=== PATIENT | female | born 1955 | race Caucasian/White ===

== ENCOUNTER → 2017-08-31 16:12 | Outpatient (CLI) | payer BC, MEDICARE, SELFPAY ==
[2017-08-31 16:37] LABS: Basophils % 0.6 % (0.1-2.0); Eosinophils # 0.3 K/mm3 (0.0-0.4); Eosinophils % 3.6 % (0.1-12.0); Hematocrit 45.5 % (37.0-47.0); Hemoglobin 14.2 g/dL (12.2-16.2); Lymphocytes # 2.8 K/mm3 (0.7-4.5); Lymphocytes % 39.7 K/mm3 (10-50); Mean Corpuscular HGB Conc 31.3 g/dL (31.8-35.4); Mean Corpuscular Hemoglobin 29.3 pg (27.0-31.2); Mean Corpuscular Volume 93.7 fl (81-99); Mean Platelet Volume 8.2 fl (7.4-10.4); Monocytes # 0.4 K/mm3 (0.1-1.0); Monocytes % 5.7 % (1.7-9.3); Neutrophils # 3.5 K/mm3 (1.8-7.8); Neutrophils % 50.4 % (37.0-80.0); Platelet Count 201 K/mm3 (142-424); Red Blood Count 4.85 M/mm3 (4.20-5.40); Red Cell Distribution Width 12.8 % (11.5-17.5)
[2017-08-31 17:01] LABS: Alanine Aminotransferase 19 U/L (12-78); Albumin Level 4.4 gm/dL (3.4-5.0); Albumin/Globulin Ratio 1.1 (1.1-1.8); Alkaline Phosphatase 87 U/L (46-116); Aspartate Amino Transferase 20 U/L (15-37); Bilirubin,Total 0.2 mg/dL (0.2-1.0); Blood Urea Nitrogen 26 mg/dL (7-18); Calcium 9.4 mg/dL (8.5-10.1); Carbon Dioxide 29 mmol/L (21.0-32.0); Chloride 106 mmol/L (98-107); Creatine Kinase 127 U/L (26-192); Creatine Kinase MB 1.3 ng/ml (0.0-3.6); Creatinine,Serum 1.14 mg/dL (0.55-1.02); Estimated Glomerular Filt Rate 48 ml/min (>60); GFR (African American) 58 ML/MIN (>60); Globulin 4.1 gm/dl (1.3-3.2); Glucose 84 mg/dL (74-106); Sodium 141 mmol/L (136-145); Total Protein,Serum 8.5 gm/dL (6.4-8.2); Troponin I < 0.02 ng/ml (0.00-0.06)
[2017-08-31 17:09] LABS: D-Dimer < 100 ng/mL (0-400)
== END ==
PROVIDERS: Visit Provider Internal Medicine Adolescent Medicine
DX: R07.1 Chest pain on breathing (principal)
CPT/HCPCS: 36415; 80053; 82550; 82553; 84484; 85025; 85378

== ENCOUNTER → 2017-10-28 13:14 | Outpatient (CLI) | payer BC, MEDICARE, SELFPAY ==
--- NOTE | 2017-10-28 13:27 | XR_ITS ---
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 Joint spaces well-maintained. . The right femoral head and neck are intact. Would note some minor hypertrophic ridging about the superior base of the femoral head bilaterally at both hips subcapital region. This reflects some minor chronic degenerative change. Bones well mineralized AP PELVIS is intact... Unremarkable otherwise. Superior and inferior ramus intact.. Sacrum and SI joints unremarkable . Prominent stool is seen at the low-lying cecum and generous gas & stool rectosigmoid as well IMPRESSION: Hip joint spaces intact. Specifically right hip joint spaces well-maintained. Only note Minor hypertrophic ridging at along the base of the femoral head bilaterally reflecting some mild degenerative changes.
== END ==
PROVIDERS: PCP Internal Medicine Adolescent Medicine
DX: M47.896 Other spondylosis, lumbar region (principal); M54.16 Radiculopathy, lumbar region
CPT/HCPCS: 73502

== ENCOUNTER → 2018-04-12 08:21 | Outpatient (CLI) | payer BC, MEDICARE, SELFPAY ==
--- NOTE | 2018-04-12 08:24 | US_ITS ---
US abdomen limited History: Right upper quadrant pain Ordering Physician:Toni Palmer MD Patient Age: 62 years Comparison:None Findings: Pancreas:Unremarkable. No obvious mass or abnormal fluid collection. No ductal dilatation Liver:No focal liver lesions demonstrated. Homogeneous echogenicity. No intrahepatic biliary ductal dilatation evident Right Kidney:Unremarkable. Normal size and echogenicity. No hydronephrosis Gallbladder:No gallstones, pericholecystic fluid, or gallbladder wall thickening. Common bile duct is upper normal at 7 mm. Impression:Negative gallbladder/right upper quadrant ultrasound
== END ==
PROVIDERS: PCP Internal Medicine Adolescent Medicine; Visit Provider Internal Medicine Adolescent Medicine
DX: R10.11 Right upper quadrant pain (principal)
CPT/HCPCS: 76705

== ENCOUNTER → 2018-04-27 10:09 | Outpatient (CLI) | payer BC, MEDICARE, SELFPAY ==
--- NOTE | 2018-04-27 10:13 | NM_ITS ---
A I brought up minus HEPATOBILIARY SCAN WITH FATTY MEAL/ENSURE ORDERING PHYSICIAN : Toni Palmer MD PATIENT AGE: 62 years GENDER: Female HISTORY: Right upper quadrant pain and nausea Following 8.58 millicuries Tc Choletec,1048 AM , images of the RUQ were obtained. There is prompt uptake of radionuclide by the liver which is grossly unremarkable. Small bowel is visualized. This initial portion of the study is normal. The gallbladder was allowed to fill out to 60 minutes. Fatty meal/ 1 can of ensure over administered, with imaging performed over 60 minutes thereafter.. The obtain data was analyzed and reveals a 75% gallbladder ejection fraction (normal greater than 50%; borderline 35-50%). Thus This is normal value . Visual inspection which supports that there is adequate contraction of the gallbladder as well as, at least over 50-60%. Patient no pain after drinking einsure IMPRESSION: Normal biliary scan Normal functioning gallbladder. 75% % gallbladder ejection fraction by computer analysis. No pain with fatty meal.
== END ==
PROVIDERS: PCP Internal Medicine Adolescent Medicine; Visit Provider Internal Medicine Adolescent Medicine
DX: R10.11 Right upper quadrant pain (principal)
CPT/HCPCS: 78226; A9537

== ENCOUNTER → 2018-06-15 12:57 | Outpatient (CLI) | payer BC, MEDICARE, SELFPAY ==
--- NOTE | 2018-06-15 13:05 | XR_ITS ---
EXAM: XR lumbar spine min 4V HISTORY: ITS.REASON: LUMBAR PAIN ORDERING PHYSICIAN: Toni Palmer MD PATIENT AGE: 62 years COMPARISON: 02/08/2016 FINDINGS: A prior kyphoplasty along the right aspect of L1 with chronic wedge compression changes of L1 with loss of height of approximately 50% with mild retropulsion of the posterior supra aspect of L1 with minimal kyphosis at T12-L1. No acute fracture or dislocation is evident. IMPRESSION: Chronic wedge compression changes at L1 status post prior kyphoplasty. No acute finding
== END ==
PROVIDERS: PCP Internal Medicine Adolescent Medicine; Visit Provider Internal Medicine Adolescent Medicine
DX: M54.5 Low back pain (principal)
CPT/HCPCS: 72110

== ENCOUNTER → 2018-08-02 14:09 | Outpatient (CLI) | payer BC, MEDICARE, SELFPAY ==
[2018-08-02 14:41] LABS: Basophils % 0.5 % (0.1-2.0); Eosinophils # 0.2 K/mm3 (0.0-0.4); Eosinophils % 2.9 % (0.1-12.0); Hematocrit 40.9 % (37.0-47.0); Hemoglobin 13.5 g/dL (12.2-16.2); Lymphocytes # 2.6 K/mm3 (0.7-4.5); Lymphocytes % 36.3 % (10-50); Mean Corpuscular Hemoglobin 29.4 pg (27.0-31.2); Mean Corpuscular Volume 89.2 fl (81-99); Mean Platelet Volume 7.4 fl (7.4-10.4); Monocytes # 0.4 K/mm3 (0.1-1.0); Monocytes % 6.1 % (1.7-9.3); Neutrophils # 3.9 K/mm3 (1.8-7.8); Neutrophils % 54.1 % (37.0-80.0); Platelet Count 224 K/mm3 (142-424); Red Blood Count 4.58 M/mm3 (4.20-5.40); Red Cell Distribution Width 12.7 % (11.5-17.5); White Blood Count 7.3 K/mm3 (4.8-10.8)
[2018-08-02 16:05] LABS: Blood Urea Nitrogen 14 mg/dL (7-18); Creatinine,Serum 1.04 mg/dL (0.55-1.02); Estimated Glomerular Filt Rate 54 ml/min (>60); GFR (African American) 65 ML/MIN (>60)
[2018-08-02 16:10] LABS: Alanine Aminotransferase 18 U/L (12-78); Albumin Level 4.1 gm/dL (3.4-5.0); Albumin/Globulin Ratio 1.1 (1.1-1.8); Alkaline Phosphatase 101 U/L (46-116); Amylase 114 U/L (25-115); Anion Gap 14.7 mEq/L (5-15); Aspartate Amino Transferase 20 U/L (15-37); Bilirubin,Total 0.4 mg/dL (0.2-1.0); Blood Urea Nitrogen 15 mg/dL (7-18); Calcium 9.7 mg/dL (8.5-10.1); Carbon Dioxide 29 mmol/L (21.0-32.0); Chloride 99 mmol/L (98-107); Creatinine,Serum 1.04 mg/dL (0.55-1.02); Estimated Glomerular Filt Rate 54 ml/min (>60); GFR (African American) 65 ML/MIN (>60); Globulin 3.8 gm/dl (1.3-3.2); Glucose 123 mg/dL (74-106); Lipase 76 u/L (73-393); Potassium 4.7 mmoL/L (3.5-5.1); Sodium 138 mmol/L (136-145); Total Protein,Serum 7.9 gm/dL (6.4-8.2)
== END ==
PROVIDERS: Visit Provider Surgery
DX: R10.9 Unspecified abdominal pain (principal)
CPT/HCPCS: 36415; 80053; 82150; 82565; 83690; 84520; 85025

== ENCOUNTER → 2018-08-08 10:10 | Outpatient (CLI) | payer BC, MEDICARE, SELFPAY ==
--- NOTE | 2018-08-08 10:11 | CT_ITS ---
CT abdomen pelvis w con CLINICAL INDICATION: Right-sided abdominal pain ITS.REASON: abdominal pain ORDERING PHYSICIAN: Raj Reynaga MD PATIENT AGE: 62 years COMPARISON: 11/13/2016 TECHNIQUE: Axial images obtained with sagittal and coronal reformats. All CT scans at the facility use one or more dose reduction, viz: automated exposure control, ma/kV adjustment per patient size (including targeted exams where dose is matched to indication, i.e. head), or iterative reconstruction technique. PROCEDURE: Oral Contrast: Redicat IV Contrast: 75 mL's Optiray 350. FINDINGS: No acute finding in the lung bases. The liver, adrenal glands, pancreas, and kidneys have an unremarkable appearance. There is an isodensity in the lateral aspect of the spleen at 12 mm nonspecific. Not significant change dating back to 02/08/2016. There is dilatation of the intra and extrahepatic biliary radicals. Common bile duct measures up to 11 mm. There is narrowing of the common bile but distally. Stricture or lesion of the distal common bile duct separation. Pancreatic duct is not significant dilated. No radio opaque common duct stones are evident. This has been a persistent finding on the CT scan dating back to 02/08/2016. No radio opaque gallstones are evident. There is a moderate amount retained colonic feces. No intestinal obstruction or free air. The appendix is not clearly delineated. No evidence of appendicitis or diverticulitis. No pelvic mass abnormal fluid collection or focal inflammatory change of the pelvis. There is minimal dilatation of the mid abdominal aorta 2.2 cm There is chronic wedge compression changes at L1. No acute bony anomalies are evident. IMPRESSION: 1. Continued prominent common bile duct not significantly changed. This may be better dilated with MRCP if clinically warranted 2. Constipation. 3. Stable isodense lesion of the spleen
== END ==
PROVIDERS: PCP Internal Medicine Adolescent Medicine; Visit Provider Surgery
DX: R10.11 Right upper quadrant pain (principal)
CPT/HCPCS: 74177; Q9967

== ENCOUNTER → 2018-09-04 08:18 | Outpatient (CLI) | payer BC, MEDICARE, SELFPAY ==
--- NOTE | 2018-09-04 08:21 | MR_ITS ---
MR abdomen wo con, MR 3-d myelogram/MRCP CLINICAL INDICATION: Biliary ductal dilatation follow-up, right-sided abdominal pain ITS.REASON: MRCP-dilated bile ducts ORDERING PHYSICIAN: Raj Reynaga MD PATIENT AGE: 62 years Comparison: 08/08/2018 TECHNIQUE: Routine multiplanar multiecho sequences are performed without contrast. MRCP images also generated and reviewed. FINDINGS: There is mild prominence of the intra and extrahepatic biliary radicals. No common duct stone is evident. No obvious pancreatic mass. The pancreatic duct is normal in caliber. The liver, and kidneys have an unremarkable appearance. There is mild degree of motion artifact which does somewhat obscure fine detail. There is a nonspecific macrolobulated area of increased STIR signal involving the spleen corresponding to the area of decreased attenuation on the CT scan. IMPRESSION: 1. No evidence of choledocholithiasis. 2. There is mild prominence of the common bile duct and intrahepatic biliary radicles. Common bile duct measures up to 9 mm. No obvious pancreatic mass. No pancreatic ductal dilatation.
--- NOTE | 2018-09-04 09:34 | XR_ITS ---
EXAM: Repeat xray view HISTORY: ITS.REASON: LUMBAR PAIN ORDERING PHYSICIAN: Raj Reynaga MD PATIENT AGE: 62 years COMPARISON: 06/15/2018 FINDINGS: There has been prior vertebroplasty at the L1 level with mild wedging of L1 similar to the previous exam. There is mild degenerative disc disease at L2-L3 L4-L5 and L5-S1. No acute fracture or dislocation evident. No lytic or blastic change. IMPRESSION: No change in the mild wedge compression changes of L1 status post vertebroplasty with degenerative changes of the lumbar spine. No acute finding
== END ==
PROVIDERS: PCP Internal Medicine Adolescent Medicine; Visit Provider Surgery
DX: K83.8 Other specified diseases of biliary tract (principal)
CPT/HCPCS: 72110; 74181; 76376

== ENCOUNTER → 2018-10-25 11:09 | Outpatient (CLI) | payer BC, MEDICARE, SELFPAY ==
--- NOTE | 2018-10-25 11:15 | XR_ITS ---
XR foot wt bearing LT 3V HISTORY: ITS.REASON: pain ORDERING PHYSICIAN: Antonette Alvarenga DPM PATIENT AGE: 63 years COMPARISON: None FINDINGS: No fracture or dislocation. No lytic or blastic change. There is normal mineralization.. The joint spaces are well-preserved. No significant degenerative/arthritic changes. No erosive changes evident. IMPRESSION: Negative, no acute finding
--- NOTE | 2018-10-25 11:15 | XR_ITS ---
XR ankle wt bearing LT min 3V HISTORY: ITS.REASON: pain ORDERING PHYSICIAN: Antonette Alvarenga DPM PATIENT AGE: 63 years Comparison: None FINDINGS: No fracture or dislocation. No lytic or blastic change. There is normal mineralization.. The joint spaces are well-preserved. No significant degenerative/arthritic changes. No erosive changes evident. IMPRESSION: Negative ankle, no acute finding
--- NOTE | 2018-10-25 11:15 | XR_ITS ---
XR foot wt bearing RT 3V HISTORY: ITS.REASON: pain ORDERING PHYSICIAN: Antonette Alvarenga DPM PATIENT AGE: 63 years COMPARISON: None FINDINGS: No fracture or dislocation. No lytic or blastic change. There is normal mineralization.. The joint spaces are well-preserved. No significant degenerative/arthritic changes. No erosive changes evident. IMPRESSION: Negative, no acute finding
--- NOTE | 2018-10-25 11:15 | XR_ITS ---
XR ankle wt bearing RT min 3V HISTORY: ITS.REASON: pain ORDERING PHYSICIAN: Antonette Alvarenga DPM PATIENT AGE: 63 years Comparison: None FINDINGS: No fracture or dislocation. No lytic or blastic change. There is normal mineralization.. The joint spaces are well-preserved. No significant degenerative/arthritic changes. No erosive changes evident. IMPRESSION: Negative ankle, no acute finding
== END ==
PROVIDERS: PCP Internal Medicine Adolescent Medicine; Visit Provider Podiatrist
DX: R52 Pain, unspecified (principal)
CPT/HCPCS: 73610; 73630

== ENCOUNTER → 2018-11-10 07:36 | Outpatient (CLI) | payer BC, MEDICARE, SELFPAY ==
--- NOTE | 2018-11-10 07:49 | MR_ITS ---
MR lumbar spine wo con HISTORY: Low back pain with bilateral leg pain numbness and tingling ITS.REASON: BACK PAIN ORDERING PHYSICIAN: Jaleel Duenas MD PATIENT AGE: 63 years Comparison: 09/09/1714 TECHNIQUE: Standard multiplanar multiecho sequences are performed without contrast. 3-D MIP and myelographic images are also rendered and reviewed FINDINGS: There is normal alignment. The spinal cord ends at the L1 level. T10-T11: Mild degenerative disc disease. T11-T12: Mild degenerative disc disease. T12-L1: There is moderate wedging involving the central and anterior aspect of the L1 vertebral body which appears chronic and had a similar appearance on 09/16/2014. Is mild buckling of the posterior and superior cortex of L1 with mild retrolisthesis of 3 mm not significant change. No neural impingement. L1-L2: Mild degenerative disc disease with minimal bulging disc. L2-L3: Mild facet ligamentum flavum hypertrophy with mild bilateral lateral recess and foraminal narrowing. L3-L4: Bulging disc with moderate facet and ligamentum hypertrophy with moderate bilateral lateral recess and foraminal narrowing with canal stenosis. L4-L5: Degenerative disc disease with bulging disc along with facet and ligamentum flavum hypertrophy with moderate bilateral foraminal narrowing. L5-S1: There is a transitional segment at L5-S1 with partial sacralization of L5. IMPRESSION: 1. Abnormal MRI of the lumbar spine. Multilevel lumbar spondylosis with degenerative disc disease and facet and ligamentum flavum hypertrophy with lateral recess and foraminal narrowing. PLEASE SEE ABOVE FOR DETAILED DESCRIPTION AT EACH LEVEL. 2. Chronic wedge compression changes of L1 not significant change. 3. Canal stenosis with bilateral lateral recess and foraminal narrowing at L3-L4 not significantly changed
[2018-11-10 15:51] LABS: Basophils # 0.1 K/mm3 (0-0.2); Basophils % 0.8 % (0.1-2.0); Eosinophils # 0.4 K/mm3 (0.0-0.4); Eosinophils % 4.5 % (0.1-12.0); Hematocrit 41.5 % (37.0-47.0); Hemoglobin 12.8 g/dL (12.2-16.2); Lymphocytes # 2.9 K/mm3 (0.7-4.5); Lymphocytes % 36.5 % (10-50); Mean Corpuscular HGB Conc 30.8 g/dL (31.8-35.4); Mean Corpuscular Hemoglobin 26.8 pg (27.0-31.2); Mean Platelet Volume 7.5 fl (7.4-10.4); Monocytes # 0.4 K/mm3 (0.1-1.0); Monocytes % 5.4 % (1.7-9.3); Neutrophils # 4.2 K/mm3 (1.8-7.8); Neutrophils % 52.8 % (37.0-80.0); Platelet Count 235 K/mm3 (142-424); Red Blood Count 4.77 M/mm3 (4.20-5.40); Red Cell Distribution Width 12.3 % (11.5-17.5); White Blood Count 7.9 K/mm3 (4.8-10.8)
[2018-11-10 16:29] LABS: Erythrocyte Sedimentation Rate 18 mm/hr (0-30)
[2018-11-10 16:50] LABS: Alanine Aminotransferase 25 U/L (12-78); Albumin/Globulin Ratio 1.1 (1.1-1.8); Alkaline Phosphatase 108 U/L (46-116); Anion Gap 11.7 mEq/L (5-15); Aspartate Amino Transferase 19 U/L (15-37); Bilirubin,Total 0.3 mg/dL (0.2-1.0); Blood Urea Nitrogen 14 mg/dL (7-18); Calcium 9.3 mg/dL (8.5-10.1); Carbon Dioxide 31 mmol/L (21.0-32.0); Chloride 102 mmol/L (98-107); Creatinine,Serum 1.04 mg/dL (0.55-1.02); Estimated Glomerular Filt Rate 53 ml/min (>60); GFR (African American) 65 ML/MIN (>60); Globulin 3.6 gm/dl (1.3-3.2); Glucose 103 mg/dL (74-106); Potassium 4.7 mmoL/L (3.5-5.1); Sodium 140 mmol/L (136-145); Total Protein,Serum 7.6 gm/dL (6.4-8.2)
[2018-11-14 10:12] LABS: Anti-Centromere B Antibodies <0.2 AI (0.0-0.9); Anti-Jo-1 <0.2 AI (0.0-0.9); Anti-Smith Antibody <0.2 AI (0.0-0.9); Antichromatin Antibodies <0.2 AI (0.0-0.9); Antiscleroderma-70 Antibodies <0.2 AI (0.0-0.9); RNP Antibodies <0.2 AI (0.0-0.9); Sjogren's Anti-SS-A 0.2 AI (0.0-0.9); Sjogren's Anti-SS-B <0.2 AI (0.0-0.9)
[2018-11-14 11:11] LABS: Anti-Cyclic Citrullinated Pept 5 units (0-19)
[2018-11-15 17:37] LABS: Anti-DNA (DS) Ab Qn <1 IU/mL (0-9)
== END ==
PROVIDERS: PCP Internal Medicine Adolescent Medicine; Visit Provider Anesthesiology
DX: M51.17 Intervertebral disc disorders with radiculopathy, lumbosacral region (principal); M19.91 Primary osteoarthritis, unspecified site; M19.049 Primary osteoarthritis, unspecified hand
CPT/HCPCS: 36415; 72148; 76376; 80053; 85025; 85651; 86038; 86200; 86225; 86235

== ENCOUNTER → 2018-11-13 12:01 | Outpatient (CLI) | payer BC, MEDICARE, SELFPAY ==
--- NOTE | 2018-11-13 12:09 | XR_ITS ---
XR hand RT min 3V HISTORY: ITS.REASON: ARTHRITIS ORDERING PHYSICIAN: Toni Palmer MD PATIENT AGE: 63 years COMPARISON: None FINDINGS: No fracture or dislocation. No lytic or blastic change. There is normal mineralization.. There is severe narrowing with mild spurring at the first carpal/metacarpal joint.. 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
--- NOTE | 2018-11-13 12:09 | XR_ITS ---
XR hand LT min 3V HISTORY: ITS.REASON: ARTHRITIS ORDERING PHYSICIAN: Toni Palmer MD PATIENT AGE: 63 years COMPARISON: None FINDINGS: No fracture or dislocation. No lytic or blastic change. There is normal mineralization.. There is severe narrowing and mild spurring at the first carpal/metacarpal joint.. IMPRESSION: No acute process. Osteoarthritis at the first carpal/metacarpal joint.
== END ==
PROVIDERS: PCP Internal Medicine Adolescent Medicine; Visit Provider Internal Medicine Adolescent Medicine
DX: M19.041 Primary osteoarthritis, right hand (principal); M19.042 Primary osteoarthritis, left hand
CPT/HCPCS: 73130

== ENCOUNTER → 2018-12-26 07:39 | Outpatient (CLI) | payer BC, MEDICARE, SELFPAY ==
[2018-12-26 08:08] LABS: Blood Urea Nitrogen 18 mg/dL (7-18); Creatinine,Serum 1.11 mg/dL (0.55-1.02); Estimated Glomerular Filt Rate 49 ml/min (>60); GFR (African American) 60 ML/MIN (>60)
--- NOTE | 2018-12-26 08:37 | MR_ITS ---
MR foot LT wo/w con CLINICAL INDICATION: Ganglionic cyst of both feet, soft tissue mass, pain and swelling, osteoarthritis, hallux valgus, chronic ankle pain ITS.REASON: Ganglion Cyst ORDERING PHYSICIAN: Antonette Alvarenga DPM PATIENT AGE: 63 years Comparison: None TECHNIQUE: Routine multiplanar multiecho sequences are performed without and with gadolinium enhancement FINDINGS: A marker is placed along the dorsal lateral aspect of the proximal foot and is superficial to the extensor digitorum longus tendon. The tendon has an unremarkable appearance. Deep to the tendon and contiguous with the talonavicular joint space is a lobular area of fluid collection measuring 2 cm AP, 2 cm cephalad to caudad, and 1 cm transverse. This has more the appearance of an ankle joint effusion as opposed to a ganglionic cyst. Similar fluid collection is noted along the posterior talocalcaneal joint. There is a type II os navicularis with some mild bone marrow edema at the pseudoarticulation. The tibialis posterior inserts upon the accessory ossicle. No ligamentous or tendinous abnormalities apparent. IMPRESSION: 1. Lobular fluid collection deep to the extensor digitorum longus tendon contiguous with the joint space of the talonavicular joint and may nearly represent a joint effusion. Differential diagnosis would include ganglionic cyst. There is also joint effusion of the talocalcaneal joint. 2. 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 Please correlate with clinical findings
--- NOTE | 2018-12-26 08:37 | MR_ITS ---
MR foot RT wo/w con CLINICAL INDICATION: Ganglionic cyst, soft tissue mass dorsal lateral aspect of foot and ankle over the extensor tendon, pain and swelling Primary osteoarthritis of the feet, acquired hallux valgus, chronic ankle pain, chronic acquired hammertoes and equinus deformity, foot pain ITS.REASON: Ganglion Cyst ORDERING PHYSICIAN: Antonette Alvarenga DPM PATIENT AGE: 63 years Comparison: None TECHNIQUE: Routine multiplanar multiecho sequences are performed without and with contrast. A marker is placed over the dorsal lateral aspect of the foot at the region of palpable abnormality. FINDINGS: The marker is placed over the extensor digitorum tendon. There is a small broad-based area of fluid signal intensity just deep to the placed marker at the extensor digitorum tendon region and may be due to small broad-based ganglionic cyst.. This area measures approximately 1.9 x 1.2 cm and is not well circumscribed. No abnormal enhancement Simple subcutaneous fluid collection is also a consideration.. The remaining tendons have an unremarkable appearance. No obvious ligamentous abnormalities. IMPRESSION: Small ill-defined area of subcutaneous fluid collection about the extensor digitorum longus along the dorsal lateral aspect of the proximal foot corresponding to the palpable abnormality and may represent a ganglion cyst.
--- NOTE | 2018-12-26 10:31 | HMH.ITSHM ---
Current Home Medications as stated by this patient Orlin Cook or administrative representative. []CLONIDINE MORPHINE PROPRANOLOL ATENOLOL
== END ==
PROVIDERS: Visit Provider Podiatrist
DX: M67.471 Ganglion, right ankle and foot (principal); M67.472 Ganglion, left ankle and foot
CPT/HCPCS: 36415; 73720; 82565; 84520; A9576

== ENCOUNTER → 2018-12-27 10:55 | Outpatient (CLI) | payer BC, MEDICARE, SELFPAY ==
--- NOTE | 2018-12-27 10:56 | US_ITS ---
US Arterial Lower Ext Rest History: ITS.REASON: skin changes, current smoker, hypertension, decreased pulses bilaterally ORDERING PHYSICIAN: Antonette Alvarenga DPM PATIENT AGE: 63 years TECHNIQUE: Segmental pressures obtained of both right and left leg. These are compared to brachial blood pressure to yield index at each level sampled including summary KATIE. The data sheets from the procedure are available in PACS FINDINGS Rest study only performed today No prior studies available for comparison. Blood pressures reported are in millimeters mercury. RIGHT LEG KATIE = 1.0. RIGHT LEG TBI=0.8 Brachial BP: 135 Thigh BP: 140 Calf BP: 135 Ankle PT: 139 Ankle DP : 134 Digit =107 LEFT LEG KATIE = 1.0 LEFT LEG TBI= 0.8 Brachial BPD: 134 Thigh BP: 137 Calf BP: 136 Ankle PT:141 Ankle DP: 134 Digit = 111 Pulses and waveforms: Normal IMPRESSION: The ABIs as reported above are within normal limits. Waveforms and pulses are also unremarkable.
== END ==
PROVIDERS: PCP Internal Medicine Adolescent Medicine; Visit Provider Podiatrist
DX: R09.89 Other specified symptoms and signs involving the circulatory and respiratory systems (principal)
CPT/HCPCS: 93923

== ENCOUNTER → 2019-01-16 14:28 | Outpatient (CLI) | payer BC, MEDICARE, SELFPAY ==
--- NOTE | 2019-01-16 14:32 | XR_ITS ---
PROCEDURE: XR CHEST 2V CLINICAL HISTORY: SMOKER, HTN, PRE OP FINDINGS: The cardiomediastinal silhouette and pulmonary vascularity are within normal limits. The lungs are clear without infiltrates, suspicious nodules, or pleural effusions. There are bilateral breast implants present somewhat obscuring mid lung bellamy. Chronic compression fractures present involving L1. IMPRESSION: No acute findings. Dictated by: Addy Phillips MD 01/16/2019 17:05 Signed by: <Electronically signed by Addy Phillips MD in [facility]> 01/16/2019 17:05
--- NOTE | 2019-01-16 14:59 | ECG_ITS ---
APPROVED REPORT Exam: Resting ECG HR:52 bpm ECG Measurements Heart Rate 52 AXES AZ 172 P 74 QRSd 80 QRS 52 QT 418 T 54 QTc 388 <Conclusion> Sinus bradycardia Ow ECG Electronically signed by : Toni Palmer, 01/16/2019 17:13:09
[2019-01-16 15:04] LABS: Basophils # 0.1 K/mm3 (0-0.2); Basophils % 0.8 % (0.1-2.0); Eosinophils # 0.4 K/mm3 (0.0-0.4); Eosinophils % 4.8 % (0.1-12.0); Hematocrit 40.4 % (37.0-47.0); Hemoglobin 12.8 g/dL (12.2-16.2); Lymphocytes # 3.6 K/mm3 (0.7-4.5); Lymphocytes % 43.3 % (10-50); Mean Corpuscular HGB Conc 31.8 g/dL (31.8-35.4); Mean Corpuscular Hemoglobin 28.7 pg (27.0-31.2); Mean Corpuscular Volume 90.2 fl (81-99); Mean Platelet Volume 7.8 fl (7.4-10.4); Monocytes # 0.6 K/mm3 (0.1-1.0); Neutrophils # 3.7 K/mm3 (1.8-7.8); Neutrophils % 44.1 % (37.0-80.0); Platelet Count 256 K/mm3 (142-424); Red Blood Count 4.48 M/mm3 (4.20-5.40); Red Cell Distribution Width 12.9 % (11.5-17.5); White Blood Count 8.4 K/mm3 (4.8-10.8)
[2019-01-16 15:48] LABS: Alanine Aminotransferase 23 U/L (12-78); Albumin Level 3.9 gm/dL (3.4-5.0); Albumin/Globulin Ratio 1.1 (1.1-1.8); Alkaline Phosphatase 103 U/L (46-116); Anion Gap 12.9 mEq/L (5-15); Aspartate Amino Transferase 19 U/L (15-37); Bilirubin,Total 0.4 mg/dL (0.2-1.0); Blood Urea Nitrogen 20 mg/dL (7-18); Calcium 9.3 mg/dL (8.5-10.1); Carbon Dioxide 29 mmol/L (21.0-32.0); Chloride 102 mmol/L (98-107); Creatinine,Serum 1.04 mg/dL (0.55-1.02); Estimated Glomerular Filt Rate 53 ml/min (>60); GFR (African American) 65 ML/MIN (>60); Globulin 3.6 gm/dl (1.3-3.2); Glucose 89 mg/dL (74-106); Potassium 4.9 mmoL/L (3.5-5.1); Sodium 139 mmol/L (136-145); Total Protein,Serum 7.5 gm/dL (6.4-8.2)
[2019-01-18 12:36] LABS: Vitamin D 25 Hydroxy 47.9 ng/mL (30.0-100.0)
== END ==
PROVIDERS: PCP Internal Medicine Adolescent Medicine; Visit Provider Podiatrist
DX: Z01.818 Encounter for other preprocedural examination (principal); M67.472 Ganglion, left ankle and foot; M67.471 Ganglion, right ankle and foot
CPT/HCPCS: 36415; 71046; 80053; 82652; 85025; 93005

== ENCOUNTER → 2019-01-23 10:44 | Outpatient (CLI) | payer BC, MEDICARE, SELFPAY ==
--- NOTE | 2019-01-23 10:53 | US_ITS ---
PROCEDURE: US BREAST RT COMPLETE CLINICAL INDICATION: COMPLICATIONS OF IMPLANTS Breast pain COMPARISON: US BREAST LT COMPLETE from 01/23/2019 FINDINGS: Patient has bilateral implants. There are no previous ultrasounds or mammograms available for review. Ultrasound is performed of both right and left breast. No obvious suspicious breast lesions are evident. Cannot adequately confirm implant integrity with ultrasound. Further evaluation could be obtained with MRI if clinically warranted IMPRESSION: Bilateral breast implants. No sonographic abnormalities of breast tissue evident Dictated by: Addy Phillips MD 01/26/2019 15:43 Electronically signed by Addy Phillips MD in [facility] 01/26/2019 15:43
--- NOTE | 2019-01-23 10:54 | XR_ITS ---
PROCEDURE: XR CLAVICLE RT CLINICAL INDICATION: RT CLAVICLE PAIN COMPARISON: No exams were available for comparison FINDINGS: No fracture or dislocation. No lytic or blastic change. There is normal mineralization. The joint spaces are well-preserved. No significant degenerative/arthritic changes. No erosive changes evident. Other findings:None. IMPRESSION: Negative right clavicle Dictated by: Addy Phillips MD 01/23/2019 12:22 Signed by: <Electronically signed by Addy Phillips MD in [facility]> 01/23/2019 12:22
== END ==
PROVIDERS: PCP Internal Medicine Adolescent Medicine; Visit Provider Internal Medicine Adolescent Medicine
DX: M89.8X1 Other specified disorders of bone, shoulder (principal); T85.9XXA Unspecified complication of internal prosthetic device, implant and graft, initial encounter; N64.4 Mastodynia
CPT/HCPCS: 73000; 76641

== ENCOUNTER 2019-02-21 14:18 | Observation (INO) ==
--- NOTE | 2019-02-21 14:23 | Emergency Department Note ---
ED Disposition Clinical Impression: Acute kidney injury Acute bronchitis Qualifiers: Bronchitis organism: unspecified organism Qualified Code(s): J20.9 - Acute bronchitis, unspecified Disposition: Admitted as Observation Condition on Discharge: Fair Referrals: Toni Palmer MD [Primary Care Provider] - - Critical Care Critical Care Time: No Attestation: On , the high probability of a clinically significant, sudden or life threatening deterioration of the following system(s) required my full and direct attention, intervention and personal management. The time I documented below is in addition to time spent performing reported procedures but includes the following listed in this critical care notation. Medical Decision Making - Homero Inquiry Pt receiving controlled substance: No Vital Signs: 02/21/19 14:18 Temperature 98.8 F Temperature Source Oral Pulse Rate [Right Radial] 55 L Respiratory Rate 22 Blood Pressure [Right Arm] 119/45 L Blood Pressure Mean [Right Arm] 69 Blood Pressure Source [Right Arm] Automatic Cuff Blood Pressure Position [Right Arm] Sitting 02 Sat by Pulse Oximetry 97 Oxygen Delivery Method Room Air - Lab Data Lab Results 02/21/19 14:30: WBC 10.9 H, RBC 4.37, Hgb 12.3, Hct 39.8, MCV 91.3, MCH 28.3, MCHC 31.0 L, RDW 13.4, Plt Count 265, MPV 8.1, Neut % (Auto) 67.1, Lymph % (Auto) 21.5, [place] % (Auto) 7.6, Eos % (Auto) 3.6, Baso % (Auto) 0.3, Neut # (Auto) 7.3, Lymph # (Auto) 2.4, [place] # (Auto) 0.8, Eos # (Auto) 0.4, Baso # (Auto) 0.0 02/21/19 14:30: Sodium 139, Potassium 4.3, Chloride 101, Carbon Dioxide 29, Anion Gap 13.3, BUN 25 H, Creatinine 2.16 H, Estimated Creat Clear 24, Estimated GFR 23 L, Est GFR ( Amer) 28 L, Glucose 96, Calcium 8.7, Total Bilirubin 0.6, AST 16, ALT 16, Alkaline Phosphatase 115, Troponin I < 0.02, Total Protein 8.2, Albumin 3.6, Globulin 4.6 H, Albumin/Globulin Ratio 0.8 L 02/21/19 14:30: Lactate 0.8 02/21/19 16:05: Urine Color Yellow, Urine Appearance Clear, Urine pH 6.0, Ur Specific Anton 1.010, Urine Protein Negative, Urine Glucose (UA) Negative, Urine Ketones Negative, Urine Blood 2+, Urine Nitrate Negative, Urine Bilirubin Negative, Urine Urobilinogen 0.2, Ur Leukocyte Esterase Negative, Urine RBC Occasional, Urine WBC 5-10, Ur Squamous Epith Cells 5-10, Urine Bacteria Trace 02/21/19 16:25: Influenza Type A Ag Negative, Influenza Type B Ag Negative Result diagrams: 02/21/19 14:30 02/21/19 14:30 Orders (Tests/Meds): ED MEDICATIONS Discontinued Medications Generic Name Dose Route Start Last Admin Trade Name Freq PRN Reason Stop Dose Admin Sodium Chloride 1,000 mls @ 999 mls/hr 02/21/19 15:19 02/21/19 15:21 Sod Chlor 0.9% 1000ml Bag IV 02/21/19 16:19 999 mls/hr .Q1H1M ONE Administration Ioversol 70 ml 02/21/19 15:16 02/21/19 15:19 Rad-Optiray 350 100ml Vial IV 02/21/19 15:17 70 ml ONCE ONE Administration Protocol Sodium Chloride 50 ml 02/21/19 15:16 02/21/19 15:19 Rad-Ns 50ml Vial IV 02/21/19 15:17 50 ml ONCE ONE Administration Sodium Chloride 10 ml 02/21/19 15:16 02/21/19 15:19 Rad-Saline Flush 10ml Syringe IV 02/21/19 15:17 10 ml ONCE ONE Administration ORDERS Category Date Time Status Blood Culture Stat Micro 02/21/19 14:30 Received - Radiology Data #1 Image(s): Chest Image Reviewed: Yes I have reviewed radiologist's interpretation FINDINGS: The cardiomediastinal silhouette and pulmonary vascularity are within normal limits. There appears to be subtle mild diffuse interstitial prominence. Lungs however are somewhat hypoaerated. Again seen is a haziness of the midlung bellamy related to the bilateral breast prostheses. No acute bony abnormalities. IMPRESSION: Hypoaerated lungs. Slight increased interstitial prominence, slightly greater on the right and this could be mild nonspecific interstitial pneumonitis. Dictated by: Clement Lovelace 02/21/2019 14:55 Electronically signed by Clement Lovelace in [place] 02/21/2019 - CT Data CT Scan: Chest (CTA) Time Received: 15:[address] Reviewed: Yes: I have viewed the radiologist's interpretation Findings Narrative: FINDINGS: PULMONARY ARTERIES: No pulmonary embolus evident. AORTA: No acute finding. No thoracic aortic aneurysm or dissection evident LUNGS: There are strands of increased density in the right middle lobe and lingula. There is subtle hazy ground-glass densities in the anterior segment of both upper lobes. There is subtle degree of mild increased prominence of the peripheral interstitial markings in the lung bellamy bilaterally. There is a small irregular density also in the posterior right apex. There is no pneumothorax or pleural effusion. There is a calcified benign granuloma in the right lower lobe. PLEURAL SPACES: No significant effusion. No evidence of pneumothorax. HEART: Unremarkable. Normal heart size. No significant pericardial effusion. MEDIASTINAL AND HILAR STRUCTURES: No mediastinal or hilar mass evident. No dominant adenopathy BONY STRUCTURES: There are chronic compression deformities at the L1 and T11 level also visualized on the 08/08/2018 exam. LYMPH NODES: No enlarged lymph nodes evident. UPPER ABDOMEN: Unremarkable. IMPRESSION: No evidence of pulmonary embolism. Right middle lobe and lingular scarring or linear atelectasis. A combination of interstitial prominence and some ground-glass densities suggest possible interstitial process perhaps mild edema. Interstitial pneumonitis is not ruled out although because of diffuse nature may be less likely. Area of atelectasis or scarring posterior right apex. Dictated by: Clement Lovelace 02/21/2019 15:39 Electronically signed by Clement Lovelace in [place] 02/21/2019 - ECG Data Tracing #1 EKG interpreted by Salbador Hare MD: Rhythm: sinus bradycardia Rate: 55 [place]: normal Ectopy: none Conduction: normal ST Segment Changes: none T Wave Changes: none Q Waves: none No evidence of acute ischemia or injury Baseline artifact present, but I consider the EKG adequate for accurate interpretation. Prior electrocardiagrams reviewed. No change from prior tracings. - Physician Consults Physician Consulted: Omar Palmer Time: 17:15 Reason -: Admission, Pt condition Comment/Response: Recommends to admit the patient to the hospital. We discussed the patient's clinical information, including history, exam, laboratory and radiology results and ED course. Per hospital procedure, I will write temporary bridge inpatient orders on the patient. Specific orders requested by the admitting physician: 1 dose of steroids. Continue IV fluids. Levaquin. Recheck labs in the morning. Medical Decision Narrative: CT angiogram of the chest was performed before creatinine returned. Patient just had a normal creatinine on 02/16/2019 and I assume that the veterinary surgery technician used that value to greenlight the CT angiogram. Patient is given a fluid bolus on return from CT scan. General Adult HPI - General Chief complaint: Shortness of Breath/Dyspnea Stated complaint: SOA Time Seen by Provider: 02/21/19 14:23 - History of Present Illness HPI narrative: Has had 2 recent podiatry surgeries by Dr. Alvarenga. Had surgery on her left foot 01/24/2019. Had surgery on her right foot on 02/16/2019. Over the past couple of days she has developed shortness of breath, pain in her right chest when she takes of breath, fever of 101 degrees last night and cough producing yellow sputum. She called Dr. Alvarenga last night who advised her to come to the emergency room, but she says she could not make it in. She saw Dr. Alvarenga in the office today. They examined her surgical incisions and felt everything was fine there. They sent her to the emergency room for evaluation. She denies vomiting, diarrhea, abdominal pain, urinary symptoms. She is eating and drinking well. - Related Data Home Medications Medication Instructions Recorded Confirmed aspirin 81 mg tablet,delayed 81 mg PO DAILY 11/30/18 02/21/19 release dicyclomine 20 mg tablet 20 mg PO BID 11/30/18 02/21/19 ergocalciferol (vitamin D2) 50,000 50,000 unit PO QWEEK 11/30/18 02/21/19 unit capsule fexofenadine 180 mg tablet 180 mg PO DAILY #30 tab 11/30/18 02/21/19 fluticasone propionate 50 1 spray INTRANASAL DAILY 11/30/18 02/21/19 mcg/actuation nasal spray,suspension lactulose 10 gram/15 mL oral 15 ml PO DAILY 11/30/18 02/21/19 solution loratadine 10 mg tablet 10 mg PO DAILY 11/30/18 02/21/19 meclizine 12.5 mg tablet 12.5 mg PO TID PRN 07/11/19 10/02/19 metaxalone 800 mg tablet 800 mg PO TID 11/30/18 02/21/19 morphine ER 30 mg tablet,extended 30 mg PO Q8H 11/30/18 02/21/19 release mupirocin 2 % topical ointment 1 applic TOPICAL BID 11/30/18 02/21/19 polyethylene glycol 3350 17 17 g PO DAILY 11/30/18 02/21/19 gram/dose oral powder promethazine 25 mg tablet 25 mg PO Q6H PRN 11/30/18 02/21/19 clonidine HCl 0.1 mg tablet 0.1 mg PO TID #120 tab 02/01/19 02/21/19 dextroamphetamine-amphetamine 10 10 mg PO DAILY #30 tab 02/01/19 02/21/19 mg tablet meclizine 25 mg tablet 25 mg PO NEEDED PRN #90 tab 02/01/19 02/21/19 oxycodone-acetaminophen 5 mg-325 1 tab PO TID #20 tab 02/01/19 02/21/19 mg tablet propranolol 20 mg tablet 20 mg PO BID #60 tab 02/01/19 02/21/19 Nitrofurantoin Monohyd/M-Cryst 100 mg PO BID 02/15/19 02/21/19 [Macrobid 100 mg Capsule] Previous Rx's Medication Instructions Recorded ibuprofen 800 mg tablet 800 mg PO BID #60 tab 01/16/19 Allergies Allergy/AdvReac Type Severity Reaction Status Date / Time albuterol [From VENTOLIN HFA] Allergy Mild Verified 02/21/19 13:47 codeine [CODEINE] Allergy Mild Verified 02/21/19 13:47 erythromycin base Allergy Mild Verified 02/21/19 13:47 [ERYTHROMYCIN BASE] ketorolac [From TORADOL] Allergy Mild Verified 02/21/19 13:47 meperidine [From DEMEROL] Allergy Mild Verified 02/21/19 13:47 Penicillins [PENICILLINS] Allergy Mild Verified 02/21/19 13:47 silk Allergy Mild Verified 02/21/19 13:47 Sulfa (Sulfonamide Allergy Mild Verified 02/21/19 13:47 Antibiotics) [SULFA (SULFONAMIDE ANTIBIOTICS)] tetracycline [TETRACYCLINE] Allergy Mild Verified 02/21/19 13:47 buprenorphine [From SUBOXONE] Allergy Unknown I-HIVES Verified 02/21/19 13:47 morphine [From ANA] Allergy Unknown I-HIVES Verified 02/21/19 13:47 naloxone [From SUBOXONE] Allergy Unknown I-HIVES Verified 02/21/19 13:47 propoxyphene Allergy Unknown I-HIVES Verified 02/21/19 13:47 [From DARVOCET-N] [facility] History - Hepatitis A Screen Attestation statement:: This patient has been screened for Hepatitis A risk factors. I have reviewed the patient's past medical history: Yes Medical History: Reports:: Anxiety, Cancer, Hypertension Denies:: Diabetes Mellitus Type 1, Diabetes Mellitus Type 2, Internal Pacemaker, MRSA, Seizures Other Medical History: Reports: Other. Denies: Blood Transfusion Reaction Laterality Cases: Other Surgeries: Yes: Colonoscopy, Colon Resection, Hernia Repair, Hysterectomy- Total. No: Pacemaker Amputation: No Fractures: No - Social History Smoking Status: Current every day smoker Tobacco Type: cigarettes # Packs/Day (cigarettes): 1 Alcohol Intake: never Alcohol Intake Frequency:: holidays/special occasions only Substance Use Type: marijuana Occupational Status: disabled Housing: house Household Members: family - Psychiatric History Pschychiatric History:: Reports:: Anxiety Family Hx:: Cancer, Hypertension, Hyperlipidemia ROS Obtained: Yes All systems reviewed & no additional complaints - Constitutional Constitutional: Reports fever(s) - Cardiovascular Cardiovascular: Reports chest pain - Respiratory Respiratory: Yes cough, Yes dyspnea, Yes excessive phlegm production, Yes pain on inspiration - Gastrointestinal Gastrointestingal: Denies: abdominal pain, diarrhea, vomiting - Genitourinary Female Genitourinary: Denies difficulty voiding Physical Exam - General General appearance: alert, in no apparent distress - Head Head exam: atraumatic, normocephalic - Eye Eye exam: Present: normal appearance, EOMI - ENT ENT exam: Present: mucous membranes moist - Neck Neck exam: Present: normal inspection, trachea midline - Chest Chest inspection: Present: normal inspection, symmetric chest wall rise - Respiratory Respiratory exam: Present: normal lung sounds bilaterally. Absent: respiratory distress - Cardiovascular Cardiovascular exam: Present: regular rate, normal rhythm - Abdominal Exam Abdominal exam: Present: soft, distention, normal bowel sounds. Absent: tenderness, guarding - Extremities Exam Extremities exam: Present: other (Orthopedic boot on right foot. Bandages in place. Left foot surgical incisions healing well without signs of infection.) - Neurological Exam Neurological exam: Present: alert, oriented X3 - Psychiatric Psychiatric exam: Present: normal affect, normal mood - Skin Skin exam: Present: warm, dry
[2019-02-21 14:57] LABS: Basophils % 0.3 % (0.1-2.0); Eosinophils # 0.4 K/mm3 (0.0-0.4); Eosinophils % 3.6 % (0.1-12.0); Hematocrit 39.8 % (37.0-47.0); Hemoglobin 12.3 g/dL (12.2-16.2); Lymphocytes # 2.4 K/mm3 (0.7-4.5); Lymphocytes % 21.5 % (10-50); Mean Corpuscular Volume 91.3 fl (81-99); Mean Platelet Volume 8.1 fl (7.4-10.4); Monocytes # 0.8 K/mm3 (0.1-1.0); Monocytes % 7.6 % (1.7-9.3); Neutrophils # 7.3 K/mm3 (1.8-7.8); Neutrophils % 67.1 % (37.0-80.0); Platelet Count 265 K/mm3 (142-424); Red Blood Count 4.37 M/mm3 (4.20-5.40); Red Cell Distribution Width 13.4 % (11.5-17.5); White Blood Count 10.9 K/mm3 (4.8-10.8)
[2019-02-21 15:09] LABS: Alanine Aminotransferase 16 U/L (12-78); Albumin Level 3.6 gm/dL (3.4-5.0); Albumin/Globulin Ratio 0.8 (1.1-1.8); Alkaline Phosphatase 115 U/L (46-116); Anion Gap 13.3 mEq/L (5-15); Aspartate Amino Transferase 16 U/L (15-37); Bilirubin,Total 0.6 mg/dL (0.2-1.0); Blood Urea Nitrogen 25 mg/dL (7-18); Calcium 8.7 mg/dL (8.5-10.1); Carbon Dioxide 29 mmol/L (21.0-32.0); Chloride 101 mmol/L (98-107); Globulin 4.6 gm/dl (1.3-3.2); Glucose 96 mg/dL (74-106); Sodium 139 mmol/L (136-145); Total Protein,Serum 8.2 gm/dL (6.4-8.2)
[2019-02-21 16:17] LABS: Microscopic, Urine URINE MICROSCOPIC (MICROSCOPIC)
[2019-02-21 16:20] LABS: Appearance,Urine CLEAR (Clear); Bilirubin,Urine Negative (Negative); Blood, Urine 2+ (Negative); Color,Urine YELLOW (Yellow); Glucose,Urine (UA) Negative (Negative); Ketones,Urine Negative (Negative); Leukocyte Esterase,Urine Negative (Negative); Protein,Urine Negative (Negative); Urobilinogen,Urine 0.2 EU/dl (0.2)
[2019-02-21 16:26] LABS: Bacteria,Urine Trace /lpf; RBC,Urine Occasional #/hpf (0-3)
[2019-02-22 06:14] LABS: Basophils % 0.1 % (0.1-2.0); Eosinophils # 0.1 K/mm3 (0.0-0.4); Eosinophils % 0.6 % (0.1-12.0); Hematocrit 36.8 % (37.0-47.0); Hemoglobin 11.1 g/dL (12.2-16.2); Lymphocytes # 1.3 K/mm3 (0.7-4.5); Mean Corpuscular HGB Conc 30.1 g/dL (31.8-35.4); Mean Platelet Volume 8.2 fl (7.4-10.4); Monocytes # 0.2 K/mm3 (0.1-1.0); Monocytes % 2.6 % (1.7-9.3); Neutrophils # 6.9 K/mm3 (1.8-7.8); Neutrophils % 81.7 % (37.0-80.0); Platelet Count 236 K/mm3 (142-424); Red Cell Distribution Width 13.3 % (11.5-17.5); White Blood Count 8.5 K/mm3 (4.8-10.8)
--- NOTE | 2019-02-22 07:45 | Pharmacy Consult Notes ---
[facility] Pharmacy VTE Monitoring - Patient Demographics Admission date: 02/21/19 Report Date: 02/22/19 Time: 07:45 Allergies/Adverse Reactions: Patient Allergies albuterol [From VENTOLIN HFA] Allergy (Mild, Verified 02/21/19 13:47) codeine [CODEINE] Allergy (Mild, Verified 02/21/19 13:47) erythromycin base [ERYTHROMYCIN BASE] Allergy (Mild, Verified 02/21/19 13:47) ketorolac [From TORADOL] Allergy (Mild, Verified 02/21/19 13:47) meperidine [From DEMEROL] Allergy (Mild, Verified 02/21/19 13:47) Penicillins [PENICILLINS] Allergy (Mild, Verified 02/21/19 13:47) silk Allergy (Mild, Verified 02/21/19 13:47) Sulfa (Sulfonamide Antibiotics) [SULFA (SULFONAMIDE ANTIBIOTICS)] Allergy (Mild, Verified 02/21/19 13:47) tetracycline [TETRACYCLINE] Allergy (Mild, Verified 02/21/19 13:47) buprenorphine [From SUBOXONE] Allergy (Unknown, Verified 02/21/19 13:47) I-HIVES morphine [From ANA] Allergy (Unknown, Verified 02/21/19 13:47) I-HIVES naloxone [From SUBOXONE] Allergy (Unknown, Verified 02/21/19 13:47) I-HIVES propoxyphene [From DARVOCET-N] Allergy (Unknown, Verified 02/21/19 13:47) I-HIVES Height: 1.7 m Weight: 61.915 kg Patient Problems: Current Active Problems Acute bronchitis (Acute) Acute kidney injury (Acute) - VTE Risk Labs: VTE Related Lab Results Hgb 11.1 g/dL (12.2-16.2) L 02/22/19 05:40 Hct 36.8 % (37.0-47.0) L 02/22/19 05:40 Plt Count 236 K/mm3 (142-424) 02/22/19 05:40 BUN 25 mg/dL (7-18) H 02/21/19 14:30 Creatinine 2.16 mg/dL (0.55-1.02) H 02/21/19 14:30 Estimated Creat Clear 24 mL/min (50-200) 10/02/19 14:30 Was VTE Risk Assessment Performed: Yes VTE Score: 7 VTE Risk Level: Moderate Risk - Prophylaxis VTE Prophylaxis Ordered?: Yes Types of VTE Prophylaxis: TEDS Knee High Location of Applied Device: Bilateral Lower Extremeties - VTE Diagnosis Confirmed Treatment or plan recommended: Continue Current Treatment
[2019-02-22 08:07] VITALS: BP 161/83
[2019-02-22 08:17] LABS: Anion Gap 17.6 mEq/L (5-15); Calcium 9.2 mg/dL (8.5-10.1)
--- NOTE | 2019-02-22 08:27 | H&P/Discharge Summary ---
General - General Admission date:: 02/21/19 Discharge date: 02/22/19 *Admission Date: 02/21/19 *Chief complaint: Shortness of breath *History of present illness: Ms. Cook is a 63-year-old female who presented to the ER yesterday from podiatry clinic due to shortness of breath during her postop follow-up appointment. On assessment she was found to have concern for bronchitis as well as acute kidney injury with significant increase in her baseline creatinine. Denies any recent symptoms of cough, congestion, fevers. No diarrhea or poor p.o. intake. Has been making good urine. Did recently however have removal of cystic lesion on her foot. Is taking antibiotics as prescribed. Admitted to medicine for further management and observation overnight [facility] History I have reviewed the patient's past medical history: Yes Medical History: Reports:: Anxiety, Cancer, Hypertension Denies:: Diabetes Mellitus Type 1, Diabetes Mellitus Type 2, Internal Pacemaker, MRSA, Seizures *Have you ever received a pneumonia vaccine?: Yes *Have you received a flu vaccine this season?: No Other Medical History: Reports: Other. Denies: Blood Transfusion Reaction Laterality Cases: Right: Arthroscopy Knee, Bilateral: Lumpectomy, Mastectomy Other Surgeries: Yes: Colonoscopy, Colon Resection, Hernia Repair, Hysterectomy- Total. No: Pacemaker Amputation: No Fractures: No - *Social History Educational Level: Completed High School Smoking Status: Current every day smoker Tobacco Type: cigarettes # Packs/Day (cigarettes): 1 Alcohol Intake: never Alcohol Intake Frequency:: holidays/special occasions only Substance Use Type: marijuana *Occupational Status:: disabled Housing: house Household Members: spouse, children *Travel in the last 8 weeks: None - Psychiatric History Pschychiatric History:: Reports:: Anxiety Family Hx:: Cancer Review of Systems - Review of Systems Review of systems:: pertinent systems reviewed and negative unless documented below Exam Vital signs and Labs for Last 24 Hours: Temp Pulse Resp BP Pulse Ox 98.7 F 70 18 161/83 H 97 02/22/19 08:00 02/22/19 08:00 02/22/19 08:00 02/22/19 08:00 02/22/19 08:00 Laboratory Results - last 24 hr 02/21/19 14:30: WBC 10.9 H, RBC 4.37, Hgb 12.3, Hct 39.8, MCV 91.3, MCH 28.3, MCHC 31.0 L, RDW 13.4, Plt Count 265, MPV 8.1, Neut % (Auto) 67.1, Lymph % (Auto) 21.5, [place] % (Auto) 7.6, Eos % (Auto) 3.6, Baso % (Auto) 0.3, Neut # (Auto) 7.3, Lymph # (Auto) 2.4, [place] # (Auto) 0.8, Eos # (Auto) 0.4, Baso # (Auto) 0.0 02/21/19 14:30: Sodium 139, Potassium 4.3, Chloride 101, Carbon Dioxide 29, Anion Gap 13.3, BUN 25 H, Creatinine 2.16 H, Estimated Creat Clear 24, Estimated GFR 23 L, Est GFR ( Amer) 28 L, Glucose 96, Calcium 8.7, Total Bilirubin 0.6, AST 16, ALT 16, Alkaline Phosphatase 115, Troponin I < 0.02, Total Protein 8.2, Albumin 3.6, Globulin 4.6 H, Albumin/Globulin Ratio 0.8 L 02/21/19 14:30: Lactate 0.8 02/21/19 16:05: Urine Color Yellow, Urine Appearance Clear, Urine pH 6.0, Ur Specific [place] 1.010, Urine Protein Negative, Urine Glucose (UA) Negative, Urine Ketones Negative, Urine Blood 2+, Urine Nitrate Negative, Urine Bilirubin Negative, Urine Urobilinogen 0.2, Ur Leukocyte Esterase Negative, Urine RBC Occasional, Urine WBC 5-10, Ur Squamous Epith Cells 5-10, Urine Bacteria Trace 02/21/19 16:25: Influenza Type A Ag Negative, Influenza Type B Ag Negative 02/22/19 05:40: WBC 8.5, RBC 4.00 L, Hgb 11.1 L, Hct 36.8 L, MCV 92.0, MCH 27.7, MCHC 30.1 L, RDW 13.3, Plt Count 236, MPV 8.2, Neut % (Auto) 81.7 H, Lymph % (Auto) 15.0, [place] % (Auto) 2.6, Eos % (Auto) 0.6, Baso % (Auto) 0.1, Neut # (Auto) 6.9, Lymph # (Auto) 1.3, [place] # (Auto) 0.2, Eos # (Auto) 0.1, Baso # (Auto) 0.0 02/22/19 05:40: Sodium 139, Potassium 4.6, Chloride 103, Carbon Dioxide 23 D, Anion Gap 17.6 H, BUN 20 H, Creatinine 1.11 H D, Estimated Creat Clear 50, Estimated GFR 49 L, Est GFR ( Amer) 60 D, Glucose 177 H D, Calcium 9.2 I & O for Last 24 hours: Intake & Output 02/19/19 02/20/19 02/21/19 02/22/19 23:59 23:59 23:59 23:59 Intake Total 1078 / 1078 Output Total 940 / 940 Balance 138 / 138 Weight 60.951 kg 61.915 kg - *Routine HEENT Exam Head: Present: normocephalic Eye: Present: EOMI, PERRL ENT: Present: mucous membranes moist - *Routine Neck Exam Present: supple. Absent: lymphadenopathy - *Routine Respiratory Exam Present: CTA bilaterally, prolonged expiratory phase - *Routine Cardiovascular Exam Present: RRR - *Routine Abdominal Exam Present: soft, normoactive bowel sounds. Absent: tenderness - *Routine Extremities Exam Absent: cyanosis, clubbing, edema Comments: Right foot in postsurgical boot; well-healed scar on dorsum of left foot. No edema - *Routine Skin Exam Present: warm. Absent: rash - *Routine Neurological Exam Present: alert, oriented X3 - Detailed Eye Exam Eyelids: Left normal inspection Hospital Course Hospital Course: Observed overnight with aggressive fluid rehydration. Initiated on IV antibiotics. Required no oxygen overnight. Remained stable on room air. Groundglass opacities were seen on CT of chest and the right middle lobe. Patient overall doing better. Kidney function returned to baseline creatinine of 1.1 this morning. No acute events overnight, hemodynamically stable. Denies any chest pain, shortness of breath, nausea or vomiting. Medically stable for discharge home Results Labs on day of discharge: Labs from last 24 hours 02/22/19 02/22/19 02/21/19 05:40 05:40 16:25 WBC 8.5 RBC 4.00 L Hgb 11.1 L Hct 36.8 L MCV 92.0 MCH 27.7 MCHC 30.1 L RDW 13.3 Plt Count 236 MPV 8.2 Neut % (Auto) 81.7 H Lymph % (Auto) 15.0 [place] % (Auto) 2.6 Eos % (Auto) 0.6 Baso % (Auto) 0.1 Neut # (Auto) 6.9 Lymph # (Auto) 1.3 [place] # (Auto) 0.2 Eos # (Auto) 0.1 Baso # (Auto) 0.0 Sodium 139 Potassium 4.6 Chloride 103 Carbon Dioxide 23 D Anion Gap 17.6 H BUN 20 H Creatinine 1.11 H D Estimated Creat Clear 50 Estimated GFR 49 L Est GFR ( Amer) 60 D Glucose 177 H D Lactate Calcium 9.2 Total Bilirubin AST ALT Alkaline Phosphatase Troponin I Total Protein Albumin Globulin Albumin/Globulin Ratio Urine Color Urine Appearance Urine pH Ur Specific [place] Urine Protein Urine Glucose (UA) Urine Ketones Urine Blood Urine Nitrate Urine Bilirubin Urine Urobilinogen Ur Leukocyte Esterase Urine RBC Urine WBC Ur Squamous Epith Cells Urine Bacteria Influenza Type A Ag Negative Influenza Type B Ag Negative 02/21/19 02/21/19 02/21/19 16:05 14:30 14:30 WBC RBC Hgb Hct MCV MCH MCHC RDW Plt Count MPV Neut % (Auto) Lymph % (Auto) [place] % (Auto) Eos % (Auto) Baso % (Auto) Neut # (Auto) Lymph # (Auto) [place] # (Auto) Eos # (Auto) Baso # (Auto) Sodium 139 Potassium 4.3 Chloride 101 Carbon Dioxide 29 Anion Gap 13.3 BUN 25 H Creatinine 2.16 H Estimated Creat Clear 24 Estimated GFR 23 L Est GFR ( Amer) 28 L Glucose 96 Lactate 0.8 Calcium 8.7 Total Bilirubin 0.6 AST 16 ALT 16 Alkaline Phosphatase 115 Troponin I < 0.02 Total Protein 8.2 Albumin 3.6 Globulin 4.6 H Albumin/Globulin Ratio 0.8 L Urine Color Yellow Urine Appearance Clear Urine pH 6.0 Ur Specific [place] 1.010 Urine Protein Negative Urine Glucose (UA) Negative Urine Ketones Negative Urine Blood 2+ Urine Nitrate Negative Urine Bilirubin Negative Urine Urobilinogen 0.2 Ur Leukocyte Esterase Negative Urine RBC Occasional Urine WBC 5-10 Ur Squamous Epith Cells 5-10 Urine Bacteria Trace Influenza Type A Ag Influenza Type B Ag 02/21/19 14:30 WBC 10.9 H RBC 4.37 Hgb 12.3 Hct 39.8 MCV 91.3 MCH 28.3 MCHC 31.0 L RDW 13.4 Plt Count 265 MPV 8.1 Neut % (Auto) 67.1 Lymph % (Auto) 21.5 [place] % (Auto) 7.6 Eos % (Auto) 3.6 Baso % (Auto) 0.3 Neut # (Auto) 7.3 Lymph # (Auto) 2.4 [place] # (Auto) 0.8 Eos # (Auto) 0.4 Baso # (Auto) 0.0 Sodium Potassium Chloride Carbon Dioxide Anion Gap BUN Creatinine Estimated Creat Clear Estimated GFR Est GFR ( Amer) Glucose Lactate Calcium Total Bilirubin AST ALT Alkaline Phosphatase Troponin I Total Protein Albumin Globulin Albumin/Globulin Ratio Urine Color Urine Appearance Urine pH Ur Specific [place] Urine Protein Urine Glucose (UA) Urine Ketones Urine Blood Urine Nitrate Urine Bilirubin Urine Urobilinogen Ur Leukocyte Esterase Urine RBC Urine WBC Ur Squamous Epith Cells Urine Bacteria Influenza Type A Ag Influenza Type B Ag DS: Diagnosis - Discharge Diagnosis (1) Acute bronchitis Status: Acute (2) Acute kidney injury Status: Acute (3) Ganglion cyst of right foot Status: Chronic Discharge Plan - Patient Discharge Instructions Patient Instructions: Acute Bronchitis - Follow up Plan Follow up with: Joe Gunter MD [Staff Physician] - Disposition: Home, Self-Custodial Medications: Home Medications Medication Instructions Recorded Confirmed Type aspirin 81 mg tablet,delayed 81 mg PO DAILY 11/30/18 02/21/19 History release morphine ER 30 mg tablet,extended 30 mg PO Q8H 11/30/18 02/21/19 History release polyethylene glycol 3350 17 17 g PO DAILY 11/30/18 02/21/19 History gram/dose oral powder promethazine 25 mg tablet 25 mg PO Q6H PRN 11/30/18 02/21/19 History clonidine HCl 0.1 mg tablet 0.1 mg PO TID #120 tab 02/01/19 02/21/19 History meclizine 25 mg tablet 25 mg PO NEEDED PRN #90 tab 02/01/19 02/21/19 History propranolol 20 mg tablet 20 mg PO BID #60 tab 02/01/19 02/21/19 History levoFLOXacin [Levaquin 750mg 750 mg PO DAILY #5 tab 02/22/19 Rx tablet] Prescriptions/Medication Reconciliation: Continued aspirin 81 mg tablet,delayed release 81 mg PO DAILY promethazine 25 mg tablet 25 mg PO Q6H PRN PRN Reason: Nausea clonidine HCl 0.1 mg tablet 0.1 mg PO TID #120 tab propranolol 20 mg tablet 20 mg PO BID #60 tab meclizine 25 mg tablet 25 mg PO NEEDED PRN #90 tab PRN Reason: Dizziness polyethylene glycol 3350 17 gram/dose oral powder 17 g PO DAILY morphine ER 30 mg tablet,extended release 30 mg PO Q8H - Problem Reconciliation Problems Reviewed?: Yes
--- NOTE | 2019-02-24 19:18 | Electrocardiograph Report ---
APPROVED REPORT Exam: Resting ECG HR:55 bpm ECG Measurements Heart Rate 55 AXES OK 140 P 69 QRSd 78 QRS 71 QT 418 T65 QTc 399 <Conclusion> Sinus bradycardia Biatrial abnormality Abnormal ECG Electronically signed by : Toni Palmer, 02/24/2019 19:17:58
== END 2019-02-22 13:40 | disposition home or self-care (01) ==
LOC: 2ND 14:18 → ER 14:18 → 2ND 18:30
PROVIDERS: ADMIT Emergency Medicine; ATTEND Internal Medicine Adolescent Medicine
CPT/HCPCS: 36415; 71010; 71045; 71275; 80048; 80053; 81001; 83605; 84484; 85025; 87040; 87275; 87276; 93005; 96366; 96374; 99284; 99285; G0378; J1956; Q9967

== ENCOUNTER 2019-04-26 14:00 | Outpatient (RCR) | payer BC, MEDICARE, SELFPAY ==
--- NOTE | 2019-04-09 16:08 | [facility].PTOPWND ---
Rehab Outpt Wound Evaluation Rehab OP Wound Evaluation Start: 04/09/19 14:48 Freq: Status: Active Protocol: Document 04/09/19 16:01 BRAYDEN (Rec: 04/09/19 16:08 PHORNE [id number]) Electronically Signed By Scott Simon, PT 04/09/19 16:01 Subjective/History History History Pt is 63 yowf who presents with c/o pain and increased edema in B feet x ~ 1.5 mos S/ P B ganglion cyst removal. She reports difficulty with ambulation at baseline due to arachnoiditis, It causes me to fall and not be able to walk, then I'm OK again in a few minutes. This also causes her to have numbness in B feet on her sole. She has increased tenderness to palpation throughout B feet and lower legs. She has hx of JOLENE, hernia repair, colon resection, B mastectomy due to breast cancer, anxiety, HTN. Subjective Subjective Currently pain 5/10, 9/10 at worst in B feet. Lymphedema Eval Classification of Lymphedema Secondary Lymphedema Yes Post-Surgical Lymphedema Yes Stemmer's sign Stemmer's Sign no Stage of Lymphedema Lymphedema stages Stage 0 (subjective c/o heaviness and aching) Skin Changes Dry Skin Yes Redness Yes Discoloration of Skin Yes Other Changes Yes Pain Scale Pain Scale (0-10) 5 Radiation Therapy Has received radiation therapy no Chemo Therapy Has received chemo therapy yes Affected Extremities Areas Affected by Lymphedema/Edema Right Lower Extremity,Left Lower Extremity Manual Lymphatic Drainage Treatment Area MLD Treatment Area Right Lower Extremity,Left Lower Extremity Wound Problems/Impairments Impairments Problems/Impairmments Palpation Tenderness,Impaired Range of Motion,Impaired Strength,Impaired Endurance, Impaired Gait Pattern,Impaired Walking,Impaired Standing, Impaired Balance,Increased Edema,Subjective C/O Pain, Impaired Self Care/Self Management Prognosis
== END 2019-04-26 14:05 | disposition home or self-care (01) ==
LOC: PT 14:00
PROVIDERS: PCP Internal Medicine Adolescent Medicine; Visit Provider Podiatrist
DX: I89.0 Lymphedema, not elsewhere classified (principal); R60.9 Edema, unspecified; I83.893 Varicose veins of bilateral lower extremities with other complications
CPT/HCPCS: 97140; 97163; 97760

== ENCOUNTER → 2019-06-13 11:32 | Outpatient (CLI) | payer BC, MEDICARE, SELFPAY ==
--- NOTE | 2019-06-13 11:42 | XR_ITS ---
PROCEDURE: XR CLAVICLE RT CLINICAL INDICATION: right clavicle pain; knot COMPARISON: XR CLAVICLE RT from 01/23/2019 FINDINGS: No fracture or dislocation. No lytic or blastic change. There is normal mineralization. The joint spaces are well-preserved. No significant degenerative/arthritic changes. No erosive changes evident. Other findings:None. IMPRESSION: No acute findings. Dictated by: Kurtis Potts 06/13/2019 15:14 Electronically signed by Kurtis Potts in [place] 06/13/2019 15:14
--- NOTE | 2019-06-13 11:42 | XR_ITS ---
PROCEDURE: XR CLAVICLE LT CLINICAL INDICATION: left clavicle pain; knot COMPARISON: XR CLAVICLE RT from 01/23/2019 FINDINGS: No fracture or dislocation. No lytic or blastic change. There is normal mineralization. The joint spaces are well-preserved. No significant degenerative/arthritic changes. No erosive changes evident. Other findings:None. IMPRESSION: No acute findings. Dictated by: Kurtis Potts 06/13/2019 15:13 Electronically signed by Kurtis Potts in [place] 06/13/2019 15:13
[2019-06-13 12:43] LABS: Basophils # 0.1 K/mm3 (0-0.2); Basophils % 0.9 % (0.1-2.0); Eosinophils # 0.3 K/mm3 (0.0-0.4); Eosinophils % 3.9 % (0.1-12.0); Hematocrit 43.2 % (37.0-47.0); Hemoglobin 13.8 g/dL (12.2-16.2); Lymphocytes # 2.9 K/mm3 (0.7-4.5); Lymphocytes % 36.6 % (10-50); Mean Corpuscular Hemoglobin 28.6 pg (27.0-31.2); Mean Corpuscular Volume 89.6 fl (81-99); Mean Platelet Volume 8.3 fl (7.4-10.4); Monocytes # 0.4 K/mm3 (0.1-1.0); Monocytes % 5.5 % (1.7-9.3); Neutrophils # 4.2 K/mm3 (1.8-7.8); Platelet Count 240 K/mm3 (142-424); Red Blood Count 4.83 M/mm3 (4.20-5.40); Red Cell Distribution Width 13.1 % (11.5-17.5); White Blood Count 7.9 K/mm3 (4.8-10.8)
[2019-06-13 14:01] LABS: Blood Urea Nitrogen 18 mg/dL (7-18); Calcium 9.5 mg/dL (8.5-10.1); Carbon Dioxide 31 mmol/L (21.0-32.0); Creatinine,Serum 1.04 mg/dL (0.55-1.02); Estimated Glomerular Filt Rate 53 ml/min (>60); GFR (African American) 65 ML/MIN (>60); Glucose 80 mg/dL (74-106)
[2019-06-13 14:06] LABS: Anion Gap 12.9 mEq/L (5-15); Chloride 105 mmol/L (98-107); Potassium 4.9 mmoL/L (3.5-5.1); Sodium 144 mmol/L (136-145)
== END ==
PROVIDERS: PCP Internal Medicine Adolescent Medicine; Visit Provider Urology
DX: M89.8X1 Other specified disorders of bone, shoulder (principal); R06.00 Dyspnea, unspecified; R07.9 Chest pain, unspecified
CPT/HCPCS: 36415; 73000; 80048; 85025

== ENCOUNTER → 2019-06-20 07:28 | Outpatient (CLI) | payer BC, MEDICARE, SELFPAY ==
--- NOTE | 2019-06-20 07:28 | CA_ITS ---
APPROVED REPORT Remediation Project Engineer: Ngoc Tanner RVT Laterality: Bilateral Study Quality: Excellent Indications: dizziness Risk Factors Hypertension: Smoking Doppler Spectral Velocity Analysis ECA (R) 133.70/27.90 cm/s ECA (L) 78.80/22.00 cm/s dICA (R) 49.20/19.00 cm/s dICA (L) 61.10/25.90 cm/s Tim (R) 80.50/21.20 cm/s Tim (L) 64.30/23.40 cm/s pICA (R) 79.40/26.30 cm/s pICA (L) 68.40/22.30 cm/s dCCA (R) 71.30/26.30 cm/s dCCA (L) 89.20/35.20 cm/s pCCA (R) 84.10/26.30 cm/s pCCA (L) 77.40/21.50 cm/s Vert (R) 29.60/10.80 cm/s Vert (L) 53.70/13.40 cm/s ICA/CCA 1.13 ICA/CCA 0.77 Findings Study suggests less than 20% stenosis of the right internal cartoid artery. Study suggests less than 20% stenosis of the left internal cartoid artery. Antegrade flow seen bilateral vertebral arteries. Conclusion No increased velocities to suggest hemodynamically significant stenosis in either internal carotid artery. Electronically signed by : Addy Phillips MD 06/22/2019 17:21:06
--- NOTE | 2019-06-20 07:28 | CA_ITS ---
APPROVED REPORT Feather Washer: Ngoc Tanner RVT Study Quality: Excellent Indications: uncontrolled HTN, Risk Factors Hypertension Smoking Renal Artery Doppler Origin (R) 165.6/ cm/sec Proximal (R) 147.7/ cm/sec Mid (R) 156.6/ cm/sec Distal (R) 173.9/ cm/sec Renal Aorta Ratio (R) 1.55 Segmental A. (R) 53.1/16.3 cm/sec RI: 0.69 Segmental A. Sup (R) 53.1/16.3 cm/sec Segmental A. Mid (R) 50.4/25.9 cm/sec Segmental A. Inf (R) 42.8/20.4 cm/sec Origin (L) 125.0/ cm/sec Proximal (L) 118.1/ cm/sec Mid (L) 92.6/ cm/sec Distal (L) 80.8/ cm/sec Renal Aorta Ratio (L) 1.11 Segmental A. (L) 86.5/31.3 cm/sec RI: 0.63 Segmental A. Sup (L) 86.5/31.3 cm/sec Segmental A. Mid (L) 79.1/32.5 cm/sec Segmental A. Inf (L) 66.4/28.2 cm/sec Renal Measurements Kidney Size (R) 8.2x6.4 cm Cortical Thickness (R) 1.4 cm Kidney Size (L) 6.7x5.1 cm Cortical Thickness (L) 0.9 cm Conclusion Study suggests no evidence of renal artery stenosis. Electronically signed by : Addy Phillips MD 06/22/2019 17:20:23
--- NOTE | 2019-06-20 07:28 | CA_ITS ---
APPROVED REPORT EXAM: Comprehensive 2D, Doppler, and color-flow Echocardiogram Sports Recruiter: Patrizia Rma, RT(R) Ht: 5 ft 7 in Wt: 125lbs BSA: 1.66 BP: 160/80 mmHg Indications: HTN, dizziness, smoker, palpitations, edema, MEDEL, hx of breast cancer and bilateral mastectomy, bilateral implants 2D Dimensions LVOT 1.85 cm (M/F) 1.5-2.5 M-Mode Dimensions RVDd 1.54 cm (0.9-2.6) LVDd 4.71 cm (3.5-5.7) LVDs 3.74 cm (3.5-5.7) IVSd 0.63 cm (0.6-1.1) PWd 0.72 cm (0.6-1.1) EF (Teich) 42.10% FS 20.60% EDV (Teich) 102.90 mL ESV (Teich) 59.60 mL LV Diastology E/A Ratio 1.14 Mitral Valve MV A Velocity 68.00 (40-130 cm/s) Left Ventricle Left atrium is normal size, left ventricle is normal size, there is no concentric left ventricular hypertrophy, visually estimated ejection fraction 55% with no regional wall motion abnormality. Diastolic parameters are within normal range. Right Ventricle Right atrium and right ventricle are normal size and contractility. Aortic Valve Aortic valve is minimally thickened and fibrosed. Mitral Valve Mitral valve leaflets are minimally thickened, there is mild mitral regurgitation. Tricuspid Valve Tricuspid valve grossly normal, there is mild tricuspid regurgitation. Pulmonic Valve Pulmonic valve is poorly visualized. Great Vessels Aortic root is normal size. Pericardium No significant pericardial effusion noted. Conclusion 1. Normal left ventricular size, preserved left ventricular systolic function, visually estimated ejection fraction 55% with no regional wall motion abnormality, diastolic parameters are within normal range. 2. Mild mitral and tricuspid regurgitation. 3. No significant pericardial effusion noted. Electronically signed by : Watson Kirk, 06/21/2019 12:59:18
== END ==
PROVIDERS: PCP Internal Medicine Adolescent Medicine; Visit Provider Urology
DX: I10 Essential (primary) hypertension (principal); R00.2 Palpitations; R06.00 Dyspnea, unspecified; R07.9 Chest pain, unspecified; R42 Dizziness and giddiness
CPT/HCPCS: 93306; 93880; 93976

== ENCOUNTER → 2019-06-26 12:20 | Outpatient (CLI) | payer BC, MEDICARE, SELFPAY ==
--- NOTE | 2019-06-26 12:25 | CT_ITS ---
PROCEDURE: CT CHEST WO CON CLINICAL INDICATION: evaluate BL sternoclavicular joints Right-sided palpable mass of the clavicle which is increasing in COMPARISON: CT ANGIO CHEST from 02/21/2019 XR CLAVICLE RT from 06/13/2019 TECHNIQUE: Axial images obtained with sagittal and coronal reformats. All CT scans at the facility use one or more dose reduction, viz: automated exposure control, ma/kV adjustment per patient size (including targeted exams where dose is matched to indication, i.e. head), or iterative reconstruction technique. FINDINGS: A BB is placed along palpable abnormality on the right. Just inferior to this is the head of the clavicle which is slightly prominent with some increased sclerosis the cortical margin. There is minimal superior subluxation of the head of the clavicle on the compared to the normal left side. Slight increased soft tissue density is present around the head of the clavicle consistent mild pannus formation anteriorly. There are bilateral breast prosthesis. Radial folds are present in the inferior aspect of the prosthesis. There are a few small axillary lymph nodes. Incidental note made of coronary artery calcifications. Coronary artery calcifications. Changes of COPD with bronchial thickening and some scattered scarring with evidence of old granulomatous disease. There are mild degenerative changes in the thoracic spine. There is severe wedge compression changes involving L1 centrally which is not significantly changed. IMPRESSION: There are mild hypertrophic changes of the medial aspect of the right clavicle with minimal surrounding pannus formation. This may account for the palpable abnormality. This is not significantly changed from 02/21/2019. COPD with old granulomatous disease and coronary artery calcifications noted. Dictated by: Addy Phillips MD 06/27/2019 13:51 Electronically signed by Addy Phillips MD in [facility] 06/27/2019 13:51
== END ==
PROVIDERS: PCP Internal Medicine Adolescent Medicine; Visit Provider Orthopaedic Surgery
DX: M25.511 Pain in right shoulder (principal); M25.512 Pain in left shoulder
CPT/HCPCS: 71250

== ENCOUNTER → 2019-08-02 17:17 | Outpatient (CLI) | payer BC, MEDICARE, SELFPAY ==
[2019-08-02 17:20] LABS: Adenovirus,PCR Not Detected (NotDetected); Bordetella Pertussis Not Detected (NotDetected); Chlamydophila Pneumoniae, PCR Not Detected (NotDetected); Coronavirus 229E Not Detected (NotDetected); Coronavirus NL63 Not Detected (NotDetected); Coronavirus OC43 Not Detected (NotDetected); Coronovirus HKU1,PCR Not Detected (NotDetected); Human Metapneumovirus Not Detected (NotDetected); Influenza A, PCR Not Detected (NotDetected); Influenza AH1, 2009 Not Detected (NotDetected); Influenza AH1, PCR Not Detected (NotDetected); Influenza AH3,PCR Not Detected (NotDetected); Influenza B, PCR Not Detected (NotDetected); Mycoplasma Pneumoniae, PCR Not Detected (NotDetected); Parainfluenza 1, PCR Not Detected (NotDetected); Parainfluenza 2, PCR Not Detected (NotDetected); Parainfluenza 3, PCR Not Detected (NotDetected); Parainfluenza 4, PCR Not Detected (NotDetected); Respiratory Syncytial Virus Not Detected (NotDetected); Rhinovirus/Enterovirus Not Detected (NotDetected)
--- NOTE | 2019-08-02 17:27 | XR_ITS ---
PROCEDURE: XR CHEST 2V CLINICAL HISTORY: cough, fever COMPARISON: No exams were available for comparison FINDINGS: The cardiomediastinal silhouette and pulmonary vascularity are within normal limits. There are bilateral breast implants present causing attenuation of the overlying lung bellamy bilaterally. This is not significantly changed. No definite lobar consolidation or collapse is evident. There is wedging of L2 which is not significantly changed. IMPRESSION: No acute findings. Dictated by: Addy Phillips MD 08/02/2019 18:29 Electronically signed by Addy Phillips MD in [facility] 08/02/2019 18:29
== END ==
PROVIDERS: Visit Provider Internal Medicine Adolescent Medicine
DX: R05 Cough (principal); R50.9 Fever, unspecified
CPT/HCPCS: 71046; 87486; 87581; 87633; 87798

== ENCOUNTER 2019-08-05 22:34 | Inpatient (IN) ==
[2019-08-05 23:10] LABS: Basophils # 0.1 K/mm3 (0-0.2); Basophils % 0.6 % (0.1-2.0); Eosinophils # 0.4 K/mm3 (0.0-0.4); Eosinophils % 4.7 % (0.1-12.0); Hematocrit 41.2 % (37.0-47.0); Hemoglobin 13.4 g/dL (12.2-16.2); Lymphocytes # 2.6 K/mm3 (0.7-4.5); Lymphocytes % 29.2 % (10-50); Mean Corpuscular HGB Conc 32.4 g/dL (31.8-35.4); Mean Corpuscular Volume 87.8 fl (81-99); Mean Platelet Volume 10.9 fl (7.4-10.4); Monocytes # 0.5 K/mm3 (0.1-1.0); Monocytes % 5.6 % (1.7-9.3); Neutrophils # 5.4 K/mm3 (1.8-7.8); Platelet Count 165 K/mm3 (142-424); Red Cell Distribution Width 13.2 % (11.5-17.5); White Blood Count 9.1 K/mm3 (4.8-10.8)
[2019-08-05 23:43] LABS: Albumin Level 4.5 g/dl (3.5-5.0); Albumin/Globulin Ratio 1.5 (1.1-1.8); Globulin 3.1 g/dL (1.3-3.2); Total Protein,Serum 7.6 g/dl (6.3-8.2)
[2019-08-05 23:44] LABS: Bilirubin,Total 0.1 mg/dl (0.2-1.3)
--- NOTE | 2019-08-06 01:29 | Emergency Department Note ---
ED Disposition Clinical Impression: Small bowel obstruction Disposition: Admitted As Inpatient Condition on Discharge: Good Instructions: DI for Acute Abdomen Referrals: Toni Palmer MD [Primary Care Provider] - - Critical Care Critical Care Time: No Attestation: On 08/05/19, the high probability of a clinically significant, sudden or life threatening deterioration of the following system(s) required my full and direct attention, intervention and personal management. The time I documented below is in addition to time spent performing reported procedures but includes the following listed in this critical care notation. Medical Decision Making - Medical Records Medical records reviewed: Yes: I reviewed the patient's medical records. - Homero Inquiry Pt receiving controlled substance: No Vital Signs: 08/05/19 22:50 08/06/19 01:32 Temperature 97.6 F Temperature Source Oral Pulse Rate [Right Brachial] 76 71 Respiratory Rate 16 19 Blood Pressure [Right Arm] 171/109 H 142/87 H Blood Pressure Mean [Right Arm] 129 105 Blood Pressure Source [Right Arm] Automatic Cuff Automatic Cuff Blood Pressure Position [Right Arm] Sitting Sitting 02 Sat by Pulse Oximetry 99 97 Oxygen Delivery Method Room Air Room Air - Lab Data Lab results reviewed: Yes: I reviewed the patient's lab results. Lab Results 08/05/19 23:01: WBC 9.1, RBC 4.70, Hgb 13.4, Hct 41.2, MCV 87.8, MCH 28.5, MCHC 32.4, RDW 13.2, Plt Count 165, MPV 10.9 H, Neut % (Auto) 60.0, Lymph % (Auto) 29.2, [place] % (Auto) 5.6, Eos % (Auto) 4.7, Baso % (Auto) 0.6, Neut # (Auto) 5.4, Lymph # (Auto) 2.6, [place] # (Auto) 0.5, Eos # (Auto) 0.4, Baso # (Auto) 0.1 08/05/19 23:01: Lactate 1.0 08/05/19 23:28: Sodium 139, Potassium 4.0, Chloride 103, Carbon Dioxide 29, Anion Gap 11.0, BUN 26 H, Creatinine 1.00, Estimated Creat Clear 51, Estimated GFR 56 L, Est GFR ( Amer) 68, Glucose 122 H, Calcium 10.0, Total Bilirubin 0.1 L, AST 21, ALT 12, Alkaline Phosphatase 94, Total Protein 7.6, Albumin 4.5, Globulin 3.1, Albumin/Globulin Ratio 1.5, Amylase 143 H, Lipase 61 Result diagrams: 08/05/19 23:01 08/05/19 23:28 Orders (Tests/Meds): ED MEDICATIONS Discontinued Medications Generic Name Dose Route Start Last Admin Trade Name Venkataq PRN Reason Stop Dose Admin Hydromorphone HCl 1 mg 08/05/19 23:06 08/05/19 23:11 Dilaudid 2mg/Ml Syringe IV 08/05/19 23:07 1 mg ONCE ONE Administration Hydromorphone HCl 1 mg 08/05/19 23:49 08/05/19 23:51 Dilaudid 2mg/Ml Syringe IV 08/05/19 23:50 1 mg ONCE ONE Administration Hydromorphone HCl 1 mg 08/06/19 01:29 08/06/19 01:29 Dilaudid 2mg/Ml Syringe IV 08/06/19 01:30 1 mg ONCE ONE Administration Ioversol 75 ml 08/06/19 00:37 08/06/19 00:39 Rad-Optiray 350 100ml Vial IV 08/06/19 00:38 75 ml ONCE ONE Administration Protocol Promethazine HCl 12.5 mg 08/05/19 23:03 08/05/19 23:11 Phenergan 25mg/Ml 1ml Vial IV 08/05/19 23:04 12.5 mg ONCE ONE Administration Sodium Chloride 25 ml 08/05/19 23:04 08/05/19 23:11 Sod Chlor 0.9% 25ml Bag IV 08/05/19 23:05 25 ml ONCE ONE Administration Sodium Chloride 10 ml 08/06/19 00:37 08/06/19 00:39 Rad-Saline Flush 10ml Syringe IV 08/06/19 00:38 10 ml ONCE ONE Administration ORDERS Category Date Time Status CT abdomen pelvis w con Stat Cat Scan 08/05/19 22:46 Taken Urinalysis and Microscopic Stat Lab 08/05/19 22:46 Ordered Blood Culture Stat Micro 08/05/19 23:01 Received - CT Data CT Scan: Abdomen, Pelvis Time Received: 01:[address] Reviewed: Yes: I have viewed the radiologist's interpretation Preliminary Findings: Abnormal (sbo) - Physician Consults Physician Consulted: tod Nausea/Vomiting/Diarrhea HPI - General Chief complaint: Abdominal Pain Stated complaint: Severe abdominal pain Time Seen by Provider: 08/05/19 23:00 Mode of Arrival: Wheelchair Source of Information: Patient, Spouse, Medical Record Limitations: No Limitations Description of Symptoms (Recalled from ER Triage Doc. by RN): PATIENT REPORTS SEVERE ABDOMINAL PAIN. PATIENT REPORTS THE PAIN CAME ON A COUPLE HOURS AGO. PATIENT REPORTS SHE HAS A HC OF SMALL BOWEL OBSTRUCTION AND THE SYMPTOMS SHE IS HAVING NOW ARE THE SAME. 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 - reports last episode a few yrs ago in [place] complaint: nausea, vomiting, abdominal pain Onset (ago): hour(s) Associated Abdominal Pain: Yes Location of pain: periumbilical Severity: severe Quality: cramping Associated symptoms: denies other symptoms - Related Data Home Medications Medication Instructions Recorded Confirmed promethazine 25 mg tablet 25 mg PO Q6H PRN 11/30/18 08/05/19 propranolol 20 mg tablet 20 mg PO BID #60 tab 02/01/19 08/05/19 clonidine HCl 0.1 mg tablet 0.1 mg PO QID #120 tab 06/13/19 08/05/19 dextroamphetamine-amphetamine 10 10 mg PO DAILY #30 tab 06/13/19 08/05/19 mg tablet oxycodone myristate 36 mg capsule 36 mg PO BID 06/13/19 08/05/19 sprinkle extended release 12hr(DON'T CRUSH) Amlodipine Besylate [Amlodipine 5 mg PO DAILY 08/05/19 08/05/19 5mg tab] Allergies Allergy/AdvReac Type Severity Reaction Status Date / Time albuterol [From VENTOLIN HFA] Allergy Mild Verified 08/05/19 22:55 codeine [CODEINE] Allergy Mild Verified 08/05/19 22:55 erythromycin base Allergy Mild Verified 08/05/19 22:55 [ERYTHROMYCIN BASE] ketorolac [From TORADOL] Allergy Mild Verified 08/05/19 22:55 meperidine [From DEMEROL] Allergy Mild Verified 08/05/19 22:55 Penicillins [PENICILLINS] Allergy Mild Verified 08/05/19 22:55 silk Allergy Mild Verified 08/05/19 22:55 Sulfa (Sulfonamide Allergy Mild Verified 08/05/19 22:55 Antibiotics) [SULFA (SULFONAMIDE ANTIBIOTICS)] tetracycline [TETRACYCLINE] Allergy Mild Verified 08/05/19 22:55 buprenorphine [From SUBOXONE] Allergy Unknown I-HIVES Verified 08/05/19 22:55 morphine [From ANA] Allergy Unknown I-HIVES Verified 08/05/19 22:55 naloxone [From SUBOXONE] Allergy Unknown I-HIVES Verified 08/05/19 22:55 propoxyphene Allergy Unknown I-HIVES Verified 08/05/19 22:55 [From DARVOCET-N] [facility] History - Hepatitis A Screen Drug use history?: No High risk sexual behaviors?: No History of sexually transmitted infection?: No Currently employed?: No Childcare worker?: No Do you have indoor plumbing?: Yes Do you have electricity?: Yes Attestation statement:: This patient has been screened for Hepatitis A risk factors. I have reviewed the patient's past medical history: Yes Medical History: Reports:: Anxiety, Cancer, Hypertension Denies:: Diabetes Mellitus Type 1, Diabetes Mellitus Type 2, Internal Pacemaker, MRSA, Seizures Other Medical History: Reports: Other. Denies: Blood Transfusion Reaction Laterality Cases: Right: Arthroscopy Knee, Bilateral: Lumpectomy, Mastectomy Other Surgeries: Yes: Colonoscopy, Colon Resection, Hernia Repair, Hysterectomy-Total, Other. No: Pacemaker Amputation: No Fractures: No Comment: right foot, bilateral breast implants - Social History Smoking Status: Current every day smoker Tobacco Type: cigarettes # Packs/Day (cigarettes): 1 #Yrs smoked (if former smoker): 40 Alcohol Intake: never Alcohol Intake Frequency:: holidays/special occasions only Substance Use Type: marijuana Occupational Status: retired Housing: house Household Members: spouse, children - Psychiatric History Pschychiatric History:: Reports:: Anxiety Family Hx:: Cancer ROS Obtained: Yes All systems reviewed & no additional complaints - Constitutional Constitutional: Denies fever(s) - Eyes Eyes: Denies change in vision - ENT Ears, Nose, Mouth, and Throat: Denies sore throat - Cardiovascular Cardiovascular: Denies chest pain - Respiratory Respiratory: No cough - Gastrointestinal Gastrointestingal: Reports: as per HPI, abdominal pain, nausea, vomiting - Genitourinary Female Genitourinary: Denies hematuria - Musculoskeletal Musculoskeletal: Denies joint pain - Integumentary/Breasts Skin/Breast: Denies rash - Neurologic Neurologic: Denies dizziness, Denies seizure-like activity Physical Exam - General General appearance: alert - Head Head exam: normocephalic - Eye Eye exam: Present: PERRL, EOMI. Absent: scleral icterus - ENT ENT exam: Present: mucous membranes dry - Neck Neck exam: Present: trachea midline - Respiratory Respiratory exam: Present: normal lung sounds bilaterally. Absent: respiratory distress - Cardiovascular Cardiovascular exam: Present: regular rate, systolic murmur - Abdominal Exam Abdominal exam: Present: soft, tenderness, guarding. Absent: rebound, rigidity Abdominal tenderness: Present: suprapubic, moderate - Extremities Exam Extremities exam: Present: full ROM - Neurological Exam Neurological exam: Present: alert, oriented X3, CN II-XII intact - Psychiatric Psychiatric exam: Present: normal affect - Skin Skin exam: Absent: rash
[2019-08-06 04:04] LABS: Microscopic, Urine URINE MICROSCOPIC (MICROSCOPIC)
[2019-08-06 04:07] LABS: Appearance,Urine CLEAR (Clear); Bilirubin,Urine Negative (Negative); Blood, Urine 1+ (Negative); Color,Urine YELLOW (Yellow); Glucose,Urine (UA) Negative (Negative); Ketones,Urine Negative (Negative); Leukocyte Esterase,Urine Negative (Negative); PH,Urine 6.5 (5.0-8.5); Protein,Urine Negative (Negative); Specific Gravity, Urine 1.015 (1.005-1.030); Urobilinogen,Urine 0.2 EU/dl (0.2)
[2019-08-06 04:10] LABS: WBC,Urine Occasional #/hpf (0-3)
[2019-08-06 06:41] LABS: Anion Gap 8.1 mEq/L (5-15); Calcium 9.6 mg/dl (8.4-10.2)
[2019-08-06 06:58] LABS: Basophils % 0.5 % (0.1-2.0); Eosinophils # 0.2 K/mm3 (0.0-0.4); Eosinophils % 2.9 % (0.1-12.0); Hematocrit 38.4 % (37.0-47.0); Hemoglobin 12.2 g/dL (12.2-16.2); Lymphocytes # 2.6 K/mm3 (0.7-4.5); Lymphocytes % 33.2 % (10-50); Mean Corpuscular HGB Conc 31.8 g/dL (31.8-35.4); Mean Corpuscular Volume 89.8 fl (81-99); Mean Platelet Volume 8.1 fl (7.4-10.4); Monocytes # 0.5 K/mm3 (0.1-1.0); Monocytes % 6.1 % (1.7-9.3); Neutrophils # 4.5 K/mm3 (1.8-7.8); Neutrophils % 57.3 % (37.0-80.0); Platelet Count 196 K/mm3 (142-424); Red Blood Count 4.28 M/mm3 (4.20-5.40); Red Cell Distribution Width 13.1 % (11.5-17.5); White Blood Count 7.8 K/mm3 (4.8-10.8)
--- NOTE | 2019-08-06 08:01 | Pharmacy Consult Notes ---
[facility] Pharmacy VTE Monitoring - Patient Demographics Admission date: 08/06/19 Report Date: 08/06/19 Time: 08:01 Allergies/Adverse Reactions: Patient Allergies albuterol [From VENTOLIN HFA] Allergy (Mild, Verified 08/05/19 22:55) codeine [CODEINE] Allergy (Mild, Verified 08/05/19 22:55) erythromycin base [ERYTHROMYCIN BASE] Allergy (Mild, Verified 08/05/19 22:55) ketorolac [From TORADOL] Allergy (Mild, Verified 08/06/19 02:36) HEMMORHAGE meperidine [From DEMEROL] Allergy (Mild, Verified 08/05/19 22:55) Penicillins [PENICILLINS] Allergy (Mild, Verified 08/05/19 22:55) Sulfa (Sulfonamide Antibiotics) [SULFA (SULFONAMIDE ANTIBIOTICS)] Allergy (Mild, Verified 08/05/19 22:55) tetracycline [TETRACYCLINE] Allergy (Mild, Verified 08/05/19 22:55) buprenorphine [From SUBOXONE] Allergy (Unknown, Verified 08/05/19 22:55) I-HIVES morphine [From ANA] Allergy (Unknown, Verified 08/05/19 22:55) I-HIVES naloxone [From SUBOXONE] Allergy (Unknown, Verified 08/05/19 22:55) I-HIVES propoxyphene [From DARVOCET-N] Allergy (Unknown, Verified 08/05/19 22:55) I-HIVES Height: 1.65 m Weight: 58.769 kg Patient Problems: Current Active Problems Small bowel obstruction (Acute) - VTE Risk Labs: VTE Related Lab Results Hgb 12.2 g/dL (12.2-16.2) 08/06/19 05:15 Hct 38.4 % (37.0-47.0) 08/06/19 05:15 Plt Count 196 K/mm3 (142-424) 08/06/19 05:15 BUN 24 mg/dl (7-17) H 08/06/19 05:15 Creatinine 0.90 mg/dl (0.52-1.04) 08/06/19 05:15 Estimated Creat Clear 53 mL/min (50-200) 08/06/19 05:15 Was VTE Risk Assessment Performed: Yes VTE Score: 6 VTE Risk Level: Moderate Risk Clinical Trial Participant: No - Prophylaxis VTE Prophylaxis Ordered?: Yes Types of VTE Prophylaxis: TEDS Knee High Location of Applied Device: Bilateral Lower Extremeties
--- NOTE | 2019-08-06 08:31 | History & Physical Report ---
*Admission Date: 08/06/19 *Chief complaint: Abdominal pain and cramping *History of present illness: 63-year-old white female with long medical history of opioid use for chronic back pain/chronic fibromyalgia pain, currently in the process of weaning with her pain medication provider in [facility] but also unfortunately has a history of recurrent bowel obstructions has required surgery a couple of times, but usually is managed with IV fluids, promotility agents, etc. and has been on a regimen at home per our surgery department that has done well for her over the past year and a half. Unfortunately she is been ill recently with a bronchial illness-of note was screened negative for coronavirus 19 recently because of her travel history, but has had somewhat of a diminished p.o. and liquid intake. Came to the emergency department yesterday evening because of significant belly pain, found to have ileus and evidence of nonmechanical small bowel obstruction was admitted to hospital. [facility] History I have reviewed the patient's past medical history: Yes Medical History: Reports:: Anxiety, Cancer, Hypertension Denies:: Diabetes Mellitus Type 1, Diabetes Mellitus Type 2, Internal Pacemaker, MRSA, Seizures *Have you ever received a pneumonia vaccine?: No *Have you received a flu vaccine this season?: Yes Other Medical History: Reports: Other. Denies: Blood Transfusion Reaction Laterality Cases: Right: Arthroscopy Knee, Bilateral: Lumpectomy, Mastectomy Other Surgeries: Yes: Appendectomy, Cancer Surgery, Colonoscopy, Colon Resection, Hernia Repair, Hysterectomy-Total, Other. No: Pacemaker Amputation: No Fractures: No - *Social History Educational Level: Completed High School Smoking Status: Current every day smoker Tobacco Type: cigarettes # Packs/Day (cigarettes): 1 #Yrs smoked (if former smoker): 40 Alcohol Intake: never Alcohol Intake Frequency:: holidays/special occasions only Substance Use Type: marijuana *Occupational Status:: disabled Housing: house Household Members: spouse, children *Travel in the last 8 weeks: Inside the [place] - Psychiatric History Pschychiatric History:: Reports:: Anxiety Family Hx:: Cancer Review of Systems - Review of Systems Review of systems:: pertinent systems reviewed and negative unless documented below Respiratory symptoms have improved. Cardiac review of systems negative. Please see HPI for abdominal symptoms. Otherwise 10 point review of systems negative. - *Neurologic Denies dizziness, Denies seizure-like activity Meds Home Medications Medication Instructions Recorded Confirmed Type promethazine 25 mg tablet 25 mg PO Q6H PRN 11/30/18 08/06/19 History propranolol 20 mg tablet 20 mg PO BID #60 tab 02/01/19 08/06/19 History clonidine HCl 0.1 mg tablet 0.1 mg PO QID #120 tab 06/13/19 08/06/19 History dextroamphetamine-amphetamine 10 10 mg PO DAILY #30 tab 06/13/19 08/06/19 History mg tablet oxycodone myristate 36 mg capsule 36 mg PO BID 06/13/19 08/06/19 History sprinkle extended release 12hr(DON'T CRUSH) Amlodipine Besylate [Amlodipine 5 mg PO DAILY 08/05/19 08/06/19 History 5mg tab] Albuterol Sulfate [Albuterol 2 puffs IH Q4HP PRN 08/06/19 08/06/19 History Sulfate Hfa] Folic Acid 1 mg PO DAILY 08/06/19 08/06/19 History metHOTREXate sodium [metHOTREXate 10 mg PO WEEKLY 08/06/19 08/06/19 History 2.5mg Tablet] Allergies Allergy/AdvReac Type Severity Reaction Status Date / Time albuterol [From VENTOLIN HFA] Allergy Mild Verified 08/05/19 22:55 codeine [CODEINE] Allergy Mild Verified 08/05/19 22:55 erythromycin base Allergy Mild Verified 08/05/19 22:55 [ERYTHROMYCIN BASE] ketorolac [From TORADOL] Allergy Mild HEMMORHAGE Verified 08/06/19 02:36 meperidine [From DEMEROL] Allergy Mild Verified 08/05/19 22:55 Penicillins [PENICILLINS] Allergy Mild Verified 08/05/19 22:55 Sulfa (Sulfonamide Allergy Mild Verified 08/05/19 22:55 Antibiotics) [SULFA (SULFONAMIDE ANTIBIOTICS)] tetracycline [TETRACYCLINE] Allergy Mild Verified 08/05/19 22:55 buprenorphine [From SUBOXONE] Allergy Unknown I-HIVES Verified 08/05/19 22:55 morphine [From ANA] Allergy Unknown I-HIVES Verified 08/05/19 22:55 naloxone [From SUBOXONE] Allergy Unknown I-HIVES Verified 08/05/19 22:55 propoxyphene Allergy Unknown I-HIVES Verified 08/05/19 22:55 [From DARVOCET-N] Exam Vital signs and Labs for Last 24 Hours: Temp Pulse Resp BP Pulse Ox 97.6 F 55 L 18 103/56 L 93 L 08/06/19 07:23 08/06/19 07:23 08/06/19 07:23 08/06/19 07:23 08/06/19 07:23 Laboratory Results - last 24 hr 08/05/19 23:01: WBC 9.1, RBC 4.70, Hgb 13.4, Hct 41.2, MCV 87.8, MCH 28.5, MCHC 32.4, RDW 13.2, Plt Count 165, MPV 10.9 H, Neut % (Auto) 60.0, Lymph % (Auto) 29.2, Burt % (Auto) 5.6, Eos % (Auto) 4.7, Baso % (Auto) 0.6, Neut # (Auto) 5.4, Lymph # (Auto) 2.6, Burt # (Auto) 0.5, Eos # (Auto) 0.4, Baso # (Auto) 0.1 08/05/19 23:01: Lactate 1.0 08/05/19 23:28: Sodium 139, Potassium 4.0, Chloride 103, Carbon Dioxide 29, Anion Gap 11.0, BUN 26 H, Creatinine 1.00, Estimated Creat Clear 51, Estimated GFR 56 L, Est GFR ( Amer) 68, Glucose 122 H, Calcium 10.0, Total Bilirubin 0.1 L, AST 21, ALT 12, Alkaline Phosphatase 94, Total Protein 7.6, Albumin 4.5, Globulin 3.1, Albumin/Globulin Ratio 1.5, Amylase 143 H, Lipase 61 08/06/19 03:53: Urine Color Yellow, Urine Appearance Clear, Urine pH 6.5, Ur Specific [place] 1.015, Urine Protein Negative, Urine Glucose (UA) Negative, Urine Ketones Negative, Urine Blood 1+, Urine Nitrate Negative, Urine Bilirubin Negative, Urine Urobilinogen 0.2, Ur Leukocyte Esterase Negative, Urine RBC 5- 10, Urine WBC Occasional, Ur Squamous Epith Cells 5-10 08/06/19 05:15: WBC 7.8, RBC 4.28, Hgb 12.2, Hct 38.4, MCV 89.8, MCH 28.6, MCHC 31.8, RDW 13.1, Plt Count 196, MPV 8.1, Neut % (Auto) 57.3, Lymph % (Auto) 33.2, Burt % (Auto) 6.1, Eos % (Auto) 2.9, Baso % (Auto) 0.5, Neut # (Auto) 4.5, Lymph # (Auto) 2.6, Burt # (Auto) 0.5, Eos # (Auto) 0.2, Baso # (Auto) 0.0 08/06/19 05:15: Sodium 137, Potassium 4.1, Chloride 105, Carbon Dioxide 28, Anion Gap 8.1, BUN 24 H, Creatinine 0.90, Estimated Creat Clear 53, Estimated GFR 63, Est GFR ( Amer) 76, Glucose 94 D, Calcium 9.6 I & O for Last 24 hours: Intake & Output 08/03/19 08/04/19 08/05/19 08/06/19 11:59 11:59 11:59 11:59 Intake Total 1663 / 1663 Output Total 600 / 600 Balance 1063 / 1063 Weight 129 lb 9 oz Narrative: Patient is pleasant. Very thin with scaphoid abdomen. Heart rate regular. Abdomen is significantly tender in the epigastric areas on both sides but without guarding or rigidity. Bowel sounds are not present. No clubbing or edema. Lungs are clear bilaterally. ENT exam negative. Neurologic exam is nonfocal. Assessment and Plan (1) Small bowel obstruction Current visit: Yes Status: Acute Category: Medical Code(s): K56.609 - Unspecified intestinal obstruction, unspecified as to partial versus complete obstruction Surgery consultation. No changes in IV fluids. Sips of ice for oral comfort. Trial of oral Relistor-patient has done well with injectable Relistor but this has caused her significant pain in the past.
--- NOTE | 2019-08-06 09:02 | Consult Report ---
*Admission Date: 08/06/19 *Reason for consult:: Bowel obstruction *History of present illness: Patient is a 63-year-old female who has had numerous surgeries at outside facilities. She has had history of recurrent bowel obstructions which have been amenable to nonoperative management recently. She did require laparotomy with bowel resection approximately 15 years ago at outside facility. Approximately once a year she requires admission for apparent exacerbation of bowel obstructions. However, patient also is on chronic opiates for chronic pain and does have some degree of diffuse functional ileus and constipation as well. She states she was in her usual state of health until yesterday evening vinod roximately 10:30 PM when she experienced acute onset of abdominal pain. This is typical character of pain from her previous exacerbations of probable bowel obstructions. She was admitted for inpatient management. Review of Systems - Review of Systems Review of systems:: pertinent systems reviewed and negative unless documented below - *Neurologic Denies dizziness, Denies seizure-like activity [facility] History Medical History: Reports:: Anxiety, Cancer, Hypertension Denies:: Diabetes Mellitus Type 1, Diabetes Mellitus Type 2, Internal Pacemaker, MRSA, Seizures *Have you ever received a pneumonia vaccine?: No *Have you received a flu vaccine this season?: Yes Other Medical History: Reports: Other. Denies: Blood Transfusion Reaction Laterality Cases: Right: Arthroscopy Knee, Bilateral: Lumpectomy, Mastectomy Other Surgeries: Yes: Appendectomy, Cancer Surgery, Colonoscopy, Colon Resection, Hernia Repair, Hysterectomy-Total, Other. No: Pacemaker Amputation: No Fractures: No - *Social History Educational Level: Completed High School Smoking Status: Current every day smoker Tobacco Type: cigarettes # Packs/Day (cigarettes): 1 #Yrs smoked (if former smoker): 40 Alcohol Intake: never Alcohol Intake Frequency:: holidays/special occasions only Substance Use Type: marijuana *Occupational Status:: disabled Housing: house Household Members: spouse, children *Travel in the last 8 weeks: Inside the [place] - Psychiatric History Pschychiatric History:: Reports:: Anxiety Family Hx:: Cancer Meds Home Medications Medication Instructions Recorded Confirmed Type promethazine 25 mg tablet 25 mg PO Q6H PRN 11/30/18 08/06/19 History propranolol 20 mg tablet 20 mg PO BID #60 tab 02/01/19 08/06/19 History clonidine HCl 0.1 mg tablet 0.1 mg PO QID #120 tab 01/22/20 03/16/20 History dextroamphetamine-amphetamine 10 10 mg PO DAILY #30 tab 06/13/19 08/06/19 History mg tablet oxycodone myristate 36 mg capsule 36 mg PO BID 06/13/19 08/06/19 History sprinkle extended release 12hr(DON'T CRUSH) Amlodipine Besylate [Amlodipine 5 mg PO DAILY 08/05/19 08/06/19 History 5mg tab] Albuterol Sulfate [Albuterol 2 puffs IH Q4HP PRN 08/06/19 08/06/19 History Sulfate Hfa] Folic Acid 1 mg PO DAILY 08/06/19 08/06/19 History metHOTREXate sodium [metHOTREXate 10 mg PO WEEKLY 08/06/19 08/06/19 History 2.5mg Tablet] Allergies Allergy/AdvReac Type Severity Reaction Status Date / Time albuterol [From VENTOLIN HFA] Allergy Mild Verified 08/05/19 22:55 codeine [CODEINE] Allergy Mild Verified 08/05/19 22:55 erythromycin base Allergy Mild Verified 08/05/19 22:55 [ERYTHROMYCIN BASE] ketorolac [From TORADOL] Allergy Mild HEMMORHAGE Verified 08/06/19 02:36 meperidine [From DEMEROL] Allergy Mild Verified 08/05/19 22:55 Penicillins [PENICILLINS] Allergy Mild Verified 08/05/19 22:55 Sulfa (Sulfonamide Allergy Mild Verified 08/05/19 22:55 Antibiotics) [SULFA (SULFONAMIDE ANTIBIOTICS)] tetracycline [TETRACYCLINE] Allergy Mild Verified 08/05/19 22:55 buprenorphine [From SUBOXONE] Allergy Unknown I-HIVES Verified 08/05/19 22:55 morphine [From ANA] Allergy Unknown I-HIVES Verified 08/05/19 22:55 naloxone [From SUBOXONE] Allergy Unknown I-HIVES Verified 08/05/19 22:55 propoxyphene Allergy Unknown I-HIVES Verified 08/05/19 22:55 [From DARVOCET-N] Exam Vital signs and Labs for Last 24 Hours: Temp Pulse Resp BP Pulse Ox 97.6 F 55 L 18 103/56 L 93 L 08/06/19 07:23 08/06/19 07:23 08/06/19 07:23 08/06/19 07:23 08/06/19 07:23 Laboratory Results - last 24 hr 08/05/19 23:01: WBC 9.1, RBC 4.70, Hgb 13.4, Hct 41.2, MCV 87.8, MCH 28.5, MCHC 32.4, RDW 13.2, Plt Count 165, MPV 10.9 H, Neut % (Auto) 60.0, Lymph % (Auto) 29.2, [place] % (Auto) 5.6, Eos % (Auto) 4.7, Baso % (Auto) 0.6, Neut # (Auto) 5.4, Lymph # (Auto) 2.6, [place] # (Auto) 0.5, Eos # (Auto) 0.4, Baso # (Auto) 0.1 08/05/19 23:01: Lactate 1.0 08/05/19 23:28: Sodium 139, Potassium 4.0, Chloride 103, Carbon Dioxide 29, Anion Gap 11.0, BUN 26 H, Creatinine 1.00, Estimated Creat Clear 51, Estimated GFR 56 L, Est GFR ( Amer) 68, Glucose 122 H, Calcium 10.0, Total Bilirubin 0.1 L, AST 21, ALT 12, Alkaline Phosphatase 94, Total Protein 7.6, Albumin 4.5, Globulin 3.1, Albumin/Globulin Ratio 1.5, Amylase 143 H, Lipase 61 08/06/19 03:53: Urine Color Yellow, Urine Appearance Clear, Urine pH 6.5, Ur Specific [place] 1.015, Urine Protein Negative, Urine Glucose (UA) Negative, Urine Ketones Negative, Urine Blood 1+, Urine Nitrate Negative, Urine Bilirubin Negative, Urine Urobilinogen 0.2, Ur Leukocyte Esterase Negative, Urine RBC 5- 10, Urine WBC Occasional, Ur Squamous Epith Cells 5-10 08/06/19 05:15: WBC 7.8, RBC 4.28, Hgb 12.2, Hct 38.4, MCV 89.8, MCH 28.6, MCHC 31.8, RDW 13.1, Plt Count 196, MPV 8.1, Neut % (Auto) 57.3, Lymph % (Auto) 33.2, [place] % (Auto) 6.1, Eos % (Auto) 2.9, Baso % (Auto) 0.5, Neut # (Auto) 4.5, Lymph # (Auto) 2.6, [place] # (Auto) 0.5, Eos # (Auto) 0.2, Baso # (Auto) 0.0 08/06/19 05:15: Sodium 137, Potassium 4.1, Chloride 105, Carbon Dioxide 28, Anion Gap 8.1, BUN 24 H, Creatinine 0.90, Estimated Creat Clear 53, Estimated GFR 63, Est GFR ( Amer) 76, Glucose 94 D, Calcium 9.6 I & O for Last 24 hours: Intake & Output 08/03/19 08/04/19 08/05/19 08/06/19 11:59 11:59 11:59 11:59 Intake Total 1663 / 1663 Output Total 600 / 600 Balance 1063 / 1063 Weight 129 lb 9 oz Narrative: Patient is uncomfortable due to the pain. Her abdomen is somewhat scaphoid. Multiple surgical scars. She does have bowel sounds present. She has some tenderness without guarding or rebound. Results - Labs 08/06/19 05:15 08/06/19 05:15 Laboratory Results - last 24 hr 08/05/19 23:01: WBC 9.1, RBC 4.70, Hgb 13.4, Hct 41.2, MCV 87.8, MCH 28.5, MCHC 32.4, RDW 13.2, Plt Count 165, MPV 10.9 H, Neut % (Auto) 60.0, Lymph % (Auto) 29.2, [place] % (Auto) 5.6, Eos % (Auto) 4.7, Baso % (Auto) 0.6, Neut # (Auto) 5.4, Lymph # (Auto) 2.6, [place] # (Auto) 0.5, Eos # (Auto) 0.4, Baso # (Auto) 0.1 08/05/19 23:01: Lactate 1.0 08/05/19 23:28: Sodium 139, Potassium 4.0, Chloride 103, Carbon Dioxide 29, Anion Gap 11.0, BUN 26 H, Creatinine 1.00, Estimated Creat Clear 51, Estimated GFR 56 L, Est GFR ( Amer) 68, Glucose 122 H, Calcium 10.0, Total Bilirubin 0.1 L, AST 21, ALT 12, Alkaline Phosphatase 94, Total Protein 7.6, Albumin 4.5, Globulin 3.1, Albumin/Globulin Ratio 1.5, Amylase 143 H, Lipase 61 08/06/19 03:53: Urine Color Yellow, Urine Appearance Clear, Urine pH 6.5, Ur Specific [place] 1.015, Urine Protein Negative, Urine Glucose (UA) Negative, Urine Ketones Negative, Urine Blood 1+, Urine Nitrate Negative, Urine Bilirubin Negative, Urine Urobilinogen 0.2, Ur Leukocyte Esterase Negative, Urine RBC 5- 10, Urine WBC Occasional, Ur Squamous Epith Cells 5-10 08/06/19 05:15: WBC 7.8, RBC 4.28, Hgb 12.2, Hct 38.4, MCV 89.8, MCH 28.6, MCHC 31.8, RDW 13.1, Plt Count 196, MPV 8.1, Neut % (Auto) 57.3, Lymph % (Auto) 33.2, [place] % (Auto) 6.1, Eos % (Auto) 2.9, Baso % (Auto) 0.5, Neut # (Auto) 4.5, Lymph # (Auto) 2.6, [place] # (Auto) 0.5, Eos # (Auto) 0.2, Baso # (Auto) 0.0 08/06/19 05:15: Sodium 137, Potassium 4.1, Chloride 105, Carbon Dioxide 28, Anion Gap 8.1, BUN 24 H, Creatinine 0.90, Estimated Creat Clear 53, Estimated GFR 63, Est GFR ( Amer) 76, Glucose 94 D, Calcium 9.6 Assessment and Plan (1) Small bowel obstruction Current visit: Yes Status: Acute Category: Medical Code(s): K56.609 - Unspecified intestinal obstruction, unspecified as to partial versus complete obstruction - Assessment and plan all Dx Assessment and Plan for all problems:: I reviewed her CT scan with the radiologist. There is evidence of at least partial small bowel obstruction but also evidence of a significant large bowel stool present. Is likely a combination of diffuse ileus, chronic constipation, and partial mechanical obstruction. At this present time patient refuses surgery. I informed her that this is not a plan or consideration as of yet. Continue with medical nonoperative management at this time.
--- NOTE | 2019-08-07 10:34 | Progress Note ---
Internal Medicine - PN: Subj *Date: 08/07/19 *Time: 10:31 Interval history: No vomiting overnight but still has abdominal discomfort. Denies any bowel movements by the time I rounded this morning however after rounds had large hard stool per nursing report. Remains afebrile, hemodynamically stable. No respiratory distress or cough. Stable on room air. Tolerating ice chips but asking for advancement of diet at this time since she has had a bowel movement. Otherwise at baseline Exam Vital signs and Labs for Last 24 Hours: Temp Pulse Resp BP Pulse Ox 98.0 F 60 18 127/86 98 08/07/19 08:00 08/07/19 08:00 08/07/19 08:00 08/07/19 08:00 08/07/19 08:00 I & O for Last 24 hours: Intake & Output 08/04/19 08/05/19 08/06/19 08/07/19 23:59 23:59 23:59 23:59 Intake Total 3473 / 3473 1294 / 1294 Output Total 600 / 600 Balance 2873 / 2873 1294 / 1294 Weight 56.699 kg 58.769 kg 61.944 kg Narrative: Patient is pleasant. Very thin with scaphoid abdomen. Sitting upright in bed on interview Heart rate regular, no murmur Abdomen is diffusely tender with no rebound or guarding or rigidity. Bowel sounds are hypoactive No clubbing or edema. Lungs are clear bilaterally. ENT exam negative. Neurologic exam is nonfocal. 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 Aggressive bowel regimen at this time. Had bowel movement this morning. Will advance diet to clear liquid diet and continue to monitor. Plan for aggressive regimen at time of discharge when medically stable with a goal of soft stool every 1 to 2 days if not every day. Patient remains hemodynamically stable, clinically well, prognosis good.
--- NOTE | 2019-08-07 11:04 | Progress Note ---
Subjective Patient reports: bowel movement (She states that she feels "quite a bit better" after recent bowel movement.) Exam Vital signs and Labs for Last 24 Hours: Temp Pulse Resp BP Pulse Ox 98.0 F 60 18 127/86 98 08/07/19 08:00 08/07/19 08:00 08/07/19 08:00 08/07/19 08:00 08/07/19 08:00 I & O for Last 24 hours: Intake & Output 08/04/19 08/05/19 08/06/19 08/07/19 11:59 11:59 11:59 11:59 Intake Total 1663 / 1663 3104 / 3104 Output Total 600 / 600 Balance 1063 / 1063 3104 / 3104 Weight 129 lb 9 oz 136 lb 9 oz - Constitutional no acute distress - *Routine Respiratory Exam Absent: respiratory distress - *Routine Cardiovascular Exam Present: RRR Progress Note: A&P (1) Small bowel obstruction Status: Acute Assessment and plan: Radiographic evidence of possible partial obstruction with concomitant significant constipation. Known history of narcotic bowel syndrome. Currently she is undergoing a fairly aggressive bowel regimen and has had a bowel movement and "feels better". Very slow advancement of diet with continuation of aggressive bowel regimen. Current Visit: Yes (2) Chronic prescription opiate use Status: Chronic Current Visit: Yes (3) Hypertension Status: Chronic Current Visit: Yes
--- NOTE | 2019-08-08 08:40 | Discharge Summary ---
General - General Admission date:: 08/06/19 Discharge date: 08/08/19 HPI HPI: 63-year-old white female with long medical history of opioid use for chronic back pain/chronic fibromyalgia pain, currently in the process of weaning with her pain medication provider in [facility] but also unfortunately has a history of recurrent bowel obstructions has required surgery a couple of times, but usually is managed with IV fluids, promotility agents, etc. and has been on a regimen at home per our surgery department that has done well for her over the past year and a half. Unfortunately she is been ill recently with a bronchial illness-of note was screened negative for coronavirus 19 recently because of her travel history, but has had somewhat of a diminished p.o. and liquid intake. Came to the emergency department yesterday evening because of significant belly pain, found to have ileus and evidence of nonmechanical small bowel obstruction was admitted to hospital. Hospital Course Hospital Course: Patient was admitted to the hospital, IV fluids were given. Patient was found to have nonmechanical bowel obstruction, and her regular medications were continued with no problems. She was subjected to aggressive bowel regimen including mag citrate, MiraLAX, Colace and the addition of methylnaltrexone tablets orally which resulted in improving bowel transit and soft bowel movements over the next 48 hours. This morning she is almost back to her baseline. Minimal pain, and wishes to go home, has good oral intake. Objective Vital signs: Temp Pulse Resp BP Pulse Ox 98.1 F 52 L 16 117/65 94 L 08/08/19 04:32 08/08/19 04:32 08/08/19 04:32 08/08/19 04:32 08/08/19 04:32 Narrative: Patient is pleasant, alert, oriented x3. No ENT abnormalities. Lungs clear. Heart rate regular. Abdomen is much softer than on admission, normal bowel sounds. No extremity edema or clubbing. Neurologic exam intact. No rash. Results Labs on day of discharge: Preliminary micro results at discharge 08/05/19 23:01 Blood Culture - Preliminary Blood NO GROWTH AFTER 48 HOURS 08/05/19 23:01 Blood Culture - Preliminary Blood NO GROWTH AFTER 48 HOURS DS: Diagnosis - Discharge Diagnosis (1) Small bowel obstruction Status: Resolved (2) Chronic prescription opiate use Status: Chronic (3) Hypertension Status: Chronic Discharge Plan - Patient Discharge Instructions ACTIVITY: Continue current activity DIET: continue same diet - Follow up Plan Follow up with: Toni Palmer MD [Primary Care Provider] - 08/15/19 Disposition: Home, Self-[facility]pc Medications: Home Medications Medication Instructions Recorded Confirmed Type promethazine 25 mg tablet 25 mg PO Q6H PRN 11/30/18 08/06/19 History propranolol 20 mg tablet 20 mg PO BID #60 tab 02/01/19 08/06/19 History clonidine HCl 0.1 mg tablet 0.1 mg PO QID #120 tab 06/13/19 08/06/19 History dextroamphetamine-amphetamine 10 10 mg PO DAILY #30 tab 06/13/19 08/06/19 History mg tablet oxycodone myristate 36 mg capsule 36 mg PO BID 06/13/19 08/06/19 History sprinkle extended release 12hr(DON'T CRUSH) Amlodipine Besylate [Amlodipine 5 mg PO DAILY 08/05/19 08/06/19 History 5mg tab] Albuterol Sulfate [Albuterol 2 puffs IH Q4HP PRN 08/06/19 08/06/19 History Sulfate Hfa] Folic Acid 1 mg PO DAILY 08/06/19 08/06/19 History metHOTREXate sodium [metHOTREXate 10 mg PO WEEKLY 08/06/19 08/06/19 History 2.5mg Tablet] Methylnaltrexone [place] [Relistor] 150 mg PO DAILY #150 tab 08/08/19 Rx Prescriptions/Medication Reconciliation: New Methylnaltrexone [place] [Relistor] 150 mg PO DAILY #150 tab Continued promethazine 25 mg tablet 25 mg PO Q6H PRN PRN Reason: Nausea propranolol 20 mg tablet 20 mg PO BID #60 tab dextroamphetamine-amphetamine 10 mg tablet 10 mg PO DAILY #30 tab clonidine HCl 0.1 mg tablet 0.1 mg PO QID #120 tab oxycodone myristate 36 mg capsule sprinkle extended release 12hr(DON'T CRUSH) 36 mg PO BID Amlodipine Besylate [Amlodipine 5mg tab] 5 mg PO DAILY metHOTREXate sodium [metHOTREXate 2.5mg Tablet] 10 mg PO WEEKLY Folic Acid 1 mg PO DAILY Albuterol Sulfate [Albuterol Sulfate Hfa] 2 puffs IH Q4HP PRN PRN Reason: Shortness Of Breath - Problem Reconciliation Problems Reviewed?: Yes
== END 2019-08-08 10:13 | disposition home or self-care (01) | DRG 390 ==
LOC: ER 22:34 → 2ND 08-06 01:45
PROVIDERS: ADMIT Internal Medicine Adolescent Medicine; ATTEND Internal Medicine Adolescent Medicine
CPT/HCPCS: Q9967

== ENCOUNTER → 2019-09-20 14:10 | Outpatient (CLI) | payer BC, MEDICARE, SELFPAY ==
--- NOTE | 2019-09-20 14:21 | XR_ITS ---
PROCEDURE: XR FOOT WT BEARING LT 3V CLINICAL INDICATION: pain and swelling COMPARISON: XR FOOT LT MIN 3V from 01/24/2019 XR FOOT RT MIN 3V from 02/16/2019 FINDINGS: No fracture or dislocation. No lytic or blastic change. There is normal mineralization. The joint spaces are well-preserved. No significant degenerative/arthritic changes. No erosive changes evident. Other findings:None. IMPRESSION: Negative left foot. Dictated by: Addy Phillips MD 09/20/2019 15:47 Electronically signed by Addy Phillips MD in [place] 09/20/2019 15:47
--- NOTE | 2019-09-20 14:21 | XR_ITS ---
PROCEDURE: XR FOOT WT BEARING RT 3V CLINICAL INDICATION: pain and swelling COMPARISON: XR FOOT LT MIN 3V from 01/24/2019 XR FOOT RT MIN 3V from 02/16/2019 FINDINGS: No fracture or dislocation. No lytic or blastic change. There is normal mineralization. The joint spaces are well-preserved. No significant degenerative/arthritic changes. No erosive changes evident. Other findings:None. IMPRESSION: Negative right foot. Dictated by: Addy Phillips MD 09/20/2019 15:46 Electronically signed by Addy Phillips MD in [facility] 09/20/2019 15:46
== END ==
PROVIDERS: PCP Internal Medicine Adolescent Medicine; Visit Provider Podiatrist
DX: M79.671 Pain in right foot (principal); M79.672 Pain in left foot
CPT/HCPCS: 73630

== ENCOUNTER 2019-09-22 15:48 | Emergency (ER) | payer BC, MEDICARE, SELFPAY ==
[2019-09-22 15:56] VITALS: BMI 19.3
--- NOTE | 2019-09-22 15:56 | CT_ITS ---
PROCEDURE: CT LUMBAR SPINE WO CON CLINICAL HISTORY: FALL Posttraumatic pain, fall with injury and pain COMPARISON: [facility] CT LUMBAR SPINE W/O CONTRAST from 01/11/2014 CT ABDOMEN PELVIS W CON from 08/06/2019 TECHNIQUE: Axial images obtained with sagittal and coronal reformats. All CT scans at the facility use one or more dose reduction, viz: automated exposure control, ma/kV adjustment per patient size (including targeted exams where dose is matched to indication, i.e. head), or iterative reconstruction technique. FINDINGS: There is diffuse osteopenia. L1-L2: There is severe wedge compression change involving the central aspect of L1 which does not appear significantly changed from the recent CT scan of 08/06/2019. There has been prior kyphoplasty along the right aspect of L1. There is minimal retropulsion of the posterior superior aspect of L1 of 3 mm. This is not significantly changed. There is minimal superior endplate compression change in L2 L2-L3: Mild bulging disc. L3-L4: Moderate bulging disc with facet ligamentum hypertrophy with severe bilateral lateral recess narrowing and moderate bilateral foraminal narrowing. There is 2-3 mm anterolisthesis of L3 and there is canal stenosis at this level. L4-5: Degenerate disc disease with bulging disc with endplate hypertrophic change and facet hypertrophy. L5-S1: Unremarkable. IMPRESSION: 1. Chronic wedge compression changes status post vertebroplasty at L1 2. New minimal superior endplate compression change at L2 without retropulsion. 3. Multilevel lumbar spondylosis with diffuse osteopenia as detailed above Dictated by: Addy Phillips MD 09/23/2019 07:55 Electronically signed by Addy Phillips MD in [facility] 09/23/2019 07:55
--- NOTE | 2019-09-22 15:56 | CT_ITS ---
PROCEDURE: CT THORACIC SPINE WO CON CLINICAL HISTORY: FALL Fall with injury and pain [facility] from 01/11/2014 CT CHEST WO CON from 06/26/2019 TECHNIQUE: Axial images obtained with sagittal and coronal reformats. All CT scans at the facility use one or more dose reduction, viz: automated exposure control, ma/kV adjustment per patient size (including targeted exams where dose is matched to indication, i.e. head), or iterative reconstruction technique. FINDINGS: There is generalized osteopenia with mild multilevel thoracic spondylosis. No acute fracture or dislocation is evident. There has been overall no significant change from the previous chest CT of 06/26/2019.. No paraspinal hematoma mass or other acute anomaly evident. There is normal alignment. There is mild compression deformity involving the superior endplate of T 11 with a Schmorl's node not significantly changed. There is slight loss of height anteriorly of T10-T9 T8 and T7 which appears chronic. There is severe wedge compression changes of L1 described in the lumbar CT report.. There is a small disc protrusion at T6-T7 as well as T7-T8 and T10-T11. MRI may better evaluate. IMPRESSION: 1. No acute thoracic fracture. 2. Chronic changes with diffuse osteopenia, multilevel thoracic spondylosis, and minimal loss of height anteriorly from T7-T10 with chronic superior compression deformity of T11 in severe wedging of L1 which is described in the lumbar spine CT report 3. There is a small disc protrusion at T6-T7 as well as T7-T8 and T10-T11. MRI may better evaluate. Dictated by: Addy Phillips MD 09/23/2019 07:43 Electronically signed by Addy Phillips MD in [place] 09/23/2019 07:43
[2019-09-22 15:58] VITALS: BP 166/68; PULSE 60; RESP 22; TEMP 36.9; O2SAT 98; BMI 19.3
--- NOTE | 2019-09-22 16:06 | CT_ITS ---
PROCEDURE: CT CERVICAL SPINE WO CON CLINICAL INDICATION: FALL Posttraumatic pain, fall with injury and pain, neck pain following injury COMPARISON: [facility] CT CERVICAL SPINE W/O CONT from 01/11/2014 TECHNIQUE: Axial images obtained with sagittal and coronal reformats. All CT scans at the facility use one or more dose reduction, viz: automated exposure control, ma/kV adjustment per patient size (including targeted exams where dose is matched to indication, i.e. head), or iterative reconstruction technique. Axial spiral CT scanning performed of the cervical spine beginning at the base of the skull and continuing to the upper T-spine. 3-D multiplanar reconstruction with 3-D manipulation of volumetric data set in image rendering was completed by the radiologist and/or technologist with the supervision of the radiologist on independent workstation. FINDINGS: There is normal alignment. No fracture or dislocation. There is multilevel cervical spondylosis. C3-C4: Degenerate disc disease with endplate and uncovertebral hypertrophy with bilateral lateral recess and foraminal narrowing along with narrowing of the canal at 10 mm. C4-C5: Mild left-sided foraminal narrowing. C5-C6: Degenerate disc disease with endplate and uncovertebral hypertrophy with severe bilateral lateral recess and foraminal narrowing with canal stenosis. The lateral recess narrowing slightly greater on the right C6-C7: Degenerate disc disease with endplate and uncovertebral hypertrophy with canal stenosis and bilateral foraminal narrowing right greater than left and bilateral lateral recess narrowing right greater than left. C7-T1: Unremarkable. Lung apices are clear. IMPRESSION: 1. No acute fracture. 2. Multilevel cervical spondylosis with uncovertebral and facet arthropathy with spinal stenosis along with lateral recess and foraminal narrowing as detailed above. Degenerative changes have slightly progressed compared to the previous exam Dictated by: Addy Phillips MD 09/23/2019 07:18 Electronically signed by Addy Phillips MD in [place] 09/23/2019 07:18
--- NOTE | 2019-09-22 17:00 | PC.NURSE ---
PT HAS RETURNED FROM RAD
--- NOTE | 2019-09-22 17:29 | HMH.EDFALL ---
ED Disposition Clinical Impression: Thoracic disc herniation, Acute exacerbation of chronic low back pain Disposition: Home, Self-Care Condition on Discharge: Good Instructions: DI for Chronic Pain -- Adult Prescriptions: Tizanidine HCl [Zanaflex 4mg tablet] 4 mg PO TID 15 Days #45 tab Transmission Status: Pending to [facility] Referrals: Toni Palmer MD [Primary Care Provider] - - Critical Care Critical Care Time: No Attestation: On 09/22/19, the high probability of a clinically significant, sudden or life threatening deterioration of the following system(s) required my full and direct attention, intervention and personal management. The time I documented below is in addition to time spent performing reported procedures but includes the following listed in this critical care notation. Medical Decision Making - Medical Records Medical records reviewed: Yes: I reviewed the patient's medical records. - Homero Inquiry Pt receiving controlled substance: No Vital Signs: 09/22/19 15:58 Temperature 98.4 F Temperature Source Oral Pulse Rate [Right Radial] 60 Respiratory Rate 22 Blood Pressure [Right Arm] 166/68 H Blood Pressure Mean [Right Arm] 100 Blood Pressure Source [Right Arm] Automatic Cuff Blood Pressure Position [Right Arm] Sitting 02 Sat by Pulse Oximetry 98 - Lab Data Lab results reviewed: Yes: I reviewed the patient's lab results. Orders (Tests/Meds): ED MEDICATIONS Discontinued Medications Generic Name Dose Route Start Last Admin Trade Name Freq PRN Reason Stop Dose Admin Hydromorphone HCl 2 mg 09/22/19 16:07 09/22/19 16:10 Dilaudid 2mg/Ml Syringe IM 09/22/19 16:08 2 mg ONCE ONE Administration Orphenadrine Citrate 60 mg 09/22/19 17:30 09/22/19 17:30 Norflex 60mg/2ml Vial IM 09/22/19 17:31 60 mg ONCE ONE Administration ORDERS Category Date Time Status CT cervical spine wo con Stat Cat Scan 09/22/19 16:[address] lumbar spine wo con Stat Cat Scan 09/22/19 15:[address] thoracic spine wo con Stat Cat Scan 09/22/19 15:56 Taken - CT Data CT Scan: T-Spine, L-Spine Time Received: 18:32 Preliminary Findings: Abnormal (Patient's T-spine she has a mild disc herniation at T10 a lot of chronic changes nothing acutely new from her previous CT she does have some disc height shortening where she had kyphoplasty but this is subacute or chronic. Lumbar spine no evidence of any fractures. T-spine no evidence of any fractures.) Fall HPI - General Chief Complaint: Fall Stated Complaint: AO [id number] fell injured back Time Seen by Provider: 09/22/19 17:00 Mode of Arrival: Wheelchair Source of Information: Patient Limitations: No Limitations Description of Symptoms (Recalled from ER Triage Doc. by RN): PT C/O SEVERE BACK PAIN AFTER REPORTEDLY FALLING FROM A STANDING POSITION ONTO HER BUTTOCKS ON THE GROUND. PT REPORTS HX OF DEGENERATIVE DISC DISEASE, BROKEN BACK X3 AND MULTIPLE BACK SURGERIES. - History of Present Illness HPI Narrative: 63-year-old female presents the ED after a fall that just took place 30 minutes prior to admission here in the emergency department. Patient is complaining of severe back pain. She rates her pain presently 10 out of 10 she describes the pain in the lower area of the back radiating to the right side and complaining of left leg numbness. She describes the pain as a sharp tearing sensation. She says there are absolutely no alleviating factors. Exacerbating factors include movement. Patient has a longstanding history of chronic back pain. She has had kyphoplasty done in the past. The mechanism of her injury she said she was standing in the grass and she slipped and fell and landed on her buttocks. Patient denies any bowel or bladder incontinence. Patient denies any warm fluid sensation going down the backs of her legs. Patient also denies any muscle weakness. Patient denies any recent nausea vomiting diarrhea. Dionna
[2019-09-22 18:43] VITALS: BP 123/85; PULSE 85; RESP 20; TEMP 36.8; O2SAT 98
== END 2019-09-22 18:44 | disposition home or self-care (01) ==
PROVIDERS: Emergency Provider Family Medicine; PCP Internal Medicine Adolescent Medicine
DX: M51.24 Other intervertebral disc displacement, thoracic region (principal); F17.210 Nicotine dependence, cigarettes, uncomplicated; I10 Essential (primary) hypertension; Z90.49 Acquired absence of other specified parts of digestive tract; W01.0XXA Fall on same level from slipping, tripping and stumbling without subsequent striking against object, initial encounter; Y92.017 Garden or yard in single-family (private) house as the place of occurrence of the external cause; Z88.0 Allergy status to penicillin; Z88.2 Allergy status to sulfonamides; Z88.5 Allergy status to narcotic agent
CPT/HCPCS: 72125; 72128; 72131; 96372; 99282

== ENCOUNTER → 2019-11-05 12:55 | Outpatient (CLI) | payer BC, MEDICARE, SELFPAY ==
--- NOTE | 2019-11-05 13:02 | MR_ITS ---
PROCEDURE: MR LUMBAR SPINE WO CON CLINICAL INDICATION: BACK PAIN Lumbar fracture with bilateral low back pain and bilateral leg pain and numbness and tingling COMPARISON: CT LUMBAR SPINE WO CON from 09/22/2019 TECHNIQUE: Standard multiplanar multiecho sequences are performed without contrast. 3-D MIP and myelographic images are also rendered and reviewed FINDINGS: The spinal cord ends at the T12-L1 level. T10-T11: Degenerative disc disease with superior endplate Schmorl's node and inferior endplate Schmorl's node at T11. There is slight increased T2 signal involving the inferior endplate of T11. T12-L1: Chronic wedge compression changes are present at L1 with loss of height of approximately 50 percent with mild kyphosis and minimal central posterior buckling of the posterior superior aspect of L1 into the canal by approximately 3 mm. There has been prior vertebroplasty at L1 on the right. No extradural extravasation apparent L1-L2: Degenerate disc disease with bulging disc and minimal central disc protrusion. There is acute compressive changes involving the superior endplate of L1 with loss of height centrally of approximately 30 percent and anteriorly of approximately 20 percent. There is minimal central disc protrusion without impingement. There is decreased T1 and increased T2 of the vertebral body at L2 consistent with underlying bone marrow edema. L2-L3: Mild bulging disc with mild facet and ligamentum hypertrophy with mild bilateral lateral recess and foraminal narrowing. L3-L4: Concentric bulging disc with moderate to severe facet and ligamentum hypertrophy with moderate to severe bilateral lateral recess and foraminal narrowing along with canal stenosis. There is 2 mm anterolisthesis of L3. L4-5: Degenerative disc disease with bulging disc with a small broad-based right paracentral disc protrusion. There is disc desiccation at this level. L5-S1: There is narrowing of the canal at 10 mm with mild facet ligamentum hypertrophy with mild bilateral foraminal narrowing. IMPRESSION: Abnormal MRI of the lumbar spine with multilevel lumbar spondylosis with bulging disc, facet ligamentum hypertrophy with lateral recess and foraminal narrowing. There is canal stenosis at L3-L4 and L5-S1. Please see above for detailed description at each level. Chronic wedging of L1 with acute compression change of L2 and minimal central disc protrusion at L1-L2. Please see above for details Dictated by: Addy Phillips MD 11/06/2019 13:23 Electronically signed by Addy Phillips MD in [place] 11/06/2019 13:23
== END ==
PROVIDERS: PCP Internal Medicine Adolescent Medicine; Visit Provider Nurse Practitioner
DX: S32.009S Unspecified fracture of unspecified lumbar vertebra, sequela (principal)
CPT/HCPCS: 72148; 76376

== ENCOUNTER → 2020-05-06 13:10 | Outpatient (CLI) | payer BC, MEDICARE, SELFPAY ==
[2020-05-06 15:14] LABS: 25-OH Vitamin D, Total 85.7 ng/mL (30-100)
[2020-05-06 15:32] LABS: Chloride 104 mmol/L (98-107); Sodium 143 mmol/L (136-145)
[2020-05-06 15:33] LABS: Potassium 4.9 mmoL/L (3.5-5.1)
[2020-05-06 15:35] LABS: Alanine Aminotransferase 10 U/L (12-78); Albumin Level 4.3 g/dl (3.5-5.0); Albumin/Globulin Ratio 1.4 (1.1-1.8); Alkaline Phosphatase 61 U/L (38-126); Anion Gap 12.9 mEq/L (5-15); Aspartate Amino Transferase 22 U/L (14-36); Bilirubin,Total 0.5 mg/dl (0.2-1.3); Blood Urea Nitrogen 13 mg/dl (7-17); Carbon Dioxide 31 mmol/L (22.0-30.0); Estimated Glomerular Filt Rate 50 ml/min (>60); GFR (African American) 60 ML/MIN (>60); Globulin 3.1 g/dL (1.3-3.2); Total Protein,Serum 7.4 g/dl (6.3-8.2)
[2020-05-06 15:36] LABS: Calcium 9.5 mg/dl (8.4-10.2); Glucose 73 mg/dl (74-100)
== END ==
PROVIDERS: Visit Provider Internal Medicine
DX: M81.0 Age-related osteoporosis without current pathological fracture (principal)
CPT/HCPCS: 36415; 80053; 82306

== ENCOUNTER → 2020-05-07 15:39 | Outpatient (CLI) | payer BC, MEDICARE, SELFPAY ==
[2020-05-07 16:25] LABS: Basophils # 0.1 K/mm3 (0-0.2); Basophils % 0.7 % (0.1-2.0); Eosinophils # 0.4 K/mm3 (0.0-0.4); Eosinophils % 4.5 % (0.1-12.0); Hematocrit 40.1 % (37.0-47.0); Hemoglobin 13.2 g/dL (12.2-16.2); Lymphocytes # 3.2 K/mm3 (0.7-4.5); Lymphocytes % 37.2 % (10-50); Mean Corpuscular HGB Conc 32.9 g/dL (31.8-35.4); Mean Corpuscular Hemoglobin 29.9 pg (27.0-31.2); Mean Corpuscular Volume 90.7 fl (81-99); Mean Platelet Volume 8.3 fl (7.4-10.4); Monocytes # 0.6 K/mm3 (0.1-1.0); Monocytes % 7.3 % (1.7-9.3); Neutrophils # 4.3 K/mm3 (1.8-7.8); Neutrophils % 50.2 % (37.0-80.0); Platelet Count 216 K/mm3 (142-424); Red Blood Count 4.42 M/mm3 (4.20-5.40); Red Cell Distribution Width 13.5 % (11.5-17.5); White Blood Count 8.6 K/mm3 (4.8-10.8)
[2020-05-07 17:53] LABS: Alanine Aminotransferase 11 U/L (12-78); Albumin Level 4.7 g/dl (3.5-5.0); Albumin/Globulin Ratio 1.4 (1.1-1.8); Alkaline Phosphatase 73 U/L (38-126); Anion Gap 13.8 mEq/L (5-15); Aspartate Amino Transferase 28 U/L (14-36); Bilirubin,Total 0.4 mg/dl (0.2-1.3); Blood Urea Nitrogen 17 mg/dl (7-17); Calcium 10.1 mg/dl (8.4-10.2); Carbon Dioxide 32 mmol/L (22.0-30.0); Chloride 101 mmol/L (98-107); Estimated Glomerular Filt Rate 38 ml/min (>60); GFR (African American) 46 ML/MIN (>60); Globulin 3.3 g/dL (1.3-3.2); Glucose 82 mg/dl (74-100); Potassium 4.8 mmoL/L (3.5-5.1); Sodium 142 mmol/L (136-145)
[2020-05-07 18:24] LABS: Thyroid Stimulating Hormone 1.54 uIU/mL (0.465-4.68)
== END ==
PROVIDERS: Visit Provider Internal Medicine Adolescent Medicine
DX: G56.91 Unspecified mononeuropathy of right upper limb (principal)
CPT/HCPCS: 36415; 80053; 84443; 85025

== ENCOUNTER → 2020-05-13 14:13 | Outpatient (CLI) | payer BC, MEDICARE, SELFPAY ==
--- NOTE | 2020-05-13 | XR_ITS ---
PROCEDURE: XR HIP RT 2-3V W/PELVIS CLINICAL INDICATION: AGE-RELATED OSTEOPOROSIS, INFLAMMATORY POLYARTHROPATHY Hip pain COMPARISON: CR HIPCMRT XR hip RT 2-3V w/pelvis from 10/28/2017 CR XR HIP LT 2-3V W/PELVIS from 05/13/2020 FINDINGS: Mild osteoarthritic changes are present involving both hips. There is an area of exostosis involving the lateral aspect of the femoral head on both sides which could represent a CAM deformity from femoral acetabular impingement. This is slightly more prominent than when compared to 10/28/2017. No fracture or dislocation. No lytic change. 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
== END ==
PROVIDERS: PCP Internal Medicine Adolescent Medicine; Visit Provider Internal Medicine
DX: M06.4 Inflammatory polyarthropathy (principal); M15.9 Polyosteoarthritis, unspecified; M81.0 Age-related osteoporosis without current pathological fracture; Z79.899 Other long term (current) drug therapy; Z87.81 Personal history of (healed) traumatic fracture
CPT/HCPCS: 73502

== ENCOUNTER → 2020-05-26 07:10 | Outpatient (CLI) | payer BC, MEDICARE, SELFPAY ==
--- NOTE | 2020-05-26 | CA_ITS ---
APPROVED REPORT Exam: Pharmacologic Technologist: Sherrell Pan Ht: 5 ft 7 in Wt: 138 lbs BSA: 1.73 m2 HR: 66 bpm BP: 104/77 mmHg Indications: Chest pain Medical History Medications: Amlodipine,,,,, Clonidine,,,,, Propranolol,,,,, FOLIC ACID,,,,, Albuterol,,,,, ProMETHAZINE,,,,, Diclofenac,,,,, OxYCODONE,,,,, Tizanidine,,,,, Pregabalin,,,,, MethylpredNISOLONE,,,,, Denosumab,,,,, Stress Test Details Test: LEXISCAN HR Resting HR: 67 bpm Max Heart Rate (APMHR): 155 bpm Max HR Achieved: 96 bpm Target HR (85% APMHR): 131 bpm % of APMHR: 61 Recovery HR: 79 bpm BP Resting BP: 104.0/77.0 mmHg Max BP: 155.0/87.0 mmHg Recovery BP: 122.0/78.0 mmHg ECG Resting ECG: Normal sinus rhythm Clinical Reason for Termination: Completed Protocol Exercise duration: 04:00 min Highest Stage Achieved: Exercise capacity: 1.0 METs Stress ECG Conclusion Symptoms: No chest pain Arrhythmias/Ectopy: None ST-T Changes: < 1.[address] segment changes. Conclusion: Non-diagnostic lexiscan stress test. Patient received the infusion per protocol without chest pain, ST segment changes or arrhythmias. See the nuclear report for further information. Test Summary . . Myoview Injected . . . Stop exercise at 04:00 . . . . Electronically signed by : Watson Kirk, 05/27/2020 07:24:07
--- NOTE | 2020-05-26 07:19 | NM_ITS ---
APPROVED REPORT Exam: Nuclear Stress Test Indication: Chest pain, HTN, Tobacco use, Family history Patient Location: Outpatient Stress Tech: Sherrell Pan NM Tech:Suha Sanchez, ARRT, RT (R)(N) Ht: 5 ft 7 in Wt: 130 lbs Bra Size: 34D HR: 66 bpm BP: 104/77 mmHg BSA: 1.68 m2 BMI: 20.3 History: Chest pain, HTN, Tobacco use, Family history Procedure: Patient received a 0.4 mg of intravenous Lexiscan, resting heart rate 66 bpm, resting blood pressure 104/77 mmHg, with Lexiscan maximum heart rate achived was 94 bpm which is Less than 85 % of the maximum predicted heart rate and blood pressure was 155/87 mmHg. With Lexiscan, patient denied any complaint of chest pain. Electrocardiogram Resting electrocardiogram showed sinus rhythm, with Lexiscan there is less than 1.[address] segment depression noted from the baseline EKG. The EKG portion of the Lexiscan is nondiagnostic. Cardiac Stress and Resting SPECT Images: Cardiac Stress and Resting SPECT images were obtained using technetium 99m Myoview 29.3 mCi stress and 10.96 mCi at rest. Gated SPECT for analysis of segmental wall motion and calculation of the ejection fraction also done. Cardiac stress and resting SPECT images show uniform myocardial activity without segmental perfusion abnormality, computer derived ejection fraction is 55% with no regional wall motion abnormality, right ventricle is normal size and contractility. Conclusion: 1. The EKG portion of the Lexiscan is nondiagnostic. 2. No scintigraphic evidence of reversible ischemia seen, computer derived ejection fraction is 55% with no regional wall motion abnormality, right ventricle is normal size and contractility. 3. Normal Lexiscan Myoview study. Electronically signed by : Watson Kirk, 05/27/2020 07:36:43
--- NOTE | 2020-05-26 09:02 | HMH.ITSHM ---
Current Home Medications as stated by this patient Orlin Cook or hospital insurance representative. []PROPRANOLOL CLONIDINE EXTEMSA BLOOD PRESSURE MED ADEROL
== END ==
PROVIDERS: PCP Internal Medicine Adolescent Medicine; Visit Provider Nurse Practitioner Family
DX: R07.89 Other chest pain (principal); R06.00 Dyspnea, unspecified; I10 Essential (primary) hypertension; F17.200 Nicotine dependence, unspecified, uncomplicated
CPT/HCPCS: 78452; 93017; A9502; J2785

== ENCOUNTER → 2020-10-14 16:09 | Outpatient (CLI) | payer BC, MEDICARE, SELFPAY ==
--- NOTE | 2020-10-14 | XR_ITS ---
PROCEDURE: XR KNEE RT 3V CLINICAL INDICATION: RIGHT KNEE PAIN COMPARISON: No exams were available for comparison FINDINGS: No fracture or dislocation. No lytic or blastic change. There is normal mineralization. There is slight decrease in the medial joint space. No osteophyte formation or significant osteosclerosis. Other findings:None. IMPRESSION: Minimal decrease in joint space medially suggesting early osteoarthritic change Dictated by: Addy Phillips MD 10/14/2020 17:09 Addy Phillips MD in [place] 10/14/2020 17:09
--- NOTE | 2020-10-14 | XR_ITS ---
PROCEDURE: XR KNEE LT 3V CLINICAL INDICATION: LEFT KNEE PAIN COMPARISON: No exams were available for comparison FINDINGS: No fracture or dislocation. No lytic or blastic change. There is normal mineralization. There is very slight decrease in joint space medially and minimal spurring of the patella superiorly Other findings:None. IMPRESSION: Minimal osteoarthritic change. Dictated by: Addy Phillips MD 10/14/2020 17:11 Addy Phillips MD in [place] 10/14/2020 17:11
== END ==
PROVIDERS: PCP Internal Medicine Adolescent Medicine; Visit Provider Internal Medicine Adolescent Medicine
DX: M25.561 Pain in right knee (principal); M25.562 Pain in left knee
CPT/HCPCS: 73562

== ENCOUNTER → 2020-12-31 17:06 | Outpatient (CLI) | payer BC, MEDICARE, SELFPAY ==
--- NOTE | 2020-12-31 17:25 | XR_ITS ---
PROCEDURE INFORMATION: Exam: XR Chest Exam date and time: 12/31/2020 5:25 PM Age: 65 years old Clinical indication: Shortness of breath TECHNIQUE: Imaging protocol: XR of the chest. Views: 2 views. COMPARISON: CR XR CHEST 2V 08/02/2019 5:31 PM FINDINGS: Lungs: Unremarkable. No consolidation. Pleural spaces: Unremarkable. No pleural effusion. No pneumothorax. Heart/Mediastinum: Unremarkable. No cardiomegaly. Bones/joints: Vertebral augmentation again noted. IMPRESSION: No acute cardiopulmonary disease
[2020-12-31 18:11] LABS: D-Dimer 0.33 ug/mL (0.0-0.5)
[2020-12-31 18:22] LABS: Alanine Aminotransferase 16 U/L (12-78); Alkaline Phosphatase 71 U/L (38-126); Aspartate Amino Transferase 27 U/L (14-36); Bilirubin,Total 0.4 mg/dl (0.2-1.3); Blood Urea Nitrogen 17 mg/dl (7-17); Estimated Glomerular Filt Rate 41 ml/min (>60); GFR (African American) 50 ML/MIN (>60)
[2020-12-31 18:23] LABS: Albumin Level 4.6 g/dl (3.5-5.0); Albumin/Globulin Ratio 1.6 (1.1-1.8); Calcium 8.9 mg/dl (8.4-10.2); Globulin 2.9 g/dL (1.3-3.2); Glucose 105 mg/dl (74-100); Total Protein,Serum 7.5 g/dl (6.3-8.2)
[2020-12-31 18:28] LABS: Basophils # 0.1 K/mm3 (0-0.2); Basophils % 0.7 % (0.1-2.0); Eosinophils # 0.3 K/mm3 (0.0-0.4); Eosinophils % 3.7 % (0.1-12.0); Hematocrit 39.4 % (37.0-47.0); Hemoglobin 12.7 g/dL (12.2-16.2); Lymphocytes # 2.8 K/mm3 (0.7-4.5); Lymphocytes % 31.4 % (10-50); Mean Corpuscular HGB Conc 32.2 g/dL (31.8-35.4); Mean Corpuscular Hemoglobin 28.8 pg (27.0-31.2); Mean Corpuscular Volume 89.4 fl (81-99); Mean Platelet Volume 9.3 fl (7.4-10.4); Monocytes # 0.5 K/mm3 (0.1-1.0); Neutrophils # 5.2 K/mm3 (1.8-7.8); Neutrophils % 58.2 % (37.0-80.0); Platelet Count 181 K/mm3 (142-424); Red Cell Distribution Width 13.6 % (11.5-17.5); White Blood Count 8.9 K/mm3 (4.8-10.8)
[2020-12-31 18:36] LABS: Troponin I < 0.01 ng/ml (0.00-0.034)
[2020-12-31 19:57] LABS: Anion Gap 13.9 mEq/L (5-15); Carbon Dioxide 26 mmol/L (22.0-30.0); Chloride 107 mmol/L (98-107); Potassium 4.9 mmoL/L (3.5-5.1); Sodium 142 mmol/L (136-145)
== END ==
PROVIDERS: Visit Provider Internal Medicine Adolescent Medicine
DX: R06.02 Shortness of breath (principal); R07.89 Other chest pain
CPT/HCPCS: 36415; 71046; 80053; 84484; 85025; 85378

== ENCOUNTER → 2021-03-02 16:02 | Outpatient (CLI) | payer BC, MEDICARE, SELFPAY ==
[2021-03-02 17:32] LABS: Anion Gap 13.4 mEq/L (5-15); Blood Urea Nitrogen 15 mg/dl (7-17); Calcium 9.5 mg/dl (8.4-10.2); Carbon Dioxide 28 mmol/L (22.0-30.0); Chloride 104 mmol/L (98-107); Estimated Glomerular Filt Rate 35 ml/min (>60); GFR (African American) 42 ML/MIN (>60); Glucose 92 mg/dl (74-100); Potassium 5.4 mmoL/L (3.5-5.1); Sodium 140 mmol/L (136-145)
== END ==
PROVIDERS: Visit Provider Internal Medicine Adolescent Medicine
DX: R79.89 Other specified abnormal findings of blood chemistry (principal)
CPT/HCPCS: 36415; 80048

== ENCOUNTER → 2021-03-16 15:50 | Outpatient (CLI) | payer BC, MEDICARE, SELFPAY ==
[2021-03-16 15:55] LABS: Microscopic, Urine URINE MICROSCOPIC (MICROSCOPIC)
--- NOTE | 2021-03-16 16:02 | XR_ITS ---
PROCEDURE: XR KNEE LT 3V CLINICAL INDICATION: ARTHRITIS OF LT KNEE COMPARISON: No exams were available for comparison FINDINGS: No fracture or dislocation. No lytic or blastic change. There is normal mineralization. There is minor joint space narrowing medially. There is no effusion, there is no loose body seen. IMPRESSION: Minor degenerate changes Dictated by: Dr. Twin Costa MD 03/17/2021 08:10 Dr. Twin Costa MD in [place] 03/17/2021 08:10
[2021-03-16 16:14] LABS: Basophils # 0.2 K/mm3 (0-0.2); Basophils % 1.4 % (0.1-2.0); Eosinophils # 0.4 K/mm3 (0.0-0.4); Eosinophils % 4.2 % (0.1-12.0); Hematocrit 41.1 % (37.0-47.0); Lymphocytes # 2.7 K/mm3 (0.7-4.5); Lymphocytes % 25.9 % (10-50); Mean Corpuscular HGB Conc 31.7 g/dL (31.8-35.4); Mean Corpuscular Hemoglobin 29.6 pg (27.0-31.2); Mean Corpuscular Volume 93.3 fl (81-99); Mean Platelet Volume 9.6 fl (7.4-10.4); Monocytes # 0.6 K/mm3 (0.1-1.0); Monocytes % 5.3 % (1.7-9.3); Neutrophils # 6.6 K/mm3 (1.8-7.8); Neutrophils % 63.1 % (37.0-80.0); Platelet Count 253 K/mm3 (142-424); Red Cell Distribution Width 13.6 % (11.5-17.5); White Blood Count 10.4 K/mm3 (4.8-10.8)
[2021-03-16 17:01] LABS: Alanine Aminotransferase 12 U/L (12-78); Albumin Level 4.4 g/dl (3.5-5.0); Albumin/Globulin Ratio 1.3 (1.1-1.8); Alkaline Phosphatase 66 U/L (38-126); Anion Gap 13.1 mEq/L (5-15); Aspartate Amino Transferase 23 U/L (14-36); Bilirubin,Total 0.4 mg/dl (0.2-1.3); Blood Urea Nitrogen 12 mg/dl (7-17); Calcium 9.4 mg/dl (8.4-10.2); Carbon Dioxide 28 mmol/L (22.0-30.0); Chloride 104 mmol/L (98-107); Estimated Glomerular Filt Rate 55 ml/min (>60); GFR (African American) 67 ML/MIN (>60); Globulin 3.3 g/dL (1.3-3.2); Glucose 103 mg/dl (74-100); Potassium 5.1 mmoL/L (3.5-5.1); Sodium 140 mmol/L (136-145); Total Protein,Serum 7.7 g/dl (6.3-8.2); Uric Acid 3.7 mg/dl (2.5-6.2)
[2021-03-16 20:28] LABS: Appearance,Urine CLEAR (Clear); Bilirubin,Urine Negative (Negative); Blood, Urine Negative (Negative); Color,Urine YELLOW (Yellow); Glucose,Urine (UA) Negative (Negative); Ketones,Urine Negative (Negative); Leukocyte Esterase,Urine Negative (Negative); Nitrate,Urine Negative (Negative); PH,Urine 6.5 (5.0-8.5); Protein,Urine Negative (Negative); Urobilinogen,Urine 0.2 EU/dl (0.2)
[2021-03-16 20:38] LABS: Bacteria,Urine Trace /lpf; WBC,Urine Occasional #/hpf (0-3)
[2021-03-18 14:11] LABS: Anti-Centromere B Antibodies <0.2 AI (0.0-0.9); Anti-DNA (DS) Ab Qn <1 IU/mL (0-9); Anti-Jo-1 <0.2 AI (0.0-0.9); Anti-Smith Antibody <0.2 AI (0.0-0.9); Antichromatin Antibodies <0.2 AI (0.0-0.9); Antiscleroderma-70 Antibodies <0.2 AI (0.0-0.9); RNP Antibodies <0.2 AI (0.0-0.9); Sjogren's Anti-SS-A 0.2 AI (0.0-0.9); Sjogren's Anti-SS-B <0.2 AI (0.0-0.9)
[2021-03-18 23:18] LABS: Neisseria gonorrhoeae, NAA Negative (Negative)
== END ==
PROVIDERS: Visit Provider Internal Medicine Adolescent Medicine
DX: M17.12 Unilateral primary osteoarthritis, left knee (principal)
CPT/HCPCS: 36415; 73562; 80053; 81001; 84550; 85025; 86225; 86235; 87491; 87591

== ENCOUNTER 2021-05-11 17:58 | Emergency (ER) | payer BC, MEDICARE, SELFPAY ==
--- NOTE | 2021-05-11 17:54 | ECG_ITS ---
APPROVED REPORT Exam: Resting ECG HR:55 bpm ECG Measurements Heart Rate 55 AXES MI 180 P 74 QRSd 86 QRS 49 QT 424 T 61 QTc 405 Conclusion Sinus bradycardia Left atrial abnormality Poor r wave progression Abnormal ECG Electronically signed by : Toni Palmer MD 05/12/2021 21:04:50
[2021-05-11 17:58] VITALS: BP 125/73; PULSE 52; RESP 20; TEMP 36.6; O2SAT 98; BMI 21.1
--- NOTE | 2021-05-11 18:15 | XR_ITS ---
PROCEDURE INFORMATION: Exam: XR Chest Exam date and time: 05/11/2021 6:15 PM Age: 65 years old Clinical indication: Pain; Chest pressure; Additional info: Chest pain TECHNIQUE: Imaging protocol: XR of the chest. Portable AP exam 6:20 p.m. Views: 1 view. COMPARISON: CR XR CHEST 2V 12/31/2020 5:27 PM FINDINGS: Lungs: Streaky subsegmental atelectasis at the lateral left lung base, new compared with the prior exam. No focal consolidation. Upper lungs are poorly evaluated due to dense overlying breast implant shadows. Pleural spaces: Unremarkable. No significant pleural effusion. No pneumothorax. Heart/Mediastinum: The cardiac silhouette is normal. Overlying back digger operator electrodes. Vasculature: Some calcified plaque in the aortic arch. Bones/joints: Osteopenia. Vertebroplasty cement noted within chronic L1 vertebral compression fracture. IMPRESSION: 1. Mild subsegmental atelectasis at the left lung base. 2. No acute findings. 3. Additional nonemergency and chronic findings as above.
--- NOTE | 2021-05-11 18:17 | HMH.EDGENADL ---
ED Disposition Clinical Impression: COPD exacerbation, Tobacco use disorder Disposition: Home, Self-Care Condition on Discharge: Good Instructions: DI for Chronic Obstructive Pulmonary Disease Additional Instructions: You have been evaluated for chest pain and shortness of breath. Diagnosed with a COPD exacerbation. Please take 5 days of prednisone and Levaquin. Try to decrease the amount of tobacco you smoke. Follow-up with your primary care doctor. Return to the emergency department for any new or worsening symptoms, difficulty breathing, fatigue, fevers, worsening chest pain, any other concerns. Prescriptions: levoFLOXacin [Levaquin 750mg tablet] 750 mg PO DAILY #5 tab Transmission Status: Pending to [facility] predniSONE [Prednisone 20mg Tab] 20 mg PO DAILY #5 tab Transmission Status: Pending to [facility] Referrals: Toni Palmer MD [Primary Care Provider] - Time of Disposition: 20:28 - Critical Care Critical Care Time: No Attestation: On 05/11/21, the high probability of a clinically significant, sudden or life threatening deterioration of the following system(s) required my full and direct attention, intervention and personal management. The time I documented below is in addition to time spent performing reported procedures but includes the following listed in this critical care notation. Medical Decision Making - Medical Records Medical records reviewed: Yes: I reviewed the patient's medical records. - Homero Inquiry Pt receiving controlled substance: No Vital Signs: 05/11/21 17:58 Temperature 98 F Temperature Source Oral Pulse Rate [Radial] 52 L Respiratory Rate 20 Blood Pressure [Right Arm] 125/73 Blood Pressure Mean [Right Arm] 90 Blood Pressure Position [Right Arm] Sitting 02 Sat by Pulse Oximetry 98 Oxygen Delivery Method Room Air - Lab Data Lab Results 05/11/21 18:12: WBC 7.1, RBC 4.10 L, Hgb 12.0 L, Hct 37.8, MCV 92.2, MCH 29.3, MCHC 31.8, RDW 13.6, Plt Count 183, MPV 9.1, Neut % (Auto) 50.1, Lymph % (Auto) 39.5, Gem % (Auto) 5.7, Eos % (Auto) 4.1, Baso % (Auto) 0.6, Neut # (Auto) 3.6, Lymph # (Auto) 2.8, Gem # (Auto) 0.4, Eos # (Auto) 0.3, Baso # (Auto) 0.0 05/11/21 18:12: Sodium 139, Potassium 4.2, Chloride 102, Carbon Dioxide 29, Anion Gap 12.2, BUN 17, Creatinine 1.50 H, Estimated Creat Clear 36, Estimated GFR 35 L, Est GFR ( Amer) 42 L, Glucose 88, Calcium 9.4, Total Bilirubin 0.3, AST 29, ALT 11 L, Alkaline Phosphatase 55, Troponin I < 0.01, Total Protein 7.1, Albumin 4.1, Globulin 3.0, Albumin/Globulin Ratio 1.4 05/11/21 18:12: Plasma/Serum Alcohol < 10 05/11/21 18:15: VBG pH 7.30 L, VBG pCO2 52.6 H, VBG pO2 42.8 H, VBG HCO3 25.5, VBG Total CO2 27.1 H, VBG O2 Saturation 80.0 H, VBG Base Excess -0.9 Result diagrams: 05/11/21 18:12 05/11/21 18:12 Orders (Tests/Meds): ED MEDICATIONS Discontinued Medications Generic Name Dose Route Start Last Admin Trade Name Freq PRN Reason Stop Dose Admin Aspirin 325 mg 05/11/21 18:16 05/11/21 18:25 Aspirin 325mg Tablet PO 05/11/21 18:17 325 mg ONCE ONE Administration ORDERS Category Date Time Status D-Dimer Stat Lab 05/11/21 18:12 Received Troponin I Q3H Lab 05/11/21 21:30 Ordered Troponin I Q3H Lab 05/12/21 00:30 Ordered ECG Request by /Olivia Stat Y 05/11/21 18:15 Ordered - Radiology Data #1 Image(s): Chest Image Reviewed: Yes I reviewed the patient's radiology results, Yes I reviewed the patient's radiology image Preliminary Findings: Normal/NAD IMPRESSION: 1. Mild subsegmental atelectasis at the left lung base. 2. No acute findings. 3. Additional nonemergency and chronic findings as above. - ECG Data Tracing #1 Sinus bradycardia with rate of 55 bpm. QRS 86, QTc 405. Inverted T waves in V1. No ST segment elevations. Medical Decision Narrative: In summary this is a 65-year-old female with history of COPD presenting to the emergenc
[2021-05-11 18:38] LABS: Basophils % 0.6 % (0.1-2.0); Eosinophils # 0.3 K/mm3 (0.0-0.4); Eosinophils % 4.1 % (0.1-12.0); Hematocrit 37.8 % (37.0-47.0); Lymphocytes # 2.8 K/mm3 (0.7-4.5); Lymphocytes % 39.5 % (10-50); Mean Corpuscular HGB Conc 31.8 g/dL (31.8-35.4); Mean Corpuscular Hemoglobin 29.3 pg (27.0-31.2); Mean Corpuscular Volume 92.2 fl (81-99); Mean Platelet Volume 9.1 fl (7.4-10.4); Monocytes # 0.4 K/mm3 (0.1-1.0); Monocytes % 5.7 % (1.7-9.3); Neutrophils # 3.6 K/mm3 (1.8-7.8); Neutrophils % 50.1 % (37.0-80.0); Platelet Count 183 K/mm3 (142-424); Red Cell Distribution Width 13.6 % (11.5-17.5); White Blood Count 7.1 K/mm3 (4.8-10.8)
[2021-05-11 18:44] LABS: VBG Base Excess -0.9 mmol/L (-2.4-2.3); VBG HCO3 25.5 mmol/L (23-30); VBG PO2 42.8 mmol/L (28-40); VBG Total CO2 27.1 mmol/L (23-27)
[2021-05-11 18:47] LABS: VBG PCO2 52.6 mmol/L (35-51)
--- NOTE | 2021-05-11 18:47 | PC.NURSE ---
Natalya from respiratory called with VBG on patient, report given and repeated back Ph-7.3, CO2-52.6, PO2-42.8, BiCarb 25.5, TCO2 27.1, O2 Sat 80
[2021-05-11 18:53] LABS: Ethyl Alcohol < 10 mg/dl (0-10)
[2021-05-11 19:24] LABS: Alanine Aminotransferase 11 U/L (12-78); Albumin Level 4.1 g/dl (3.5-5.0); Albumin/Globulin Ratio 1.4 (1.1-1.8); Alkaline Phosphatase 55 U/L (38-126); Anion Gap 12.2 mEq/L (5-15); Aspartate Amino Transferase 29 U/L (14-36); Bilirubin,Total 0.3 mg/dl (0.2-1.3); Blood Urea Nitrogen 17 mg/dl (7-17); Calcium 9.4 mg/dl (8.4-10.2); Carbon Dioxide 29 mmol/L (22.0-30.0); Chloride 102 mmol/L (98-107); Creatinine Clearance Estimated 36 mL/min (50-200); Estimated Glomerular Filt Rate 35 ml/min (>60); GFR (African American) 42 ML/MIN (>60); Glucose 88 mg/dl (74-100); Potassium 4.2 mmoL/L (3.5-5.1); Sodium 139 mmol/L (136-145); Total Protein,Serum 7.1 g/dl (6.3-8.2)
[2021-05-11 19:40] LABS: Troponin I < 0.01 ng/ml (0.00-0.034)
[2021-05-11 20:00] VITALS: BP 116/78; PULSE 56; RESP 12; O2SAT 96
[2021-05-11 20:39] LABS: D-Dimer 0.54 ug/mL (0.0-0.5)
[2021-05-11 21:01] VITALS: BP 118/72; PULSE 50; RESP 14; O2SAT 98
[2021-05-11 21:32] VITALS: BP 163/135; PULSE 57; RESP 12; O2SAT 98
[2021-05-11 21:38] LABS: Troponin I < 0.01 ng/ml (0.00-0.034)
[2021-05-11 21:51] VITALS: BP 134/91; PULSE 60; RESP 14; O2SAT 96
[2021-05-11 22:41] VITALS: BP 128/70; PULSE 60; RESP 16; TEMP 36.9; O2SAT 98
== END 2021-05-11 22:43 | disposition home or self-care (01) ==
PROVIDERS: Emergency Provider Emergency Medicine; PCP Internal Medicine Adolescent Medicine
DX: J44.1 Chronic obstructive pulmonary disease with (acute) exacerbation (principal); I10 Essential (primary) hypertension; F17.210 Nicotine dependence, cigarettes, uncomplicated
CPT/HCPCS: 71045; 80053; 82803; 84484; 85025; 85378; 93005; 96374; 99282

== ENCOUNTER → 2021-05-18 16:48 | Outpatient (CLI) | payer BC, MEDICARE, SELFPAY | PROVIDERS: PCP Internal Medicine Adolescent Medicine; Visit Provider Nurse Practitioner | DX: Z20.822 Contact with and (suspected) exposure to COVID-19 (principal) | CPT/HCPCS: C9803; U0003; U0005 ==

== ENCOUNTER → 2021-05-28 09:33 | Outpatient (CLI) | payer BC, MEDICARE, SELFPAY ==
[2021-05-28 09:40] LABS: Microscopic, Urine URINE MICROSCOPIC (MICROSCOPIC)
[2021-05-28 10:19] LABS: Basophils # 0.3 K/mm3 (0-0.2); Basophils % 2.8 % (0.1-2.0); Eosinophils # 0.6 K/mm3 (0.0-0.4); Eosinophils % 6.4 % (0.1-12.0); Hemoglobin 13.4 g/dL (12.2-16.2); Lymphocytes % 33.9 % (10-50); Mean Corpuscular Hemoglobin 29.1 pg (27.0-31.2); Mean Corpuscular Volume 93.8 fl (81-99); Mean Platelet Volume 9.1 fl (7.4-10.4); Monocytes # 0.7 K/mm3 (0.1-1.0); Monocytes % 8.1 % (1.7-9.3); Neutrophils # 4.3 K/mm3 (1.8-7.8); Neutrophils % 48.7 % (37.0-80.0); Platelet Count 285 K/mm3 (142-424); Red Blood Count 4.59 M/mm3 (4.20-5.40); Red Cell Distribution Width 13.7 % (11.5-17.5); White Blood Count 8.9 K/mm3 (4.8-10.8)
[2021-05-28 11:00] LABS: Albumin Level 4.3 g/dl (3.5-5.0); Anion Gap 11.1 mEq/L (5-15); Blood Urea Nitrogen 18 mg/dl (7-17); Calcium 9.6 mg/dl (8.4-10.2); Carbon Dioxide 33 mmol/L (22.0-30.0); Chloride 101 mmol/L (98-107); Estimated Glomerular Filt Rate 45 ml/min (>60); GFR (African American) 54 ML/MIN (>60); Glucose 121 mg/dl (74-100); Potassium 4.1 mmoL/L (3.5-5.1); Sodium 141 mmol/L (136-145)
[2021-05-28 11:12] LABS: Intact Parathyroid Hormone 49.3 pg/mL (7.5-53.5)
[2021-05-28 11:18] LABS: 25-OH Vitamin D, Total 48.5 ng/mL (30-100)
[2021-05-28 13:11] LABS: Appearance,Urine CLEAR (Clear); Bilirubin,Urine Negative (Negative); Blood, Urine Negative (Negative); Color,Urine YELLOW (Yellow); Glucose,Urine (UA) Negative (Negative); Ketones,Urine Negative (Negative); Leukocyte Esterase,Urine Negative (Negative); Nitrate,Urine Negative (Negative); PH,Urine 6.5 (5.0-8.5); Protein,Urine Negative (Negative); Specific Gravity, Urine 1.015 (1.005-1.030); Urobilinogen,Urine 0.2 EU/dl (0.2)
[2021-05-28 13:25] LABS: Creatinine,Urine Random 81 mg/dL (Not Estab.)
[2021-05-28 13:27] LABS: Squamous Epithelial Cell,Urine Occasional #/hpf (0-5)
== END ==
PROVIDERS: PCP Internal Medicine Adolescent Medicine; Visit Provider Internal Medicine Nephrology
DX: N18.32 Chronic kidney disease, stage 3b (principal); E55.9 Vitamin D deficiency, unspecified
CPT/HCPCS: 36415; 80069; 81001; 82306; 82570; 83970; 84155; 85025

== ENCOUNTER → 2021-06-01 14:59 | Outpatient (POV) | payer BC, MEDICARE, SELFPAY | PROVIDERS: Visit Provider Internal Medicine Nephrology | DX: Z00.00 Encounter for general adult medical examination without abnormal findings (principal) ==

== ENCOUNTER → 2021-08-18 12:47 | Outpatient (POV) | payer BC, MEDICARE, SELFPAY | PROVIDERS: Visit Provider Dermatology | DX: Z00.00 Encounter for general adult medical examination without abnormal findings (principal) ==

== ENCOUNTER → 2021-09-14 09:25 | Outpatient (CLI) | payer BC, MEDICARE, SELFPAY ==
--- NOTE | 2021-09-14 09:35 | XR_ITS ---
FINAL REPORT TECHNIQUE: Bone densitometry calculations of the lumbar spine and each hip were obtained. CLINICAL HISTORY: . osteoporosis without current pathology FINDINGS: DEXA BONE DENSITY AXIAL SKELETON Using L1-4, the bone mineral density of the spine is 0.907 g/cm2, corresponding to T-score of -1.3. Using the left hip, the bone mineral density of the femoral neck is 0.620 g/cm2, corresponding to a T-score of -2.1. Using the right hip, the bone mineral density of the femoral neck is 0.615 g/cm2, corresponding to a T-score of -2.1. NOTE: T-score: Standard deviation compared with peak bone mass of young adult mean. *Following the recommendations of the International Society of Bone densitometry, classification of hip BMD is based on the lower of two T-scores; total hip or femoral neck. IMPRESSION: Diminished bone mineral density of the lumbar spine and each hip consistent with osteopenia. FRAX 10 year fracture risk is 19 % for major osteoporotic fracture. Reviewed, Interpreted and Dictated by Ezequiel Logan MD Transcribed by Deb Lorenzo Authenticated by Ezequiel Logan MD on 09/14/2021 12:16:09 PM [facility]
== END ==
PROVIDERS: PCP Internal Medicine Adolescent Medicine; Visit Provider Internal Medicine Adolescent Medicine
DX: M81.0 Age-related osteoporosis without current pathological fracture (principal)
CPT/HCPCS: 77080

== ENCOUNTER → 2021-09-16 11:33 | Outpatient (CLI) | payer BC, MEDICARE, SELFPAY ==
--- NOTE | 2021-09-16 11:40 | XR_ITS ---
FINAL REPORT CLINICAL HISTORY: RIGHT HIP PAIN, recent fall, no sx. patient had trouble laying leg out for frog lateral , too painful COMPARISON: May 13, 2020 FINDINGS: 2 views of the right hip with an AP pelvis were obtained. There is no acute fracture or dislocation. The joint spaces are preserved. There are mild hypertrophic changes at the margins of the femoral heads, stable from prior. There are mild hypertrophic changes at the inferior margin of the right hip joint. There are no soft tissue abnormalities. IMPRESSION: No acute process. Reviewed, Interpreted and Dictated by Ezequiel Logan MD Transcribed by William Sanchez Authenticated by Ezequiel Logan MD on 09/16/2021 01:06:18 PM [facility]
== END ==
PROVIDERS: PCP Internal Medicine Adolescent Medicine; Visit Provider Internal Medicine Adolescent Medicine
DX: M25.551 Pain in right hip (principal)
CPT/HCPCS: 73502

== ENCOUNTER → 2021-09-18 14:50 | Outpatient (CLI) | payer BC, MEDICARE, SELFPAY ==
--- NOTE | 2021-09-18 14:53 | US_ITS ---
FINAL REPORT TECHNIQUE: Ultrasound images of the kidneys and bladder were obtained. CLINICAL HISTORY: CKD STAGE 3 FINDINGS: The right kidney measures 8.2 cm in length. It is normal in echogenicity. There is no hydronephrosis. The left kidney measures 8.2 cm in length. It is normal in echogenicity. There is no hydronephrosis. There is a 1.1 cm hyperechoic focus in the spleen, may represent a hemangioma. IMPRESSION: Unremarkable exam. Reviewed, Interpreted and Dictated by Melo Wiseman III, MD Transcribed by Marie Sanders Authenticated by Melo Wiseman III, MD on 09/21/2021 08:04:24 AM [facility]
== END ==
PROVIDERS: PCP Internal Medicine Adolescent Medicine; Visit Provider Internal Medicine Nephrology
DX: N18.31 Chronic kidney disease, stage 3a (principal)
CPT/HCPCS: 76770

== ENCOUNTER → 2021-11-24 10:31 | Outpatient (POV) | payer BC, MEDICARE, SELFPAY | PROVIDERS: Visit Provider Dermatology | DX: Z00.00 Encounter for general adult medical examination without abnormal findings (principal) ==

== ENCOUNTER → 2021-11-28 10:09 | Outpatient (CLI) | payer BC, MEDICARE, SELFPAY | PROVIDERS: PCP Internal Medicine Adolescent Medicine; Visit Provider Ophthalmology | DX: Z01.812 Encounter for preprocedural laboratory examination (principal); Z20.822 Contact with and (suspected) exposure to COVID-19 | CPT/HCPCS: C9803; U0003; U0005 ==

== ENCOUNTER 2021-12-01 07:57 | Day surgery (SDC) | payer BC, MEDICARE, SELFPAY ==
[2021-11-26 14:05] VITALS: BMI 21.6
[2021-12-01] VITALS (7 sets, daily range): BP systolic 118–144; BP diastolic 72–85; PULSE 58–62; RESP 16–18; TEMP 36.2–36.7; O2SAT 98–100
== END 2021-12-01 10:15 | disposition home or self-care (01) ==
LOC: OR 07:59
PROVIDERS: PCP Internal Medicine Adolescent Medicine; Visit Provider Ophthalmology
PROC: (CPT 66984; principal; 2021-12-01 10:00)
DX: H25.813 Combined forms of age-related cataract, bilateral (principal); Z72.0 Tobacco use
CPT/HCPCS: 66984; V2632

== ENCOUNTER → 2021-12-13 12:47 | Outpatient (CLI) | payer BC, MEDICARE, SELFPAY | PROVIDERS: PCP Internal Medicine Adolescent Medicine; Visit Provider Ophthalmology | DX: Z01.812 Encounter for preprocedural laboratory examination (principal); Z20.822 Contact with and (suspected) exposure to COVID-19 | CPT/HCPCS: C9803; U0003; U0005 ==

== ENCOUNTER 2021-12-15 07:50 | Day surgery (SDC) | payer BC, MEDICARE, SELFPAY ==
[2021-12-15] VITALS (7 sets, daily range): BP systolic 99–131; BP diastolic 64–79; PULSE 52–56; RESP 18–20; TEMP 36.2–36.4; O2SAT 97–100; BMI 21.9
== END 2021-12-15 10:40 | disposition home or self-care (01) ==
LOC: OR 07:50
PROVIDERS: PCP Internal Medicine Adolescent Medicine; Visit Provider Ophthalmology
PROC: (CPT 66984; principal; 2021-12-15 10:00)
DX: H26.9 Unspecified cataract (principal); Z79.899 Other long term (current) drug therapy
CPT/HCPCS: 66984; V2632

== ENCOUNTER 2022-01-24 12:31 | Emergency (ER) | payer BC, MEDICARE, SELFPAY ==
[2022-01-24 13:15] VITALS: BP 115/84; PULSE 79; RESP 18; TEMP 37.5; O2SAT 96; BMI 21.1
--- NOTE | 2022-01-24 13:36 | EXP.UTC ---
Discharge Plan Prescriptions Prescriptions: No Action promethazine 25 mg tablet 25 mg PO Q6H PRN (Reason: Nausea) propranolol 20 mg tablet 20 mg PO BID Qty: 60 clonidine HCl 0.1 mg tablet 0.1 mg PO QID Qty: 120 pregabalin 75 mg capsule 75 mg PO DAILY Label Comments: TAKE ONE CAPSULE BY MOUTH TWICE DAILY dextroamphetamine-amphetamine 15 mg tablet 15 mg PO DAILY prednisone 20 mg tablet 20 mg PO DAILY Label Comments: TAKE THREE TABLETS BY MOUTH EVERY DAY FOR 2 DAYS, THEN TAKE TWO TABLETS BY MOUTH FOR 2 DAYS, THEN TAKE ONE TABLET BY MOUTH FOR 2 DAYS -- FINISH ALL MEDICINE -- --TAKE WITH FOOD-- cholecalciferol (vitamin D3) 400 UNIT capsule 400 unit PO DAILY folic acid 1 MG tablet 1 mg PO DAILY Label Comments: TAKE ONE TABLET BY MOUTH EVERY DAY albuterol sulfate 8.5 GM HFA aerosol inhaler 2 puffs IH Q4HP PRN (Reason: Shortness Of Breath) Label Comments: INHALE 2-4 puffs BY MOUTH EVERY 4 TO 6 HOURS NEEDED prednisone 20 MG tablet 20 mg PO DAILY amlodipine 5 MG tablet See Rx Instructions .Route .COMPLEX Rx Instructions: TAKE ONE TABLET BY MOUTH TWICE DAILY Referrals Follow up/Referrals: Toni Palmer MD [Primary Care Provider] - See instructions Discharge ED Provider: Jeniffer Mora [facility] General Stated complaint: fever, sore throat, body aches, sob Mode of Arrival: Ambulatory Source of Information: Patient Limitations: No Limitations Time Seen by Provider: 01/24/22 13:36 Description of Symptoms (Recalled from Triage Doc. by RN): PATIENT C/O SOA, FEVER, BODY ACHES, HEADACHE AND CHILLS THAT STARTED YESTERDAY HEENT Symptoms (Recalled from RN notes): Yes Resp Symptoms (Recalled from RN notes): Yes Skin Symptoms (Recalled from RN notes): No MS Symptoms (Recalled from RN notes): No Functional Status (Recalled from RN notes): WNL Related Data Home Medications Medication Instructions Recorded Confirmed promethazine 25 mg tablet 25 mg PO Q6H PRN Nausea 11/30/18 12/15/21 propranolol 20 mg tablet 20 mg PO BID BLOOD PRESSURE #60 02/01/19 12/15/21 tabs clonidine HCl 0.1 mg tablet 0.1 mg PO QID BLOOD PRESSURE #120 06/13/19 12/15/21 tabs albuterol sulfate 90 mcg/actuation 2 puffs IH Q4HP PRN Shortness Of 08/06/19 12/15/21 aerosol inhaler Breath folic acid 1 mg tablet 1 mg PO DAILY Supplement 08/06/19 12/15/21 dextroamphetamine-amphetamine 15 15 mg PO DAILY adhd 11/26/19 12/15/21 mg tablet pregabalin 75 mg capsule 75 mg PO DAILY . 11/26/19 12/15/21 cholecalciferol (vitamin D3) 10 400 unit PO DAILY Supplement 07/29/20 12/15/21 mcg (400 unit) capsule prednisone 20 mg tablet 20 mg PO DAILY . 03/03/21 12/15/21 amlodipine 5 mg tablet See Rx Instructions .Route 11/26/21 12/15/21 .COMPLEX . prednisone 20 mg tablet 20 mg PO DAILY . 11/26/21 12/15/21 Allergies Allergy/AdvReac Type Severity Reaction Status Date / Time albuterol [From VENTOLIN HFA] Allergy Mild Verified 12/15/21 09:07 codeine [CODEINE] Allergy Mild Verified 12/15/21 09:07 erythromycin base Allergy Mild Verified 12/15/21 09:07 [ERYTHROMYCIN BASE] ketorolac [From TORADOL] Allergy Mild HEMMORHAGE Verified 12/15/21 09:07 meperidine [From DEMEROL] Allergy Mild Verified 12/15/21 09:07 Penicillins [PENICILLINS] Allergy Mild Verified 12/15/21 09:07 Sulfa (Sulfonamide Allergy Mild Verified 12/15/21 09:07 Antibiotics) [SULFA (SULFONAMIDE ANTIBIOTICS)] tetracycline [TETRACYCLINE] Allergy Mild Verified 12/15/21 09:07 buprenorphine [From SUBOXONE] Allergy Unknown I-HIVES Verified 12/15/21 09:07 morphine [From ANA] Allergy Unknown I-HIVES Verified 12/15/21 09:07 naloxone [From SUBOXONE] Allergy Unknown I-HIVES Verified 12/15/21 09:07 propoxyphene Allergy Unknown I-HIVES Verified 12/15/21 09:07 [From DARVOCET-N] Worker's Comp Is this a Worker's Comp case?: No [facility] Medical History (Updated 01/24/22 @ 13:32 by Amie
--- NOTE | 2022-01-24 13:37 | EXP.UTC ---
Discharge Plan Disposition Patient Disposition: Home, Self-Care Condition: Good Prescriptions Prescriptions: New levofloxacin 500 mg tablet 500 mg PO DAILY 7 Days Qty: 7 0RF No Action promethazine 25 mg tablet 25 mg PO Q6H PRN (Reason: Nausea) propranolol 20 mg tablet 20 mg PO BID Qty: 60 clonidine HCl 0.1 mg tablet 0.1 mg PO QID Qty: 120 pregabalin 75 mg capsule 75 mg PO DAILY Label Comments: TAKE ONE CAPSULE BY MOUTH TWICE DAILY dextroamphetamine-amphetamine 15 mg tablet 15 mg PO DAILY prednisone 20 mg tablet 20 mg PO DAILY Label Comments: TAKE THREE TABLETS BY MOUTH EVERY DAY FOR 2 DAYS, THEN TAKE TWO TABLETS BY MOUTH FOR 2 DAYS, THEN TAKE ONE TABLET BY MOUTH FOR 2 DAYS -- FINISH ALL MEDICINE -- --TAKE WITH FOOD-- cholecalciferol (vitamin D3) 400 UNIT capsule 400 unit PO DAILY folic acid 1 MG tablet 1 mg PO DAILY Label Comments: TAKE ONE TABLET BY MOUTH EVERY DAY albuterol sulfate 8.5 GM HFA aerosol inhaler 2 puffs IH Q4HP PRN (Reason: Shortness Of Breath) Label Comments: INHALE 2-4 puffs BY MOUTH EVERY 4 TO 6 HOURS NEEDED prednisone 20 MG tablet 20 mg PO DAILY amlodipine 5 MG tablet See Rx Instructions .Route .COMPLEX Rx Instructions: TAKE ONE TABLET BY MOUTH TWICE DAILY Referrals Follow up/Referrals: Toni Palmer MD [Primary Care Provider] - See instructions Activity Restrictions/Add. Instructions Additional Instructions/Restrictions: Take medication as prescribed Use your inhaler as prescribed You may check your COVID results on the [facility] My Healthy Portal Return if needed Straight to ER if any life threatneing symptoms Clinical Impressions Clinical Impression: Bronchitis Instructions Patient Instructions: Acute Bronchitis, DI for Sinusitis, Chronic Obstructive Pulmonary Disease Discharge ED Provider: Jeniffer Mora [facility] General Stated complaint: fever, sore throat, body aches, sob Mode of Arrival: Ambulatory Source of Information: Patient Limitations: No Limitations Time Seen by Provider: 01/24/22 13:38 Description of Symptoms (Recalled from Triage Doc. by RN): PATIENT C/O SOA, FEVER, BODY ACHES, HEADACHE AND CHILLS THAT STARTED YESTERDAY HEENT Symptoms (Recalled from RN notes): Yes Resp Symptoms (Recalled from RN notes): Yes Skin Symptoms (Recalled from RN notes): No MS Symptoms (Recalled from RN notes): No Functional Status (Recalled from RN notes): WNL History of Present Illness Provider Complaint: Patient states that she is a smoker and that she has been having fever, chills, body aches, cough and at times feels a little SOA after coughing States that at times she is coughing up some mucous States that she feels like it is trying to move into her chest States that today she was having a little nausea so she came in to get checked out and get tested for COVID Related Data Home Medications Medication Instructions Recorded Confirmed promethazine 25 mg tablet 25 mg PO Q6H PRN Nausea 11/30/18 12/15/21 propranolol 20 mg tablet 20 mg PO BID BLOOD PRESSURE #60 02/01/19 12/15/21 tabs clonidine HCl 0.1 mg tablet 0.1 mg PO QID BLOOD PRESSURE #120 06/13/19 12/15/21 tabs albuterol sulfate 90 mcg/actuation 2 puffs IH Q4HP PRN Shortness Of 08/06/19 12/15/21 aerosol inhaler Breath folic acid 1 mg tablet 1 mg PO DAILY Supplement 08/06/19 12/15/21 dextroamphetamine-amphetamine 15 15 mg PO DAILY adhd 11/26/19 12/15/21 mg tablet pregabalin 75 mg capsule 75 mg PO DAILY . 11/26/19 12/15/21 cholecalciferol (vitamin D3) 10 400 unit PO DAILY Supplement 07/29/20 12/15/21 mcg (400 unit) capsule prednisone 20 mg tablet 20 mg PO DAILY . 03/03/21 12/15/21 amlodipine 5 mg tablet See Rx Instructions .Route 11/26/21 12/15/21 .COMPLEX . prednisone 20 mg tablet 20 mg PO DAILY . 11/26/21 12/15/21 Previous Rx's Medication Instructions Recorded levofloxacin 500 mg tablet 500 mg PO
[2022-01-24 13:46] LABS: UTC Strep Screen (Rapid) Negative (Negative)
[2022-01-24 14:10] VITALS: BP 115/84; PULSE 79; RESP 18; TEMP 37.5; O2SAT 96
--- NOTE | 2022-01-25 12:42 | PC.NURSE ---
pt called for test results, advised positive for covid
== END 2022-01-24 14:17 | disposition home or self-care (01) ==
PROVIDERS: Emergency Provider Nurse Practitioner; PCP Internal Medicine Adolescent Medicine
DX: U07.1 COVID-19 (principal); J20.9 Acute bronchitis, unspecified; J44.0 Chronic obstructive pulmonary disease with (acute) lower respiratory infection; F17.210 Nicotine dependence, cigarettes, uncomplicated; I10 Essential (primary) hypertension
CPT/HCPCS: 87880; 99212; C9803; G0463; U0003; U0005

== ENCOUNTER → 2022-06-25 10:48 | Outpatient (CLI) | payer BC, MEDICARE, SELFPAY ==
--- NOTE | 2022-06-25 11:07 | XR_ITS ---
FINAL REPORT CLINICAL HISTORY: PAIN FINDINGS: LUMBAR SPINE Five views demonstrate no acute fracture. There are L1 and L2 chronic compression fractures with changes of kyphoplasty. Mild degenerative changes are present. Note is made of vascular calcification. There is no malalignment. IMPRESSION: Degenerative and chronic appearing findings. Reviewed, Interpreted and Dictated by Melo Wiseman III, MD Transcribed by Marie Sanders Authenticated and . [facility]
--- NOTE | 2022-06-25 11:07 | XR_ITS ---
FINAL REPORT CLINICAL HISTORY: PAIN COMPARISON: 05/11/2021 FINDINGS: A single view of the chest with 3 views of the bilateral ribs were obtained. There is no acute cardiopulmonary process. No pneumothorax is identified. There are nondisplaced left 4th and 5th distal rib fractures. IMPRESSION: Nondisplaced left 4th and 5th distal rib fractures. Reviewed, Interpreted and Dictated by Melo Wiseman III, MD Transcribed by Marie Sanders Authenticated and [facility]
--- NOTE | 2022-06-25 11:07 | XR_ITS ---
FINAL REPORT CLINICAL HISTORY: PAIN COMPARISON: 09/16/2021 FINDINGS: Right hip Three views were obtained. There is no acute fracture or dislocation. There are [id number] degenerative changes of both hips, stable. No soft tissue abnormality is identified. IMPRESSION: Degenerative changes without acute bony abnormality. Reviewed, Interpreted and Dictated by Melo Wiseman III, MD Transcribed by Marie Sanders Authenticated and [facility]
--- NOTE | 2022-06-25 11:07 | XR_ITS ---
FINAL REPORT CLINICAL HISTORY: PAIN COMPARISON: 05/11/2021 FINDINGS: Two views of the chest were obtained. The heart size and pulmonary vascularity are within normal limits. The mediastinum is normal. No acute pulmonary abnormality is identified. There is no pneumothorax. The bony thorax is intact. IMPRESSION: No active cardiopulmonary disease. Reviewed, Interpreted and Dictated by Melo Wiseman III, MD Transcribed by Chloé Gonzales Authenticated and [facility]
== END ==
PROVIDERS: PCP Internal Medicine Adolescent Medicine; Visit Provider Internal Medicine Adolescent Medicine
DX: R07.89 Other chest pain (principal); M54.50 Low back pain, unspecified; M25.551 Pain in right hip
CPT/HCPCS: 71046; 71111; 72110; 73502

== ENCOUNTER → 2022-08-06 10:21 | Outpatient (POV) | payer BC, MEDICARE, SELFPAY ==
[2022-08-06 11:22] VITALS: BP 113/88; PULSE 77; RESP 18; O2SAT 98; BMI 22.7
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
== END ==
PROVIDERS: PCP Internal Medicine Adolescent Medicine; Visit Provider Nurse Practitioner Family
DX: M51.16 Intervertebral disc disorders with radiculopathy, lumbar region (principal); M50.30 Other cervical disc degeneration, unspecified cervical region; M51.34 Other intervertebral disc degeneration, thoracic region; M25.551 Pain in right hip; G89.4 Chronic pain syndrome
CPT/HCPCS: 99202; G0463

== ENCOUNTER → 2022-11-03 14:15 | Outpatient (POV) | payer BC, MEDICARE, SELFPAY ==
--- NOTE | 2022-11-03 14:49 | EXP.PAIN.SOA ---
[facility] Pain Management SOAP Note Subjective:: Patient is a pleasant 67-year-old female who presents today for follow-up of psych evaluation denial. We are currently treating the patient for degenerative disc disease of cervical, thoracic, lumbar spine with cervical, thoracic and lumbar spine radiculopathy symptoms, chronic pain syndrome. Today she rates her pain a 6 out of 10. Patient denies any new trauma or injury. Patient denies any change location or type of pain she experiences. Patient states that she continues to have significant issues with anxiety and depression related to her current circumstances. Her does have cancer and at his last visit they have discussed that it may have metastasized. She does state that she has a longstanding history of anxiety and issues. Patient also has a history of kyphoplasty in the past. Patient was previously on Lyrica and oxycodone however she weaned herself off of her pain medication and has been without it for approximately 5 months. She does state that she continues to be in constant pain and has no quality of life. She is currently managed with [place] 7.5 mg 3-4 times per day and tramadol 50 mg twice a day. She denies any side effects from these medications. Patient has not refilled her pregabalin 200 mg twice a day since September. Her Homero is [id number]. Its been reviewed and appropriate. Review of Systems: General: No recent weight changes, no fever, no sleep disturbances Respiratory: No cough, no shortness of air, no recurring pulmonary infections Cardiovascular/peripheral vascular: No chest pain, no palpitations, no edema, no shortness of breath Gastrointestinal: No new onset incontinence, normal bowel movements reported Genitourinary: No new onset incontinence Musculoskeletal: Neck pain, mid back pain, low back pain Psychiatric: [Normal mood/affect] Neurological: [Denies weakness in extremities], [denies balance issues] Objective:: Physical Exam: General: Alert and oriented x3, no acute distress, pleasant and cooperative Lungs: Respirations even and unlabored, symmetrical chest expansion Eyes: PERRL Musculoskeletal: Flexion and extension of lumbar [spine] somewhat guarded secondary to pain, [antalgic gait noted] Neurological: Speech clear, no gross sensory deficit Assessment:: Degenerative disc disease of cervical, thoracic and lumbar spine with cervical and thoracic and lumbar radiculopathy symptoms, chronic pain syndrome Plan:: Patient continues to experience significant anxiety and depression along with chronic pain at multiple sites. I have reviewed over with the patient and her psychological evaluation and that she was deemed an appropriate candidate at this time related to her anxiety and depression. Psychologist noted that they did not feel that she was mentally stable at this time for that device. I have counseled the patient to contact her primary care doctor and discussed with him regarding these findings and see about putting her on something for anxiety and depression. Patient did state that she has an appointment with Dr. Spears's office later today. I have discussed with the patient that we could try amitriptyline 10 mg daily to help with her depression and neuropathic pain. I will send in a 1 month supply of this medication. Patient will return to clinic in 1 month for reevaluation of symptoms possible medication refill if indicated and follow-up. Patient has been instructed to contact the clinic with any concerns before the next appointment. Dr. Noel has reviewed this note and agrees with this plan of care. This note was dictated using voice recognition software and make contain errors or omissions. [facility] Disclaimer: The information contained in this section may have been updated after the patient was seen, as this information can be updated by other users. Medical History (Updated 09/27/22 @ 13:43 by Shani Saul, [facility]) Anxiety Chest pain COPD (chronic obstructiv
[2022-11-03 15:48] VITALS: BP 146/87; PULSE 72; RESP 18; TEMP 36.9; O2SAT 98; BMI 22.7
== END | disposition home or self-care (01) ==
PROVIDERS: PCP Internal Medicine Adolescent Medicine; Visit Provider Nurse Practitioner Family
DX: M51.16 Intervertebral disc disorders with radiculopathy, lumbar region (principal); M51.14 Intervertebral disc disorders with radiculopathy, thoracic region; M50.10 Cervical disc disorder with radiculopathy, unspecified cervical region; G89.4 Chronic pain syndrome
CPT/HCPCS: 99212; G0463

== ENCOUNTER → 2022-12-02 08:41 | Outpatient (CLI) | payer BC, MEDICARE, SELFPAY ==
--- NOTE | 2022-12-02 08:46 | US_ITS ---
FINAL REPORT CLINICAL HISTORY: RUQ PAIN FINDINGS: Sonographic images of the right upper quadrant were obtained. The pancreas is partially obscured. There is mild fatty liver present. The portal vein is dilated up to 15 mm. There is a probable small polyp along the gallbladder wall which measures 3 mm. There is no evidence of gallstones. There is questionable sludge or stone in the biliary duct. The common duct measures up to 9 mm, which is dilated. Limited images of the right kidney are unremarkable. IMPRESSION: Probable small polyp along the gallbladder wall measuring 3 mm. Biliary ductal dilatation with possible sludge or stone. Recommend MRCP or ERCP. Dilated portal vein of uncertain significance. Portal vein hypertension is not excluded. Reviewed, Interpreted and Dictated by Melo Wiseman III, MD Transcribed by Jamir Argueta Authenticated and [facility]
== END ==
LOC: RAD 08:42
PROVIDERS: PCP Internal Medicine Adolescent Medicine; Visit Provider Internal Medicine Adolescent Medicine
DX: R10.11 Right upper quadrant pain (principal)
CPT/HCPCS: 76705

== ENCOUNTER → 2022-12-13 15:16 | Outpatient (POV) | payer BC, MEDICARE, SELFPAY ==
--- NOTE | 2022-12-13 15:18 | EXP.PAIN.SOA ---
[facility] Pain Management SOAP Note Subjective:: Patient is a pleasant 67-year-old female who presents today for 1 month follow-up. We are currently treating the patient for degenerative disc disease of cervical, thoracic, lumbar spine with cervical, thoracic and lumbar spine radiculopathy symptoms, chronic pain syndrome. Today she rates her pain a 6 out of 10. Patient denies any new trauma or injury or change to the location or type of pain she experiences. At her last visit she was prescribed Cymbalta 20 mg twice daily. She states that she did notice improvement with this medication and that Dr. Palmer actually increased it to 60 mg daily. She states that this has provided significant improvement with her anxiety and depression. She does state that she is almost out of this prescription and that at her last visit with his office he had her double up on the prescription from our office. She does state that she continues to have stress related to her having cancer however they did just celebrate their 50th wedding anniversary. Patient does state that she is still interested in trying again for the intrathecal pain pump trial in the future. She is currently managed with [place] 7.5 mg and pregabalin 200 mg twice a day from Dr. Mora's office. Her Homero is [id number]. Its been reviewed and appropriate. Review of Systems: General: No recent weight changes, no fever, no sleep disturbances Respiratory: No cough, no shortness of air, no recurring pulmonary infections Cardiovascular/peripheral vascular: No chest pain, no palpitations, no edema, no shortness of breath Gastrointestinal: No new onset incontinence, normal bowel movements reported Genitourinary: No new onset incontinence Musculoskeletal: Neck pain, mid back pain, low back pain Psychiatric: [Normal mood/affect] Neurological: [Denies weakness in extremities], [denies balance issues] Objective:: Physical Exam: General: Alert and oriented x3, no acute distress, pleasant and cooperative Lungs: Respirations even and unlabored, symmetrical chest expansion Eyes: PERRL Musculoskeletal: Flexion and extension of lumbar [spine] somewhat guarded secondary to pain, [antalgic gait noted] Neurological: Speech clear, no gross sensory deficit Assessment:: Degenerative disc disease of cervical, thoracic and lumbar spine with cervical, thoracic and lumbar spine radiculopathy symptoms, chronic pain syndrome Plan:: I will send in a new prescription for Cymbalta 60 mg daily and provide a 2-month supply of this medication. Patient will return to clinic in 2 months for reevaluation of symptoms and plan of care. Patient has been instructed to contact the clinic with any concerns before the next appointment. Dr. Noel has reviewed this note and agrees with this plan of care. This note was dictated using voice recognition software and make contain errors or omissions. [facility] Disclaimer: The information contained in this section may have been updated after the patient was seen, as this information can be updated by other users. Medical History (Updated 12/10/22 @ 12:13 by Raj Reynaga MD) Anxiety Chest pain COPD (chronic obstructive pulmonary disease) Dizziness Dyspnea Dyspnea Hypertension Migraine Tobacco dependence syndrome Surgical History (Updated 12/10/22 @ 10:11 by STEPHANIE Parr) History of colonoscopy History of hysterectomy Social History Smoking Status: Current every day smoker tobacco type: cigarettes packs per day: 1 alcohol intake: never substance use type: marijuana current occupational status: retired Travel in the last 8 weeks: None household members: spouse and children housing: house current occupational exposures/hazards: No caffeine: Yes
[2022-12-13 15:20] VITALS: BP 144/87; PULSE 80; RESP 20; BMI 22.7
== END | disposition home or self-care (01) ==
PROVIDERS: PCP Internal Medicine Adolescent Medicine; Visit Provider Nurse Practitioner Family
DX: M50.10 Cervical disc disorder with radiculopathy, unspecified cervical region (principal); M51.14 Intervertebral disc disorders with radiculopathy, thoracic region; M51.16 Intervertebral disc disorders with radiculopathy, lumbar region; G89.4 Chronic pain syndrome
CPT/HCPCS: 99212; G0463

== ENCOUNTER → 2023-02-14 13:50 | Outpatient (POV) | payer BC, MEDICARE, SELFPAY ==
[2023-02-14 14:13] VITALS: BP 149/72; PULSE 76; RESP 20; O2SAT 97; BMI 22.2
--- NOTE | 2023-02-14 14:30 | EXP.PAIN.SOA ---
[facility] Pain Management SOAP Note Subjective:: Patient is a pleasant 67-year-old female who presents today for medication refill. We are currently treating the patient for degenerative disc disease of cervical, thoracic, and lumbar spine with cervical thoracic and lumbar radiculopathy symptoms, chronic pain syndrome. Today she rates her pain an 8 out of 10. Patient denies any new trauma or injury. She states she continues to have significant pain on a daily basis that does affect her ability perform activities of daily living. Patient had previously went for a psychological evaluation for possible intrathecal pain pump trial however she was not found to be an appropriate patient due to her extreme depression and anxiety issues. Since then we have started the patient on Cymbalta 60 mg daily and she does states she has had significant improvement. Patient does state that she still has several things going on including her who is dealing with cancer. She states today that he has chose not to do chemo or radiation and that she also has her oldest daughter who had to have surgery for lung cancer and is currently still hospitalized due to not having her lung reinflate. Patient does state that these things do cause stress however she feels much more able to deal with the stress since adding the Cymbalta medication. She states that the anxiety is not overwhelming like how it was. Patient is still very interested in trying to get the intrathecal pain pump trial approved in the future. She is currently prescribed Roy 7.5 mg and pregabalin 200 mg twice a day from Dr. Palmer's office. Her Homero is [phone]. Its been reviewed and appropriate. Review of Systems: General: No recent weight changes, no fever, no sleep disturbances Respiratory: No cough, no shortness of air, no recurring pulmonary infections Cardiovascular/peripheral vascular: No chest pain, no palpitations, no edema, no shortness of breath Gastrointestinal: No new onset incontinence, normal bowel movements reported Genitourinary: No new onset incontinence Musculoskeletal: Low back pain Psychiatric: [Normal mood/affect] Neurological: [Denies weakness in extremities], [denies balance issues] Objective:: Physical Exam: General: Alert and oriented x3, no acute distress, pleasant and cooperative Lungs: Respirations even and unlabored, symmetrical chest expansion Eyes: PERRL Musculoskeletal: Flexion and extension of lumbar [spine] somewhat guarded secondary to pain, [antalgic gait noted] Neurological: Speech clear, no gross sensory deficit Assessment:: degenerative disc disease of cervical, thoracic, and lumbar spine with cervical thoracic and lumbar radiculopathy symptoms, chronic pain syndrome Plan:: I will refill the patient's Cymbalta 60 mg daily and provide a 3-month supply of this medication. I have counseled the patient that we will continue to monitor her depression and anxiety and at our next follow-up visit if she still would like to proceed forward we can retry and order a psychological evaluation again for the pain pump trial. Patient will return to clinic in 3 months for reevaluation of symptoms and plan of care. Patient has been instructed to contact the clinic with any concerns before the next appointment. Dr. Noel has reviewed this note and agrees with this plan of care. This note was dictated using voice recognition software and make contain errors or omissions. [facility] Disclaimer: The information contained in this section may have been updated after the patient was seen, as this information can be updated by other users. Medical History (Updated 12/10/22 @ 12:13 by Raj Reynaga MD) Anxiety Chest pain COPD (chronic obstructive pulmonary disease) Dizziness Dyspnea Dyspnea Hypertension Migraine Tobacco dependence syndrome Surgical History (Updated 12/10/22 @ 10:11 by STEPHANIE Parr) History of colonoscopy History of hysterectomy Social Histor
== END | disposition home or self-care (01) ==
PROVIDERS: PCP Internal Medicine Adolescent Medicine; Visit Provider Nurse Practitioner Family
DX: M50.10 Cervical disc disorder with radiculopathy, unspecified cervical region (principal); M51.14 Intervertebral disc disorders with radiculopathy, thoracic region; M51.16 Intervertebral disc disorders with radiculopathy, lumbar region; G89.4 Chronic pain syndrome
CPT/HCPCS: 99212; G0463

== ENCOUNTER → 2023-02-17 08:48 | Outpatient (CLI) | payer BC, MEDICARE, SELFPAY ==
--- NOTE | 2023-02-17 08:54 | XR_ITS ---
FINAL REPORT CLINICAL HISTORY: OSTEOPOROSIS FINDINGS: Using L1-4, the bone mineral density of the spine is 1.394 g/cm2, corresponding to T-score of 3.2. This is within the normal range. Using the left hip, the bone mineral density of the femoral neck is 0.602 g/cm2, corresponding to a T-score of -2.2 which is within the osteopenic range Using the right hip: The bone mineral density of the femoral neck is 0.637 g/cm2, corresponding to a T-score of -1.9 which is within the osteopenic range. FRAX 10 year fracture risk is 26% for a hip fracture and 8.6% for a major osteoporotic fracture. IMPRESSION: 1 1. Normal bone mineral density of the lumbar spine. 2. Osteopenic bone mineral density of the bilateral femoral necks. NOTE: T-score: Standard deviation compared with peak bone mass of young adult mean. *Following the recommendations of the International Society of Bone densitometry, classification of hip BMD is based on the lower of two T-scores; total hip or femoral neck. Reviewed, Interpreted and Dictated by Michelle Reyes MD Transcribed by Kitty Tian Authenticated and [facility]
== END ==
PROVIDERS: PCP Internal Medicine Adolescent Medicine; Visit Provider Internal Medicine Adolescent Medicine
DX: Z78.0 Asymptomatic menopausal state (principal); M81.0 Age-related osteoporosis without current pathological fracture
CPT/HCPCS: 77080

== ENCOUNTER 2023-04-22 20:58 | Emergency (ER) | payer BC, MEDICARE, SELFPAY ==
--- NOTE | 2023-04-22 21:11 | CT_ITS ---
PROCEDURE INFORMATION: Exam: CT Lumbar Spine Without Contrast Exam date and time: 04/22/2023 9:36 PM Age: 67 years old Clinical indication: Low back pain; Additional info: History of back surgeries, fall TECHNIQUE: Imaging protocol: Computed tomography of the lumbar spine without contrast. Radiation optimization: All CT scans at this facility use at least one of these dose optimization techniques: automated exposure control; mA and/or kV adjustment per patient size (includes targeted exams where dose is matched to clinical indication); or iterative reconstruction. REPORTING DATA: Count of CT and Cardiac NM exams in prior 12 months: This patient has received 0 known CTs and 0 known cardiac nuclear medicine studies in the 12 months prior to the current study. COMPARISON: 1. MR LUMBAR SPINE WO CON 11/05/2019 1:[address] LUMBAR SPINE WO CON 09/22/2019 4:[address] THORACIC SPINE WO CON 04/22/2023 9:33 PM FINDINGS: Bones/joints: There is diffuse osseous demineralization. There is cement material within the L1 and L2 vertebral bodies. No evidence of acute spondylolisthesis or vertebral subluxation. Vertebral body heights are generally preserved, but some endplate sclerosis and anterior osteophytes are noted at multiple levels. Narrowing of multiple intervertebral disc spaces observed, indicative of degenerative disc disease. Hypertrophic changes are seen in the facet joints, consistent with osteoarthritis. No fractures or bony lesions identified. No abnormalities seen in adjacent osseous structures. Vasculature: There is ectasia of the infrarenal abdominal aorta without true aneurysm. Soft tissues: Unremarkable. Other findings: No obvious abnormalities seen in the prevertebral and paravertebral soft tissues. IMPRESSION: Degenerative changes without acute abnormality detected.
--- NOTE | 2023-04-22 21:11 | CT_ITS ---
PROCEDURE INFORMATION: Exam: CT Thoracic Spine Without Contrast Exam date and time: 04/22/2023 9:33 PM Age: 67 years old Clinical indication: Pain in thoracic spine; Additional info: History of back surgeries, fall TECHNIQUE: Imaging protocol: Computed tomography of the thoracic spine without contrast. Radiation optimization: All CT scans at this facility use at least one of these dose optimization techniques: automated exposure control; mA and/or kV adjustment per patient size (includes targeted exams where dose is matched to clinical indication); or iterative reconstruction. REPORTING DATA: Count of CT and Cardiac NM exams in prior 12 months: This patient has received 0 known CTs and 0 known cardiac nuclear medicine studies in the 12 months prior to the current study. COMPARISON: 1. CT THORACIC SPINE WO CON 09/22/2019 4:28 PM 2. MR LUMBAR SPINE WO CON 11/05/2019 1:05 PM 3. CR XR CHEST PORTABLE 04/22/2023 9:24 PM FINDINGS: Bones/joints: There is diffuse osseous demineralization. There is exaggeration of the spinal curvature. No evidence of acute spondylolisthesis or vertebral subluxation. Vertebral body heights are generally preserved, but some endplate sclerosis and anterior osteophytes are noted at multiple levels. Narrowing of multiple intervertebral disc spaces observed, indicative of degenerative disc disease. Hypertrophic changes are seen in the facet joints, consistent with osteoarthritis. Question a small amount of cement material in the T11 vertebral body. There is exaggeration of the spinal curvature. No fractures or bony lesions identified. No abnormalities seen in adjacent osseous structures. Soft tissues: Unremarkable. Other findings: Calcified granulomas in the right chest. No obvious abnormalities seen in the prevertebral and paravertebral soft tissues. IMPRESSION: Degenerative changes without acute abnormality detected.
--- NOTE | 2023-04-22 21:11 | XR_ITS ---
PROCEDURE INFORMATION: Exam: XR Chest Exam date and time: 04/22/2023 9:24 PM Age: 67 years old Clinical indication: Shortness of breath; Additional info: SOB TECHNIQUE: Imaging protocol: Radiologic exam of the chest. Views: 1 view. COMPARISON: CR XR CHEST 2V 06/25/2022 11:57 AM FINDINGS: Lungs: No evidence of acute pulmonary disease or infiltrates; lung bellamy appear clear. Pleural spaces: No evidence of pleural effusion, pneumothorax, or pleural thickening in the visualized pleural spaces. Heart/Mediastinum: No evidence of mediastinal widening or cardiac silhouette enlargement; the mediastinum and heart appear within normal limits for contour and size. Bones/joints: No evidence of acute osseous abnormalities within the visualized portions of the thoracic spine and ribs. Osseous structures appear appropriate for patient age. IMPRESSION: Negative study. No acute cardiopulmonary abnormalities identified.
[2023-04-22 21:12] VITALS: BP 200/119; PULSE 89; RESP 18; TEMP 36.6; O2SAT 97; BMI 21.9
--- NOTE | 2023-04-22 21:15 | HMH.EDGENADL ---
Discharge Plan Disposition Patient Disposition: Home, Self-Care Condition: Good Chief Complaint: PAIN Prescriptions Prescriptions: No Action promethazine 25 mg tablet 25 mg PO Q6H PRN (Reason: Nausea) dextroamphetamine-amphetamine 15 mg tablet 15 mg PO DAILY pregabalin 75 mg capsule 200 mg PO DAILY Patient Comments: TAKE ONE CAPSULE BY MOUTH TWICE DAILY propranolol 40 mg tablet See Rx Instructions .ROUTE .COMPLEX Qty: 60 3RF Dose Instruction: TAKE ONE TABLET BY MOUTH TWICE DAILY Rx Instructions: TAKE ONE TABLET BY MOUTH TWICE DAILY losartan 25 mg tablet 25 mg PO DAILY duloxetine [Cymbalta] 20 mg capsule,delayed release(DR/EC) 20 mg PO BID Qty: 60 0RF duloxetine 60 mg capsule,delayed release(DR/EC) 60 mg PO DAILY Qty: 30 2RF Referrals Follow up/Referrals: Toni Palmer MD [Primary Care Provider] - See instructions Clinical Impressions Clinical Impression: Radiculopathy Instructions Patient Instructions: DI for Low Back Pain Discharge ED Provider: Meg Valenzuela General Adult HPI General Chief complaint: PAIN Stated complaint: back pain,SOA Time Seen by Provider: 04/22/23 21:11 History of Present Illness HPI narrative: Patient has a PMHx significant for degenerative disc disease, lumbar radiculopathy, anxiety, depression, chronic pain, CKD, COPD who presents to the ED with complaints of fall. Patient notes that she was Linda shopping in [place] and after dinner, she was walking back to her car when she had sudden onset of numbness and tingling of bilateral lower extremities that caused her to fall. Patient notes that she fell backwards, landed directly onto her back. Negative head trauma, negative LOC, negative blood thinners. Patient notes that she has a long history of chronic back pain with radiculopathy and intermittently has numbness and tingling that develops in her feet that causes her to fall. Patient reports that she has also been having SOb for the past 2 days Related Data Home Medications Medication Instructions Recorded Confirmed promethazine 25 mg tablet 25 mg PO Q6H PRN Nausea 11/30/18 04/22/23 dextroamphetamine-amphetamine 15 15 mg PO DAILY adhd 11/26/19 04/22/23 mg tablet pregabalin 75 mg capsule 200 mg PO DAILY . 07/12/22 04/22/23 losartan 25 mg tablet 25 mg PO DAILY BLOOD PRESSURE 08/06/22 04/22/23 Previous Rx's Medication Instructions Recorded duloxetine 20 mg capsule,delayed 20 mg PO BID #60 caps 11/03/22 release (Cymbalta) propranolol 40 mg tablet See Rx Instructions .Route 11/16/22 .COMPLEX #60 tabs duloxetine 60 mg capsule,delayed 60 mg PO DAILY #30 caps 02/14/23 release Allergies Allergy/AdvReac Type Severity Reaction Status Date / Time albuterol [From VENTOLIN HFA] Allergy Mild Verified 03/02/23 10:01 codeine [CODEINE] Allergy Mild Verified 03/02/23 10:01 erythromycin base Allergy Mild Verified 03/02/23 10:01 [ERYTHROMYCIN BASE] ketorolac [From TORADOL] Allergy Mild HEMMORHAGE Verified 03/02/23 10:01 meperidine [From DEMEROL] Allergy Mild Verified 03/02/23 10:01 Penicillins [PENICILLINS] Allergy Mild Verified 03/02/23 10:01 Sulfa (Sulfonamide Allergy Mild Verified 03/02/23 10:01 Antibiotics) [SULFA (SULFONAMIDE ANTIBIOTICS)] tetracycline [TETRACYCLINE] Allergy Mild Verified 03/02/23 10:01 buprenorphine [From SUBOXONE] Allergy Unknown I-HIVES Verified 03/02/23 10:01 morphine [From ANA] Allergy Unknown I-HIVES Verified 03/02/23 10:01 naloxone [From SUBOXONE] Allergy Unknown I-HIVES Verified 03/02/23 10:01 propoxyphene Allergy Unknown I-HIVES Verified 03/02/23 10:01 [From DARVOCET-N] [facility] Disclaimer: The information contained in this section may have been updated after the patient was seen, as this information can be updated by other users. Medical History Anxiety Chest pain [employer]
[2023-04-22 21:19] VITALS: BP 200/119
[2023-04-22 21:30] LABS: Chloride 104 mmol/L (98-107); Potassium 3.6 mmoL/L (3.5-5.1); Sodium 142 mmol/L (136-145)
--- NOTE | 2023-04-22 21:31 | PC.NURSE ---
Patient states she is unable to take the Tylenol makes me sick to my stomach , patient states the only medication that helps in the hospital is Dilaudid.
[2023-04-22 21:33] LABS: Alanine Aminotransferase 26 U/L (12-78); Albumin Level 4.7 g/dl (3.5-5.0); Albumin/Globulin Ratio 1.3 (1.1-1.8); Alkaline Phosphatase 100 U/L (38-126); Anion Gap 11.6 mEq/L (5-15); Aspartate Amino Transferase 35 U/L (14-36); Bilirubin,Total 0.4 mg/dl (0.2-1.3); Blood Urea Nitrogen 16 mg/dl (7-17); Carbon Dioxide 30 mmol/L (22.0-30.0); Creatinine Clearance Estimated 49 mL/min (50-200); Estimated Glomerular Filt Rate 49 ml/min (>60); GFR (African American) 60 ML/MIN (>60); Globulin 3.5 g/dL (1.3-3.2); Total Protein,Serum 8.2 g/dl (6.3-8.2)
[2023-04-22 21:34] LABS: Basophils # 0.1 K/mm3 (0-0.2); Calcium 9.3 mg/dl (8.4-10.2); Eosinophils # 0.2 K/mm3 (0.0-0.4); Eosinophils % 3.4 % (0.1-12.0); Glucose 96 mg/dl (74-100); Hematocrit 43.7 % (37.0-47.0); Hemoglobin 14.2 g/dL (12.2-16.2); Lymphocytes % 28.6 % (10-50); Mean Corpuscular HGB Conc 32.5 g/dL (31.8-35.4); Mean Corpuscular Hemoglobin 30.2 pg (27.0-31.2); Mean Platelet Volume 8.8 fl (7.4-10.4); Monocytes # 0.8 K/mm3 (0.1-1.0); Monocytes % 11.4 % (1.7-9.3); Neutrophils # 3.9 K/mm3 (1.8-7.8); Neutrophils % 55.6 % (37.0-80.0); Platelet Count 190 K/mm3 (142-424); Red Cell Distribution Width 13.4 % (11.5-17.5)
[2023-04-22 21:45] LABS: Troponin I < 0.01 ng/ml (0.00-0.034)
--- NOTE | 2023-04-22 22:11 | ECG_ITS ---
APPROVED REPORT Exam: Resting ECG HR:76 bpm ECG Measurements Heart Rate 76 AXES TN 177 P 77 QRSd 86 QRS 71 QT 379 T 71 QTc 409 Conclusion SINUS RHYTHM POSSIBLE RIGHT VENTRICULAR CONDUCTION DELAY [RSR (QR) IN V1/V2] BORDERLINE ECG UNCONFIRMED REPORT Electronically signed by : Toni Palmer MD 04/25/2023 17:43:04
[2023-04-22 22:28] VITALS: BP 157/90; PULSE 90; RESP 18; TEMP 36.9; O2SAT 95
== END 2023-04-22 22:44 | disposition home or self-care (01) ==
PROVIDERS: Emergency Provider Emergency Medicine; PCP Internal Medicine Adolescent Medicine
DX: M54.16 Radiculopathy, lumbar region (principal); J44.9 Chronic obstructive pulmonary disease, unspecified; F41.9 Anxiety disorder, unspecified; F32.A Depression, unspecified; I10 Essential (primary) hypertension; F17.210 Nicotine dependence, cigarettes, uncomplicated; W18.30XA Fall on same level, unspecified, initial encounter
CPT/HCPCS: 71045; 72128; 72131; 80053; 84484; 85025; 93005; 96374; 99285

== ENCOUNTER → 2023-05-12 13:05 | Outpatient (POV) | payer BC, MEDICARE, SELFPAY ==
[2023-05-12 13:27] VITALS: BP 157/88; PULSE 86; RESP 18; O2SAT 96; BMI 20.7
--- NOTE | 2023-05-12 13:41 | EXP.PAIN.SOA ---
[facility] Pain Management SOAP Note Subjective:: Patient is a pleasant 67-year-old female who presents today for medication refill and follow-up. We are currently treating the patient for degenerative disc disease of cervical, thoracic and lumbar spine with cervical thoracic and lumbar radiculopathy symptoms, chronic pain syndrome. Today she rates her pain at a 6 out of 10. Patient denies any new trauma or injury. She does state from our last visit she does feel like she is continue to do well on her current medication and that she is handling her stress and anxiety much better than earlier this year. She states that since our last visit her has had 2 additional surgeries. She states he is not doing as well as they would like however they are trying to make the best of it. patient was sent for a psychological evaluation back in September however did not pass due to her current circumstances. Patient did have her diagnosed with cancer as well as her daughter with lung cancer all around that initial timeframe. Patient does state today that she is still feeling much better and feels like she handles her anxiety and stress at an appropriate level now. Patient is currently managed with Cymbalta 60 mg daily from our office and she is on Force 7.5 mg, clonazepam 0.5 mg and pregabalin 200 mg twice a day from her primary care provider's office. She does state that she still would like to proceed forward with the intrathecal pain pump trial. She states her pain is constant and interferes with her ability perform activities of daily living such as cooking and cleaning. Her Homero has been reviewed and is appropriate. Review of Systems: General: No recent weight changes, no fever, no sleep disturbances Respiratory: No cough, no shortness of air, no recurring pulmonary infections Cardiovascular/peripheral vascular: No chest pain, no palpitations, no edema, no shortness of breath Gastrointestinal: No new onset incontinence, normal bowel movements reported Genitourinary: No new onset incontinence Musculoskeletal: Neck pain, mid back pain, low back pain Psychiatric: [Normal mood/affect] Neurological: [Denies weakness in extremities], [denies balance issues] Objective:: Physical Exam: General: Alert and oriented x3, no acute distress, pleasant and cooperative Lungs: Respirations even and unlabored, symmetrical chest expansion Eyes: PERRL Musculoskeletal: Flexion and extension of lumbar [spine] somewhat guarded secondary to pain, [antalgic gait noted] Neurological: Speech clear, no gross sensory deficit Assessment:: Degenerative disc disease of cervical, thoracic and lumbar spine with cervical thoracic and lumbar radiculopathy symptoms, chronic pain syndrome Plan:: Patient is doing much better emotionally during her last couple of visits. I have reviewed over with her the intrathecal pain pump trial risk and benefits and she still would like to proceed forward with this plan of care. We will submit for a psychological evaluation and I have discussed with her if she is found to be an appropriate candidate we will then proceed forward with a trial at a later date. I will refill her Cymbalta 60 mg daily and provide a 2-month supply of this medication. Patient will return to clinic in 6 weeks following her psychological evaluation for plan of care. Patient has been instructed to contact the clinic with any concerns before the next appointment. Dr. Noel has reviewed this note and agrees with this plan of care. This note was dictated using voice recognition software and make contain errors or omissions. [facility] Disclaimer: The information contained in this section may have been updated after the patient was seen, as this information can be updated by other users. Medical History Anxiety Chest pain COPD (chronic obstructive pulmonary disease) Dizziness Dyspnea Dyspnea Hypertension Migraine Tobacco de
== END | disposition home or self-care (01) ==
PROVIDERS: PCP Internal Medicine Adolescent Medicine; Visit Provider Nurse Practitioner Family
DX: M50.10 Cervical disc disorder with radiculopathy, unspecified cervical region (principal); M51.14 Intervertebral disc disorders with radiculopathy, thoracic region; M51.16 Intervertebral disc disorders with radiculopathy, lumbar region; G89.4 Chronic pain syndrome
CPT/HCPCS: 99212; G0463

== ENCOUNTER 2023-07-17 14:49 | Emergency (ER) | payer MEDICARE, SELFPAY ==
[2023-07-17 14:51] VITALS: BP 118/69; PULSE 62; RESP 18; TEMP 36.7; O2SAT 98; BMI 21.1
--- NOTE | 2023-07-17 14:59 | ED_ITS ---
I was consulted by the LITA, and we discussed the complexity of the problems being addressed. I approved the treatment and management plan for this patient's care in the emergency department, thus performing a substantive portion of the medical decision making. Perez Roy MD Discharge Plan Disposition Patient Disposition: Home, Self-Care Condition: Good Prescriptions Prescriptions: New methocarbamol 750 mg tablet 750 mg PO Q8HP PRN (Reason: Muscle spasm pain) Qty: 10 0RF No Action promethazine 25 mg tablet 25 mg PO Q6H PRN (Reason: Nausea) amlodipine [Norvasc] 5 mg tablet 5 mg PO DAILY Qty: 30 2RF dextroamphetamine-amphetamine 15 mg tablet 15 mg PO DAILY pregabalin 75 mg capsule 200 mg PO DAILY Patient Comments: TAKE ONE CAPSULE BY MOUTH TWICE DAILY propranolol 40 mg tablet See Rx Instructions .ROUTE .COMPLEX Qty: 60 3RF Dose Instruction: TAKE ONE TABLET BY MOUTH TWICE DAILY Rx Instructions: TAKE ONE TABLET BY MOUTH TWICE DAILY losartan 25 mg tablet 25 mg PO BID Qty: 60 5RF duloxetine [Cymbalta] 20 mg capsule,delayed release(DR/EC) 20 mg PO BID Qty: 60 0RF duloxetine 60 mg capsule,delayed release(DR/EC) 60 mg PO DAILY Qty: 30 1RF Referrals Follow up/Referrals: Toni Palmer MD [Primary Care Provider] - See instructions Activity Restrictions/Add. Instructions Additional Instructions/Restrictions: Please call and make a appointment with orthopedics in the a.m. Keep your arm in a sling. Use ice to the shoulder and oncology and Robaxin to your pharmacy Clinical Impressions Clinical Impression: Muscle strain of right shoulder region Qualifiers: Encounter type: initial encounter Qualified Code(s): S46.911A - Strain of unspecified muscle, fascia and tendon at shoulder and upper arm level, right arm, initial encounter Discharge ED Provider: Perez Roy General Adult HPI General Chief complaint: Extremity Injury, Upper Stated complaint: AO 07/09 right shoulder blade pain Time Seen by Provider: 07/17/23 14:58 History of Present Illness HPI narrative: Patient is a 67-year-old female presenting for acute right shoulder pain. Patient was trying to kill her dog and the dog jerked while her hand was in the dog's harness and she felt a pop and immediate pain. She did not fall or suffer any impact trauma. She denies chest pain fever chills hemoptysis hematochezia melena nausea vomit diarrhea radiculopathy or neuropathy. Related Data Home Medications Medication Instructions Recorded Confirmed promethazine 25 mg tablet 25 mg PO Q6H PRN Nausea 11/30/18 06/29/23 dextroamphetamine-amphetamine 15 15 mg PO DAILY adhd 11/26/19 06/29/23 mg tablet pregabalin 75 mg capsule 200 mg PO DAILY . 07/12/22 06/29/23 Previous Rx's Medication Instructions Recorded duloxetine 20 mg capsule,delayed 20 mg PO BID #60 caps 11/03/22 release (Cymbalta) propranolol 40 mg tablet See Rx Instructions .Route 05/10/23 .COMPLEX #60 tabs duloxetine 60 mg capsule,delayed 60 mg PO DAILY #30 caps 05/12/23 release amlodipine 5 mg tablet (Norvasc) 5 mg PO DAILY #30 tabs 06/29/23 losartan 25 mg tablet 25 mg PO BID BLOOD PRESSURE #60 07/07/23 tabs methocarbamol 750 mg tablet 750 mg PO Q8HP PRN Muscle spasm 07/17/23 pain #10 tabs Allergies Allergy/AdvReac Type Severity Reaction Status Date / Time albuterol [From VENTOLIN HFA] Allergy Mild Verified 06/29/23 14:50 codeine [CODEINE] Allergy Mild Verified 06/29/23 14:50 erythromycin base Allergy Mild Verified 06/29/23 14:50 [ERYTHROMYCIN BASE] ketorolac [From TORADOL] Allergy Mild HEMMORHAGE Verified 06/29/23 14:50 meperidine [From DEMEROL] Allergy Mild Verified 06/29/23 14:50 Penicillins [PENICILLINS] Allergy Mild Verified 06/29/23 14:50 Sulfa (Sulfonamide Allergy Mild Verified 06/29/23 14:50 Antibiotics) [SULFA (SULFONAMIDE ANTIBIOTICS)] tetracycline [TETRACYCLINE] Allergy Mild Verified 06/29/23 14:50 buprenorphine [From SUBOXONE] Allergy Unknown I-HIVES Verified 06/29/23 14:50 morphine [From ANA] Allergy Unknown I-HIVES Verified 06/29/23 14:50 naloxone [From SUBOXONE] Allergy Unknown I-HIVES Verified 06/29/23 14:50 propoxyphene Allergy Unknown I-HIVES Verified 06/29/23 14:50 [From DARVOCET-N] [facility] Disclaimer: The information contained in this section may have been updated after the patient was seen, as this information can be updated by other users. Medical History Anxiety Chest pain COPD (chronic obstructive pulmonary disease) Dizziness Dyspnea Dyspnea Hypertension Migraine Tobacco dependence syndrome Surgical History History of colonoscopy History of hysterectomy Social History Smoking Status: Current every day smoker tobacco type: cigarettes packs per day: 1 alcohol intake: never substance use type: marijuana current occupational status: retired Travel in the last 8 weeks: None household members: spouse and children housing: house current occupational exposures/hazards: No caffeine: Yes ROS Obtained: Yes Systems reviewed as appropriate & no additional complaints except as documented Physical Exam General General appearance: alert and in no apparent distress Head Head exam: atraumatic and normal inspection Eye Eye exam: Present normal appearance, PERRL and EOMI ENT ENT exam: Present normal exam, normal oropharynx and mucous membranes moist Neck Neck exam: Present normal inspection; Absent full ROM Chest Chest inspection: Present normal inspection and symmetric chest wall rise Respiratory Respiratory exam: Present normal lung sounds bilaterally Cardiovascular Cardiovascular exam: Present regular rate, normal rhythm and normal heart sounds Abdominal Exam Abdominal exam: Present soft and normal bowel sounds Extremities Exam Extremities exam: Present other (The 3 unaffected extremities are intact to exam and with full range of motion without tenderness.) Expanded Upper Extremity Exam Right: Shoulder exam: Present normal inspection, tenderness (She has tenderness to palpation at the medial To the border with slight swelling of the soft tissue. She is also tender to palpation at the acromion process. She has no crepitus noted deformity. She cannot abduct but she has no tenderness to rotation. ) and other (He also has tenderness in the bicipital groove.); Absent full ROM (Limited exam due to the patient's discomfort about her right shoulder.) Neurological Exam Neurological exam: Present alert and oriented X3 Psychiatric Psychiatric exam: Present normal affect and normal mood Skin Skin exam: Present warm, dry and normal color Lymphatic Lymphatic Findings: no adenopathy Medical Decision Making Medical Records Medical records reviewed: Yes I reviewed the patient's medical records. Homero Inquiry Pt receiving controlled substance: No Vital Signs: 07/17/23 14:51 Temperature 98.0 F Temperature Source Oral Pulse Rate [Radial] 62 Respiratory Rate 18 Blood Pressure [Left Arm] 118/69 Blood Pressure Mean [Left Arm] 85 Blood Pressure Source [Left Arm] Automatic Cuff Blood Pressure Position [Left Arm] Sitting 02 Sat by Pulse Oximetry 98 Lab Data Lab results reviewed: Yes I reviewed the patient's lab results. Orders (Tests/Meds): ED MEDICATIONS Generic Name Dose Route Start Last Admin Trade Name Freq PRN Reason Stop Dose Admin Acetaminophen 1,000 mg 07/17/23 15:34 Acetaminophen 500mg Tab PO 07/17/23 15:35 ONCE ONE Discontinued Medications Generic Name Dose Route Start Last Admin Trade Name Freq PRN Reason Stop Dose Admin Acetaminophen 1,000 mg 07/17/23 15:07 Acetaminophen 1,000mg/100ml Vial IV 07/17/23 15:08 ONCE ONE ORDERS Category Date Time Status Shoulder XR right miminum 2 views [XR shoulder RT min Exams 07/17/23 15:07 Taken 2V] Stat Medical Decision Narrative: In summary patient is a 67-year-old female who presents to the emergency department for evaluation of right shoulder injury. Patient is hemodynamically stable and afebrile upon arrival. Physical exam is remarkable for tenderness at the medial border of the scapula posteriorly and tenderness to palpation at the acromion process and bicipital groove but no crepitus or deformity noted. Exam is limited due to the patient's pain for full range of motion testing however she is nontender to internal and external rotation. Differential diagnosis includes dislocation versus cartilaginous injury versus musculoskeletal injury. Initial workup will be conducted with plain film x-rays to the right shoulder. Initial interventions include acetaminophen. Considered Toradol however patient reports an allergy. Initial workup reviewed by me and my informal interpretation of her plain film right shoulder shows no acute processes.. Upon repeat evaluation still reports tenderness to her right shoulder. Given this appropriate for discharge with a sling, instructions for RICE, and outpatient referred to orthopedics. Critical Care Critical Care Time Critical Care Time: No
--- NOTE | 2023-07-17 15:07 | XR_ITS ---
PROCEDURE INFORMATION: Exam: XR Right Shoulder Exam date and time: 07/17/2023 3:08 PM Age: 67 years old Clinical indication: Pain; Shoulder; Right; Additional info: Acute shoulder pain TECHNIQUE: Imaging protocol: Radiologic exam of the right shoulder. Views: 2 or more views. COMPARISON: CR XR CLAVICLE RT 06/13/2019 12:03 PM FINDINGS: Bones/joints: Normal. Soft tissues: Normal. IMPRESSION: No acute findings.
--- NOTE | 2023-07-17 15:35 | PC.NURSE ---
DR RAMOS AT BEDSIDE
[2023-07-17] MEDS: ACETAMINOPHEN 500MG TAB 1000 MG PO (15:36)
[2023-07-17 15:52] VITALS: BP 118/69; PULSE 62; RESP 18; TEMP 36.7; O2SAT 98
== END 2023-07-17 15:53 | disposition home or self-care (01) ==
PROVIDERS: Emergency Provider Emergency Medicine; PCP Internal Medicine Adolescent Medicine
DX: S46.911A Strain of unspecified muscle, fascia and tendon at shoulder and upper arm level, right arm, initial encounter (principal); X50.9XXA Other and unspecified overexertion or strenuous movements or postures, initial encounter
CPT/HCPCS: 73030; 96374; 99284

== ENCOUNTER → 2023-07-27 13:43 | Outpatient (POV) | payer MEDICARE, SELFPAY ==
[2023-07-27 13:52] VITALS: BP 153/95; PULSE 75; RESP 20; BMI 21.1
--- NOTE | 2023-07-27 14:39 | A.OFFVIS_ITS ---
[facility] Pain Management SOAP Note Subjective:: Patient is a pleasant 67-year-old female who presents today for follow-up of psychological evaluation. Today she rates her pain an 8 out of 10. Patient does state from her last visit that on the of last month she was walking her dog when he did drag her for a little bit due to having a harness and lesion on. She states that she did have worsening pain in and around her right shoulder. Patient states that she did go to the ER for imaging and states there was no fractures. Patient does state this is a sharp pain and that she is scheduled for an MRI coming up on the of this month. Patient does also states she continues to have her chronic neck, mid back and low back pain. Patient states she is still wanting to proceed forward with the intrathecal pain pump trial. Patient states that she still feels like she is doing much better from starting than Cymbalta 60 mg daily from our office. Patient is on Vader, clonazepam and pregabalin from her primary care provider. Her Homero has been reviewed and is appropriate. Review of Systems: General: No recent weight changes, no fever, no sleep disturbances Respiratory: No cough, no shortness of air, no recurring pulmonary infections Cardiovascular/peripheral vascular: No chest pain, no palpitations, no edema, no shortness of breath Gastrointestinal: No new onset incontinence, normal bowel movements reported Genitourinary: No new onset incontinence Musculoskeletal: Low back pain, right shoulder pain Psychiatric: [Normal mood/affect] Neurological: [Denies weakness in extremities], [denies balance issues] Objective:: Physical Exam: General: Alert and oriented x3, no acute distress, pleasant and cooperative Lungs: Respirations even and unlabored, symmetrical chest expansion Eyes: PERRL Musculoskeletal: Flexion and extension of lumbar [spine] somewhat guarded seco ndary to pain, [antalgic gait noted] Neurological: Speech clear, no gross sensory deficit Assessment:: Degenerative disc disease of cervical, thoracic and lumbar spine with cervical, thoracic and lumbar radiculopathy symptoms, chronic pain syndrome Plan:: Patient did have an appropriate psychological evaluation and was deemed an appropriate candidate for the intrathecal pain pump trial. I have reviewed over again the risk and benefits of this procedure and she would like to proceed forward with this plan of care. I will also refill the patient's Cymbalta 60 mg daily and provide a 3-month supply of this medication. Patient will be submitted for a intrathecal pain pump trial. Patient has tried and failed conservative treatments. Patient has been instructed to contact the clinic with any concerns before the next appointment. Dr. Noel has reviewed this note and agrees with this plan of c are. This note was dictated using voice recognition software and make contain errors or omissions. [facility] Disclaimer: The information contained in this section may have been updated after the patient was seen, as this information can be updated by other users. Medical History Anxiety Chest pain COPD (chronic obstructive pulmonary disease) Dizziness Dyspnea Dyspnea Hypertension Migraine Tobacco dependence syndrome Surgical History History of colonoscopy History of hysterectomy Social History Smoking Status: Current every day smoker tobacco type: cigarettes packs per day: 1 alcohol intake: never substance use type: marijuana current occupational status: other Travel in the last 8 weeks: None household members: spouse and children housing: house current occupational exposures/hazards: No caffeine: Yes
== END | disposition home or self-care (01) ==
PROVIDERS: PCP Internal Medicine Adolescent Medicine; Visit Provider Nurse Practitioner Family
DX: M50.10 Cervical disc disorder with radiculopathy, unspecified cervical region (principal); M51.14 Intervertebral disc disorders with radiculopathy, thoracic region; M51.16 Intervertebral disc disorders with radiculopathy, lumbar region; G89.4 Chronic pain syndrome
CPT/HCPCS: 99212; G0463

== ENCOUNTER 2023-07-29 11:43 | Outpatient (CLI) | payer MEDICARE, SELFPAY ==
--- NOTE | 2023-07-29 | CA_ITS ---
APPROVED REPORT Exam: Pharmacologic Technologist: Mely Wong, Ht: 5 ft 7 in Wt: 136 lbs BSA: 1.72 m2 HR: 62 bpm BP: 169/99 mmHg Rhythm: NSR Medical History Medical History: HTN, Smoking Medications: Amlodipine,,,,, Losartan,,,,, ProMETHAZINE,,,,, DulOXETINE,,,,, PropANOLOL,,,,, Pregabalin,,,,, DexTROamphetamine-Amphetamine,,,,, Cardiac Risk Factors: HTN, Smoking Stress Test Details Test: LEXISCAN HR Resting HR: 63 bpm Max Heart Rate (APMHR): 152 bpm Max HR Achieved: 77 bpm Target HR (85% APMHR): 129 bpm % of APMHR: 51 Recovery HR: 70 bpm BP Resting BP: 169/99 mmHg Max BP: 169/99 mmHg Recovery BP: 149.0/85.0 mmHg ECG Resting ECG: NSR Stress ECG: No significant ST changes Arrhythmia: None Clinical Exercise duration: 04:05 min Highest Stage Achieved: Stress ECG Conclusion PT HAD MILD CHEST HEAVINESS, AND MILD STOMACH DISCOMFORT NO SIGNIFICANT ST CHANGES UNREMARKABLE LEXISCAN STRESS MYOVIEW IMAGES REPORTED SEPARATELY Test Summary REST . . . . . . . Sitting REST . . . . . . . Sitting REST 05:35 . . 63 . 169/ 99 . . Stage 1 01:00 . . 72 . . . . Stage 2 01:00 . . 77 . . . . Stage 3 01:00 . . 72 . 158/ 92 . . Stage 4 01:00 . . 71 . . . . Stage 4 01:05 . . 71 . . . Stop exercise at 04:05 RECOVERY 01:00 . . 70 . 150/ 85 . . RECOVERY 02:00 . . 69 . 150/ 85 . . RECOVERY 03:00 . . 69 . 150/ 85 . . RECOVERY 03:33 . . 71 . 149/ 85 . . Electronically signed by : Regina Vaca MD 08/01/2023 22:06:02
--- NOTE | 2023-07-29 11:47 | NM_ITS ---
APPROVED REPORT Exam: Nuclear Stress Test Indication: Chest pain, SOB, Palpitations, Fatigue, HTN, Tobacco use, Family history Patient Location: Outpatient Stress Tech: Mely PALENCIA Tech:Rebecca RoweCRISTINE RT(R)(N) Ht: 5 ft 7 in Wt: 140 lbs Bra Size: 34C HR: 63 bpm BP: 169/99 mmHg BSA: 1.74 m2 TID: 0.91 BMI: 21.9 History: Chest pain, SOB, Palpitations, Fatigue, HTN, Tobacco use, Family history Procedure: Patient received 0.4 mg of intravenous Lexiscan, resting heart rate 63 bpm, resting blood pressure 169/99 mmHg, with Lexiscan maximum heart rate achieved was 77 bpm which is % of the maximum predicted heart rate and blood pressure was 169/99 mmHg. With Lexiscan, patient denied any complaint of chest pain. Cardiac Stress and Resting SPECT Images: Cardiac Stress and Resting SPECT images were obtained using technetium 99m Myoview 32.0 mCi stress and 9.99 mCi at rest. Resting and stress imaging in supine and prone positions demonstrate no evidence of fixed or reversible perfusion defects. Gated imaging demonstrates normal global and regional LV systolic function. LVEF is calculated at 58%. Conclusion: No evidence of fixed or reversible perfusion defects. Gated imaging demonstrates normal global and regional LV systolic function. LVEF is calculated at 58%. Electronically signed by : Regina Vaca MD 08/01/2023 22:07:50
--- NOTE | 2023-07-29 11:50 | CA_ITS ---
APPROVED REPORT EXAM: Comprehensive 2D, Doppler, and color-flow Echocardiogram Meat And Poultry Inspector: Mary Kay Villagomez RDCS Ht: 5 ft 7 in Wt: 136lbs BSA: 1.72 BP: 102/80 mmHg Indications: CP SOA M-Mode Dimensions RVDd 1.66 cm (0.9-2.6) LA Diam 2.99 cm (1.9-4.0) LVDd 5.20 cm (3.5-5.7) LVDs 3.59 cm (3.5-5.7) IVSd 0.78 cm (0.6-1.1) PWd 0.72 cm (0.6-1.1) EF (Teich) 58.20% FS 31.00% EDV (Teich) 129.50 mL TAPSE 1.65 (<1.7) ESV (Teich) 54.10 mL LV Diastology E Decel Time 160 (160-240 msec) E/A Ratio 1.3 Mitral Valve MV E Max Lj. 98.0 (40-130 cm/s) MV A Velocity 77.0 (40-130 cm/s) E/A Ratio 1.26 MV PHT 47.0 ms Left Ventricle The left ventricle is normal size. The left ventricular systolic function is normal. The left ventricular ejection fraction is within the normal range. Proximal septal thickening is noted. There is normal LV segmental wall motion. The left ventricular diastolic function is normal. LVEF is 55%. Right Ventricle The right ventricle is mildly dilated. The right ventricular systolic function is normal. Atria The left atrium is mildly dilated. There is no Doppler evidence of interatrial shunt. The right atrium size is normal. Aortic Valve The aortic valve is mildly thickened. There is no aortic valvular stenosis. No aortic regurgitation is present. Mitral Valve The mitral valve leaflets are mildly thickened. No evidence of mitral valve stenosis. Mild mitral regurgitation. Tricuspid Valve The tricuspid valve leaflets are thin and pliable. Trace tricuspid regurgitation. There is insufficient TR jet to estimate RVSP. Pulmonic Valve The pulmonary valve is normal in structure. Trace pulmonic regurgitation. Great Vessels The aortic root is normal in size. The ascending aorta is not well-visualized. IVC is normal in size and collapses >50% with inspiration. Pericardium There is no pericardial effusion. Other Information Study Quality: Fair Conclusion Normal biventricular systolic function. Mild RV dilation. Mild MR. Electronically signed by : Regina Vaca MD 08/01/2023 23:24:05
[2023-07-29] MEDS: SODIUM CHLORIDE 0.9% 10ML SYR (RAD ONLY) 10 ML IV ×2 (15:13→15:14)
[2023-07-29] MEDS: REGADENOSON 0.4MG/5ML SYRINGE 0.400000000000000022 MG IV (15:13)
[2023-07-29] MEDS: ISOTOPE MYOVIEW (PER STUDY) 1 DOSE IV (15:14)
== END 2023-07-29 23:59 ==
LOC: RAD 11:44
PROVIDERS: PCP Internal Medicine Adolescent Medicine; Visit Provider Internal Medicine
DX: R94.31 Abnormal electrocardiogram [ECG] [EKG] (principal); R07.9 Chest pain, unspecified; R06.00 Dyspnea, unspecified; F17.200 Nicotine dependence, unspecified, uncomplicated
CPT/HCPCS: 78452; 93017; 93018; 93306; A9502; J2785

== ENCOUNTER 2023-08-12 19:42 | Inpatient (IN) | payer MEDICARE, SELFPAY ==
[2023-08-12] VITALS (7 sets, daily range): BP systolic 98–157; BP diastolic 77–96; PULSE 57–78; RESP 15; TEMP 36.7–36.9; O2SAT 95–98; BMI 21.1
--- NOTE | 2023-08-12 20:15 | PC.NURSE ---
Patient asked TRN if she could have lotion to remove her rings due to swelling in fingers. TRN provided lotion to patient, and after rings were removed, patient asked if I could wear them to keep them safe. TRN declined and informed that this was against hospital policy but I could seal patient belongings in a bag with patient sticker and place in her personal purse. Patient was very adamant that rings were a gift worth a great deal of money and she did not want them stolen like other belongings in the past. With patient and second nurse witness SHELIA Bajwa TRN placed rings in biohazard bag and put patient sticker with identifiers to seal bag. Bag was then placed into patient purse. Patient aware and witness the of location rings at this time. Charge Nurse Reina Osman RN informed of situation and location of rings at present.
--- NOTE | 2023-08-12 20:33 | CT_ITS ---
PROCEDURE INFORMATION: Exam: CT Abdomen And Pelvis With Contrast Exam date and time: 08/12/2023 9:23 PM Age: 67 years old Clinical indication: Abdominal pain; Flank; Right; Additional info: R CVA and flank pain TECHNIQUE: Imaging protocol: Computed tomography of the abdomen and pelvis with contrast. Radiation optimization: All CT scans at this facility use at least one of these dose optimization techniques: automated exposure control; mA and/or kV adjustment per patient size (includes targeted exams where dose is matched to clinical indication); or iterative reconstruction. Contrast material: ISOVUE; Contrast volume: 75 ml; Contrast route: IV; COMPARISON: CT ABDOMEN PELVIS W CON 08/06/2019 12:15 AM FINDINGS: Liver: Normal. No mass. Gallbladder and bile ducts: Normal. No calcified stones. No ductal dilation. Pancreas: Normal. No ductal dilation. Spleen: Low-density lesions in the inferior spleen measuring up to 1.0 cm are unchanged and are likely hemangiomas. No splenomegaly. Adrenal glands: Unchanged bilateral nodular adrenal gland thickening which is likely due to nodular hyperplasia or small adenomas. Kidneys and ureters: Punctate low-density cortical lesion in the lower pole of the right kidney is too small to characterize but is likely a cyst. No hydronephrosis. Stomach and bowel: Previous partial small bowel resection. No dilated or thickened bowel loops. Small inflamed diverticulum in the mid ascending colon with mild surrounding fat stranding. Appendix: The appendix is nonvisualized. No findings of appendicitis. Intraperitoneal space: Unremarkable. No free air. No significant fluid collection. Vasculature: Moderate atherosclerotic disease with a mildly ectatic infrarenal abdominal aorta measuring up to 2.2 cm in diameter. Lymph nodes: Unremarkable. No enlarged lymph nodes. Urinary bladder: Unremarkable as visualized. Reproductive: Unremarkable as visualized. Bones/joints: Moderate compression deformity of L1 and mild compression deformity of L2 with vertebroplasty cement in L1 and L2. Moderate lumbar spine degenerative change. Moderate degenerative change of the bilateral hips. Osteopenia. Soft tissues: Unremarkable. IMPRESSION: 1. Findings consistent with mild acute diverticulitis of the ascending colon. No free air or abscess is seen to suggest perforation. 2. Previous partial small bowel resection. COMMENTS: Consistent with the [employer]'s Incidental Findings Committee white paper (J Am Sandeep Radiol 2018): Any incidental renal lesion less than 1 cm or classified as too small to characterize, or any incidental cystic renal lesion characterized as simple-appearing, is likely benign. No follow-up imaging is recommended for these lesions per consensus recommendations based on imaging criteria.
--- NOTE | 2023-08-12 20:36 | HMH.EDGENADL ---
Discharge Plan Disposition Patient Disposition: Admitted Chief Complaint: PAIN Prescriptions Prescriptions: No Action promethazine 25 mg tablet 25 mg PO Q6H PRN (Reason: Nausea) amlodipine [Norvasc] 5 mg tablet 5 mg PO DAILY Qty: 30 2RF propranolol 40 mg tablet 40 mg PO BID Qty: 60 5RF losartan 50 mg tablet 50 mg PO BID Qty: 60 5RF dextroamphetamine-amphetamine 15 mg tablet 15 mg PO DAILY pregabalin 75 mg capsule 200 mg PO DAILY Patient Comments: TAKE ONE CAPSULE BY MOUTH TWICE DAILY methocarbamol 750 mg tablet 750 mg PO Q8HP PRN (Reason: Muscle spasm pain) Qty: 10 0RF lidocaine 5 % adhesive patch,medicated 1 patch topical DAILY Qty: 15 0RF Rx Instructions: leave on most painful area for up to 12 hrs duloxetine 60 mg capsule,delayed release(DR/EC) 60 mg PO DAILY Qty: 30 1RF duloxetine [Cymbalta] 20 mg capsule,delayed release(DR/EC) 20 mg PO BID Qty: 60 2RF Referrals Follow up/Referrals: Toni Palmer MD [Primary Care Provider] - See instructions Activity Restrictions/Add. Instructions Additional Instructions/Restrictions: At this time it was felt you are safe to be discharged home. If new or worsening symptoms please do not hesitate to return the emergency department. Please take your medications as prescribed and follow-up with Dr. Palmer early next week as discussed. Clinical Impressions Clinical Impression: Diverticulitis Discharge ED Provider: Perez Roy General Adult HPI <Perez Roy MD - Last Filed: 08/12/23 22:51> General Chief complaint: PAIN Stated complaint: Abdominal Pain with vomiting,Stage 4 kidney diseas Time Seen by Provider: 08/12/23 19:45 Mode of Arrival: Ambulatory Source of Information: Patient Limitations: No Limitations Description of Symptoms (Recalled from ER Triage Doc. by RN): patient ambulatory to ED with complaints of right flank pain since last night. Described intermittent pain as sharp and stabbing rating 8/10 History of Present Illness HPI narrative: Patient is a 67-year-old female with past medical history of COPD, CKD, previous hysterectomy, previous appendectomy, previous bowel obstruction status post resection who presents emergency department for evaluation of right CVA pain. She had some mild pain over the last week however had acute onsets of pain over the last 24 hours and her right mid back over where her kidney is. It is intermittent, severe in intensity causing her to present here for continued evaluation. There is associated nonbloody vomiting. Related Data Home Medications Medication Instructions Recorded Confirmed promethazine 25 mg tablet 25 mg PO Q6H PRN Nausea 11/30/18 08/09/23 dextroamphetamine-amphetamine 15 15 mg PO DAILY adhd 11/26/19 08/09/23 mg tablet pregabalin 75 mg capsule 200 mg PO DAILY . 07/12/22 08/09/23 Previous Rx's Medication Instructions Recorded duloxetine 60 mg capsule,delayed 60 mg PO DAILY #30 caps 05/12/23 release amlodipine 5 mg tablet (Norvasc) 5 mg PO DAILY #30 tabs 06/29/23 lidocaine 5 % topical patch 1 patch topical DAILY #15 ea 07/17/23 methocarbamol 750 mg tablet 750 mg PO Q8HP PRN Muscle spasm 07/17/23 pain #10 tabs duloxetine 20 mg capsule,delayed 20 mg PO BID #60 caps 07/27/23 release (Cymbalta) losartan 50 mg tablet 50 mg PO BID BLOOD PRESSURE #60 08/09/23 tabs propranolol 40 mg tablet 40 mg PO BID #60 tabs 08/09/23 Allergies Allergy/AdvReac Type Severity Reaction Status Date / Time albuterol [From VENTOLIN HFA] Allergy Mild Verified 08/09/23 11:11 codeine [CODEINE] Allergy Mild Verified 08/09/23 11:11 erythromycin base Allergy Mild Verified 08/09/23 11:11 [ERYTHROMYCIN BASE] ketorolac [From TORADOL] Allergy Mild HEMMORHAGE Verified 08/09/23 11:11 meperidine [From DEMEROL] Allergy Mild Verified 08/09/23 11:11 Penicillins [PENICILLINS] Allergy Mild Verified 08/09/23 11:11 Sulfa (Sulfonamide Allergy Mild Verified 08/09/23 11:11 Antibiotics) [SULFA (SULFONAMIDE ANTIBIOTICS)] tetracycline [TETRACYCLINE] Allergy Mild Verified 08/09/23 11:11 buprenorphine [From SUBOXONE] Allergy Unknown I-HIVES Verified 08/09/23 11:11 morphine [From ANA] Allergy Unknown I-HIVES Verified 08/09/23 11:11 naloxone [From SUBOXONE] Allergy Unknown I-HIVES Verified 08/09/23 11:11 propoxyphene Allergy Unknown I-HIVES Verified 08/09/23 11:11 [From CARRIE] [facility] <Perez Roy MD - Last Filed: 08/12/23 22:51> [facility] Disclaimer: The information contained in this section may have been updated after the patient was seen, as this information can be updated by other users. Medical History Dizziness Dyspnea Anxiety Migraine COPD (chronic obstructive pulmonary disease) Hypertension Dyspnea Tobacco dependence syndrome Chest pain Surgical History History of colonoscopy History of hysterectomy Social History Smoking Status: Current every day smoker tobacco type: cigarettes packs per day: 1 alcohol intake: never substance use type: marijuana current occupational status: other Travel in the last 8 weeks: None household members: spouse and children housing: house current occupational exposures/hazards: No caffeine: Yes <Perez Roy MD - Last Filed: 08/12/23 22:51> ROS Obtained: Yes Systems reviewed as appropriate & no additional complaints except as documented Physical Exam <Perez Roy MD - Last Filed: 08/12/23 22:51> General General appearance: alert and other (Appearing in pain in bed) Head Head exam: atraumatic and normocephalic Eye Eye exam: Present PERRL ENT ENT exam: Present mucous membranes moist Neck Neck exam: Present normal inspection Chest Chest inspection: Present normal inspection and symmetric chest wall rise Respiratory Respiratory exam: Present normal lung sounds bilaterally; Absent respiratory distress Cardiovascular Cardiovascular exam: Present regular rate and normal rhythm Abdominal Exam Abdominal exam: Present soft; Absent tenderness Extremities Exam Extremities exam: Present normal inspection Neurological Exam Neurological exam: Present alert Psychiatric Psychiatric exam: Present normal affect Skin Skin exam: Present warm and dry Medical Decision Making <Perez Roy MD - Last Filed: 08/12/23 22:51> Homero Inquiry Pt receiving controlled substance: No Vital Signs: 08/12/23 19:44 Temperature 98.4 F Temperature Source Oral Pulse Rate [Right] 78 Respiratory Rate 15 Blood Pressure [Right Arm] 157/91 H Blood Pressure Mean [Right Arm] 113 Blood Pressure Source [Right Arm] Automatic Cuff 02 Sat by Pulse Oximetry 97 Oxygen Delivery Method Room Air Lab Data Lab Results 08/12/23 20:00: WBC 7.8, RBC 4.66, Hgb 14.3, Hct 44.2, MCV 95.0, MCH 30.6, MCHC 32.2, RDW 13.6, Plt Count 232, MPV 9.6, Neut % (Auto) 54.1, Lymph % (Auto) 32.0, Kimball % (Auto) 8.0, Eos % (Auto) 4.3, Baso % (Auto) 1.5, Neut # (Auto) 4.2, Lymph # (Auto) 2.5, Kimball # (Auto) 0.6, Eos # (Auto) 0.3, Baso # (Auto) 0.1, Sodium 143, Potassium 3.8, Chloride 107, Carbon Dioxide 35 H, Anion Gap 4.8 L, BUN 17, Creatinine 1.30 H, Estimated Creat Clear 40, Estimated GFR 41 L, Est GFR ( Amer) 49 L, Glucose 78, Calcium 9.8, Total Bilirubin 0.3, AST 31, ALT 17, Alkaline Phosphatase 110, Total Protein 7.5, Albumin 4.3, Globulin 3.2, Albumin/Globulin Ratio 1.3, Lipase 80 08/12/23 21:15: Urine Color Yellow, Urine Appearance Clear, Urine pH 6.0, Ur Specific [place] >= 1.030, Urine Protein Trace, Urine Glucose (UA) Negative, Urine Ketones Negative, Urine Blood Negative, Urine Nitrate Negative, Urine Bilirubin Negative, Urine Urobilinogen 0.2, Ur Leukocyte Esterase Negative, Urine RBC None, Urine WBC None, Ur Squamous Epith Cells Occasional, Urine Bacteria None 08/12/23 20:00 08/12/23 20:00 Orders (Tests/Meds): ED MEDICATIONS Discontinued Medications Generic Name Dose Route Start Last Admin Trade Name Freq PRN Reason Stop Dose Admin Acetaminophen 1,000 mg 08/12/23 20:33 08/12/23 20:45 Acetaminophen 1,000mg/100ml Vial IV 08/12/23 20:34 1,000 mg ONCE ONE Administration Diphenhydramine HCl 25 mg 08/12/23 22:39 08/12/23 22:42 Diphenhydramine 50mg/Ml Vial IV 08/12/23 22:40 25 mg ONCE ONE Administration Hydromorphone HCl 0.5 mg 08/12/23 20:35 08/12/23 20:47 Hydromorphone 2mg/Ml Syringe IV 08/12/23 20:36 0.5 mg ONCE ONE Administration Hydromorphone HCl 0.5 mg 08/12/23 22:39 08/12/23 22:42 Hydromorphone 2mg/Ml Syringe IV 08/12/23 22:40 0.5 mg ONCE ONE Administration Lactated Ringer's 1,000 mls @ 999 mls/hr 08/12/23 20:38 08/12/23 20:45 Lactated Ringer's 1000 Ml Bag IV 08/12/23 21:38 999 mls/hr .Q1H1M ONE Administration Iopamidol 75 ml 08/12/23 21:32 08/12/23 21:32 Iopamidol-370 (76%);100ml Bottle IV 08/12/23 21:33 75 ml ONCE ONE Administration Levofloxacin 750 mg 08/12/23 22:47 08/12/23 23:07 Levofloxacin 750 Mg Tablet PO 08/12/23 22:48 750 mg ONCE ONE Administration Metronidazole 500 mg 08/12/23 22:47 08/12/23 23:07 Metronidazole 500 Mg Tablet PO 08/12/23 22:48 500 mg ONCE ONE Administration Ondansetron HCl 4 mg 08/12/23 20:35 08/12/23 20:48 Ondansetron 4mg/2ml Vial IV 08/12/23 20:36 4 mg ONCE ONE Administration Sodium Chloride 10 ml 08/12/23 21:32 08/12/23 21:32 Sodium Chloride 0.9% 10ml Syr (Rad Only) IV 08/12/23 21:33 10 ml ONCE ONE Administration ORDERS Category Date Time Status CT abdomen pelvis w con Stat Cat Scan 08/12/23 20:33 Completed CBC w/Auto Diff [Complete Blood Count Auto Diff] Stat Lab 08/12/23 20:00 Completed CMP [Comprehensive Metabolic Panel] Stat Lab 08/12/23 20:00 Completed Lipase Stat Lab 08/12/23 20:00 Completed UA [Urinalysis and Microscopic] Stat Lab 08/12/23 21:15 Completed Medical Decision Narrative: In summary patient is a 67-year-old female with past medical history described above who presents emergency department for evaluation of right CVA pain. Patient is hemodynamically stable and appearing in pain upon arrival, afebrile. Differential diagnosis includes ureterolithiasis, cholecystitis, among others. Workup will be conducted with hematologic labs, CT abdomen pelvis IV contrast. Initial inventions include 0.5 mg of Dilaudid, IV Tylenol, crystalloid bolus. Initial workup reviewed by me, hematologic labs are nonactionable, patient has persistent CKD, does not meet GEOVANI per rifle criteria. Urinalysis interpreted by me and not consistent with infection or significant hematuria. 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 Previous partial small bowel resection as evidenced. No other acute findings. Upon repeat evaluation patient had persistent pain for which half milligram of Dilaudid and diphenhydramine will be administered. Patient was undergoing p.o. trial at time of transfer of care to the oncoming physician, Dr. Hammond. <Farzad Hammond MD - Last Filed: 08/12/23 23:21> Vital Signs: 08/12/23 19:44 Temperature 98.4 F Temperature Source Oral Pulse Rate [Right] 78 Respiratory Rate 15 Blood Pressure [Right Arm] 157/91 H Blood Pressure Mean [Right Arm] 113 Blood Pressure Source [Right Arm] Automatic Cuff 02 Sat by Pulse Oximetry 97 Oxygen Delivery Method Room Air Lab Data Lab Results 08/12/23 20:00: WBC 7.8, RBC 4.66, Hgb 14.3, Hct 44.2, MCV 95.0, MCH 30.6, MCHC 32.2, RDW 13.6, Plt Count 232, MPV 9.6, Neut % (Auto) 54.1, Lymph % (Auto) 32.0, Kimball % (Auto) 8.0, Eos % (Auto) 4.3, Baso % (Auto) 1.5, Neut # (Auto) 4.2, Lymph # (Auto) 2.5, Kim[place] # (Auto) 0.6, Eos # (Auto) 0.3, Baso # (Auto) 0.1, Sodium 143, Potassium 3.8, Chloride 107, Carbon Dioxide 35 H, Anion Gap 4.8 L, BUN 17, Creatinine 1.30 H, Estimated Creat Clear 40, Estimated GFR 41 L, Est GFR ( Amer) 49 L, Glucose 78, Calcium 9.8, Total Bilirubin 0.3, AST 31, ALT 17, Alkaline Phosphatase 110, Total Protein 7.5, Albumin 4.3, Globulin 3.2, Albumin/Globulin Ratio 1.3, Lipase 80 08/12/23 21:15: Urine Color Yellow, Urine Appearance Clear, Urine pH 6.0, Ur Specific [place] >= 1.030, Urine Protein Trace, Urine Glucose (UA) Negative, Urine Ketones Negative, Urine Blood Negative, Urine Nitrate Negative, Urine Bilirubin Negative, Urine Urobilinogen 0.2, Ur Leukocyte Esterase Negative, Urine RBC None, Urine WBC None, Ur Squamous Epith Cells Occasional, Urine Bacteria None Orders (Tests/Meds): ED MEDICATIONS Discontinued Medications Generic Name Dose Route Start Last Admin Trade Name Freq PRN Reason Stop Dose Admin Acetaminophen 1,000 mg 08/12/23 20:33 08/12/23 20:45 Acetaminophen 1,000mg/100ml Vial IV 08/12/23 20:34 1,000 mg ONCE ONE Administration Diphenhydramine HCl 25 mg 08/12/23 22:39 08/12/23 22:42 Diphenhydramine 50mg/Ml Vial IV 08/12/23 22:40 25 mg ONCE ONE Administration Hydromorphone HCl 0.5 mg 08/12/23 20:35 08/12/23 20:47 Hydromorphone 2mg/Ml Syringe IV 08/12/23 20:36 0.5 mg ONCE ONE Administration Hydromorphone HCl 0.5 mg 08/12/23 22:39 08/12/23 22:42 Hydromorphone 2mg/Ml Syringe IV 08/12/23 22:40 0.5 mg ONCE ONE Administration Lactated Ringer's 1,000 mls @ 999 mls/hr 08/12/23 20:38 08/12/23 20:45 Lactated Ringer's 1000 Ml Bag IV 08/12/23 21:38 999 mls/hr .Q1H1M ONE Administration Iopamidol 75 ml 08/12/23 21:32 08/12/23 21:32 Iopamidol-370 (76%);100ml Bottle IV 08/12/23 21:33 75 ml ONCE ONE Administration Levofloxacin 750 mg 08/12/23 22:47 08/12/23 23:07 Levofloxacin 750 Mg Tablet PO 08/12/23 22:48 750 mg ONCE ONE Administration Metronidazole 500 mg 08/12/23 22:47 08/12/23 23:07 Metronidazole 500 Mg Tablet PO 08/12/23 22:48 500 mg ONCE ONE Administration Ondansetron HCl 4 mg 08/12/23 20:35 08/12/23 20:48 Ondansetron 4mg/2ml Vial IV 08/12/23 20:36 4 mg ONCE ONE Administration Sodium Chloride 10 ml 08/12/23 21:32 08/12/23 21:32 Sodium Chloride 0.9% 10ml Syr (Rad Only) IV 08/12/23 21:33 10 ml ONCE ONE Administration ORDERS Category Date Time Status CT abdomen pelvis w con Stat Cat Scan 08/12/23 20:33 Completed CBC w/Auto Diff [Complete Blood Count Auto Diff] Stat Lab 08/12/23 20:00 Completed CMP [Comprehensive Metabolic Panel] Stat Lab 08/12/23 20:00 Completed Lipase Stat Lab 08/12/23 20:00 Completed UA [Urinalysis and Microscopic] Stat Lab 08/12/23 21:15 Completed Medical Decision Narrative: In summary patient is a 67-year-old female with past medical history described above who presents emergency department for evaluation of right CVA pain. Patient is hemodynamically stable and appearing in pain upon arrival, afebrile. Differential diagnosis includes ureterolithiasis, cholecystitis, among others. Workup will be conducted with hematologic labs, CT abdomen pelvis IV contrast. Initial inventions include 0.5 mg of Dilaudid, IV Tylenol, crystalloid bolus. Initial workup reviewed by me, hematologic labs are nonactionable, patient has persistent CKD, does not meet GEOVANI per rifle criteria. Urinalysis interpreted by me and not consistent with infection or significant hematuria. 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 Previous partial small bowel resection as evidenced. No other acute findings. Upon repeat evaluation patient had persistent pain for which half milligram of Dilaudid and diphenhydramine will be administered. Patient was undergoing p.o. trial at time of transfer of care to the oncoming physician, Dr. Hammond. Manish JARVIS Upon my assumption of care patient was comfortable. She was just starting her oral intake challenge and had received her oral dose of levofloxacin and metronidazole. I reviewed the workup performed by primary provider and agree with his assessment and plan so far including the findings on labs and imaging. Unfortunately shortly after taking the medications and oral intake, patient had emesis. At this time she has intractable vomiting as well as pain and requires admission. She received IV levofloxacin and metronidazole for treatment of her diverticulitis since she is not able to tolerate oral medications. I consulted the hospitalist and discussed this case with them including intractability of symptoms. Patient has been accepted for admission. Critical Care <Perez Roy MD - Last Filed: 08/12/23 22:51> Critical Care Time Critical Care Time: No
[2023-08-12 20:42] LABS: Basophils # 0.1 K/mm3 (0-0.2); Basophils % 1.5 % (0.1-2.0); Eosinophils # 0.3 K/mm3 (0.0-0.4); Eosinophils % 4.3 % (0.1-12.0); Hematocrit 44.2 % (37.0-47.0); Hemoglobin 14.3 g/dL (12.2-16.2); Lymphocytes # 2.5 K/mm3 (0.7-4.5); Mean Corpuscular HGB Conc 32.2 g/dL (31.8-35.4); Mean Corpuscular Hemoglobin 30.6 pg (27.0-31.2); Mean Platelet Volume 9.6 fl (7.4-10.4); Monocytes # 0.6 K/mm3 (0.1-1.0); Neutrophils # 4.2 K/mm3 (1.8-7.8); Neutrophils % 54.1 % (37.0-80.0); Platelet Count 232 K/mm3 (142-424); Red Blood Count 4.66 M/mm3 (4.20-5.40); Red Cell Distribution Width 13.6 % (11.5-17.5); White Blood Count 7.8 K/mm3 (4.8-10.8)
[2023-08-12 20:45] LABS: Chloride 107 mmol/L (98-107); Potassium 3.8 mmoL/L (3.5-5.1); Sodium 143 mmol/L (136-145)
[2023-08-12] MEDS: ACETAMINOPHEN 1,000MG/100ML VIAL 1000 MG IV (20:45)
[2023-08-12] MEDS: LACTATED RINGERS 1000ML 1,000 ML 999 ML IV (20:45)
[2023-08-12 20:47] LABS: Blood Urea Nitrogen 17 mg/dl (7-17); Creatinine Clearance Estimated 40 mL/min (50-200); Estimated Glomerular Filt Rate 41 ml/min (>60); GFR (African American) 49 ML/MIN (>60)
[2023-08-12] MEDS: HYDROMORPHONE 2MG/ML SYRINGE 0.5 MG IV ×2 (20:47→22:42)
[2023-08-12 20:48] LABS: Alanine Aminotransferase 17 U/L (12-78); Albumin Level 4.3 g/dl (3.5-5.0); Albumin/Globulin Ratio 1.3 (1.1-1.8); Alkaline Phosphatase 110 U/L (38-126); Anion Gap 4.8 mEq/L (5-15); Aspartate Amino Transferase 31 U/L (14-36); Bilirubin,Total 0.3 mg/dl (0.2-1.3); Calcium 9.8 mg/dl (8.4-10.2); Carbon Dioxide 35 mmol/L (22.0-30.0); Globulin 3.2 g/dL (1.3-3.2); Glucose 78 mg/dl (74-100); Lipase 80 U/L (23-300); Total Protein,Serum 7.5 g/dl (6.3-8.2)
[2023-08-12] MEDS: ONDANSETRON 4MG/2ML VIAL 4 MG IV (20:48)
--- NOTE | 2023-08-12 21:22 | PC.NURSE ---
Urine collected and sent to lab, pt. to CT at this time
[2023-08-12 21:23] LABS: Microscopic, Urine URINE MICROSCOPIC (MICROSCOPIC)
[2023-08-12 21:26] LABS: Appearance,Urine CLEAR (Clear); Bilirubin,Urine Negative (Negative); Blood, Urine Negative (Negative); Color,Urine YELLOW (Yellow); Glucose,Urine (UA) Negative (Negative); Ketones,Urine Negative (Negative); Leukocyte Esterase,Urine Negative (Negative); Nitrate,Urine Negative (Negative); Protein,Urine TRACE (Negative); Specific Gravity, Urine >= 1.030 (1.005-1.030); Urobilinogen,Urine 0.2 EU/dl (0.2)
--- NOTE | 2023-08-12 21:30 | PC.NURSE ---
return from ct
--- NOTE | 2023-08-12 21:30 | PC.NURSE ---
pt back from ct
[2023-08-12 21:31] LABS: Squamous Epithelial Cell,Urine Occasional #/hpf (0-5)
[2023-08-12] MEDS: IOPAMIDOL-370 (76%);100ML BOTTLE 75 ML IV (21:32)
[2023-08-12] MEDS: SODIUM CHLORIDE 0.9% 10ML SYR (RAD ONLY) 10 ML IV (21:32)
[2023-08-12] MEDS: diphenhydrAMINE 50MG/ML VIAL 25 MG IV (22:42)
[2023-08-12] MEDS: metroNIDAZOLE 500 MG TABLET PO (23:07)
[2023-08-12] MEDS: levoFLOXacin 750 MG TABLET PO (23:07)
--- NOTE | 2023-08-12 23:17 | PC.NURSE ---
patient rang out and states she vomited, aware
--- NOTE | 2023-08-12 23:18 | P.HP_ITS ---
<Statement entered by Marcus Cordon MD - 08/14/23 12:26> Attending attestation Patient was seen and evaluated at the bedside myself, agree with LITA note. History of Present Illness *Admission Date: 08/12/23 *Reason for visit:: abd pain *History of present illness: This is a 67-year-old female with past PMHx of COPD, current smoker, CKD, previous hysterectomy, generalized anxiety disorder, previous appendectomy, previous bowel obstruction status post resection who presented to ED for evaluation of right CVA pain. She had some mild pain over the last week however had acute onsets of pain over the last 24 hours and her right mid back over where her kidney is. It is intermittent, severe in intensity causing her to present here for continued evaluation. There is associated nonbloody vomiting. Admitted for treatment and management. [facility] Disclaimer: The information contained in this section may have been updated after the patient was seen, as this information can be updated by other users. Medical History (Updated 08/13/23 @ 06:02 by J Luis Lewis APRN) Dizziness Dyspnea Anxiety Migraine COPD (chronic obstructive pulmonary disease) Hypertension Dyspnea Tobacco dependence syndrome Chest pain Surgical History History of colonoscopy History of hysterectomy Social History Smoking Status: Current every day smoker tobacco type: cigarettes packs per day: 1 alcohol intake: never substance use type: marijuana current occupational status: retired and other Travel in the last 8 weeks: None household members: spouse and children housing: house current occupational exposures/hazards: No caffeine: Yes Review of Systems Review of Systems Review of systems:: pertinent systems reviewed and negative unless documented below Meds Home Medications and Allergies Home Medications Medication Instructions Recorded Confirmed Type promethazine 25 mg tablet 25 mg PO Q6H PRN Nausea 11/30/18 08/13/23 History dextroamphetamine-amphetamine 15 15 mg PO DAILY adhd 11/26/19 08/13/23 History mg tablet pregabalin 75 mg capsule 200 mg PO DAILY . 07/12/22 08/13/23 History amlodipine 5 mg tablet (Norvasc) 5 mg PO DAILY #30 tabs 06/29/23 08/13/23 Rx lidocaine 5 % topical patch 1 patch topical DAILY #15 ea 07/17/23 08/13/23 Rx methocarbamol 750 mg tablet 750 mg PO Q8HP PRN Muscle spasm 07/17/23 08/13/23 Rx pain #10 tabs losartan 50 mg tablet 50 mg PO BID BLOOD PRESSURE #60 08/09/23 08/13/23 Rx tabs propranolol 40 mg tablet 40 mg PO BID #60 tabs 08/09/23 08/13/23 Rx duloxetine 20 mg capsule,delayed 20 mg PO TID 08/13/23 08/13/23 History release (Cymbalta) New Prescriptions to Start Prescriptions: Allergies Allergy/AdvReac Type Severity Reaction Status Date / Time albuterol [From VENTOLIN HFA] Allergy Mild Verified 08/09/23 11:11 codeine [CODEINE] Allergy Mild Verified 08/09/23 11:11 erythromycin base Allergy Mild Verified 08/09/23 11:11 [ERYTHROMYCIN BASE] ketorolac [From TORADOL] Allergy Mild HEMMORHAGE Verified 08/09/23 11:11 meperidine [From DEMEROL] Allergy Mild Verified 08/09/23 11:11 Penicillins [PENICILLINS] Allergy Mild Verified 08/09/23 11:11 Sulfa (Sulfonamide Allergy Mild Verified 08/09/23 11:11 Antibiotics) [SULFA (SULFONAMIDE ANTIBIOTICS)] tetracycline [TETRACYCLINE] Allergy Mild Verified 08/09/23 11:11 buprenorphine [From SUBOXONE] Allergy Unknown I-HIVES Verified 08/09/23 11:11 morphine [From ANA] Allergy Unknown I-HIVES Verified 08/09/23 11:11 naloxone [From SUBOXONE] Allergy Unknown I-HIVES Verified 08/09/23 11:11 propoxyphene Allergy Unknown I-HIVES Verified 08/09/23 11:11 [From DARVOCET-N] Exam Data for Last 24 hours Vital signs and Labs for Last 24 Hours: Temp Pulse Resp BP Pulse Ox O2 Del Method 98.4 F 78 15 157/91 H 97 Room Air 08/12/23 19:44 08/12/23 19:44 08/12/23 19:44 08/12/23 19:44 08/12/23 19:44 08/12/23 19:44 Laboratory Results - last 24 hr 08/12/23 20:00: WBC 7.8, RBC 4.66, Hgb 14.3, Hct 44.2, MCV 95.0, MCH 30.6, MCHC 32.2, RDW 13.6, Plt Count 232, MPV 9.6, Neut % (Auto) 54.1, Lymph % (Auto) 32.0, [place] % (Auto) 8.0, Eos % (Auto) 4.3, Baso % (Auto) 1.5, Neut # (Auto) 4.2, Lymph # (Auto) 2.5, [place] # (Auto) 0.6, Eos # (Auto) 0.3, Baso # (Auto) 0.1, Sodium 143, Potassium 3.8, Chloride 107, Carbon Dioxide 35 H, Anion Gap 4.8 L, BUN 17, Creatinine 1.30 H, Estimated Creat Clear 40, Estimated GFR 41 L, Est GFR ( Amer) 49 L, Glucose 78, Calcium 9.8, Total Bilirubin 0.3, AST 31, ALT 17, Alkaline Phosphatase 110, Total Protein 7.5, Albumin 4.3, Globulin 3.2, Albumin/Globulin Ratio 1.3, Lipase 80 08/12/23 21:15: Urine Color Yellow, Urine Appearance Clear, Urine pH 6.0, Ur Specific [place] >= 1.030, Urine Protein Trace, Urine Glucose (UA) Negative, Urine Ketones Negative, Urine Blood Negative, Urine Nitrate Negative, Urine Bilirubin Negative, Urine Urobilinogen 0.2, Ur Leukocyte Esterase Negative, [place] ne RBC None, Urine WBC None, Ur Squamous Epith Cells Occasional, Urine Bacteria None I & O for Last 24 hours: Intake & Output 08/09/23 08/10/23 08/11/23 08/12/23 23:59 23:59 23:59 23:59 Weight 61.235 kg Constitutional Constitutional: mild distress and cooperative *Routine HEENT Exam Head: Present normocephalic Eye: Present EOMI and PERRL ENT: Present mucous membranes moist *Routine Neck Exam Neck: Present supple; Absent lymphadenopathy *Routine Respiratory Exam Respiratory: Present CTA bilaterally *Routine Cardiovascular Exam Cardiovascular: Present RRR *Routine Abdominal Exam Abdominal: Present soft, normoactive bowel sounds, tenderness and guarding; Absent distended or mass *Routine Rectal Exam Rectal:: deferred *Routine Genitalia Exam Genitalia:: deferred *Routine Extremities Exam Extremities: Absent cyanosis, clubbing or edema *Routine Skin Exam Skin: Present warm; Absent rash *Routine Neurological Exam Neurological: Present alert and oriented X3 H&P: Result Imaging and Cardiology CT scan - abdomen: Status: image reviewed by me, Preliminary report and final report EKG: Status: image reviewed by me, Preliminary report and final report Assessment and Plan *Assessment and plan (1) Diverticulitis: Status: Acute Category: Medical Code(s): K57.92 - Diverticulitis of intestine, part unspecified, without perforation or abscess without bleeding (2) Generalized anxiety disorder: Status: Acute Category: Medical Code(s): F41.1 - Generalized anxiety disorder (3) Back pain: Status: Acute Qualifiers: Back pain location: low back pain Chronicity: chronic Back pain laterality: unspecified Sciatica presence: unspecified whether sciatica present Qualified Code(s): M54.50 - Low back pain, unspecified; G89.29 - Other chronic pain Category: Medical Code(s): M54.9 - Dorsalgia, unspecified (4) COPD (chronic obstructive pulmonary disease): Status: Acute Qualifiers: COPD type: unspecified COPD Qualified Code(s): J44.9 - Chronic obstructive pulmonary disease, unspecified Category: Medical Code(s): J44.9 - Chronic obstructive pulmonary disease, unspecified (5) Chronic prescription opiate use: Status: Chronic Category: Medical Code(s): 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 Labs are grossly unremarkable. CT of the abdomen consistent with acute diverticulitis of the ascending colon. Patient is not tolerated p.o. intake. Continue bowel management. Therefore ER called for admission. Discussed this finding imaging reviewed. Plan as follow: -Acute diverticulitis: Admit patient for symptom management. Surgical consult appreciated their insight. Keep n.p.o.. Pain management. Dilaudid 1 mg every 4h Started on levofloxacin 750 mg daily Flagyl 500 mg every 8h Repeat a monitor labs in the morning. Monitor for electrolyte imbalance Phenergan IV for IV for nausea and vomiting Continue IV hydration Other chronic conditions: Generalized anxiety disorder, Patient on duloxetine and chronic amphetamine Chronic back pain: On Lyrica and methocarbamol. Resume home meds Hypertension: Resume metoprolol and losartan COPD does not see normal exacerbation Monitor for O2. Saturation Smoker: On nicotine patch Lovenox for DVT prophylaxis. On Protonix Full code
--- NOTE | 2023-08-12 23:18 | PC.NURSE ---
House notified for admission
[2023-08-12] MEDS: METRONIDAZ/SOD CHL 500 MG/100 ML PIGGYBACK 100 MG IV (23:32)
--- NOTE | 2023-08-12 23:45 | PC.NURSE ---
Nurse to nurse report given via telephone to Cristina AVERY.
--- NOTE | 2023-08-12 23:46 | PC.NURSE ---
RECEIVED PHONE REPORT FROM AXEL RN/ED NURSE AT [id number]. PATIENT IS 67 YO FEMALE. ADMISSION DIAGNOSIS n/v AND INTRACTABLE PAIN. NUMEROUS ALLERGIES.
[2023-08-13] VITALS (7 sets, daily range): BP systolic 88–113; BP diastolic 55–66; PULSE 52–64; RESP 17–22; TEMP 36.4–36.6; O2SAT 93–97; BMI 22.6; BMI 22.8
[2023-08-13] MEDS: LACTATED RINGERS 1000ML 1,000 ML 50 ML IV (00:26)
[2023-08-13] MEDS: LEVOFLOXACIN/D5W 750 MG/150 ML 750 MG/150 ML PIGGYBACK 100 MG IV ×2 (00:30→23:06)
--- NOTE | 2023-08-13 01:25 | PC.NURSE ---
ED NURSE CALLED AND REPORTED PATIENTS RING WAS PUT IN A BIOHAZZARD BAD, SEALED, AND PLACED IN PATIENTS PURSE. RING IS SUPPOSEDLY VERY VALUABLE. UPON ARRIVAL I QUESTIONED PATIENT ABOUT THE RINGS WHERE A BOUTS THE HOSPITAL IS LIABLE IF RING LOST OR STOLEN. PATIENT SAID SHE SENT IT HOME WITH HER DAUGHTER. 2 SRNAs WITNESS THE PATIENTS RESPONSE THAT SHE SENT HOME WITH DAUGHTER.
--- NOTE | 2023-08-13 02:13 | PC.NURSE ---
PATIENT REQUESTING DILAUDID FOR PAIN IN RIGHT FLANK 11/29. SAYS TYLENOL WILL NOT HELP. MARY HONG NOTIFIED.
[2023-08-13] MEDS: HYDROMORPHONE 2MG/ML SYRINGE 1 MG IV ×4 (02:19→16:59)
[2023-08-13] MEDS: ACETAMINOPHEN 325MG TAB 650 MG PO ×2 (05:13→23:06)
[2023-08-13] MEDS: METRONIDAZ/SOD CHL 500 MG/100 ML PIGGYBACK 100 MG IV ×3 (06:08→22:08)
[2023-08-13 07:30] LABS: Basophils # 0.1 K/mm3 (0-0.2); Basophils % 1.2 % (0.1-2.0); Eosinophils # 0.3 K/mm3 (0.0-0.4); Eosinophils % 3.7 % (0.1-12.0); Hematocrit 36.7 % (37.0-47.0); Lymphocytes # 2.6 K/mm3 (0.7-4.5); Lymphocytes % 37.8 % (10-50); Mean Corpuscular HGB Conc 31.6 g/dL (31.8-35.4); Mean Corpuscular Hemoglobin 30.2 pg (27.0-31.2); Mean Corpuscular Volume 95.6 fl (81-99); Mean Platelet Volume 9.5 fl (7.4-10.4); Monocytes # 0.6 K/mm3 (0.1-1.0); Monocytes % 8.3 % (1.7-9.3); Neutrophils # 3.4 K/mm3 (1.8-7.8); Neutrophils % 49.1 % (37.0-80.0); Platelet Count 170 K/mm3 (142-424); Red Blood Count 3.84 M/mm3 (4.20-5.40); Red Cell Distribution Width 13.7 % (11.5-17.5); White Blood Count 6.9 K/mm3 (4.8-10.8)
[2023-08-13 07:50] LABS: Alanine Aminotransferase 11 U/L (12-78); Albumin Level 3.6 g/dl (3.5-5.0); Albumin/Globulin Ratio 1.5 (1.1-1.8); Alkaline Phosphatase 95 U/L (38-126); Aspartate Amino Transferase 22 U/L (14-36); Bilirubin,Total 0.3 mg/dl (0.2-1.3); Blood Urea Nitrogen 18 mg/dl (7-17); Carbon Dioxide 26 mmol/L (22.0-30.0); Chloride 106 mmol/L (98-107); Creatinine Clearance Estimated 51 mL/min (50-200); Estimated Glomerular Filt Rate 49 ml/min (>60); GFR (African American) 60 ML/MIN (>60); Globulin 2.4 g/dL (1.3-3.2); Glucose 83 mg/dl (74-100); Magnesium 1.8 mg/dl (1.6-2.3); Sodium 136 mmol/L (136-145)
[2023-08-13 08:45] LABS: Hemoglobin 11.7 g/dL (12.2-16.2)
[2023-08-13] MEDS: PROMETHAZINE HCL 25MG/ML 1ML VIAL 25 MG IV (08:55)
[2023-08-13] MEDS: METHOCARBAMOL 500MG TABLET 750 MG PO (09:56)
[2023-08-13] MEDS: AMLODIPINE 5MG TABLET 5 MG PO (09:57)
[2023-08-13] MEDS: PROPRANOLOL 20MG TAB 40 MG PO ×2 (09:57→21:29)
[2023-08-13] MEDS: ENOXAPARIN 40MG/0.4ML SYRINGE 40 MG SQ (09:58)
[2023-08-13] MEDS: IRBESARTAN 75MG TABLET 75 MG PO ×2 (09:58→21:28)
[2023-08-13] MEDS: LIDOCAINE 5% TRANSDERMAL PATCH 1 EACH TP (09:59)
[2023-08-13] MEDS: PREGABALIN 100MG CAPSULE 200 MG PO ×2 (10:00→21:28)
[2023-08-13] MEDS: DULOXETINE 30MG CAPSULE.DR 30 MG PO ×2 (10:13→21:29)
--- NOTE | 2023-08-13 12:06 | EXP.SURG.CON ---
History of Present Illness *Admission Date: 08/12/23 *Reason for visit:: Right flank pain, vomiting *History of present illness: This is a 67-year-old female with past PMHx of COPD,Breast cancer, tobacco use disorder, chronic pain, fibromyalgia, hypertension, CKD, generalized anxiety disorder, who presented to ED for evaluation of right flank pain. She reports that she was in the car returning from [place] when she had acutely severe right flank pain. She had some discomfort over the preceding few days but it was not severe. She vomited 3 times yesterday, once today. No hematemesis or hematochezia or melena. Last colonoscopy was about 13 years ago and reportedly normal. She has had several abdominal operations via midline, including hysterectomy for endometrial cancer, small bowel resection for small bowel obstruction, appendectomy, and several ventral hernia repairs. She is also a long-term breast cancer survivor, and she had bilateral mastectomy at age 23 with right axillary dissection and subsequent breast implants for reconstruction. [facility] Disclaimer: The information contained in this section may have been updated after the patient was seen, as this information can be updated by other users. Medical History (Updated 08/13/23 @ 12:12 by Lucia Lewis MD) Colitis Breast cancer Dizziness Dyspnea Anxiety Migraine COPD (chronic obstructive pulmonary disease) Hypertension Dyspnea Tobacco dependence syndrome Chest pain Surgical History History of appendectomy Hx of breast implants, bilateral H/O mastectomy S/P ventral herniorrhaphy S/P exploratory laparotomy History of colonoscopy History of hysterectomy Social History Smoking Status: Current every day smoker tobacco type: cigarettes packs per day: 1 alcohol intake: never substance use type: marijuana current occupational status: retired and other Travel in the last 8 weeks: None household members: spouse and children housing: house current occupational exposures/hazards: No caffeine: Yes Meds Home Medications and Allergies Home Medications Medication Instructions Recorded Confirmed Type dextroamphetamine-amphetamine 15 15 mg PO DAILY adhd 11/26/19 08/13/23 History mg tablet lidocaine 5 % topical patch 1 patch topical DAILY #15 ea 07/17/23 08/13/23 Rx losartan 50 mg tablet 50 mg PO BID BLOOD PRESSURE #60 08/09/23 08/13/23 Rx tabs propranolol 40 mg tablet 40 mg PO BID #60 tabs 08/09/23 08/13/23 Rx acyclovir 400 mg tablet 400 mg PO TIDP PRN NEUPATHY OF 08/13/23 08/13/23 History UPPER EXTREMITY. amlodipine 5 mg tablet 5 mg PO DAILY BLOOD PRESSURE 08/13/23 08/13/23 History duloxetine 20 mg capsule,delayed 20 mg PO TID 08/13/23 08/13/23 History release (Cymbalta) pregabalin 200 mg capsule 200 mg PO BID NEUROPATHY 08/13/23 08/13/23 History New Prescriptions to Start Prescriptions: Allergies Allergy/AdvReac Type Severity Reaction Status Date / Time albuterol [From VENTOLIN HFA] Allergy Mild Verified 08/09/23 11:11 codeine [CODEINE] Allergy Mild Verified 08/09/23 11:11 erythromycin base Allergy Mild Verified 08/09/23 11:11 [ERYTHROMYCIN BASE] ketorolac [From TORADOL] Allergy Mild HEMMORHAGE Verified 08/09/23 11:11 meperidine [From DEMEROL] Allergy Mild Verified 08/09/23 11:11 Penicillins [PENICILLINS] Allergy Mild Verified 08/09/23 11:11 Sulfa (Sulfonamide Allergy Mild Verified 08/09/23 11:11 Antibiotics) [SULFA (SULFONAMIDE ANTIBIOTICS)] tetracycline [TETRACYCLINE] Allergy Mild Verified 08/09/23 11:11 buprenorphine [From SUBOXONE] Allergy Unknown I-HIVES Verified 08/09/23 11:11 morphine [From ANA] Allergy Unknown I-HIVES Verified 08/09/23 11:11 naloxone [From SUBOXONE] Allergy Unknown I-HIVES Verified 08/09/23 11:11 propoxyphene Allergy Unknown I-HIVES Verified 08/09/23 11:11 [From DARVOCET-N] Exam (Inpt) Vital signs and Labs for Last 24 Hours: Temp Pulse Resp BP Pulse Ox O2 Del Method 97.8 F 61 18 97/62 L 94 L Room Air 08/13/23 08:00 08/13/23 08:00 08/13/23 08:00 08/13/23 08:00 08/13/23 08:00 08/13/23 09:00 Laboratory Results - last 24 hr 08/12/23 20:00: WBC 7.8, RBC 4.66, Hgb 14.3, Hct 44.2, MCV 95.0, MCH 30.6, MCHC 32.2, RDW 13.6, Plt Count 232, MPV 9.6, Neut % (Auto) 54.1, Lymph % (Auto) 32.0, [place] % (Auto) 8.0, Eos % (Auto) 4.3, Baso % (Auto) 1.5, Neut # (Auto) 4.2, Lymph # (Auto) 2.5, [place] # (Auto) 0.6, Eos # (Auto) 0.3, Baso # (Auto) 0.1, Sodium 143, Potassium 3.8, Chloride 107, Carbon Dioxide 35 H, Anion Gap 4.8 L, BUN 17, Creatinine 1.30 H, Estimated Creat Clear 40, Estimated GFR 41 L, Est GFR ( Amer) 49 L, Glucose 78, Calcium 9.8, Total Bilirubin 0.3, AST 31, ALT 17, Alkaline Phosphatase 110, Total Protein 7.5, Albumin 4.3, Globulin 3.2, Albumin/Globulin Ratio 1.3, Lipase 80 08/12/23 21:15: Urine Color Yellow, Urine Appearance Clear, Urine pH 6.0, Ur Specific [place] >= 1.030, Urine Protein Trace, Urine Glucose (UA) Negative, Urine Ketones Negative, Urine Blood Negative, Urine Nitrate Negative, Urine Bilirubin Negative, Urine Urobilinogen 0.2, Ur Leukocyte Esterase Negative, Urine RBC None, Urine WBC None, Ur Squamous Epith Cells Occasional, Urine Bacteria None 08/13/23 06:20: WBC 6.9, RBC 3.84 L, Hgb 11.7 L D, Hct 36.7 L, MCV 95.6, MCH 30.2, MCHC 31.6 L, RDW 13.7, Plt Count 170 D, MPV 9.5, Neut % (Auto) 49.1, Lymph % (Auto) 37.8, [place] % (Auto) 8.3, Eos % (Auto) 3.7, Baso % (Auto) 1.2, Neut # (Auto) 3.4, Lymph # (Auto) 2.6, [place] # (Auto) 0.6, Eos # (Auto) 0.3, Baso # (Auto) 0.1, Sodium 136, Potassium 4.0, Chloride 106, Carbon Dioxide 26, Anion Gap 8.0, BUN 18 H, Creatinine 1.10 H, Estimated Creat Clear 51, Estimated GFR 49 L, Est GFR ( Amer) 60 D, Glucose 83, Calcium 9.0, Magnesium 1.8, Total Bilirubin 0.3, AST 22 D, ALT 11 L D, Alkaline Phosphatase 95, Total Protein 6.0 L, Albumin 3.6 D, Globulin 2.4, Albumin/Globulin Ratio 1.5 I & O for Labs for Last 24 Hours: Intake & Output 08/10/23 08/11/23 08/12/23 08/13/23 23:59 23:59 23:59 23:59 Intake Total 1241 / 1241 Output Total Balance 1240 / 1240 Weight 135 lb 145 lb 8 oz Constitutional: no acute distress Head: Present normocephalic and atraumatic Eyes: Absent eye discharge ENT exam ED: Present mucous membranes moist Neck: Present normal inspection and trachea midline; Absent tenderness Respiratory: Present CTA bilaterally; Absent accessory muscle use Cardiac: Present Reg Rate and Rhythm GI: Present soft; Absent distention or tenderness Comments:: Midline incision. Patient is very thin. Normoactive bowel sounds. No distention. No rebound tenderness. I cannot elicit right CVA or flank tenderness on exam. Rectal (female): Present deferred (female): Present deferred Extremities: Present normal inspection; Absent edema Skin: Present intact and dry; Absent cyanosis or erythema Comment:: Several piercings, including tongue ring and dermal stud lateral to right eye. Multiple tattoos. Neuro: Present Cranial Nerve 2-12 Intact, alert, awake and oriented x 3 Results Labs 08/13/23 06:20 08/13/23 06:20 Labs: Laboratory Results - last 24 hr 08/12/23 20:00: WBC 7.8, RBC 4.66, Hgb 14.3, Hct 44.2, MCV 95.0, MCH 30.6, MCHC 32.2, RDW 13.6, Plt Count 232, MPV 9.6, Neut % (Auto) 54.1, Lymph % (Auto) 32.0, [place] % (Auto) 8.0, Eos % (Auto) 4.3, Baso % (Auto) 1.5, Neut # (Auto) 4.2, Lymph # (Auto) 2.5, [place] # (Auto) 0.6, Eos # (Auto) 0.3, Baso # (Auto) 0.1, Sodium 143, Potassium 3.8, Chloride 107, Carbon Dioxide 35 H, Anion Gap 4.8 L, BUN 17, Creatinine 1.30 H, Estimated Creat Clear 40, Estimated GFR 41 L, Est GFR ( Amer) 49 L, Glucose 78, Calcium 9.8, Total Bilirubin 0.3, AST 31, ALT 17, Alkaline Phosphatase 110, Total Protein 7.5, Albumin 4.3, Globulin 3.2, Albumin/Globulin Ratio 1.3, Lipase 80 08/12/23 21:15: Urine Color Yellow, Urine Appearance Clear, Urine pH 6.0, Ur Specific [place] >= 1.030, Urine Protein Trace, Urine Glucose (UA) Negative, Urine Ketones Negative, Urine Blood Negative, Urine Nitrate Negative, Urine Bilirubin Negative, Urine Urobilinogen 0.2, Ur Leukocyte Esterase Negative, Urine RBC None, Urine WBC None, Ur Squamous Epith Cells Occasional, Urine Bacteria None 08/13/23 06:20: WBC 6.9, RBC 3.84 L, Hgb 11.7 L D, Hct 36.7 L, MCV 95.6, MCH 30.2, MCHC 31.6 L, RDW 13.7, Plt Count 170 D, MPV 9.5, Neut % (Auto) 49.1, Lymph % (Auto) 37.8, [place] % (Auto) 8.3, Eos % (Auto) 3.7, Baso % (Auto) 1.2, Neut # (Auto) 3.4, Lymph # (Auto) 2.6, [place] # (Auto) 0.6, Eos # (Auto) 0.3, Baso # (Auto) 0.1, Sodium 136, Potassium 4.0, Chloride 106, Carbon Dioxide 26, Anion Gap 8.0, BUN 18 H, Creatinine 1.10 H, Estimated Creat Clear 51, Estimated GFR 49 L, Est GFR ( Amer) 60 D, Glucose 83, Calcium 9.0, Magnesium 1.8, Total Bilirubin 0.3, AST 22 D, ALT 11 L D, Alkaline Phosphatase 95, Total Protein 6.0 L, Albumin 3.6 D, Globulin 2.4, Albumin/Globulin Ratio 1.[address] scan - abdomen: report reviewed and image reviewed Assessment and Plan *Assessment and plan (1) Colitis: Status: Acute Category: Medical Code(s): K52.9 - Noninfective gastroenteritis and colitis, unspecified Plan: Right-sided diverticulitis noted on CT scan. Labs are unconcerning, specifically there is no leukocytosis or metabolic acidosis. I reviewed CT scan images. There is some mild diverticulitis or colitis on the right. This could explain her right flank pain due to the retroperitoneal nature of the right colon. Her abdomen is nonacute, and she has a nontoxic appearance. Would treat with fluoroquinolone and Flagyl, and keep n.p.o. except for sips and chips until pain resolves. Will need interval colonoscopy in the next 48 weeks. Right-sided diverticulitis can be a presentation of occult colon cancer. (2) Vomiting: Status: Acute Qualifiers: Nausea presence: with nausea Vomiting type: unspecified Qualified Code(s): R11.2 - Nausea with vomiting, unspecified Category: Medical Code(s): R11.10 - Vomiting, unspecified
--- NOTE | 2023-08-13 13:14 | EXP.PN ---
Subjective *Date: 08/13/23 *Time: 13:14 Interval history: Patient was seen and evaluated at the bedside. her last BM was few days ago, per patient she has BM once a week and it is normal for her, No reported acute events overnight, denies chest pain, shortness of breath, nausea, vomiting. she has R sided abdominal discomfort Exam Data for Last 24 hours Vital signs and Labs for Last 24 Hours: Temp Pulse Resp BP Pulse Ox O2 Del Method 97.8 F 61 18 97/62 L 94 L Room Air 08/13/23 08:00 08/13/23 08:00 08/13/23 08:00 08/13/23 08:00 08/13/23 08:00 08/13/23 09:00 Laboratory Results - last 24 hr 08/12/23 20:00: WBC 7.8, RBC 4.66, Hgb 14.3, Hct 44.2, MCV 95.0, MCH 30.6, MCHC 32.2, RDW 13.6, Plt Count 232, MPV 9.6, Neut % (Auto) 54.1, Lymph % (Auto) 32.0, [place] % (Auto) 8.0, Eos % (Auto) 4.3, Baso % (Auto) 1.5, Neut # (Auto) 4.2, Lymph # (Auto) 2.5, [place] # (Auto) 0.6, Eos # (Auto) 0.3, Baso # (Auto) 0.1, Sodium 143, Potassium 3.8, Chloride 107, Carbon Dioxide 35 H, Anion Gap 4.8 L, BUN 17, Creatinine 1.30 H, Estimated Creat Clear 40, Estimated GFR 41 L, Est GFR ( Amer) 49 L, Glucose 78, Calcium 9.8, Total Bilirubin 0.3, AST 31, ALT 17, Alkaline Phosphatase 110, Total Protein 7.5, Albumin 4.3, Globulin 3.2, Albumin/Globulin Ratio 1.3, Lipase 80 08/12/23 21:15: Urine Color Yellow, Urine Appearance Clear, Urine pH 6.0, Ur Specific [place] >= 1.030, Urine Protein Trace, Urine Glucose (UA) Negative, Urine Ketones Negative, Urine Blood Negative, Urine Nitrate Negative, Urine Bilirubin Negative, Urine Urobilinogen 0.2, Ur Leukocyte Esterase Negative, Urine RBC None, Urine WBC None, Ur Squamous Epith Cells Occasional, Urine Bacteria None 08/13/23 06:20: WBC 6.9, RBC 3.84 L, Hgb 11.7 L D, Hct 36.7 L, MCV 95.6, MCH 30.2, MCHC 31.6 L, RDW 13.7, Plt Count 170 D, MPV 9.5, Neut % (Auto) 49.1, Lymph % (Auto) 37.8, [place] % (Auto) 8.3, Eos % (Auto) 3.7, Baso % (Auto) 1.2, Neut # (Auto) 3.4, Lymph # (Auto) 2.6, [place] # (Auto) 0.6, Eos # (Auto) 0.3, Baso # (Auto) 0.1, Sodium 136, Potassium 4.0, Chloride 106, Carbon Dioxide 26, Anion Gap 8.0, BUN 18 H, Creatinine 1.10 H, Estimated Creat Clear 51, Estimated GFR 49 L, Est GFR ( Amer) 60 D, Glucose 83, Calcium 9.0, Magnesium 1.8, Total Bilirubin 0.3, AST 22 D, ALT 11 L D, Alkaline Phosphatase 95, Total Protein 6.0 L, Albumin 3.6 D, Globulin 2.4, Albumin/Globulin Ratio 1.5 I & O for Last 24 hours: Intake & Output 08/10/23 08/11/23 08/12/23 08/13/23 23:59 23:59 23:59 23:59 Intake Total 1241 / 1241 Output Total Balance 1240 / 1240 Weight 61.235 kg 65.998 kg Constitutional Constitutional: no acute distress *Routine HEENT Exam Head: Present normocephalic Eye: Present EOMI and PERRL ENT: Present mucous membranes moist *Routine Neck Exam Neck: Present supple; Absent lymphadenopathy *Routine Respiratory Exam Respiratory: Present CTA bilaterally *Routine Cardiovascular Exam Cardiovascular: Present RRR *Routine Abdominal Exam Abdominal: Present soft, normoactive bowel sounds and tenderness Comments: R sided abdominal discomfort on palpation *Routine Extremities Exam Extremities: Absent cyanosis, clubbing or edema *Routine Skin Exam Skin: Present warm; Absent rash *Routine Neurological Exam Neurological: Present alert and oriented X3 Assessment and Plan *Assessment and plan (1) Diverticulitis: Status: Acute Category: Medical Code(s): K57.92 - Diverticulitis of intestine, part unspecified, without perforation or abscess without bleeding (2) Generalized anxiety disorder: Status: Acute Category: Medical Code(s): F41.1 - Generalized anxiety disorder (3) Back pain: Status: Acute Qualifiers: Back pain location: low back pain Chronicity: chronic Back pain laterality: unspecified Sciatica presence: unspecified whether sciatica present Qualified Code(s): M54.50 - Low back pain, unspecified; G89.29 - Other chronic pain Category: Medical Code(s): M54.9 - Dorsalgia, unspecified (4) COPD (chronic obstructive pulmonary disease): Status: Acute Qualifiers: COPD type: unspecified COPD Qualified Code(s): J44.9 - Chronic obstructive pulmonary disease, unspecified Category: Medical Code(s): J44.9 - Chronic obstructive pulmonary disease, unspecified (5) Chronic prescription opiate use: Status: Chronic Category: Medical Code(s): Z79.891 - [employer] (current) use of opiate analgesic (6) Tobacco use disorder: Status: Acute Category: Medical Code(s): F17.200 - Nicotine dependence, unspecified, uncomplicated Plan 67-year-old female with past PMHx of COPD, current smoker, CKD, previous hysterectomy, generalized anxiety disorder, previous appendectomy, previous bowel obstruction status post resection who presented to ED for evaluation of right CVA pain. Labs are grossly unremarkable. CT of the abdomen consistent with acute diverticulitis of the ascending colon. Patient is not tolerated p.o. intake. Continue bowel management. Therefore ER called for admission. Discussed this finding imaging reviewed. Plan as follow: -Acute diverticulitis: GS consulted, recs NPO for now Pain management. Dilaudid 1 mg every 4h Started on levofloxacin 750 mg daily Flagyl 500 mg every 8h Continue IV hydration Other chronic conditions: Generalized anxiety disorder, Patient on duloxetine and chronic amphetamine Chronic back pain: On Lyrica and methocarbamol. Resume home meds Hypertension: Resume metoprolol and losartan COPD does not see normal exacerbation Monitor for O2. Saturation Smoker: On nicotine patch Lovenox for DVT prophylaxis. On Protonix Full code
[2023-08-13] MEDS: LACTATED RINGERS 1000ML 1,000 ML 100 ML IV (16:02)
--- NOTE | 2023-08-13 17:13 | PC.NURSE ---
no acute changes since previous assessment. medicated for pain with prn dilaudid multiple times this shift with good effectiveness.
--- NOTE | 2023-08-13 20:16 | PC.NURSE ---
Tech reported that Pt was hard to wake, Pt , applied 2L of O2, sats increased to 93%
--- NOTE | 2023-08-13 20:51 | PC.NURSE ---
Pt remains lethargic and hard to wake O2 sats at 91% on 2 L, attempted to contact SPECIAL EDUCATION TEACHING ASSISTANT, continues to forward to voicemail. contacted warehouse clerk.
[2023-08-13] MEDS: PANTOPRAZOLE 40MG VIAL 40 MG IV (21:30)
--- NOTE | 2023-08-13 21:44 | PC.NURSE ---
received call back from DIPIKA Dietz @ [phone], Orders for Narcan neb and dilute with 3ml of NS if needed. Pt more awake by this time, DIPIKA ordered to monitor pt for increasing symptoms and decreased O2, and give Narcan as needed. pt to remain on 2L of O2 at this time. Pt A&Ox4 at this time.
[2023-08-14] VITALS (7 sets, daily range): BP systolic 111–140; BP diastolic 49–94; PULSE 60–70; RESP 16–18; TEMP 36.6–37.1; O2SAT 92–96; BMI 23.3
[2023-08-14] MEDS: PROMETHAZINE HCL 25MG/ML 1ML VIAL 25 MG IV (01:16)
--- NOTE | 2023-08-14 01:20 | PC.NURSE ---
Pt reported that she had not voided since she arrived to the unit on 08/12/2023 around 0500. Bladder scan done and resulted in approx. 462mL. Pt asked to voided in BR, pt voided 300mL. J Luis BAR notified at this time.
--- NOTE | 2023-08-14 03:41 | PC.NURSE ---
Pt is alert and oriented x4 and currently tolerating 2L of O2 and sating at 95%. Pt was initially hard to wake and lethargic causing concern for amount of pain meds taken. Pt Dilaudid discontinued and narcan ordered PRN. pt did C/o severe to moderate pain and was treated per MAR and HEALTH AND PHYSICAL EDUCATION TEACHER orders. Pt O2 requirements remain @ 2L at this time. Pt denies needs at this time and is sleeping well. rise and fall of chest noted, no distress noted at this time
[2023-08-14] MEDS: METRONIDAZ/SOD CHL 500 MG/100 ML PIGGYBACK 100 MG IV ×3 (06:36→22:34)
[2023-08-14] MEDS: ACETAMINOPHEN 325MG TAB 650 MG PO (07:52)
[2023-08-14] MEDS: AMLODIPINE 5MG TABLET 5 MG PO (08:30)
[2023-08-14] MEDS: PREGABALIN 100MG CAPSULE 200 MG PO ×2 (08:30→20:18)
[2023-08-14] MEDS: DULOXETINE 30MG CAPSULE.DR 30 MG PO ×2 (08:30→20:18)
[2023-08-14] MEDS: ENOXAPARIN 40MG/0.4ML SYRINGE 40 MG SQ (08:31)
[2023-08-14] MEDS: IRBESARTAN 75MG TABLET 75 MG PO ×2 (08:31→20:18)
[2023-08-14] MEDS: METHOCARBAMOL 500MG TABLET 750 MG PO (08:31)
[2023-08-14] MEDS: PROPRANOLOL 20MG TAB 40 MG PO ×2 (08:31→20:18)
[2023-08-14] MEDS: LIDOCAINE 5% TRANSDERMAL PATCH 1 EACH TP (08:32)
--- NOTE | 2023-08-14 10:12 | P.PN_ITS ---
Subjective Narrative: No acute events overnight. She reports that she has nausea but has not vomited. Her right flank pain is a little bit better, although it still pains her when she changes position. Reports Zofran is not effective for nausea, but that Phenergan has helped nausea in the past. Exam Data for Last 24 hours Vital signs and Labs for Last 24 Hours: Temp Pulse Resp BP Pulse Ox O2 Del Method O2 Flow Rate 97.9 F 61 16 118/69 96 Nasal Cannula 2 08/14/23 08:00 08/14/23 08:00 08/14/23 08:00 08/14/23 08:00 08/14/23 08:00 08/14/23 08:00 08/14/23 08:00 I & O for Last 24 hours: Intake & Output 08/11/23 08/12/23 08/13/23 08/14/23 23:59 23:59 23:59 23:59 Intake Total 1241 / 1241 0 / 0 Output Total 1 / 371 670 / 670 Balance 1240 / 870 -670 / -670 Weight 135 lb 145 lb 8 oz 148 lb 4.8 oz Constitutional Constitutional: no acute distress *Routine Abdominal Exam Abdominal: Present soft and normoactive bowel sounds; Absent tenderness or distended Progress Note: A&P Assessment and plan (1) Diverticulitis: Status: Acute Assessment and plan: Right-sided diverticulitis. Continue levofloxacin and metronidazole. Continue n.p.o. except sips and chips until pain has resolved. Hopefully can start diet tomorrow. Labs and vitals are unconcerning. Will need interval colonoscopy after hospital discharge to rule out occult colon cancer masquerading as right- sided diverticulitis.Will add as needed Phenergan IV and p.o. for nausea. (2) Generalized anxiety disorder: Status: Acute (3) Back pain: Status: Acute (4) COPD (chronic obstructive pulmonary disease): Status: Acute (5) Chronic prescription opiate use: Status: Chronic (6) Tobacco use disorder: Status: Acute
--- NOTE | 2023-08-14 10:46 | P.PN_ITS ---
Subjective *Date: 08/14/23 *Time: 10:46 Interval history: Patient was seen and evaluated at the bedside. her last BM was few days ago, per patient she has BM once a week and it is normal for her, No reported acute events overnight, denies chest pain, shortness of breath, nausea, vomiting. mentions her back pain has improved, she has R sided abdominal discomfort Exam Data for Last 24 hours Vital signs and Labs for Last 24 Hours: Temp Pulse Resp BP Pulse Ox O2 Del Method O2 Flow Rate 97.9 F 61 16 118/69 96 Nasal Cannula 2 08/14/23 08:00 08/14/23 08:00 08/14/23 08:00 08/14/23 08:00 08/14/23 08:00 08/14/23 09:00 08/14/23 09:00 I & O for Last 24 hours: Intake & Output 08/11/23 08/12/23 08/13/23 08/14/23 23:59 23:59 23:59 23:59 Intake Total 1241 / 1241 0 / 0 Output Total 1 / 371 670 / 670 Balance 1240 / 870 -670 / -670 Weight 61.235 kg 65.998 kg 67.268 kg Constitutional Constitutional: no acute distress *Routine HEENT Exam Head: Present normocephalic Eye: Present EOMI and PERRL ENT: Present mucous membranes moist *Routine Neck Exam Neck: Present supple; Absent lymphadenopathy *Routine Respiratory Exam Respiratory: Present CTA bilaterally *Routine Cardiovascular Exam Cardiovascular: Present RRR *Routine Abdominal Exam Abdominal: Present soft, normoactive bowel sounds and tenderness Comments: R sided abdominal discomfort on palpation *Routine Extremities Exam Extremities: Absent cyanosis, clubbing or edema *Routine Skin Exam Skin: Present warm; Absent rash *Routine Neurological Exam Neurological: Present alert and oriented X3 Assessment and Plan *Assessment and plan (1) Diverticulitis: Status: Acute Category: Medical Code(s): K57.92 - Diverticulitis of intestine, part unspecified, without perforation or a bscess without bleeding (2) Generalized anxiety disorder: Status: Acute Category: Medical Code(s): F41.1 - Generalized anxiety disorder (3) Back pain: Status: Acute Qualifiers: Back pain location: low back pain Chronicity: chronic Back pain laterality: unspecified Sciatica presence: unspecified whether sciatica present Qualified Code(s): M54.50 - Low back pain, unspecified; G89.29 - Other chronic pain Category: Medical Code(s): M54.9 - Dorsalgia, unspecified (4) COPD (chronic obstructive pulmonary disease): Status: Acute Qualifiers: COPD type: unspecified COPD Qualified Code(s): J44.9 - Chronic obstructive pulmonary disease, unspecified Category: Medical Code(s): J44.9 - Chronic obstructive pulmonary disease, unspecified (5) Chronic prescription opiate use: Status: Chronic Category: Medical Code(s): Z79.891 - [employer] (current) use of opiate analgesic (6) Tobacco use disorder: Status: Acute Category: Medical Code(s): F17.200 - Nicotine dependence, unspecified, uncomplicated Plan 67-year-old female with past PMHx of COPD, current smoker, CKD, previous hysterectomy, generalized anxiety disorder, previous appendectomy, previous bowel obstruction status post resection who presented to ED for evaluation of right CVA pain. Labs are grossly unremarkable. CT of the abdomen consistent with acute diverticulitis of the ascending colon. Patient is not tolerated p.o. intake. Continue bowel management. Therefore ER called for admission. Discussed this finding imaging reviewed. Plan as follow: - Acute diverticulitis: GS consulted - following, rec to continue IV abx Pain management. Dilaudid 1 mg every 4h Started on levofloxacin 750 mg daily Flagyl 500 mg every 8h Continue IV hydration continue to advance diet Other chronic conditions: Generalized anxiety disorder, Patient on duloxetine and chronic amphetamine Chronic back pain: On Lyrica and methocarbamol. Resume home meds Hypertension: Resume metoprolol and losartan COPD does not see normal exacerbation Monitor for O2. Saturation Smoker- On nicotine patch Lovenox for DVT prophylaxis. On Protonix Full code DC 1-2 days pending clinical improvement
--- NOTE | 2023-08-14 16:02 | PC.NURSE ---
AOX4, PT CURRENTLY ON ROOM AIR AND TOLERATING WELL. SHE HAS RESTED IN BED COMFORTABLY FO RMOST OF SHIFT.
[2023-08-14] MEDS: PROMETHAZINE 25MG TABLET 25 MG PO (18:10)
[2023-08-14] MEDS: PANTOPRAZOLE 40MG VIAL 40 MG IV (20:18)
[2023-08-14] MEDS: LACTATED RINGERS 1000ML 1,000 ML 100 ML IV (22:34)
[2023-08-14] MEDS: LEVOFLOXACIN/D5W 750 MG/150 ML 750 MG/150 ML PIGGYBACK 100 MG IV (22:34)
[2023-08-15] MEDS: PROMETHAZINE 25MG TABLET 25 MG PO (01:43)
--- NOTE | 2023-08-15 03:22 | PC.NURSE ---
Pt is alert and oriented x4 and currently tolerating RA well. Pt has c/o nausea and has been treated per MAR. Pt has not reqired O2 this shift and has rested well. Pt states that she can no longer take tylenol that it upsets her stomach. Pt denies pain and needs at this time.
[2023-08-15 04:00] VITALS: BMI 21.7
[2023-08-15] MEDS: METRONIDAZ/SOD CHL 500 MG/100 ML PIGGYBACK 100 MG IV ×3 (06:29→22:00)
[2023-08-15 06:47] LABS: Basophils # 0.1 K/mm3 (0-0.2); Eosinophils # 0.2 K/mm3 (0.0-0.4); Hematocrit 40.3 % (37.0-47.0); Hemoglobin 13.4 g/dL (12.2-16.2); Lymphocytes # 1.8 K/mm3 (0.7-4.5); Lymphocytes % 25.1 % (10-50); Mean Corpuscular HGB Conc 33.3 g/dL (31.8-35.4); Mean Corpuscular Hemoglobin 30.6 pg (27.0-31.2); Mean Platelet Volume 9.3 fl (7.4-10.4); Monocytes # 0.7 K/mm3 (0.1-1.0); Monocytes % 9.3 % (1.7-9.3); Neutrophils # 4.3 K/mm3 (1.8-7.8); Neutrophils % 61.7 % (37.0-80.0); Platelet Count 195 K/mm3 (142-424); Red Blood Count 4.38 M/mm3 (4.20-5.40); Red Cell Distribution Width 13.5 % (11.5-17.5)
--- NOTE | 2023-08-15 06:52 | EXP.SURG.PN ---
Subjective Narrative: Patient states that the initial sharp pain in the right posterior flank has resolved but she describes a dull ache. She describes ongoing nausea. She is n.p.o. but is taking some carbonated beverages and water. Exam Data for Last 24 hours Vital signs and Labs for Last 24 Hours: Temp Pulse Resp BP Pulse Ox O2 Del Method O2 Flow Rate 98.3 F 61 18 140/94 H 93 L Room Air 2 08/14/23 20:00 08/14/23 20:00 08/14/23 20:00 08/14/23 20:00 08/14/23 20:00 08/15/23 06:40 08/14/23 19:45 FiO2 28 08/14/23 19:45 I & O for Last 24 hours: Intake & Output 08/12/23 08/13/23 08/14/23 08/15/23 11:59 11:59 11:59 11:59 Intake Total 1241 / 1241 0 / 0 2359 / 2359 Output Total / 670 / 670 0 / 0 Balance 1240 / 1240 -670 / -670 2359 / 2359 Weight 145 lb 8 oz 148 lb 4.8 oz *Routine Abdominal Exam Abdominal: Present soft; Absent tenderness Progress Note: A&P Assessment and plan (1) Diverticulitis: Status: Acute Assessment and plan: Continue antibiotics. No indications for operative intervention at this time. (2) Generalized anxiety disorder: Status: Acute (3) Back pain: Status: Acute (4) COPD (chronic obstructive pulmonary disease): Status: Acute (5) Chronic prescription opiate use: Status: Chronic (6) Tobacco use disorder: Status: Acute
[2023-08-15 07:02] LABS: Alanine Aminotransferase 17 U/L (12-78); Albumin Level 4.1 g/dl (3.5-5.0); Albumin/Globulin Ratio 1.4 (1.1-1.8); Alkaline Phosphatase 107 U/L (38-126); Anion Gap 11.8 mEq/L (5-15); Aspartate Amino Transferase 32 U/L (14-36); Bilirubin,Total 0.6 mg/dl (0.2-1.3); Blood Urea Nitrogen 14 mg/dl (7-17); Calcium 9.6 mg/dl (8.4-10.2); Carbon Dioxide 27 mmol/L (22.0-30.0); Chloride 102 mmol/L (98-107); Creatinine Clearance Estimated 44 mL/min (50-200); Estimated Glomerular Filt Rate 45 ml/min (>60); GFR (African American) 54 ML/MIN (>60); Globulin 2.9 g/dL (1.3-3.2); Glucose 77 mg/dl (74-100); Magnesium 1.9 mg/dl (1.6-2.3); Potassium 3.8 mmoL/L (3.5-5.1); Sodium 137 mmol/L (136-145)
[2023-08-15 08:00] VITALS: BP 128/75; PULSE 58; RESP 18; TEMP 36.6; O2SAT 95
[2023-08-15] MEDS: DULOXETINE 30MG CAPSULE.DR 30 MG PO ×2 (09:29→21:31)
[2023-08-15] MEDS: AMLODIPINE 5MG TABLET 5 MG PO (09:29)
[2023-08-15] MEDS: IRBESARTAN 75MG TABLET 75 MG PO (09:29)
[2023-08-15] MEDS: PROPRANOLOL 20MG TAB 40 MG PO (09:31)
[2023-08-15] MEDS: ENOXAPARIN 40MG/0.4ML SYRINGE 40 MG SQ (09:33)
[2023-08-15] MEDS: SENNOSIDES 8.6MG/DOCUSATE 50MG TABLET 1 TAB PO ×2 (09:42→21:31)
[2023-08-15] MEDS: POLYETHYLENE GLYCOL 3350 17 GM PACKET PO ×2 (09:42→17:30)
[2023-08-15] MEDS: PREGABALIN 100MG CAPSULE 200 MG PO ×2 (09:42→21:31)
[2023-08-15] MEDS: PROMETHAZINE HCL 25MG/ML 1ML VIAL 25 MG IV ×2 (12:08→18:52)
--- NOTE | 2023-08-15 14:13 | EXP.ACUTE.PN ---
Subjective *Date: 08/15/23 *Time: 14:13 Interval history: Patient complaining more back pain than anything else today. No chest pain, shortness of breath, nausea or vomiting. Would like to advance to liquids. Has not had a bowel movement since admission, states she does not have a bowel movement but about every 5 days at home. Afebrile. Medical Exam Vital signs and Labs for Last 24 Hours: Vital Signs Temp Pulse Resp BP Pulse Ox O2 Del Method O2 Flow Rate 08/15/23 11:00 Room Air 08/15/23 09:00 Room Air 08/15/23 08:00 95 Room Air 08/15/23 08:00 97.8 F 58 L 18 128/75 95 Room Air 08/15/23 06:40 Room Air 08/15/23 05:00 Room Air 08/15/23 03:00 Room Air 08/15/23 01:00 Room Air 08/15/23 00:00 Room Air 08/14/23 23:00 Room Air 08/14/23 21:00 Room Air 08/14/23 20:00 Room Air 08/14/23 20:00 98.3 F 61 18 140/94 H 93 L Room Air 08/14/23 19:45 Nasal Cannula 2 08/14/23 18:19 Room Air 08/14/23 16:18 Room Air 08/14/23 16:00 98.8 F 60 17 123/49 L 92 L Room Air 08/14/23 15:00 Room Air FiO2 08/15/23 11:00 08/15/23 09:00 08/15/23 08:00 08/15/23 08:00 08/15/23 06:40 08/15/23 05:00 08/15/23 03:00 08/15/23 01:00 08/15/23 00:00 08/14/23 23:00 08/14/23 21:00 08/14/23 20:00 08/14/23 20:00 08/14/23 19:45 28 08/14/23 18:19 08/14/23 16:18 08/14/23 16:00 08/14/23 15:00 Intake and Output 08/14/23 08/15/23 08/15/23 23:59 07:59 15:59 Intake Total 1369 / 2359 990 / 1460 470 / 1460 Output Total 0 / 670 0 / 0 Balance 1369 / 1689 990 / 1460 470 / 1460 Intake: Intake, Oral Amount 240 / 710 470 / 710 Intake, Total IV Amount 750 / 750 Lactated Ringers 1000ML 1,000 500 / 500 ml @ 100 mls/hr IV .Q10H [facility] Rx #:[id number] Levofloxacin/D5w 750 mg/150 ml 150 / 150 750 mg In 150 ml @ 100 mls/hr IV Q24H [facility] Rx#:[id number] Metronidaz/Sod Chl 500 mg In 100 / 100 100 ml @ 100 mls/hr IV Q8H [facility] Rx#:[id number] Infusion Intake 1369 / 1369 Lactated Ringers 1000ML 1,000 1369 / 1369 ml @ 100 mls/hr IV .Q10H [facility] Rx #:[id number] Output: Output, Urine Amount 0 / 670 0 / 0 Other: Number of Unmeasured Voids 1 1 Weight 62.737 kg Patient Weight 08/15/23 23:59 Weight 62.737 kg Laboratory Results - last 24 hr 08/15/23 05:33: WBC 7.0, RBC 4.38, Hgb 13.4, Hct 40.3, MCV 92.0, MCH 30.6, MCHC 33.3, RDW 13.5, Plt Count 195, MPV 9.3, Neut % (Auto) 61.7, Lymph % (Auto) 25.1, [place] % (Auto) 9.3, Eos % (Auto) 3.0, Baso % (Auto) 1.0, Neut # (Auto) 4.3, Lymph # (Auto) 1.8, [place] # (Auto) 0.7, Eos # (Auto) 0.2, Baso # (Auto) 0.1, Sodium 137, Potassium 3.8, Chloride 102, Carbon Dioxide 27, Anion Gap 11.8, BUN 14, Creatinine 1.20 H, Estimated Creat Clear 44, Estimated GFR 45 L, Est GFR ( Amer) 54 L, Glucose 77, Calcium 9.6, Magnesium 1.9, Total Bilirubin 0.6, AST 32 D, ALT 17 D, Alkaline Phosphatase 107, Total Protein 7.0, Albumin 4.1, Globulin 2.9, Albumin/Globulin Ratio 1.4 I & O for Labs for Last 24 Hours: Intake & Output 08/12/23 08/13/23 08/14/23 08/15/23 23:59 23:59 23:59 23:59 Intake Total 1241 / 1241 1369 / 2359 1460 / 1460 Output Total 371 670 / 670 0 / 0 Balance 1240 / 870 699 / 1689 1460 / 1460 Weight 61.235 kg 65.998 kg 67.268 kg 62.737 kg Constitutional: Present no acute distress, average body habitus, chronically ill appearing and cooperative Head: Present atraumatic and normocephalic ENT: Present normal exam Neck: Present normal inspection Respiratory: Present normal respiratory effort; Absent rhonchi, wheezes or crackles Cardiac: Present Reg Rate and Rhythm GI: Present soft, tenderness and normal bowel sounds; Absent distention, guarding or rebound Extremities: Present normal inspection and full ROM Skin: Present intact; Absent erythema Neuro: Present Grossly Intact, alert, awake, oriented x 3 and moves all extremities Assessment and Plan *Assessment and plan (1) Diverticulitis: Status: Acute Category: Medical Code(s): K57.92 - Diverticulitis of intestine, part unspecified, without perforation or abscess without bleeding (2) Generalized anxiety disorder: Status: Acute Category: Medical Code(s): F41.1 - Generalized anxiety disorder (3) Back pain: Status: Acute Qualifiers: Back pain location: low back pain Chronicity: chronic Back pain laterality: unspecified Sciatica presence: unspecified whether sciatica present Qualified Code(s): M54.50 - Low back pain, unspecified; G89.29 - Other chronic pain Category: Medical Code(s): M54.9 - Dorsalgia, unspecified (4) COPD (chronic obstructive pulmonary disease): Status: Acute Qualifiers: COPD type: unspecified COPD Qualified Code(s): J44.9 - Chronic obstructive pulmonary disease, unspecified Category: Medical Code(s): J44.9 - Chronic obstructive pulmonary disease, unspecified (5) Chronic prescription opiate use: Status: Chronic Category: Medical Code(s): Z79.891 - [facility] (current) use of opiate analgesic (6) Tobacco use disorder: Status: Acute Category: Medical Code(s): F17.200 - Nicotine dependence, unspecified, uncomplicated Plan 67-year-old female with past PMHx of COPD, current smoker, CKD, previous hysterectomy, generalized anxiety disorder, previous appendectomy, previous bowel obstruction status post resection who presented to ED for evaluation of right CVA pain. Labs are grossly unremarkable. CT of the abdomen consistent with acute diverticulitis of the ascending colon. Patient is not tolerated p.o. intake. Continue bowel management. Therefore ER called for admission. Medicine decided to admit. Showing clinical improvement. Will advance diet this morning. Continues to require inpatient admission. No bowel movement since admission, starting on bowel regimen. Problems addressed as follows: - Acute diverticulitis: - Constipation General surgery assisting with care. Discussed case today, okay with advancing diet. Continue IV antibiotic with Levaquin 750 mg daily, flagyl 500 mg 3 times a day. If Tolerates diet advancement, anticipate discharge in the next day or 2. Holding opiates given patient's confusion and need for Narcan with oversedation. White cell count normalAt 7.0, kidney function and electrolytes stable with chronic kidney disease, creatinine 1.2. Liver enzymes normal with bilirubin 0.6, AST 32, ALT 17, alk phos 107. Repeat CBC, CMP, magnesium ordered for the morning Other chronic conditions: Generalized anxiety disorder: Patient on duloxetine and Adderall Chronic back pain: On Lyrica and methocarbamol. Resume home meds Hypertension: Resume metoprolol and losartan COPD: Monitor for O2. Saturation Smoker- On nicotine patch Lovenox for DVT prophylaxis On Protonix Full code
[2023-08-15 16:00] VITALS: BP 127/76; PULSE 57; RESP 16; TEMP 36.7; O2SAT 94
[2023-08-15] MEDS: LACTATED RINGERS 1000ML 1,000 ML 100 ML IV (17:02)
--- NOTE | 2023-08-15 18:31 | PC.NURSE ---
patient alert and oriented x4, remains on RA, VSS. She refused her lidocaine patch this morning and has not c/o pain but has had some nausea, treated per MAR. No bowel movement yet but did get started on miralax and senna this afternoon. IV re-stick twice during my shift. calll light in reach.
[2023-08-15 20:00] VITALS: BP 96/62; PULSE 53; RESP 18; TEMP 36.8; O2SAT 94
[2023-08-15] MEDS: PANTOPRAZOLE 40MG VIAL 40 MG IV (21:31)
[2023-08-15] MEDS: LEVOFLOXACIN/D5W 750 MG/150 ML 750 MG/150 ML PIGGYBACK 100 MG IV (23:35)
[2023-08-16] MEDS: POLYETHYLENE GLYCOL 3350 17 GM PACKET PO (01:38)
[2023-08-16 04:00] VITALS: BP 100/56; PULSE 61; RESP 17; TEMP 37.1; O2SAT 95; BMI 21.7
--- NOTE | 2023-08-16 05:17 | PC.NURSE ---
Pt is alert and oriented. No complaints throughout shift. Pt has rested well through shift. Ambulates to the restroom. No reports of nausea or vomiting. Call light in reach.
[2023-08-16] MEDS: METRONIDAZ/SOD CHL 500 MG/100 ML PIGGYBACK 100 MG IV ×2 (06:20→13:52)
--- NOTE | 2023-08-16 07:20 | P.PN_ITS ---
Subjective Narrative: Patient seen this weekend in consultation by surgery on-call, Lucia Lewis MD for right-sided diverticulitis. At this point she is doing well and tolerating liquid diet. She states that her symptoms have resolved. Exam Data for Last 24 hours Vital signs and Labs for Last 24 Hours: Temp Pulse Resp BP Pulse Ox O2 Del Method O2 Flow Rate 98.7 F 61 17 100/56 L 95 Room Air 2 08/16/23 04:00 08/16/23 04:00 08/16/23 04:00 08/16/23 04:00 08/16/23 04:00 08/16/23 07:00 08/14/23 19:45 FiO2 28 08/14/23 19:45 I & O for Last 24 hours: Intake & Output 08/13/23 08/14/23 08/15/23 08/16/23 11:59 11:59 11:59 11:59 Intake Total 1241 / 1241 0 / 0 2359 / 2359 2885 / 2885 Output Total / 670 / 670 0 / 0 0 / 0 Balance 1240 / 1240 -670 / -670 2359 / 2359 2885 / 2885 Weight 145 lb 8 oz 148 lb 4.8 oz 138 lb 5 oz 138 lb 4.8 oz *Routine Abdominal Exam Abdominal: Present soft; Absent tenderness Progress Note: A&P Assessment and plan (1) Diverticulitis: Status: Acute Assessment and plan: May be able to discharge on oral antibiotics with outpatient follow-up for int erval colonoscopy. Patient has previously seen Dr. Reynaga on about 6 occasions as an inpatient for nonoperative management of bowel obstruction and he has also performed her last colonoscopy. It may be reasonable and more appropriate to follow-up with him for interval colonoscopy. (2) Generalized anxiety disorder: Status: Acute (3) Back pain: Status: Acute (4) COPD (chronic obstructive pulmonary disease): Status: Acute (5) Chronic prescription opiate use: Status: Chronic (6) Tobacco use disorder: Status: Acute
[2023-08-16 07:22] LABS: Basophils # 0.1 K/mm3 (0-0.2); Basophils % 0.8 % (0.1-2.0); Eosinophils # 0.3 K/mm3 (0.0-0.4); Hematocrit 40.5 % (37.0-47.0); Hemoglobin 13.2 g/dL (12.2-16.2); Lymphocytes # 2.2 K/mm3 (0.7-4.5); Lymphocytes % 30.9 % (10-50); Mean Corpuscular HGB Conc 32.5 g/dL (31.8-35.4); Mean Corpuscular Hemoglobin 30.5 pg (27.0-31.2); Mean Corpuscular Volume 93.8 fl (81-99); Mean Platelet Volume 9.3 fl (7.4-10.4); Monocytes # 0.7 K/mm3 (0.1-1.0); Monocytes % 9.6 % (1.7-9.3); Neutrophils # 3.8 K/mm3 (1.8-7.8); Neutrophils % 54.6 % (37.0-80.0); Platelet Count 156 K/mm3 (142-424); Red Blood Count 4.32 M/mm3 (4.20-5.40); Red Cell Distribution Width 13.6 % (11.5-17.5)
--- NOTE | 2023-08-16 07:24 | P.DS_ITS ---
General Admission date:: 08/13/23 Discharge date: 08/16/23 HPI HPI HPI: This is a 67-year-old female with past PMHx of COPD,Breast cancer, tobacco use disorder, chronic pain, fibromyalgia, hypertension, CKD, generalized anxiety disorder, who presented to ED for evaluation of right flank pain. She reports that she was in the car returning from [place] when she had acutely severe right flank pain. She had some discomfort over the preceding few days but it was not severe. She vomited 3 times yesterday, once today. No hematemesis or hematochezia or melena. Last colonoscopy was about 13 years ago and reportedly normal. She has had several abdominal operations via midline, including hysterectomy for endometrial cancer, small bowel resection for small bowel obstruction, appendectomy, and several ventral hernia repairs. She is also a long-term breast cancer survivor, and she had bilateral mastectomy at age 23 with right axillary dissection and subsequent breast implants for reconstruction. Hospital Course Hospital Course Hospital Course: 67-year-old female with past PMHx of COPD, current smoker, CKD, previous hysterectomy, generalized anxiety disorder, previous appendectomy, previous bowel obstruction status post resection who presented to ED for evaluation of right CVA pain. Labs are grossly unremarkable. CT of the abdomen consistent with acute diverticulitis of the ascending colon. Patient not tolerating p.o. intake on admission. Admitted to medicine for further management. Surgery was consulted. Showed clinical improvement. Tolerated advancement in diet. Transition to oral antibiotics to complete therapy at discharge. Problems addressed as follows: - Acute diverticulitis: - Constipation General surgery consulted and assisted with care. Imaging consistent with diverticulitis. Slowly advance diet. Was initiated on levofloxacin and Flagyl. Transitioned to oral antibiotics to complete 10-day course. Tolerating well. White cell count normalized. Pain improving. Continue home regimen. Stable for discharge home with close follow-up with surgery and PCP for reevaluation. Other chronic conditions: Generalized anxiety disorder: Patient on duloxetine and Adderall Chronic back pain: On Lyrica and methocarbamol. Resume home meds Hypertension: Resume metoprolol and losartan Smoker- On nicotine patch Exam Data for Last 24 hours Vital signs and Labs for Last 24 Hours: Temp Pulse Resp BP Pulse Ox O2 Del Method O2 Flow Rate 98.7 F 61 17 100/56 L 95 Room Air 2 08/16/23 04:00 08/16/23 04:00 08/16/23 04:00 08/16/23 04:00 08/16/23 04:00 08/16/23 07:00 08/14/23 19:45 FiO2 28 08/14/23 19:45 Laboratory Results - last 24 hr 08/16/23 06:37: WBC 7.0, RBC 4.32, Hgb 13.2, Hct 40.5, MCV 93.8, MCH 30.5, MCHC 32.5, RDW 13.6, Plt Count 156, MPV 9.3, Neut % (Auto) 54.6, Lymph % (Auto) 30.9, [place] % (Auto) 9.6 H, Eos % (Auto) 4.0, Baso % (Auto) 0.8, Neut # (Auto) 3.8, Lymph # (Auto) 2.2, [place] # (Auto) 0.7, Eos # (Auto) 0.3, Baso # (Auto) 0.1 I & O for Last 24 hours: Intake & Output 08/13/23 08/14/23 08/15/23 08/16/23 23:59 23:59 23:59 23:59 Intake Total 1241 / 1241 1369 / 2359 1929 Output Total 1 / 371 670 / 670 0 / 0 0 / 0 Balance 1240 / 870 699 / 1689 1929 Weight 65.998 kg 67.268 kg 62.737 kg 62.732 kg Constitutional Constitutional: no acute distress, thin, chronically ill appearing and cooperative *Routine HEENT Exam Head: Present normocephalic Eye: Present EOMI and PERRL ENT: Present mucous membranes moist *Routine Neck Exam Neck: Present supple; Absent lymphadenopathy *Routine Respiratory Exam Respiratory: Present CTA bilaterally; Absent rhonchi or wheezes *Routine Cardiovascular Exam Cardiovascular: Present RRR *Routine Abdominal Exam Abdominal: Present soft, normoactive bowel sounds and tenderness (Proving tenderness in lower abdomen); Absent distended *Routine Rectal Exam Patient deferred: visual exam *Routine Exam Patient deferred: external exam *Routine Extremities Exam Extremities: Absent cyanosis, clubbing or edema *Routine Skin Exam Skin: Present warm; Absent rash *Routine Neurological Exam Neurological: Present alert, oriented X3 and moving all extremities; Absent altered mental status Results Data Completed and Pending Labs on day of discharge: Labs from last 24 hours 08/16/23 06:37 WBC 7.0 RBC 4.32 Hgb 13.2 Hct 40.5 MCV 93.8 MCH 30.5 MCHC 32.5 RDW 13.6 Plt Count 156 MPV 9.3 Neut % (Auto) 54.6 Lymph % (Auto) 30.9 [place] % (Auto) 9.6 H Eos % (Auto) 4.0 Baso % (Auto) 0.8 Neut # (Auto) 3.8 Lymph # (Auto) 2.2 [place] # (Auto) 0.7 Eos # (Auto) 0.3 Baso # (Auto) 0.1 DS: Diagnosis Discharge Diagnosis (1) Diverticulitis: Status: Acute Code(s): K57.92 - Diverticulitis of intestine, part unspecified, without perforation or abscess without bleeding (2) Generalized anxiety disorder: Status: Acute Code(s): F41.1 - Generalized anxiety disorder (3) Back pain: Status: Acute Code(s): M54.9 - Dorsalgia, unspecified Qualifiers: Back pain laterality: unspecified Back pain location: low back pain Chronicity: chronic Sciatica presence: unspecified whether sciatica present Qualified Code(s): M54.50 - Low back pain, unspecified; G89.29 - Other chronic pain (4) COPD (chronic obstructive pulmonary disease): Status: Acute Code(s): J44.9 - Chronic obstructive pulmonary disease, unspecified Qualifiers: COPD type: unspecified COPD Qualified Code(s): J44.9 - Chronic obstructive pulmonary disease, unspecified (5) Chronic prescription opiate use: Status: Chronic Code(s): Z79.891 - snf (current) use of opiate analgesic (6) Tobacco use disorder: Status: Acute Code(s): F17.200 - Nicotine dependence, unspecified, uncomplicated Meds Home Medications and Allergies Home Medications Medication Instructions Recorded Confirmed Type dextroamphetamine-amphetamine 15 15 mg PO DAILY adhd 11/26/19 08/13/23 History mg tablet lidocaine 5 % topical patch 1 patch topical DAILY #15 ea 07/17/23 08/13/23 Rx losartan 50 mg tablet 50 mg PO BID BLOOD PRESSURE #60 08/09/23 08/13/23 Rx tabs propranolol 40 mg tablet 40 mg PO BID #60 tabs 08/09/23 08/13/23 Rx acyclovir 400 mg tablet 400 mg PO TIDP PRN NEUPATHY OF 08/13/23 08/13/23 History UPPER EXTREMITY. amlodipine 5 mg tablet 5 mg PO DAILY BLOOD PRESSURE 08/13/23 08/13/23 History duloxetine 20 mg capsule,delayed 20 mg PO TID 08/13/23 08/13/23 History release (Cymbalta) pregabalin 200 mg capsule 200 mg PO BID NEUROPATHY 08/13/23 08/13/23 History levofloxacin 750 mg tablet 750 mg PO Q48H 6 days #3 tabs 08/16/23 Rx metronidazole 500 mg tablet 500 mg PO TID 5 days #15 tabs 08/16/23 Rx sennosides 8.6 mg-docusate sodium 1 tab PO BID 30 days #60 tabs 08/16/23 Rx 50 mg tablet (Stimulant Laxative Plus) New Prescriptions to Start Prescriptions: Joe Rodas metronidazole Joe Gunter sennosides-docusate sodium [Stimulant Laxative Plus] Joe Gunter Allergies Allergy/AdvReac Type Severity Reaction Status Date / Time albuterol [From VENTOLIN HFA] Allergy Mild Verified 08/09/23 11:11 codeine [CODEINE] Allergy Mild Verified 08/09/23 11:11 erythromycin base Allergy Mild Verified 08/09/23 11:11 [ERYTHROMYCIN BASE] ketorolac [From TORADOL] Allergy Mild HEMMORHAGE Verified 08/09/23 11:11 meperidine [From DEMEROL] Allergy Mild Verified 08/09/23 11:11 Penicillins [PENICILLINS] Allergy Mild Verified 08/09/23 11:11 Sulfa (Sulfonamide Allergy Mild Verified 08/09/23 11:11 Antibiotics) [SULFA (SULFONAMIDE ANTIBIOTICS)] tetracycline [TETRACYCLINE] Allergy Mild Verified 08/09/23 11:11 buprenorphine [From SUBOXONE] Allergy Unknown I-HIVES Verified 08/09/23 11:11 morphine [From ANA] Allergy Unknown I-HIVES Verified 08/09/23 11:11 naloxone [From SUBOXONE] Allergy Unknown I-HIVES Verified 08/09/23 11:11 propoxyphene Allergy Unknown I-HIVES Verified 08/09/23 11:11 [From [facility]] Discharge Plan Disposition Patient Disposition: Home, Self-Care Condition: Fair Discharge Order Discharge Orders: Discharge Order (Routine); Ordered 08/16/23 Ordered By: Joe Gunter Follow up Plan Follow up with: Toni Palmer MD [Primary Care Provider] - 08/19/23 10:15 am Raj Reynaga MD [Staff Physician] - 08/31/23 9:15 am Prescriptions/Medication Reconciliation: New sennosides-docusate sodium [Stimulant Laxative Plus] 8.6-50 mg Tablet 1 tab PO BID 30 Days Qty: 60 0RF metronidazole 500 mg tablet 500 mg PO TID 5 Days Qty: 15 0RF levofloxacin 750 mg tablet 750 mg PO Q48H 6 Days Qty: 3 0RF Continued propranolol 40 mg tablet 40 mg PO BID Qty: 60 5RF losartan 50 mg tablet 50 mg PO BID Qty: 60 5RF dextroamphetamine-amphetamine 15 mg tablet 15 mg PO DAILY lidocaine 5 % adhesive patch,medicated 1 patch topical DAILY Qty: 15 0RF Rx Instructions: leave on most painful area for up to 12 hrs duloxetine [Cymbalta] 20 mg capsule,delayed release(DR/EC) 20 mg PO TID amlodipine 5 mg tablet 5 mg PO DAILY Patient Comments: TAKE ONE TABLET BY MOUTH TWICE DAILY acyclovir 400 mg tablet 400 mg PO TIDP PRN (Reason: NEUPATHY OF UPPER EXTREMITY.) pregabalin 200 mg capsule 200 mg PO BID Patient Comments: TAKE ONE CAPSULE BY MOUTH TWICE DAILY MAY CAUSE DROWSINESS Problem Reconciliation Problems Reviewed?: Yes Patient Discharge Instructions ACTIVITY: Continue current activity and Ambulate as tolerated DIET: continue same diet and advance to your usual diet Patient Instructions: DI for Diverticulitis, DI for Colitis Providers Primary Care Provider: Toni Palmer Admit Provider: Joe Gunter Attending Provider: Joe Gunter
[2023-08-16 07:51] LABS: Alanine Aminotransferase 15 U/L (12-78); Albumin Level 3.7 g/dl (3.5-5.0); Albumin/Globulin Ratio 1.4 (1.1-1.8); Alkaline Phosphatase 97 U/L (38-126); Anion Gap 7.5 mEq/L (5-15); Aspartate Amino Transferase 35 U/L (14-36); Bilirubin,Total 0.5 mg/dl (0.2-1.3); Blood Urea Nitrogen 16 mg/dl (7-17); Calcium 9.2 mg/dl (8.4-10.2); Carbon Dioxide 27 mmol/L (22.0-30.0); Chloride 107 mmol/L (98-107); Creatinine Clearance Estimated 44 mL/min (50-200); Estimated Glomerular Filt Rate 45 ml/min (>60); GFR (African American) 54 ML/MIN (>60); Globulin 2.7 g/dL (1.3-3.2); Glucose 87 mg/dl (74-100); Potassium 3.5 mmoL/L (3.5-5.1); Sodium 138 mmol/L (136-145); Total Protein,Serum 6.4 g/dl (6.3-8.2)
[2023-08-16 08:15] VITALS: BP 127/70; PULSE 61; RESP 20; TEMP 36.8; O2SAT 98
[2023-08-16] MEDS: AMLODIPINE 5MG TABLET 5 MG PO (08:17)
[2023-08-16] MEDS: DULOXETINE 30MG CAPSULE.DR 30 MG PO (08:17)
[2023-08-16] MEDS: PREGABALIN 100MG CAPSULE 200 MG PO (08:17)
[2023-08-16] MEDS: SENNOSIDES 8.6MG/DOCUSATE 50MG TABLET 1 TAB PO (08:18)
[2023-08-16] MEDS: PROPRANOLOL 20MG TAB 40 MG PO (08:18)
[2023-08-16] MEDS: IRBESARTAN 75MG TABLET 75 MG PO (08:18)
[2023-08-16] MEDS: ENOXAPARIN 40MG/0.4ML SYRINGE 40 MG SQ (08:22)
[2023-08-16 08:50] LABS: Magnesium 1.8 mg/dl (1.6-2.3)
--- NOTE | 2023-08-16 09:25 | PC.NURSE ---
Rounded on patient, assisted her to the bathroom and back to bed. Non slip socks provided. She denies any other needs, questions/concerns at this time.
[2023-08-16] MEDS: PROMETHAZINE 25MG TABLET 25 MG PO (09:32)
--- NOTE | 2023-08-16 09:33 | EXP.PHA.PN ---
Subjective *Date: 08/16/23 *Time: 09:33 Medical Exam Vital signs and Labs for Last 24 Hours: Vital Signs Temp Pulse Resp BP Pulse Ox O2 Del Method 08/16/23 08:15 98.2 F 61 20 127/70 98 Room Air 08/16/23 07:00 Room Air 08/16/23 05:00 Room Air 08/16/23 04:00 98.7 F 61 17 100/56 L 95 Room Air 08/16/23 03:00 Room Air 08/16/23 01:00 Room Air 08/15/23 23:00 Room Air 08/15/23 21:00 Room Air 08/15/23 20:00 Room Air 08/15/23 20:00 98.3 F 53 L 18 96/62 L 94 L Room Air 08/15/23 18:29 Room Air 08/15/23 17:00 Room Air 08/15/23 16:00 98.1 F 57 L 16 127/76 94 L Room Air 08/15/23 15:00 Room Air 08/15/23 13:00 Room Air 08/15/23 11:00 Room Air Intake and Output 08/15/23 08/16/23 08/16/23 23:59 07:59 15:59 Intake Total 470 / 1930 1944 170 2114 Output Total 0 / 0 0 / 0 Balance 470 / 1930 1944 Intake: Intake, Oral Amount 470 / 1180 170 / 170 Intake, Total IV Amount 1944 Lactated Ringers 1000ML 1,000 1695 / 1695 ml @ 100 mls/hr IV .Q10H [facility] Rx #:[id number] Levofloxacin/D5w 750 mg/150 ml 150 / 150 750 mg In 150 ml @ 100 mls/hr IV Q24H [facility] Rx#:[id number] Metronidaz/Sod Chl 500 mg In 100 / 100 100 ml @ 100 mls/hr IV Q8H [facility] Rx#:[id number] Output: Output, Urine Amount 0 / 0 0 / 0 Other: Number of Unmeasured Voids 1 1 Weight 62.732 kg Patient Weight 08/16/23 23:59 Weight 62.732 kg Laboratory Results - last 24 hr 08/16/23 06:37: WBC 7.0, RBC 4.32, Hgb 13.2, Hct 40.5, MCV 93.8, MCH 30.5, MCHC 32.5, RDW 13.6, Plt Count 156, MPV 9.3, Neut % (Auto) 54.6, Lymph % (Auto) 30.9, [place] % (Auto) 9.6 H, Eos % (Auto) 4.0, Baso % (Auto) 0.8, Neut # (Auto) 3.8, Lymph # (Auto) 2.2, [place] # (Auto) 0.7, Eos # (Auto) 0.3, Baso # (Auto) 0.1, Sodium 138, Potassium 3.5, Chloride 107, Carbon Dioxide 27, Anion Gap 7.5, BUN 16, Creatinine 1.20 H, Estimated Creat Clear 44, Estimated GFR 45 L, Est GFR ( Amer) 54 L, Glucose 87, Calcium 9.2, Magnesium 1.8, Total Bilirubin 0.5, AST 35, ALT 15, Alkaline Phosphatase 97, Total Protein 6.4, Albumin 3.7, Globulin 2.7, Albumin/Globulin Ratio 1.4 I & O for Labs for Last 24 Hours: Intake & Output 08/13/23 08/14/23 08/15/23 08/16/23 23:59 23:59 23:59 23:59 Intake Total 1241 / 1241 1369 / 2359 1929 Output Total 1 371 670 / 670 0 / 0 0 / 0 Balance 1240 / 870 699 / 1689 1929 Weight 65.998 kg 67.268 kg 62.737 kg 62.732 kg The patient's infection will respond to the chosen ABx?: Yes (DIVERTICULITIS, AFEBRILE OVER 24 HR, WHITE COUNT WITHIN NORMAL LIMITS.) Is the patient receiving the right drug, dose, and route?: Yes Could a more targeted ABx be ordered?: No
--- NOTE | 2023-08-16 13:06 | HMH.PHAINT1 ---
Pharmacy Intervention Comments: DISCHARGE MEDICATION COUNSELING WAS PROVIDED ON THE FOLLOWING MEDICATIONS: LEVOFLOXACIN, METRONIDAZOLE, AND SENNA FOR INDICATION AND POSSIBLE SIDE EFFECTS. PATIENT VERBALIZED UNDERSTANDING AND HAD NO FURTHER QUESTIONS.
== END 2023-08-16 15:53 | disposition home or self-care (01) | DRG 392 ==
LOC: ER 23:21 → 2ND 23:35
PROVIDERS: Nurse Practitioner Family; Admitting Provider Internal Medicine Adolescent Medicine; Emergency Provider Emergency Medicine; PCP Internal Medicine Adolescent Medicine; Visit Provider Internal Medicine Adolescent Medicine
DX: K57.32 Diverticulitis of large intestine without perforation or abscess without bleeding (principal); K52.9 Noninfective gastroenteritis and colitis, unspecified; F41.1 Generalized anxiety disorder; M54.50 Low back pain, unspecified; G89.29 Other chronic pain; J44.9 Chronic obstructive pulmonary disease, unspecified; Z79.891 Long term (current) use of opiate analgesic; F17.210 Nicotine dependence, cigarettes, uncomplicated; I12.9 Hypertensive chronic kidney disease with stage 1 through stage 4 chronic kidney disease, or unspecified chronic kidney disease; N18.9 Chronic kidney disease, unspecified; Z85.3 Personal history of malignant neoplasm of breast
CPT/HCPCS: 36415; 74177; 80053; 81001; 83690; 83735; 85025; 94760; 99285; J0131; J1956; J2405; Q9967

== ENCOUNTER 2023-09-02 08:54 | Day surgery (SDC) | payer MEDICARE, SELFPAY ==
[2023-09-02] VITALS (14 sets, daily range): BP systolic 87–129; BP diastolic 27–74; PULSE 51–60; RESP 16–18; TEMP 36.4; O2SAT 95–98; BMI 20.3
[2023-09-02] MEDS: CLINDAMYCIN PHOSPHATE/D5W 900 MG/50 ML PIGGYBACK 100 MG IV (10:06)
[2023-09-02] MEDS: LIDOCAINE 1% 30ML PF VIAL 30 ML (10:14)
[2023-09-02] MEDS: BUPIVACAINE 0.75% IN DEXTROSE 2ML AMP 2 ML IJ (10:18)
--- NOTE | 2023-09-02 10:47 | P.PCN_ITS ---
Procedure Date: 09/02/23 Time: 10:47 Anesthesiologist:: Preston Noel MD Complications:: None Pre-procedure Diagnosis:: Degenerative disc disease of lumbar spine with lumbar radiculopathy symptoms Post-procedure Diagnosis:: Same Indications for Procedure:: The patient is a pleasant 67-year-old white female who we are seeing for low back pain with lumbar radicular symptoms. She also has some cervical pain with cervical radiculopathy symptoms. Low back pain is the worst. She has failed al l previous conservative treatments including injections, oral medications, physical therapy and she is not a surgical candidate. She has had a psychological evaluation which was appropriate for a nonnarcotic trial. Patient does have a history of drug abuse. Also of note patient did say that she has a history of arachnoiditis which is concerning. We did do the intrathecal pump trial today. This will be with bupivacaine only. Will see how she does with this trial. Procedure Details:: Pain pump trial Informed consent was obtained and the risk and benefits of the procedure was explained to the patient. The patient was taken to the procedure room and placed prone on the procedure table. Patient was prepped and draped in sterile fashion. C-arm fluoroscopy was used to view the lumbar spine. The skin and subcutaneous tissues were anesthetized using lidocaine. I placed a 18-gauge spinal needle into the L4-5 interspace and advanced until clear CSF was obtained. After this intrathecal catheter was inserted and advanced very easily to the L1 vertebral body. The needle was withdrawn. We were able to freely withdraw clear CSF through the catheter. We then injected intrathecal bupivacaine 2 mg single shot bolus followed by saline and followed by the previous CSF that was withdrawn. The needle and catheter were then removed and a Band-Aid was placed. Patient tolerated the procedure well with no complications. We reevaluated the patient after 30 minutes to 1 hour. She was also reassessed by physical therapy. Patient did have motor and sensory loss. She had did have resolution of her pain symptoms. Patient was discharged home neurologically intact after an hour with resolution of her pain. Plan and Disposition:: Will follow-up with this patient in 1 week to assess efficacy of the trial. Of concern is a previous history of drug abuse and history of arachnoiditis. We will weigh the risk and benefits of intrathecal permanent placement. We may need to enter at L3-L4 if this trial is successful. And we will plan on intrathecal bupivacaine 5 mg/mL 2.5 mg/day. Will follow-up on lumbar MRI to discern any findings of arachnoiditis prior to permanent placement.
--- NOTE | 2023-09-02 10:49 | PC.NURSE ---
provided pt with lauren guerrero
== END 2023-09-02 13:42 | disposition home or self-care (01) ==
PROVIDERS: PCP Internal Medicine Adolescent Medicine; Visit Provider Anesthesiology
DX: M51.16 Intervertebral disc disorders with radiculopathy, lumbar region (principal)
CPT/HCPCS: 62323

== ENCOUNTER 2023-09-12 10:27 | Outpatient (POV) | payer MEDICARE, SELFPAY ==
[2023-09-12 10:51] VITALS: BP 130/75; PULSE 90; RESP 18; TEMP 36.8; O2SAT 99; BMI 20.3
--- NOTE | 2023-09-12 13:02 | EXP.PAIN.SOA ---
[facility] Pain Management SOAP Note Subjective:: Patient is a pleasant 67-year-old female who presents today for follow-up of intrathecal pain pump trial on 09/02/2023. Today she rates her pain a 6 out of 10. Patient states that she did have 90 to 100% relief following this trial and that she did have 4 hours of complete numbness into her legs. Patient does state that overall she felt much more functional and had decreased pain symptoms and would like to proceed forward with the implant. Patient does state today that she ended up getting at least about 7 hours of relief total from the time she left the hospital for the overall procedure. Patient does state that she is back to her baseline today and that still has chronic pain throughout her low back. Patient states this pain is debilitating and does interfere with her ability to perform activities of daily living. Patient does have chronic compression fractures and a history of osteoporosis. Patient does have multilevel degenerative disc disease. Patient is currently managed with Cymbalta 60 mg daily from our office however she does state that Dr. Wheeler's office is planning on dayan patient is currently managed with [place], clonazepam and pregabalin from her primary care provider. Her [place] has been reviewed and is appropriate. ing over a lot of her medications. Review of Systems: General: No recent weight changes, no fever, no sleep disturbances Respiratory: No cough, no shortness of air, no recurring pulmonary infections Cardiovascular/peripheral vascular: No chest pain, no palpitations, no edema, no shortness of breath Gastrointestinal: No new onset incontinence, normal bowel movements reported Genitourinary: No new onset incontinence Musculoskeletal: Chronic low back pain Psychiatric: [Normal mood/affect] Neurological: [Denies weakness in extremities], [denies balance issues] Objective:: Physical Exam: General: Alert and oriented x3, no acute distress, pleasant and cooperative Lungs: Respirations even and unlabored, symmetrical chest expansion Eyes: PERRL Musculoskeletal: Flexion and extension of lumbar [spine] somewhat guarded secondary to pain, [antalgic gait noted] Neurological: Speech clear, no gross sensory deficit Assessment:: Degenerative disc disease of cervical, thoracic and lumbar spine with cervical, thoracic and lumbar radiculopathy symptoms, chronic pain syndrome Plan:: Patient did undergo a intrathecal pump trial with significant improvement in the patient would like to proceed forward with the intrathecal implant. She did have approximately 90 to 100% improvement lasting around 7 hours. Risk and benefits have been discussed and they still wish to continue with this plan of care. Patient did mention a history of arachnoiditis to Dr. Noel on the date of this trial. I have reviewed over multiple imaging reports throughout the years with no mention of this finding. I did discuss at length regarding this finding with the patient and she states it was only 1 doctor out of [facility] that mention this years ago. I have discussed with patient that I will follow-up with Dr. Noel that he has no other concerns before proceeding forward with the implant. Patient does have a signed agreement that if we proceed forward with the intrathecal pump that there will be a decrease in oral pain medications to-no oral opioids once the intrathecal pain pump is established. Prior to the intrathecal trial patient was on a fixed schedule with her medications and patient has been compliant with her medication regimen. We will submit for the intrathecal pain pump implant and contact the patient once we have official approval. Patient was deemed an appropriate candidate of the psychological evaluation. Patient does state that she typically goes to [place] for a longer vacation in September. She states that she Will go from October 07 to 10 November. I have discussed with the patient that we will plan on scheduling her for this surgical procedure after she returns from vacation due to the 6-week postop restrictions. Patient acknowledges understanding and agrees with this plan of care. At her last visit we did give a 3-month supply of the Cymbalta 60 mg daily. She does not need any refills on this prescription until around October. Patient has been instructed to contact the clinic with any concerns before the next appointment. Dr. Noel has reviewed this note and agrees with this plan of care. This note was dictated using voice recognition software and make contain errors or omissions. [facility] Disclaimer: The information contained in this section may have been updated after the patient was seen, as this information can be updated by other users. Medical History Colitis Breast cancer Dizziness Dyspnea Anxiety Migraine COPD (chronic obstructive pulmonary disease) Hypertension Dyspnea Tobacco dependence syndrome Chest pain Surgical History History of appendectomy Hx of breast implants, bilateral H/O mastectomy S/P ventral herniorrhaphy S/P exploratory laparotomy History of colonoscopy History of hysterectomy Family History (Updated 09/12/23 @ 10:53 by Kirsten Cooper RN) Other No significant family history Social History Smoking Status: Current every day smoker tobacco type: cigarettes packs per day: 1 alcohol intake: never substance use type: marijuana current occupational status: other Travel in the last 8 weeks: None household members: spouse and children housing: house current occupational exposures/hazards: No caffeine: Yes
== END 2023-09-12 23:59 | disposition home or self-care (01) ==
LOC: SC.PAIN 10:28
PROVIDERS: PCP Internal Medicine Adolescent Medicine; Visit Provider Nurse Practitioner Family
DX: M50.10 Cervical disc disorder with radiculopathy, unspecified cervical region (principal); M51.14 Intervertebral disc disorders with radiculopathy, thoracic region; M51.16 Intervertebral disc disorders with radiculopathy, lumbar region; G89.4 Chronic pain syndrome
CPT/HCPCS: 99212; G0463

== ENCOUNTER 2023-09-15 13:45 | Outpatient (CLI) | payer MEDICARE, SELFPAY ==
--- NOTE | 2023-09-15 13:46 | CT_ITS ---
FINAL REPORT TECHNIQUE: Axial images were obtained through the chest without contrast. CLINICAL HISTORY: cp/tob use COMPARISON: None FINDINGS: Moderate coronary artery calcifications are present. There are nonspecific bilateral axillary nodes identified, measuring up to 1.2 cm in diameter. Bilateral subglandular breast implants are present. Scarring is present in the right middle lobe and lingula. No focal nodules or infiltrates are identified. There is no pericardial or pleural effusion. Limited images of the upper abdomen are unremarkable. IMPRESSION: Nonspecific bilateral axillary nodes are present, measuring up to 1.2 cm in diameter. Moderate coronary artery calcifications are present. Scarring is present in the right middle lobe and lingula. Reviewed, Interpreted and Dictated by Ezequiel oLgan MD Transcribed by Joaquina Peters Authenticated and [facility]
== END 2023-09-15 23:59 | disposition home or self-care (01) ==
LOC: RAD 13:46
PROVIDERS: PCP Internal Medicine Adolescent Medicine; Visit Provider Physician Assistant
DX: R07.89 Other chest pain (principal); Z87.891 Personal history of nicotine dependence
CPT/HCPCS: 71250

== ENCOUNTER 2023-12-20 14:18 | Outpatient (CLI) | payer MEDICARE, SELFPAY ==
[2023-12-20 14:57] LABS: Basophils # 0.1 K/mm3 (0-0.2); Basophils % 1.5 % (0.1-2.0); Eosinophils # 0.3 K/mm3 (0.0-0.4); Eosinophils % 4.1 % (0.1-12.0); Hematocrit 41.8 % (37.0-47.0); Hemoglobin 13.5 g/dL (12.2-16.2); Lymphocytes # 2.2 K/mm3 (0.7-4.5); Lymphocytes % 29.8 % (10-50); Mean Corpuscular HGB Conc 32.2 g/dL (31.8-35.4); Mean Corpuscular Hemoglobin 30.6 pg (27.0-31.2); Mean Corpuscular Volume 94.9 fl (81-99); Mean Platelet Volume 8.6 fl (7.4-10.4); Monocytes # 0.4 K/mm3 (0.1-1.0); Monocytes % 5.5 % (1.7-9.3); Neutrophils # 4.3 K/mm3 (1.8-7.8); Neutrophils % 59.1 % (37.0-80.0); Platelet Count 196 K/mm3 (142-424); Red Blood Count 4.41 M/mm3 (4.20-5.40); Red Cell Distribution Width 13.4 % (11.5-17.5); White Blood Count 7.2 K/mm3 (4.8-10.8)
[2023-12-20 15:10] LABS: Anion Gap 10.5 mEq/L (5-15); Blood Urea Nitrogen 22 mg/dl (7-17); Calcium 9.7 mg/dl (8.4-10.2); Carbon Dioxide 25 mmol/L (22.0-30.0); Chloride 108 mmol/L (98-107); Estimated Glomerular Filt Rate 55 ml/min (>60); GFR (African American) 67 ML/MIN (>60); Glucose 89 mg/dl (74-100); Potassium 4.5 mmoL/L (3.5-5.1); Sodium 139 mmol/L (136-145)
== END 2023-12-20 23:59 | disposition home or self-care (01) ==
LOC: LAB 14:20
PROVIDERS: PCP Internal Medicine Adolescent Medicine; Visit Provider Anesthesiology
DX: Z01.818 Encounter for other preprocedural examination (principal)
CPT/HCPCS: 36415; 80048; 85025

== ENCOUNTER 2023-12-23 10:43 | Day surgery (SDC) | payer MEDICARE, SELFPAY ==
--- NOTE | 2023-12-23 10:53 | EXP.ANES.CKL ---
[facility] Disclaimer: The information contained in this section may have been updated after the patient was seen, as this information can be updated by other users. Medical History Colitis Breast cancer Dizziness Dyspnea Anxiety Migraine COPD (chronic obstructive pulmonary disease) Hypertension Dyspnea Tobacco dependence syndrome Chest pain Surgical History History of appendectomy Hx of breast implants, bilateral H/O mastectomy S/P ventral herniorrhaphy S/P exploratory laparotomy History of colonoscopy History of hysterectomy Family History Other No significant family history Social History (Updated 12/23/23 @ 11:15 by Kim Tobin RN) Smoking Status: Current every day smoker tobacco type: cigarettes packs per day: 1 alcohol intake: never substance use type: marijuana current occupational status: disabled Travel in the last 8 weeks: None household members: spouse and children housing: house current occupational exposures/hazards: No caffeine: Yes [facility] Anesthesia Checklist Patient Identification Patient Identification: Arm Band Structural Data Admitted From: Home Planned Operative Procedure/s: Intrathecal Pain Pump Catheter and Generator Placement Consent for Planned Operative Procedure(s) Verified: Yes Verified Documents: Surgical Consent and History and Physical NPO Status Verified Time NPO: 00:00 Additional verifications Anesthesia Reactions: Yes (nausea, violent ) Hx Blood Transfusions: No Blood Transfusion Reaction: No Airway Assessment Mallampati Score:: Class II C-Spine Mobility Assessed: Yes TMJ Mobility Assessed: Yes Dentition: Edentulous Neurological Assessment Level of Consciousness: Awake, Alert and Appropriate Anesthesia Plan Anesthesia Risk discussed: Yes Anesthesia Plan: Verified ASA Class: III Anesthesia Type: MAC
[2023-12-23 10:57] VITALS: BMI 20.2
[2023-12-23 11:13] VITALS: BP 139/85; PULSE 78; RESP 18; TEMP 36.6; O2SAT 95
[2023-12-23] MEDS: LACTATED RINGERS 1000ML 1,000 ML 25 ML IV (11:28)
[2023-12-23] MEDS: VANCOMYCIN HCL 1,000 MG in 0.9 % SODIUM CHLORIDE 250 ML 125 MG IV (11:28)
[2023-12-23] MEDS: LIDOCAINE 1% W/EPI 1:100,000 20ML VIAL 40 ML (12:50)
--- NOTE | 2023-12-23 12:56 | SUR.PHASEI ---
Entries at 1232 and 1242 invalid. Charted on wrong patient and could not exit screen without filling in hard stops.
[2023-12-23 13:17] VITALS: BP 104/70; PULSE 69; RESP 18; TEMP 36.5; O2SAT 98
[2023-12-23 13:27] VITALS: BP 106/72; PULSE 67; RESP 18; O2SAT 98
[2023-12-23] MEDS: MORPHINE 4MG/ML SYRINGE 4 MG IV ×2 (13:32→13:47)
[2023-12-23 13:37] VITALS: BP 122/80; PULSE 64; RESP 16; O2SAT 97
[2023-12-23 13:57] VITALS: BP 124/73; PULSE 63; RESP 18; O2SAT 98
--- NOTE | 2023-12-23 14:04 | SUR.PHASEII ---
1357 - Dr. Noel notified that pt has had no relief from IV morphine and continues to complain of 10/10 pain in her spine . MD states he will come and see pt. 1406 - Dr. Noel at pt's bedside.
[2023-12-23] MEDS: LIDOCAINE 1% 5ML PF VIAL 10 ML (14:30)
[2023-12-23 14:54] VITALS: BP 132/86; PULSE 70; RESP 18; O2SAT 98
--- NOTE | 2023-12-23 15:52 | P.OP_ITS ---
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 She has failed all previous conservative treatments including injections, oral medications, physical therapy and she is not a candidate for surgery. She has had a successful intrathecal bupivacaine pain pump trial. She has had a successful psychological evaluation. She presents for permanent placement of her intrathecal pain pump today Operative findings:: None Operative note:: Informed consent was obtained risk and benefits of the procedure were explained to the patient. The patient was taken the operating room placed prone on the procedure table. The patient was prepped and draped in sterile fashion. C-arm fluoroscopy was used to view the left flank. The skin and subcutaneous tissues shelter between the 12th rib and iliac crest were anesthetized using lidocaine. I made incision dissected out the generator pocket. C-arm fluoroscopy was then used to view the lumbar spine. The skin and subcutaneous tissues adjacent to the L4-5 and L5-S1 interspace were anesthetized using lidocaine. I made incision and dissected down to the lumbar paraspinous fascia. A 17-gauge spinal needle was inserted and advanced into the L4-5 interspace until clear CSF was obtained. After this intrathecal catheter was inserted and advanced very easily to the T8 vertebral body. The catheter was found to be in good position. It was midline and posterior. The stylette and needle were removed. The catheter secured to the fascia with an anchor device and 2-0 Prolene. I tunneled the catheter from the back to the pump pocket. I felt the pump was 20 mL of intrathecal bupivacaine 5 mg/mL. I attached catheter to the pump. We were able to freely draw clear CSF through the sideport. The pump was then placed back in the pocket. Both incisions were closed with 2-0 Vicryl followed by 4-0 nylon and wayne. The patient was placed in an abdominal binder taken recovery in stable condition. Patient tolerated the procedure well with no complications. Pump was interrogated and started at 2.5 mg/day Patient was discharged home neurologic intact with good relief of pain symptoms. Plan and disposition: Follow-up with this patient in 1 week for wound check and reprogram. Will follow-up in 2 to 3 weeks for suture and staple removal. Condition: stable Disposition: PACU Complications:: None
== END 2023-12-23 14:55 | disposition home or self-care (01) ==
PROVIDERS: PCP Internal Medicine Adolescent Medicine; Visit Provider Anesthesiology
PROC: (CPT 62350; principal; 2023-12-23 11:30)
DX: M51.16 Intervertebral disc disorders with radiculopathy, lumbar region (principal); Z79.899 Other long term (current) drug therapy
CPT/HCPCS: 62350; 62362; 96374; C1755; C1772; J1010; J2250; J2270; J3370; J7030; J7120

== ENCOUNTER 2023-12-28 08:25 | Outpatient (POV) | payer MEDICARE, SELFPAY ==
[2023-12-28 09:02] VITALS: BP 154/88; PULSE 75; RESP 18; O2SAT 98; BMI 20.3
--- NOTE | 2023-12-28 09:50 | P.PCN_ITS ---
Procedure Date: 12/28/23 Time: 09:23 Anesthesiologist:: Gayle France APRN Complications:: None Pre-procedure Diagnosis:: Degenerative disc disease of lumbar spine with lumbar radiculopathy symptoms Post-procedure Diagnosis:: Same Indications for Procedure:: Patient is a pleasant 68-year-old female who presents today for 1 week postop of intrathecal pain pump implant on 12/23/2023. Today she rates her pain a 6 out of 10. She denies any MRI or injury. She does state that she is not having any side effects to her pump medication however feels like it definitely needs adjustment. Patient is currently managed with bupivacaine 5 mg/mL with a daily dose of 2.50 to 1 mg/day. Patient is prescribed oxycodone 5 mg from her PCP. Her Homero has been reviewed and is appropriate. Physical Exam: General: Alert and oriented x3, no acute distress, pleasant and cooperative Lungs: Respirations even and unlabored, symmetrical chest expansion Eyes: PERRL Musculoskeletal: Flexion and extension of lumbar [spine] somewhat guarded secondary to pain, [antalgic gait noted] Neurological: Speech clear, no gross sensory deficit Skin: Incision sites are clean, dry, well-approximated with sutures and wayne intact minimal erythema noted Procedure Details:: Informed consent was obtained and the risk and benefits of the procedure were explained to the patient. Patient was taken to the procedure room where noninvasive monitoring was placed including noninvasive blood pressure cuff and pulse oximeter. Patient's pump was interrogated and was reprogrammed to bupivacaine 2.874 mg/day. The patient tolerated the procedure well with no complications. Plan and Disposition:: Patient tolerated her intrathecal increase and reprogram with no complications and was discharged neurologically intact. Patient was counseled to continue her full 6-week postop restrictions including no submerging in water until her incisions are healed, minimal bending, twisting or lifting and to continue to use her abdominal binder to prevent seroma formation. Patient will return to clinic in 2 weeks for suture and staple removal. Patient has been instructed to contact the clinic with any concerns before the next appointment. Dr. Noel has reviewed this note and agrees with this plan of care. This note was dictated using voice recognition software and make contain errors or omissions. -- It Is medically necessary for this patient to continue to have their intrathecal pump refilled at regular intervals. This patient had an intrathecal pain pump implanted after meeting criteria of chronic intractable pain for greater than 3 months and failing conservative treatments. Patient has committed and been compliant to the treatment plan and all planned follow up care. Since implantation of the intrathecal pain pump, the patient has had decreased pain and been more functional. Oral medications have been reduced including intake of oral opioids. Patient continues to do well with intrathecal therapy with de crease in pain symptoms and increase in functional status. Stopping intrathecal medications can lead to life threatening withdrawal, seizures, cardiac arrest, severe pain, and possible . Pumps that are not refilled at regular intervals can be damages and cause and need for replacement. We continually titrate dose and concentration to optimize pain relief and function. We are limited in concentration for certain drugs to safely deliver medications through the pump and stay within the recommendations from the Polyanalges[employer] Consensus Committee Guidelines. Depending on dose and concentration these pumps may need to be refilled sooner than 3 months as we titrate.
== END 2023-12-28 23:59 | disposition home or self-care (01) ==
PROVIDERS: PCP Internal Medicine Adolescent Medicine; Visit Provider Nurse Practitioner Family
DX: M51.36 Other intervertebral disc degeneration, lumbar region (principal)
CPT/HCPCS: 62368; 99212; 99213; G0463

== ENCOUNTER 2024-01-03 00:24 | Emergency (ER) | payer MEDICARE, SELFPAY ==
--- NOTE | 2024-01-03 00:23 | CT_ITS ---
PROCEDURE INFORMATION: Exam: CT Abdomen And Pelvis Without Contrast Exam date and time: 01/03/2024 1:03 AM Age: 68 years old Clinical indication: Abdominal pain; Additional info: Trauma TECHNIQUE: Imaging protocol: Computed tomography of the abdomen and pelvis without contrast. Radiation optimization: All CT scans at this facility use at least one of these dose optimization techniques: automated exposure control; mA and/or kV adjustment per patient size (includes targeted exams where dose is matched to clinical indication); or iterative reconstruction. COMPARISON: CT ABDOMEN PELVIS W CON 08/12/2023 9:23 PM FINDINGS: Liver: Normal. No mass. Gallbladder and biliary ducts: Normal. No calcified stones. No ductal dilation. Pancreas: Normal. No ductal dilation. Spleen: Normal. No splenomegaly. Adrenal glands: Normal. No mass. Kidneys and ureters: Normal. No hydronephrosis. Stomach and bowel: Prior left lower quadrant abdominal surgery with bowel anastomosis. Moderate retained stool. No ileus or obstruction identified. Appendix: No evidence of appendicitis. Intraperitoneal space: Unremarkable. No free air. No significant fluid collection. Vasculature: Unremarkable. No abdominal aortic aneurysm. Lymph nodes: Unremarkable. No enlarged lymph nodes. Urinary bladder: Unremarkable as visualized. Reproductive: Unremarkable as visualized. Bones/joints: Stable L1 compression fracture. Stable L2 compression fracture. Both are status post kyphoplasty. Degenerative changes at L4-L5 with vacuum disc phenomena. Soft tissues: Implanted pump with lumbar spine leads is seen in the left lower back subcutaneous fat.. IMPRESSION: 1. No acute process identified. 2. Stable L1 and L2 fractures.
--- NOTE | 2024-01-03 00:23 | CT_ITS ---
PROCEDURE INFORMATION: Exam: CT Chest Without Contrast; Diagnostic Exam date and time: 01/03/2024 1:01 AM Age: 68 years old Clinical indication: Injury or trauma; Other: Pain TECHNIQUE: Imaging protocol: Diagnostic computed tomography of the chest without contrast. Radiation optimization: All CT scans at this facility use at least one of these dose optimization techniques: automated exposure control; mA and/or kV adjustment per patient size (includes targeted exams where dose is matched to clinical indication); or iterative reconstruction. COMPARISON: CT CHEST WO CON 09/15/2023 1:47 PM FINDINGS: Lungs: Unremarkable. No consolidation. No masses. Pleural spaces: Unremarkable. No pneumothorax. No pleural effusion. Heart: Unremarkable. No cardiomegaly. No pericardial effusion. Coronary arteries: Coronary atherosclerosis. Lymph nodes: Unremarkable. No enlarged lymph nodes. Vasculature: Unremarkable. No aortic aneurysm. Bones/joints: Stable L1 compression fracture status post vertebroplasty.. No acute fracture. Soft tissues: Bilateral breast augmentation. IMPRESSION: 1. No acute process to explain the patient's symptoms. 2. Coronary atherosclerosis. 3. Stable L1 compression fracture.
--- NOTE | 2024-01-03 00:23 | CT_ITS ---
PROCEDURE INFORMATION: Exam: CT Head Without Contrast Exam date and time: 01/03/2024 12:50 AM Age: 68 years old Clinical indication: Pain; Additional info: Trauma TECHNIQUE: Imaging protocol: Computed tomography of the head without contrast. Radiation optimization: All CT scans at this facility use at least one of these dose optimization techniques: automated exposure control; mA and/or kV adjustment per patient size (includes targeted exams where dose is matched to clinical indication); or iterative reconstruction. COMPARISON: CT CERVICAL SPINE WO CON 09/22/2019 4:40 PM FINDINGS: Brain: There is diffuse prominence of the cerebral sulci, cisterns, and ventricles consistent with atrophy. No intra or extra-axial fluid collections are noted. No mass or mass effect is seen. Periventricular white matter hypoattenuation is seen consistent with chronic small vessel disease. Cerebral ventricles: No ventriculomegaly. Paranasal sinuses: Visualized sinuses are unremarkable. No fluid levels. Mastoid air cells: Visualized mastoid air cells are well aerated. Bones: Unremarkable. No acute fracture. Soft tissues: Unremarkable. IMPRESSION: No acute process noted.
--- NOTE | 2024-01-03 00:23 | CT_ITS ---
PROCEDURE INFORMATION: Exam: CT Lumbar Spine Without Contrast Exam date and time: 01/03/2024 12:58 AM Age: 68 years old Clinical indication: Low back pain; Additional info: Trauma, recently placed pain pump TECHNIQUE: Imaging protocol: Computed tomography of the lumbar spine without contrast. Radiation optimization: All CT scans at this facility use at least one of these dose optimization techniques: automated exposure control; mA and/or kV adjustment per patient size (includes targeted exams where dose is matched to clinical indication); or iterative reconstruction. COMPARISON: CT LUMBAR SPINE WO CON 04/22/2023 9:36 PM FINDINGS: Tubes, catheters and devices: There is a catheter present within the thecal sac this extends into the thoracic region from a lumbar approach. Bones/joints: The patient again is status post L1 and L2 vertebral body fractures, also status post kyphoplasty at both levels. The patient is diffusely osteopenic. Degenerative disc disease is noted most prominently at L4-L5 with vacuum disc phenomena. Soft tissues: Unremarkable. IMPRESSION: 1. Status post L1 and L2 vertebral body fractures, also status post kyphoplasty at both levels. 2. The patient is diffusely osteopenic. 3. Degenerative disc disease is noted most prominently at L4-L5 with vacuum disc phenomena.
--- NOTE | 2024-01-03 00:23 | CT_ITS ---
PROCEDURE INFORMATION: Exam: CT Thoracic Spine Without Contrast Exam date and time: 01/03/2024 12:55 AM Age: 68 years old Clinical indication: Pain in thoracic spine; Additional info: Trauma TECHNIQUE: Imaging protocol: Computed tomography of the thoracic spine without contrast. Radiation optimization: All CT scans at this facility use at least one of these dose optimization techniques: automated exposure control; mA and/or kV adjustment per patient size (includes targeted exams where dose is matched to clinical indication); or iterative reconstruction. COMPARISON: CT THORACIC SPINE WO CON 04/22/2023 9:33 PM FINDINGS: Bones/joints: Stable L1 and L2 compression fracture status post kyphoplasty. There is diffuse osteopenia present throughout. There is some motion artifact on the examination. Soft tissues: Unremarkable. Lungs: Granuloma is seen in the right lung base. IMPRESSION: No evidence of acute fracture or dislocation.
--- NOTE | 2024-01-03 00:23 | CT_ITS ---
PROCEDURE INFORMATION: Exam: CT Cervical Spine Without Contrast Exam date and time: 01/03/2024 12:53 AM Age: 68 years old Clinical indication: Neck pain; Additional info: Trauma TECHNIQUE: Imaging protocol: Computed tomography of the cervical spine without contrast. Radiation optimization: All CT scans at this facility use at least one of these dose optimization techniques: automated exposure control; mA and/or kV adjustment per patient size (includes targeted exams where dose is matched to clinical indication); or iterative reconstruction. COMPARISON: CT CERVICAL SPINE WO CON 09/22/2019 4:40 PM FINDINGS: Bones/joints: Diffuse cervical spondylosis is noted. Hypertrophic changes of the facet present bilaterally. Discs/Spinal canal/Neural foramina: Narrowing of multiple intervertebral disc spaces are seen. Moderate neural foraminal narrowing is also noted. Lungs: Lung apices are normal. Vasculature: No obvious traumatic injury is seen. Carotid atherosclerosis is present. Soft tissues: Unremarkable. IMPRESSION: 1. No evidence of acute traumatic injury. 2. Diffuse cervical spondylosis. 3. Carotid atherosclerosis is present.
[2024-01-03 00:24] VITALS: BP 94/76; PULSE 81; RESP 18; TEMP 36.9; O2SAT 99; BMI 21.1
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
[2024-01-03] MEDS: ACETAMINOPHEN 500MG TAB 1000 MG PO (00:34)
[2024-01-03] MEDS: hydrOXYzine pamoate 25MG CAPSULE 25 MG PO (01:05)
--- NOTE | 2024-01-03 01:21 | PC.NURSE ---
Patient ambulated to restroom without assistance. No further needs expressed.
--- NOTE | 2024-01-03 04:27 | PC.NURSE ---
Contacted radiology regarding the amount of time that it's taking to read CT scans at this time. sound recording technician reports that the estimated read time has increased from 120minutes to over 178minutes and that sent messages have not been replied to at this time. Notified provider whom intends to contact [facility] for further update.
[2024-01-03] MEDS: CYCLOBENZAPRINE 10MG TABLET 10 MG PO (04:33)
[2024-01-03 04:47] VITALS: BP 128/84; PULSE 73; RESP 18; TEMP 36.8; O2SAT 97
== END 2024-01-03 04:53 | disposition home or self-care (01) ==
PROVIDERS: Emergency Provider Emergency Medicine
DX: R51.9 Headache, unspecified (principal); M54.6 Pain in thoracic spine; Y04.8XXA Assault by other bodily force, initial encounter
CPT/HCPCS: 70450; 71250; 72125; 72128; 72131; 74176; 99285

== ENCOUNTER 2024-01-12 14:10 | Outpatient (POV) | payer MEDICARE, SELFPAY ==
[2024-01-12 14:34] VITALS: BP 124/82; PULSE 81; RESP 16; O2SAT 98; BMI 20.3
--- NOTE | 2024-01-12 14:52 | P.PCN_ITS ---
Procedure Date: 01/12/24 Time: 14:53 Anesthesiologist:: Gayle France APRN Complications:: None Pre-procedure Diagnosis:: Degenerative disc disease of lumbar spine with lumbar radiculopathy symptoms Post-procedure Diagnosis:: Same Indications for Procedure:: Patient is a pleasant 68-year-old female who presents today for staple and suture removal as well as intrathecal adjustment and reprogram. Today she rates her pain a 6 out of 10. She does state that she recently fell and bumped the back of her pump and just wanted us to take a look at it and confirm nothing went on with it. Patient is currently managed with bupivacaine 2.874 mg/day. She denies any side effects from this medication but feels like it still not giving significant relief. She is prescribed oxycodone from her PCP. Her Homero has been reviewed and is appropriate. Physical Exam: General: Alert and oriented x3, no acute distress, pleasant and cooperative Lungs: Respirations even and unlabored, symmetrical chest expansion Eyes: PERRL Musculoskeletal: Flexion and extension of lumbar [spine] somewhat guarded secondary to pain, [antalgic gait noted] Neurological: Speech clear, no gross sensory deficit Skin: Incision sites are clean, dry, well-approximated with mild erythema around the staple sites. Procedure Details:: Informed consent was obtained and the risk and benefits of the procedure were explained to the patient. Patient was taken to the procedure room where noninvasive monitoring was placed including noninvasive blood pressure cuff and pulse oximeter. Patient's pump was interrogated and was reprogrammed to bupivacaine 3.44 mg/day. The patient tolerated the procedure well with no complications. Plan and Disposition:: Patient tolerated her intrathecal increase with no complications and was discharged neurologically intact. We were not able to take out a lot of her sutures and wayne however we did leave in some additional wayne and Steri- Strips were applied. Patient was counseled that we will still have her continue her postop restrictions the full 6 weeks. Patient will have to return to clinic in 2 weeks for additional staple removal. Patient agrees with this plan of care . We will see the patient back in the clinic at the next intrathecal refill. Patient has been instructed to contact the clinic with any concerns before the next appointment. Dr. Noel has reviewed this note and agrees with this plan of care. This note was dictated using voice recognition software and make contain errors or omissions. -- It Is medically necessary for this patient to continue to have their intrathecal pump refilled at regular intervals. This patient had an intrathecal pain pump implanted after meeting criteria of chronic intractable pain for greater than 3 months and failing conservative treatments. Patient has committed and been compliant to the treatment plan and all planned follow up care. Since implantation of the intrathecal pain pump, the patient has had decreased pain and been more functional. Oral medications have been reduced including intake of oral opioids. Patient continues to do well with intrathecal therapy with decrease in pain symptoms and increase in functional status. Stopping intrathecal medications can lead to life threatening withdrawal, seizures, cardiac arrest, severe pain, and possible . Pumps that are not refilled at regular intervals can be damages and cause and need for replacement. We continually titrate dose and concentration to optimize pain relief and function. We are limited in concentration for certain drugs to safely deliver medications through the pump and stay within the recommendations from the Polyanalgesic Consensus Committee Guidelines. Depending on dose and concentration these pumps may need to be refilled sooner than 3 months as we titrate.
== END 2024-01-12 23:59 | disposition home or self-care (01) ==
PROVIDERS: PCP Internal Medicine Adolescent Medicine; Visit Provider Nurse Practitioner Family
DX: M51.36 Other intervertebral disc degeneration, lumbar region (principal)
CPT/HCPCS: 62368; 99212; G0463

== ENCOUNTER 2024-01-18 14:06 | Day surgery (SDC) | payer MEDICARE, SELFPAY ==
[2024-01-18 15:36] VITALS: BP 146/88; PULSE 76; RESP 18; O2SAT 97; BMI 20.8
[2024-01-18 15:43] VITALS: BP 146/88; PULSE 76; RESP 18; O2SAT 97
[2024-01-18 15:44] VITALS: BP 146/88; PULSE 76; RESP 18; O2SAT 97
[2024-01-18 15:45] VITALS: BP 146/88; PULSE 76; RESP 18; O2SAT 97
--- NOTE | 2024-01-18 15:46 | EXP.PAIN.PRO ---
Procedure Date: 01/18/24 Time: 15:47 Anesthesiologist:: Gayle France APRN Complications:: None Pre-procedure Diagnosis:: Degenerative disc disease of lumbar spine with lumbar radiculopathy symptoms Post-procedure Diagnosis:: Same Indications for Procedure:: Patient is a pleasant 68-year-old female who presents today for intrathecal refill and reprogram. Today she rates her pain a 6 out of 10. She denies any new trauma or injury. Patient is currently managed with bupivacaine 5 mg/mL. She denies any side effects from this medication however she does state that she feels like it still not strong enough. Patient is requesting an increase if possible. Patient is currently managed with pregabalin and oxycodone 5 mg from her PCP. Her Homero has been reviewed and is appropriate. Physical Exam: General: Alert and oriented x3, no acute distress, pleasant and cooperative Lungs: Respirations even and unlabored, symmetrical chest expansion Eyes: PERRL Musculoskeletal: Flexion and extension of lumbar [spine] somewhat guarded secondary to pain, [antalgic gait noted] Neurological: Speech clear, no gross sensory deficit Skin: Incision sites are clean, dry, well-approximated with minimal erythema noted Procedure Details:: Informed consent was obtained and the risk and benefits of the procedure were explained to the patient. The patient was taken to the procedure room where noninvasive monitoring was placed including noninvasive blood pressure cuff and pulse oximeter. Patient's pump was interrogated. The area over the pump was cleansed with chlorhexidine as a cleansing solution. In sterile fashion the pump was accessed with a 22-gauge needle. Approximately 3.8 mls of the pump solution was removed and discarded appropriately. The pump was then refilled with 20 mL's of bupivacaine 5 mg/mL. The needle was withdrawn and a bandage was placed over the puncture site. The infusion rate was reprogrammed and increase to bupivacaine 3.9679 mg/day. The patient tolerated well with no complication. Plan and Disposition:: Patient tolerated her intrathecal refill and reprogram with no complications. We did give her a 15% increase in her overall dosage and remove the remainder of her wayne. Patient was also set up with her PTM device today with a total of 4 extra boluses in a 24-hour period available. Patient will return to clinic in 1 month for reevaluation of symptoms and plan of care. We will also plan on increasing her bupivacaine concentration to 10 mg/mL. We will see the patient back in the clinic at the next intrathecal refill. Patient has been instructed to contact the clinic with any concerns before the next appointment. Dr. Noel has reviewed this note and agrees with this plan of care. This note was dictated using voice recognition software and make contain errors or omissions. -- It Is medically necessary for this patient to continue to have their intrathecal pump refilled at regular intervals. This patient had an intrathecal pain pump implanted after meeting criteria of chronic intractable pain for greater than 3 months and failing conservative treatments. Patient has committed and been compliant to the treatment plan and all planned follow up care. Since implantation of the intrathecal pain pump, the patient has had decreased pain and been more functional. Oral medications have been reduced including intake of oral opioids. Patient continues to do well with intrathecal therapy with decrease in pain symptoms and increase in functional status. Stopping intrathecal medications can lead to life threatening withdrawal, seizures, cardiac arrest, severe pain, and possible . Pumps that are not refilled at regular intervals can be damages and cause and need for replacement. We continually titrate dose and concentration to optimize pain relief and function. We are limited in concentration for certain drugs to safely deliver medications through the pump and stay within the recommendations from the Polyanalgesic Consensus Committee Guidelines. Depending on dose and concentration these pumps may need to be refilled sooner than 3 months as we titrate.
== END 2024-01-18 16:05 | disposition home or self-care (01) ==
PROVIDERS: PCP Internal Medicine Adolescent Medicine; Visit Provider Nurse Anesthetist, Certified Registered
DX: M51.36 Other intervertebral disc degeneration, lumbar region (principal)
CPT/HCPCS: 62370

== ENCOUNTER 2024-01-31 09:50 | Day surgery (SDC) | payer MEDICARE, SELFPAY ==
[2024-01-31 10:09] VITALS: BP 126/54; PULSE 81; RESP 16; TEMP 36.8; O2SAT 96; BMI 20.3
[2024-01-31 10:33] VITALS: BP 125/60; PULSE 81; RESP 18; O2SAT 96
[2024-01-31 10:35] VITALS: BP 125/60; PULSE 81; RESP 18; O2SAT 96
--- NOTE | 2024-01-31 10:44 | P.PCN_ITS ---
Procedure Date: 01/31/24 Time: 10:40 Anesthesiologist:: Reyes Soto CRNA Complications:: None Pre-procedure Diagnosis:: Degenerative disc lumbar spine multilevels. Lumbar radiculopathy. Lumbar postlaminectomy syndrome. Post-procedure Diagnosis:: Same. Indications for Procedure:: Patient is a pleasant 68-year-old female comes our clinic today for intrathecal pain pump interrogation and refill and reprogramming. Also, dose change. Patient currently being managed with bupivacaine 5 mg/mL. Her rate is 3.9679 mg/day. Her new medication today will be bupivacaine 10 mg/mL. Patient continues having headache since medication was started in the intrathecal pain pump. Patient is suspicious that headache is stemming from the bupivacaine. I discussed in detail with the patient regarding treatment options. The patient agrees with turning the pump off today. We will give her 1 week trial to see if headache improves. She will return to the clinic on Tuesday, February 05. If in fact the headache has improved we will restart the medication slowly. Patient not having any other side effects at this time. She rates her pain 7/10. Procedure Details:: Details of the procedure explained to the patient. The patient taken the [facility] patient sitting position. The area of the pump was cleaned using chlorhexidine as a cleansing solution. The pump was interrogated. The pump was accessed with ease using a 22-gauge inch and half needle. 7 mL of solution was withdrawn discarded appropriate. The pump was then filled with 20 cc of solution containing bupivacaine 10 mg/mL. The pump rate was turned to minimal flow. Patient tolerated procedure without difficulty. There are no complications. Plan and Disposition:: Patient was discharged without incident.
[2024-01-31 10:45] VITALS: BP 129/75; PULSE 71; RESP 18; O2SAT 96
--- NOTE | 2024-01-31 12:59 | PC.NURSE ---
Per instructions of Dr Noel pt was initially decreased by 20% and bridge bolus started, per assistance of [employer] rep. Pt was then asked to return to hospital to have pump decreased to minimal blow rate per Dr Noel request. Pt was turned to minimal flow rate at this time per assistance of [employer] rep. Pt was educated on this change to see if headache resolves and to return for f/u appt to see Dr Noel on tuesday. Pt is agreeable with this POC.
== END 2024-01-31 11:30 | disposition home or self-care (01) ==
PROVIDERS: PCP Internal Medicine Adolescent Medicine; Visit Provider Nurse Anesthetist, Certified Registered
DX: M51.36 Other intervertebral disc degeneration, lumbar region (principal)

== ENCOUNTER 2024-02-02 15:10 | Inpatient (IN) | payer MEDICARE, SELFPAY ==
[2024-02-02 15:10] VITALS: BP 120/80; PULSE 75; RESP 24; TEMP 36.9; O2SAT 95; BMI 21.1
--- NOTE | 2024-02-02 15:19 | PC.NURSE ---
Dr. White at bedside
--- NOTE | 2024-02-02 15:22 | CT_ITS ---
FINAL REPORT TECHNIQUE: Pre-and postcontrast images of the abdomen and pelvis were performed by computed tomography. Extensive 3-D reconstruction images were performed. A CTA was performed. This study was performed with techniques to keep radiation doses as low as reasonably achievable (ALARA). Individualized dose reduction techniques using automated exposure control or adjustment of mA and/or kV according to the patient's size were employed. CLINICAL HISTORY: abd pain out of proportionto abdomnal exam COMPARISON: None FINDINGS: ABDOMEN AND PELVIS: The lung bases are clear. Postoperative changes of the small bowel are present in the left pelvis. There is significant small bowel dilatation in the mid and proximal small bowel, with loops of dilated small bowel measuring up to 4 cm. There is fecalization of the small bowel contents to the level of the anastomosis in the left side of the pelvis, consistent with small bowel obstruction. There is edema in the small bowel mesentery. In the a small amount of free fluid is present in the pelvis. No adrenal masses are identified. The liver, spleen and pancreas are unremarkable. Mild renal scarring is present bilaterally. The uterus has been surgically resected. CTA: The abdominal aorta is proper caliber without evidence of aneurysm or dissection. 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 There is no significant stenosis of the superior mesenteric artery, and the DIETER is patent. There is no significant stenosis or calcification. The renal arteries are patent bilaterally without significant stenosis. The common iliac arteries are patent, without evidence of significant stenosis, as are the internal and external iliac arteries. IMPRESSION: Postoperative changes are present in the small bowel located in the left pelvis. There is significant small bowel dilatation in the mid and proximal small bowel, with dilatation measuring up to 4 cm. There is fecalization of the small bowel contents to the level of the anastomosis in the left pelvis, consistent with small bowel obstruction. There is edema in the small bowel mesentery as well. Small amount of free fluid is present in the pelvis, along with a small amount of ascites. 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 No abdominal aortic aneurysm or dissection is present. Reviewed, Interpreted and Dictated by Melo Wiseman III, MD Transcribed by Joaquina Peters Authenticated and [facility]
--- NOTE | 2024-02-02 15:22 | XR_ITS ---
FINAL REPORT CLINICAL HISTORY: pre op. diffuse abd pain COMPARISON: 04/22/2023 FINDINGS: A single portable view of the chest was obtained. The heart size and pulmonary vascularity are within normal limits. The mediastinum is within normal limits. No acute pulmonary abnormality is identified. The bony thorax is intact. IMPRESSION: No active cardiopulmonary disease. Reviewed, Interpreted and Dictated by Melo Wiseman III, MD Transcribed by Caroline Medina Authenticated and [facility]
--- NOTE | 2024-02-02 15:39 | ED_ITS ---
Discharge Plan Disposition Patient Disposition: Admitted Chief Complaint: Abdominal Pain Clinical Impressions Clinical Impression: Complete small bowel obstruction Discharge ED Provider: Tyler White General Adult HPI General Chief complaint: Abdominal Pain Stated complaint: Severe ABD pain, Hx bowel obstruction Time Seen by Provider: 02/02/24 15:15 Mode of Arrival: EMS Source of Information: Patient Limitations: No Limitations Description of Symptoms (Recalled from ER Triage Doc. by RN): pt comes from home today with cc of right sided abd pain since last night has been vomitting, pt had bupivicaine pain pump turned off [address] loja office. ems gave 50 mcg of fentanyl en route for pain releive History of Present Illness HPI narrative: Please note that above description of symptoms, in this electronic medical record under categorization of recalled from ER triage doctor by RN are reflective of an initial nursing assessment, however, is not reflective of my full history and physical exam that was personally taken and clarified. Consequentially, this preceding description of symptoms, which may include the patient's categorized chief complaint in the EMR, do not reflect my personal clinical impression, and the ultimate description of history of present illness and patient stated complaints should be deferred to this section of the note. Unless stated otherwise or congruent with this section of the note, additional signs, symptoms, or incongruence should be interpreted as inaccurate with my clinical impression. Related Data Home Medications ?Medication ?Instructions ?Recorded ?Confirmed dextroamphetamine-amphetamine 15 15 mg PO DAILY adhd 11/26/19 01/31/24 mg tablet acyclovir 400 mg tablet 400 mg PO TIDP PRN NEUPATHY OF 08/13/23 01/31/24 UPPER EXTREMITY. amlodipine 5 mg tablet 5 mg PO DAILY BLOOD PRESSURE 08/13/23 01/31/24 duloxetine 20 mg capsule,delayed 20 mg PO TID 08/13/23 01/31/24 release (Cymbalta) pregabalin 200 mg capsule 200 mg PO BID NEUROPATHY 08/13/23 01/31/24 Previous Rx's ?Medication ?Instructions ?Recorded lidocaine 5 % topical patch 1 patch topical DAILY #15 ea 07/17/23 losartan 50 mg tablet 50 mg PO BID BLOOD PRESSURE #60 08/09/23 tabs propranolol 40 mg tablet 40 mg PO BID #60 tabs 08/09/23 levofloxacin 750 mg tablet 750 mg PO Q48H 6 days #3 tabs 08/16/23 metronidazole 500 mg tablet 500 mg PO TID 5 days #15 tabs 08/16/23 sennosides 8.6 mg-docusate sodium 1 tab PO BID 30 days #60 tabs 08/16/23 50 mg tablet (Stimulant Laxative Plus) Allergies Allergy/AdvReac Type Severity Reaction Status Date / Time albuterol [From VENTOLIN HFA] Allergy Mild Verified 12/23/23 11:15 codeine [CODEINE] Allergy Mild Verified 12/23/23 11:15 erythromycin base Allergy Mild Verified 12/23/23 11:15 [ERYTHROMYCIN BASE] ketorolac [From TORADOL] Allergy Mild HEMMORHAGE Verified 12/23/23 11:15 meperidine [From DEMEROL] Allergy Mild Verified 12/23/23 11:15 Penicillins [PENICILLINS] Allergy Mild Verified 12/23/23 11:15 Sulfa (Sulfonamide Allergy Mild Verified 12/23/23 11:15 Antibiotics) [SULFA (SULFONAMIDE ANTIBIOTICS)] tetracycline [TETRACYCLINE] Allergy Mild Verified 12/23/23 11:15 buprenorphine [From SUBOXONE] Allergy Unknown I-HIVES Verified 12/23/23 11:15 morphine [From ANA] Allergy Unknown I-HIVES Verified 12/23/23 11:15 naloxone [From SUBOXONE] Allergy Unknown I-HIVES Verified 12/23/23 11:15 propoxyphene Allergy Unknown I-HIVES Verified 12/23/23 11:15 [From DARVOCET-N] [facility] Disclaimer: The information contained in this section may have been updated after the patient was seen, as this information can be updated by other users. Medical History (Updated 02/02/24 @ 18:24 by Tyler White MD) Colitis Breast cancer Dizziness Dyspnea Anxiety Migraine COPD (chronic obstructive pulmonary disease) Hypertension Dyspnea Tobacco dependence syndrome Chest pain Surgical History History of appendectomy Hx of breast implants, bilateral H/O mastectomy S/P ventral herniorrhaphy S/P exploratory laparotomy History of colonoscopy History of hysterectomy Family History Other No significant family history Social History Smoking Status: Current every day smoker tobacco type: cigarettes packs per day: 1 alcohol intake: never substance use type: marijuana current occupational status: disabled Travel in the last 8 weeks: None household members: spouse and children housing: house current occupational exposures/hazards: No caffeine: Yes ROS Obtained: Yes All systems reviewed & no additional complaints except as documented Physical Exam General General appearance: alert and in distress (mild distress secondary to pain) Head Head exam: atraumatic and normocephalic Eye Eye exam: Present normal appearance, PERRL and EOMI Neck Neck exam: Present normal inspection, full ROM and trachea midline Respiratory Respiratory exam: Present wheezes (Bilateral end expiratory); Absent respiratory distress, stridor, accessory muscle use or prolonged expiratory phase Cardiovascular Cardiovascular exam: Present regular rate, normal rhythm and other (Pulses equal symmetric in upper and lower extremities) Abdominal Exam Abdominal exam: Present soft, tenderness, guarding and normal bowel sounds; Absent distention, rebound, rigidity, Desir's sign or pulsatile mass Abdominal tenderness: Present RLQ, suprapubic and moderate Extremities Exam Extremities exam: Absent edema Back Exam Back exam: Present CVA tenderness (R); Absent CVA tenderness (L) Neurological Exam Neurological exam: Present alert, oriented X3, CN II-XII intact and other (Patient does have tremor); Absent motor sensory deficit Psychiatric Psychiatric exam: Present anxious Skin Skin exam: Present warm and dry; Absent diaphoresis or erythema Medical Decision Making Medical Records Medical records reviewed: Yes I reviewed the patient's medical records. Homero Inquiry Pt receiving controlled substance: No Homero was queried for this patient: No Vital Signs: 02/02/24 15:10 Temperature 98.5 F Temperature Source Oral Pulse Rate [Right Radial] 75 Respiratory Rate 24 Blood Pressure [Right Arm] 120/80 Blood Pressure Mean [Right Arm] 93 02 Sat by Pulse Oximetry 95 Oxygen Delivery Method Room Air Lab Data Lab Results 02/02/24 15:10: WBC 7.1, RBC 4.87, Hgb 14.6, Hct 46.3, MCV 95.0, MCH 30.0, MCHC 31.6 L, RDW 13.2, Plt Count 265, MPV 9.5, Neut % (Auto) 65.3, Lymph % (Auto) 22.8, Coal % (Auto) 9.9 H, Eos % (Auto) 1.0, Baso % (Auto) 1.0, Neut # (Auto) 4.6, Lymph # (Auto) 1.6, Coal # (Auto) 0.7, Eos # (Auto) 0.1, Baso # (Auto) 0.1, PT 10.5, INR 0.93, APTT 29.6, Sodium 137, Potassium 4.3, Chloride 104, Carbon Dioxide 27, Anion Gap 10.3, BUN 18 H, Creatinine 1.00, Estimated Creat Clear 51, Estimated GFR 55 L, Est GFR ( Amer) 67, Glucose 112 H, Hemoglobin A1c 5.6, Lactate 1.8, Calcium 9.9, Magnesium 1.6, Total Bilirubin 0.7, AST 31, ALT 19, Alkaline Phosphatase 90, Troponin I < 0.01, Total Protein 7.8, Albumin 4.3, Globulin 3.5 H, Albumin/Globulin Ratio 1.2, Triglycerides 84, Cholesterol 218 H, LDL Cholesterol Direct 119.28, VLDL Cholesterol 17, HDL Cholesterol 64 H, Cholesterol/HDL Ratio 3.4, Lipase 45, TSH 0.88, Thyroxine (T4) 12.9 H, S alicylates < 1.0 L 02/02/24 15:22: VBG pH 7.49 H, VBG pCO2 28.7 L, VBG pO2 124.9 H, VBG HCO3 21.2 L , VBG Total CO2 22.1 L, VBG O2 Saturation 98.8 H, VBG Base Excess -2.2, VBG Lactic Acid 2.3 H 02/02/24 15:30: Blood Type A Positive, Antibody Screen Negative 02/02/24 17:25: Urine Color Yellow, Urine Appearance Clear, Urine pH 6.0, Ur Specific [place] 1.015, Urine Protein Negative, Urine Glucose (UA) Negative, Urine Ketones Trace, Urine Blood Negative, Urine Nitrate Negative, Urine Bilirubin Negative, Urine Urobilinogen 0.2, Ur Leukocyte Esterase Negative, Urine RBC 20-50, Urine WBC 3-5, Ur Squamous Epith Cells 20-50, Urine Bacteria 2+, Urine Opiates Screen Positive H, Urine Methadone Screen Negative, Ur Barbituates Screen Negative, Ur Phencyclidine Scrn Negative, Ur Amphetamines Screen Negative, U Benzodiazepines Scrn Negative, Urine Cocaine Screen Negative, U Marijuana (THC) Screen Negative 02/02/24 15:10 02/02/24 15:10 Orders (Tests/Meds): ED MEDICATIONS Discontinued Medications Generic Name Dose Route Start Last Admin Trade Name George PRN Reason Stop Dose Admin Hydromorphone HCl 0.5 mg 02/02/24 15:22 02/02/24 15:40 Hydromorphone 2mg/Ml Syringe IV 02/02/24 15:23 0.5 mg ONCE ONE Administration Hydromorphone HCl 1 mg 02/02/24 17:02 02/02/24 17:05 Hydromorphone 2mg/Ml Syringe IV 02/02/24 17:03 1 mg ONCE ONE Administration Iopamidol 80 ml 02/02/24 16:19 02/02/24 16:21 Iopamidol-370 (76%);100ml Bottle IV 02/02/24 16:20 80 ml ONCE ONE Administration Ondansetron HCl 4 mg 02/02/24 15:22 02/02/24 15:40 Ondansetron 4mg/2ml Vial IV 02/02/24 15:23 4 mg ONCE ONE Administration Sodium Chloride 10 ml 02/02/24 16:19 02/02/24 16:21 Sodium Chloride 0.9% 10ml Syr (Rad Only) IV 02/02/24 16:20 10 ml ONCE ONE Administration Sodium Chloride 50 ml 02/02/24 16:19 02/02/24 16:20 0.9 % Sodium Chloride 50 Ml Vial IV 02/02/24 16:20 50 ml ONCE ONE Administration ORDERS Category Date Time Status Type and Screen Stat BBK 02/02/24 15:[address] angio abdomen pelvis Stat Cat Scan 02/02/24 15:22 Completed Surgery Consult (on-call) [Consult to On-Call Gen'l Cons 02/02/24 18:15 Ordered Surgeon] [CONS] Routine CXR --portable [XR chest portable] Stat Exams 02/02/24 17:37 Taken XR chest portable Stat Exams 02/02/24 15:22 Completed Complete Blood Count Auto Diff Stat Lab 02/02/24 15:10 Completed Comprehensive Metabolic Panel Stat Lab 02/02/24 15:10 Completed Drug Screen,Urine Stat Lab 02/02/24 17:25 Completed Hemoglobin A1C Stat Lab 02/02/24 15:10 Completed Lactic Acid Stat Lab 02/02/24 15:10 Completed Lipase Stat Lab 02/02/24 15:10 Completed Lipid Panel Stat Lab 02/02/24 15:10 Completed Magnesium Stat Lab 02/02/24 15:10 Completed PT INR [Prothrombin Time INR] Stat Lab 02/02/24 15:10 Completed PTT [Activated Partial Thrombo Time] Stat Lab 02/02/24 15:10 Completed Salicylate Stat Lab 02/02/24 15:10 Completed T4 (Thyroxine) Stat Lab 02/02/24 15:10 Completed TSH [Thyroid Stimulating Hormone] Stat Lab 02/02/24 15:10 Completed Troponin I Q3H Lab 02/02/24 18:30 Ordered Troponin I Q3H Lab 02/02/24 21:30 Ordered Troponin I Stat Lab 02/02/24 15:10 Completed Urinalysis and Microscopic Stat Lab 02/02/24 17:25 Completed Blood Culture Stat Micro 02/02/24 15:30 Received Urine Culture Stat Micro 02/02/24 17:25 Received VBG [Venous Blood Gas] Stat RT 02/02/24 15:22 Completed Medical Decision Narrative: 68-year-old female history of hypertension, COPD still using tobacco via vaporizer, not on home oxygen, appendectomy, mastectomy secondary to breast cancer, hysterectomy, hernia repair x 2 status post numerous small bowel obstructions (once necessitating bowel resection secondary to ischemia) presenting with abdominal pain. Patient states that she had a pain pump turned off 2 days ago which reportedly was using bupivacaine. Patient states since that time she initially felt better, starting last night, 01/31, patient started having pain in her right lower quadrant associated with nonbloody, nonbilious vomiting and nonbloody/non-mucousy diarrhea. States that this is exactly how it felt in the past when she had bowel obstructions, specifically how it felt in the past when she needed to have surgery for bowel resection. No fevers or chills, vaginal discharge or bleeding, abnormal urine, frequency, urgency, burning or blood, neurologic deficits, syncope, or any other concerns. History was obtained via conversation with patient and EMS. On arrival, patient hemodynamically stable, alert, oriented x4, appropriate, GCS 15, moving all extremities spontaneously, pupils equal and reactive to light. Full physical exam performed and significant for uncomfortable appearing female who is in mild distress secondary to pain. Holding her abdomen. She does have a tremor, unknown if this is related to abrupt bupivacaine cessation as of 2 days ago. Cardiopulmonary exam with bilateral end expiratory wheezes, no respiratory distress. Patient speaking in full sentences. Normal S1-S2 without murmurs gallops or rubs. Pulses are equal and symmetric in upper extremities and lower extremities. No pulse delays. No pulsatile mass in patient's abdomen she does have a large midline surgical abdominal scar. Diffuse tenderness, primarily in right lower quadrant without rebound, rigidity, or guarding, but patient holding abdomen stating she is in severe pain. Appears to be out of proportion to exam. Differential includes SBO, PUD, gastritis, pancreatitis, small bowel obstruction, perforated viscus, aortic dissection, mesenteric ischemia, ACS, SD, among others. Patient placed on continuous cardiac monitoring and continuous pulse ox with initial blood pressure 120/80, heart rate 75, saturation 95% on room air. Independent interpretation of EKG shows sinus rhythm 70 beats a minute with no ST or T wave changes concerning for acute ischemia. Intervals within normal limits. HI 149, QRS 80, QTc 423. Patient was given 0.5 mg Dilaudid initially, fluid bolus for symptomatic management and correction of underlying abnormalities. Workup independently interpreted and significant for no leukocytosis with WBC 7.1. Patient's coags normal. VBG with concern for mixed metabolic acidosis with respiratory alkalosis pH 7.49, CO2 low at 28.7 and bicarb low at 21.2. Patient's lactic acid 2.3. CMP nonactionable with normal kidney function. Patient's lactate on chemistry 1.8 and normal. Troponin negative. LFTs nonactionable as well. On independent interpretation of imaging, patient appears to have small bowel obstruction with transition point somewhere the left lower quadrant with nearly 5 cm distended proximal bowel. No evidence of perforation. No aortic pathology or evidence of ischemia. See radiology read for full review of final results. NG tube was placed. Follow-up KUB demonstrated adequate placement of NG tube on independent interpretation. General surgery was contacted and case was discussed at length given dilation of bowel, agreed that no emergent operation needed given results of workup. On reevaluation, patient pain returning, she was given 1 mg of Dilaudid IV. Given patient presentation, workup, history, this most likely represents small bowel obstruction without peritonitis. Hospital medicine was contacted and case was discussed at length, agreeable to admission. Because patient high risk for clinical decompensation, deemed appropriate for inpatient admission. Results were relayed to patient who voiced understanding and patient was agreeable to inpatient admission and management. Patient was admitted to the hospital for further definitive management. Supportive Employment Case Manager disclaimer Much of this encounter note is an electronic ecommerce manager spoken language to printed text. Electronic ecommerce manager of the spoken language may permit errors. Although I have reviewed the note, some errors may still exist. Critical Care Critical Care Time Critical Care Time: Yes (GI) Attestation: On 02/02/24, the high probability of a clinically significant, sudden or life threatening deterioration of the following system(s) required my full and direct attention, intervention and personal management. The time I documented below is in addition to time spent performing reported procedures but includes the following listed in this critical care notation. Total Time Total Critical Care Time: 45
[2024-02-02] MEDS: HYDROMORPHONE 2MG/ML SYRINGE 0.5 MG IV ×2 (15:40→21:30)
[2024-02-02] MEDS: ONDANSETRON 4MG/2ML VIAL 4 MG IV (15:40)
[2024-02-02 15:46] LABS: Lactate Venous 2.3 mmol/L (0.4-2.0); VBG Base Excess -2.2 mmol/L (-2.4-2.3); VBG HCO3 21.2 mmol/L (23-30); VBG Oxygen Saturation 98.8 % (50-70); VBG PCO2 28.7 mmol/L (35-51); VBG PH 7.49 mmol/L (7.31-7.41); VBG PO2 124.9 mmol/L (28-40); VBG Total CO2 22.1 mmol/L (23-27)
[2024-02-02 15:50] LABS: Alanine Aminotransferase 19 U/L (12-78); Albumin Level 4.3 g/dl (3.5-5.0); Albumin/Globulin Ratio 1.2 (1.1-1.8); Alkaline Phosphatase 90 U/L (38-126); Anion Gap 10.3 mEq/L (5-15); Aspartate Amino Transferase 31 U/L (14-36); Bilirubin,Total 0.7 mg/dl (0.2-1.3); Blood Urea Nitrogen 18 mg/dl (7-17); Calcium 9.9 mg/dl (8.4-10.2); Carbon Dioxide 27 mmol/L (22.0-30.0); Chloride 104 mmol/L (98-107); Chol/HDL Ratio 3.4 (1-3.5); Cholesterol 218 mg/dl (140-200); Creatinine Clearance Estimated 51 mL/min (50-200); Estimated Glomerular Filt Rate 55 ml/min (>60); GFR (African American) 67 ML/MIN (>60); Globulin 3.5 g/dL (1.3-3.2); Glucose 112 mg/dl (74-100); HDL Cholesterol 64 mg/dl (40-60); Lipase 45 U/L (23-300); Magnesium 1.6 mg/dl (1.6-2.3); Potassium 4.3 mmoL/L (3.5-5.1); Sodium 137 mmol/L (136-145); Total Protein,Serum 7.8 g/dl (6.3-8.2); Triglycerides 84 mg/dl (30-150); VLDL Cholesterol 17 mg/dL (0-40)
[2024-02-02 15:51] LABS: Basophils # 0.1 K/mm3 (0-0.2); Eosinophils # 0.1 K/mm3 (0.0-0.4); Hematocrit 46.3 % (37.0-47.0); Hemoglobin 14.6 g/dL (12.2-16.2); Lymphocytes # 1.6 K/mm3 (0.7-4.5); Lymphocytes % 22.8 % (10-50); Mean Corpuscular HGB Conc 31.6 g/dL (31.8-35.4); Mean Platelet Volume 9.5 fl (7.4-10.4); Monocytes # 0.7 K/mm3 (0.1-1.0); Monocytes % 9.9 % (1.7-9.3); Neutrophils # 4.6 K/mm3 (1.8-7.8); Neutrophils % 65.3 % (37.0-80.0); Platelet Count 265 K/mm3 (142-424); Red Blood Count 4.87 M/mm3 (4.20-5.40); Red Cell Distribution Width 13.2 % (11.5-17.5); White Blood Count 7.1 K/mm3 (4.8-10.8)
--- NOTE | 2024-02-02 15:52 | ECG_ITS ---
APPROVED REPORT Exam: Resting ECG HR:70 bpm ECG Measurements Heart Rate 70 AXES SC 149 P 78 QRSd 80 QRS 66 QT 402 T 75 QTc 423 Conclusion Sinus rhythm No ischemic change Electronically signed by : SHAYNA GUTIÉRREZ, 02/02/2024 18:47:58
[2024-02-02 15:56] LABS: INR 0.93 (0.9-1.1); Prothrombin Time 10.5 seconds (10.1-12.5)
[2024-02-02 16:01] LABS: Direct LDL Cholesterol 119.28 mg/dL (100-129)
[2024-02-02 16:04] LABS: Activated Partial Thrombo Time 29.6 seconds (22.8-30.6); Lactic Acid 1.8 mmol/L (0.7-2.1)
[2024-02-02 16:05] LABS: Salicylate < 1.0 mg/dL (2.0-20.0)
[2024-02-02 16:09] LABS: Troponin I < 0.01 ng/ml (0.00-0.034)
[2024-02-02 16:10] LABS: T4 (Thyroxine) 12.9 ug/dl (5.53-11.0)
[2024-02-02] MEDS: 0.9 % SODIUM CHLORIDE 50 ML VIAL IV (16:20)
[2024-02-02] MEDS: SODIUM CHLORIDE 0.9% 10ML SYR (RAD ONLY) 10 ML IV (16:21)
[2024-02-02] MEDS: IOPAMIDOL-370 (76%);100ML BOTTLE 80 ML IV (16:21)
[2024-02-02 16:24] LABS: Thyroid Stimulating Hormone 0.88 uIU/mL (0.465-4.68)
[2024-02-02 16:40] LABS: Hemoglobin A1C 5.6 % (4.0-6.0)
--- NOTE | 2024-02-02 16:43 | PC.NURSE ---
DR LORETO LEGER FOR GENERAL SURGERY
[2024-02-02] MEDS: HYDROMORPHONE 2MG/ML SYRINGE 1 MG IV (17:05)
--- NOTE | 2024-02-02 17:34 | PC.NURSE ---
DR DANGELO PAGED AGAIN
[2024-02-02 17:35] LABS: Microscopic, Urine URINE MICROSCOPIC (MICROSCOPIC)
[2024-02-02 17:37] LABS: Appearance,Urine CLEAR (Clear); Blood, Urine Negative (Negative); Color,Urine YELLOW (Yellow); Glucose,Urine (UA) Negative (Negative); Ketones,Urine TRACE (Negative); Leukocyte Esterase,Urine Negative (Negative); Nitrate,Urine Negative (Negative); Protein,Urine Negative (Negative); Specific Gravity, Urine 1.015 (1.005-1.030); Urobilinogen,Urine 0.2 EU/dl (0.2)
--- NOTE | 2024-02-02 17:37 | XR_ITS ---
PROCEDURE INFORMATION: Exam: XR Chest Exam date and time: 02/02/2024 5:38 PM Age: 68 years old Clinical indication: Device placement; Ng tube; Additional info: Post ngt, confirm placement TECHNIQUE: Imaging protocol: Radiologic exam of the chest. Views: 1 view. COMPARISON: CR XR CHEST PORTABLE 02/02/2024 4:08 PM FINDINGS: Tubes, catheters and devices: The enteric tube follows the course of the esophagus with the tip and side port terminating at the gastric bubble. Lungs: Unremarkable. No consolidation. Pleural spaces: Unremarkable. No pleural effusion. No pneumothorax. Heart/Mediastinum: Unremarkable. No cardiomegaly. Bones/joints: Unremarkable. IMPRESSION: The enteric tube follows the course of the esophagus with the tip and side port terminating at the gastric bubble.
[2024-02-02 17:49] LABS: Amphetamine/Metha Screen,Urine Negative ng/ml (<1000)
[2024-02-02 17:50] LABS: Barbiturates Screen,Urine Negative ng/ml (<200)
[2024-02-02 17:51] LABS: Benzodiazepines Screen,Urine Negative ng/ml (<200); Cannabinoid Screen,Urine Negative ng/ml (<50)
[2024-02-02 17:52] LABS: Cocaine Screen,Urine Negative ng/ml (<300)
[2024-02-02 17:53] LABS: Bilirubin,Urine Negative (Negative); Methadone Screen,Urine Negative ng/ml (<300); Opiate Screen,Urine Positive ng/ml (<300); RBC,Urine 20-50 #/hpf (0-3)
[2024-02-02 17:54] LABS: Bacteria,Urine 2+ /lpf; Phencyclidine Screen,Urine Negative ng/ml (<25)
[2024-02-02 17:55] LABS: Squamous Epithelial Cell,Urine 20-50 #/hpf (0-5)
--- NOTE | 2024-02-02 18:02 | PC.NURSE ---
DR DANGELO PAGED AGAIN
--- NOTE | 2024-02-02 18:06 | PC.NURSE ---
DR GUTIÉRREZ SPEAKING WITH DR DANGELO
--- NOTE | 2024-02-02 18:12 | PC.NURSE ---
DR GUTIÉRREZ SPEAKING WITH HOSPITALIST
--- NOTE | 2024-02-02 18:19 | PC.NURSE ---
CORPORATE EXECUTIVE CHEF NOTIFIED OF ADMISSION
--- NOTE | 2024-02-02 18:26 | PC.NURSE ---
called report to Yesica rn on 2nd floor and answered all questions
[2024-02-02 18:27] VITALS: BP 136/83; PULSE 68; RESP 20; TEMP 36.9; O2SAT 99
--- NOTE | 2024-02-02 18:52 | EXP.SURG.CON ---
History of Present Illness *Admission Date: 02/02/24 *Reason for visit:: Small bowel obstruction *History of present illness: Patient is a 68-year-old female with history of COPD, diverticulitis, degenerative disc disease with chronic pain disorder, hypertension, tobacco dependence. She has undergone numerous surgeries at outside facilities notable for laparotomy and ventral hernia repair about 20 years ago in [place]. She does have a history of recurrent bowel obstructions which have been usually amenable to nonoperative management but she did require laparotomy with small bowel resection 20 years ago in [place] for obstruction. She has somewhat regularly required admission for apparent exacerbations of bowel obstructions. She had admission at this facility in 2010 as well as in 2011 for small bowel obstructions which were managed nonoperatively. She had been hospitalized 3 or 4 times in 2015 for small bowel obstruction managed nonoperatively. She had a similar admission in 2016. She had an admission in 2019 with partial small bowel obstruction managed nonoperatively but she also had significant amount of constipation. She does have chronic pain and had previously been on chronic opiate use and most assuredly has had some degree of chronic constipation and ileus. She did move her bowels yesterday but states that she usually only moves her bowels about once weekly. She had an intrathecal pain pump placed by Dr. Noel on 12/23/2023 at which time she had postoperative pain in both hips and after operative intervention underwent bilateral SI joint injections. She had the bupivacaine decreased on 01/31/2024.. In the evening of 02/01/2024 she had developed some right lower quadrant pain with nonbilious vomiting. She states that the symptoms are similar to when she has previously had bowel obstructions. She presented to the emergency department via EMS. She underwent CT scan (CT angiogram) which revealed findings of mid and proximal small bowel dilatation to 4 cm. There is evidence of left lower quadrant anastomosis with some small bowel fecalization. Small amount of free fluid. This is consistent with partial obstruction. She had nasogastric tube placed which gave her some relief. She was admitted for inpatient management and surgical consultation. [facility] Disclaimer: The information contained in this section may have been updated after the patient was seen, as this information can be updated by other users. Medical History (Updated 02/02/24 @ 19:31 by Melo Nowak MD) Colitis Breast cancer Dizziness Dyspnea Anxiety Migraine COPD (chronic obstructive pulmonary disease) Hypertension Dyspnea Tobacco dependence syndrome Chest pain Surgical History History of appendectomy Hx of breast implants, bilateral H/O mastectomy S/P ventral herniorrhaphy S/P exploratory laparotomy History of colonoscopy History of hysterectomy Family History No significant family history Social History Smoking Status: Current every day smoker tobacco type: cigarettes packs per day: 1 alcohol intake: never substance use type: marijuana current occupational status: disabled Travel in the last 8 weeks: None household members: spouse and children housing: house current occupational exposures/hazards: No caffeine: Yes Meds Home Medications and Allergies Home Medications ?Medication ?Instructions ?Recorded ?Confirmed ?Type dextroamphetamine-amphetamine 15 15 mg PO DAILY adhd 11/26/19 01/31/24 History mg tablet lidocaine 5 % topical patch 1 patch topical DAILY #15 ea 07/17/23 01/31/24 Rx losartan 50 mg tablet 50 mg PO BID BLOOD PRESSURE #60 08/09/23 01/31/24 Rx tabs propranolol 40 mg tablet 40 mg PO BID #60 tabs 08/09/23 01/31/24 Rx acyclovir 400 mg tablet 400 mg PO TIDP PRN NEUPATHY OF 08/13/23 01/31/24 History UPPER EXTREMITY. amlodipine 5 mg tablet 5 mg PO DAILY BLOOD PRESSURE 08/13/23 01/31/24 History duloxetine 20 mg capsule,delayed 20 mg PO TID 08/13/23 01/31/24 History release (Cymbalta) pregabalin 200 mg capsule 200 mg PO BID NEUROPATHY 08/13/23 01/31/24 History levofloxacin 750 mg tablet 750 mg PO Q48H 6 days #3 tabs 08/16/23 01/31/24 Rx metronidazole 500 mg tablet 500 mg PO TID 5 days #15 tabs 08/16/23 01/31/24 Rx sennosides 8.6 mg-docusate sodium 1 tab PO BID 30 days #60 tabs 08/16/23 01/31/24 Rx 50 mg tablet (Stimulant Laxative Plus) New Prescriptions to Start Prescriptions: Allergies Allergy/AdvReac Type Severity Reaction Status Date / Time albuterol [From VENTOLIN HFA] Allergy Mild Verified 12/23/23 11:15 codeine [CODEINE] Allergy Mild Verified 12/23/23 11:15 erythromycin base Allergy Mild Verified 12/23/23 11:15 [ERYTHROMYCIN BASE] ketorolac [From TORADOL] Allergy Mild HEMMORHAGE Verified 12/23/23 11:15 meperidine [From DEMEROL] Allergy Mild Verified 12/23/23 11:15 Penicillins [PENICILLINS] Allergy Mild Verified 12/23/23 11:15 Sulfa (Sulfonamide Allergy Mild Verified 12/23/23 11:15 Antibiotics) [SULFA (SULFONAMIDE ANTIBIOTICS)] tetracycline [TETRACYCLINE] Allergy Mild Verified 12/23/23 11:15 buprenorphine [From SUBOXONE] Allergy Unknown I-HIVES Verified 12/23/23 11:15 morphine [From ANA] Allergy Unknown I-HIVES Verified 12/23/23 11:15 naloxone [From SUBOXONE] Allergy Unknown I-HIVES Verified 12/23/23 11:15 propoxyphene Allergy Unknown I-HIVES Verified 12/23/23 11:15 [From DARVOCET-N] Exam (Inpt) Vital signs and Labs for Last 24 Hours: Temp Pulse Resp BP Pulse Ox O2 Del Method 98.5 F 68 20 136/83 95 Room Air 02/02/24 18:27 02/02/24 18:27 02/02/24 18:27 02/02/24 18:27 02/02/24 15:10 02/02/24 18:27 Laboratory Results - last 24 hr 02/02/24 15:10: WBC 7.1, RBC 4.87, Hgb 14.6, Hct 46.3, MCV 95.0, MCH 30.0, MCHC 31.6 L, RDW 13.2, Plt Count 265, MPV 9.5, Neut % (Auto) 65.3, Lymph % (Auto) 22.8, Forrest % (Auto) 9.9 H, Eos % (Auto) 1.0, Baso % (Auto) 1.0, Neut # (Auto) 4.6, Lymph # (Auto) 1.6, Forrest # (Auto) 0.7, Eos # (Auto) 0.1, Baso # (Auto) 0.1, PT 10.5, INR 0.93, APTT 29.6, Sodium 137, Potassium 4.3, Chloride 104, Carbon Dioxide 27, Anion Gap 10.3, BUN 18 H, Creatinine 1.00, Estimated Creat Clear 51, Estimated GFR 55 L, Est GFR ( Amer) 67, Glucose 112 H, Hemoglobin A1c 5.6, Lactate 1.8, Calcium 9.9, Magnesium 1.6, Total Bilirubin 0.7, AST 31, ALT 19, Alkaline Phosphatase 90, Troponin I < 0.01, Total Protein 7.8, Albumin 4.3, Globulin 3.5 H, Albumin/Globulin Ratio 1.2, Triglycerides 84, Cholesterol 218 H, LDL Cholesterol Direct 119.28, VLDL Cholesterol 17, HDL Cholesterol 64 H, Cholesterol/HDL Ratio 3.4, Lipase 45, TSH 0.88, Thyroxine (T4) 12.9 H, Salicylates < 1.0 L 02/02/24 15:22: VBG pH 7.49 H, VBG pCO2 28.7 L, VBG pO2 124.9 H, VBG HCO3 21.2 L, VBG Total CO2 22.1 L, VBG O2 Saturation 98.8 H, VBG Base Excess -2.2, VBG Lactic Acid 2.3 H 02/02/24 15:30: Blood Type A Positive, Antibody Screen Negative 02/02/24 17:25: Urine Color Yellow, Urine Appearance Clear, Urine pH 6.0, Ur Specific [place] 1.015, Urine Protein Negative, Urine Glucose (UA) Negative, Urine Ketones Trace, Urine Blood Negative, Urine Nitrate Negative, Urine Bilirubin Negative, Urine Urobilinogen 0.2, Ur Leukocyte Esterase Negative, Urine RBC 20-50, Urine WBC 3-5, Ur Squamous Epith Cells 20-50, Urine Bacteria 2+, Urine Opiates Screen Positive H, Urine Methadone Screen Negative, Ur Barbituates Screen Negative, Ur Phencyclidine Scrn Negative, Ur Amphetamines Screen Negative, U Benzodiazepines Scrn Negative, Urine Cocaine Screen Negative, U Marijuana (THC) Screen Negative I & O for Labs for Last 24 Hours: Intake & Output 01/31/24 02/01/24 02/02/24 02/03/24 11:59 11:59 11:59 11:59 Weight 135 lb Constitutional: no acute distress and chronically ill appearing Respiratory: Present CTA bilaterally Cardiac: Present Reg Rate and Rhythm GI: Present soft and tenderness Comments:: She has extensive midline scar. Abdomen nondistended. Some tenderness diffusely. Rectal (female): Present deferred (female): Present deferred Results Labs 02/02/24 15:10 02/02/24 15:10 Labs: Laboratory Results - last 24 hr 02/02/24 15:10: WBC 7.1, RBC 4.87, Hgb 14.6, Hct 46.3, MCV 95.0, MCH 30.0, MCHC 31.6 L, RDW 13.2, Plt Count 265, MPV 9.5, Neut % (Auto) 65.3, Lymph % (Auto) 22.8, Forrest % (Auto) 9.9 H, Eos % (Auto) 1.0, Baso % (Auto) 1.0, Neut # (Auto) 4.6, Lymph # (Auto) 1.6, Forrest # (Auto) 0.7, Eos # (Auto) 0.1, Baso # (Auto) 0.1, PT 10.5, INR 0.93, APTT 29.6, Sodium 137, Potassium 4.3, Chloride 104, Carbon Dioxide 27, Anion Gap 10.3, BUN 18 H, Creatinine 1.00, Estimated Creat Clear 51, Estimated GFR 55 L, Est GFR ( Amer) 67, Glucose 112 H, Hemoglobin A1c 5.6, Lactate 1.8, Calcium 9.9, Magnesium 1.6, Total Bilirubin 0.7, AST 31, ALT 19, Alkaline Phosphatase 90, Troponin I < 0.01, Total Protein 7.8, Albumin 4.3, Globulin 3.5 H, Albumin/Globulin Ratio 1.2, Triglycerides 84, Cholesterol 218 H, LDL Cholesterol Direct 119.28, VLDL Cholesterol 17, HDL Cholesterol 64 H, Cholesterol/HDL Ratio 3.4, Lipase 45, TSH 0.88, Thyroxine (T4) 12.9 H, Salicylates < 1.0 L 02/02/24 15:22: VBG pH 7.49 H, VBG pCO2 28.7 L, VBG pO2 124.9 H, VBG HCO3 21.2 L, VBG Total CO2 22.1 L, VBG O2 Saturation 98.8 H, VBG Base Excess -2.2, VBG Lactic Acid 2.3 H 02/02/24 15:30: Blood Type A Positive, Antibody Screen Negative 02/02/24 17:25: Urine Color Yellow, Urine Appearance Clear, Urine pH 6.0, Ur Specific [place] 1.015, Urine Protein Negative, Urine Glucose (UA) Negative, Urine Ketones Trace, Urine Blood Negative, Urine Nitrate Negative, Urine Bilirubin Negative, Urine Urobilinogen 0.2, Ur Leukocyte Esterase Negative, Urine RBC 20-50, Urine WBC 3-5, Ur Squamous Epith Cells 20-50, Urine Bacteria 2+, Urine Opiates Screen Positive H, Urine Methadone Screen Negative, Ur Barbituates Screen Negative, Ur Phencyclidine Scrn Negative, Ur Amphetamines Screen Negative, U Benzodiazepines Scrn Negative, Urine Cocaine Screen Negative, U Marijuana (THC) Screen Negative Assessment and Plan *Assessment and plan (1) Partial small bowel obstruction: Status: Acute Category: Medical Code(s): K56.600 - Partial intestinal obstruction, unspecified as to cause Plan Patient likely has some degree of chronic partial low-grade bowel obstruction as well as possible functional ileus as a baseline. She has exacerbation of these chronic issues with partial bowel obstruction. At this time plan will be for attempted nonoperative management with bowel rest and nasogastric tube.
[2024-02-02 18:59] VITALS: BP 135/83; PULSE 66; RESP 19; TEMP 36.6; O2SAT 98; BMI 20.5
--- NOTE | 2024-02-02 19:06 | PC.NURSE ---
Patient arrived to the Med Surg floor at 1810 via W/C. Report received from Ki Alvarado RN/Med Surg nurse.
--- NOTE | 2024-02-02 19:15 | PC.NURSE ---
Patient arrived to floor via wheelchair from ED at 18:51.
--- NOTE | 2024-02-02 19:35 | P.HP_ITS ---
History of Present Illness *Admission Date: 02/02/24 *History of present illness: Patient is a 68-year-old female with history of COPD, diverticulitis, degenerative disc disease with chronic pain disorder, hypertension, tobacco dependence. She has undergone numerous surgeries at outside facilities notable for laparotomy and ventral hernia repair about 20 years ago in [place]. She does have a history of recurrent bowel obstructions which have been usually amenable to nonoperative management but she did require laparotomy with small bowel resection 20 years ago in [place] for obstruction. She has somewhat regularly required admission for apparent exacerbations of bowel obstructions. She had admission at this facility in 2010 as well as in 2011 for small bowel obstructions which were managed nonoperatively. She had been hospitalized 3 or 4 times in 2015 for small bowel obstruction managed nonoperatively. She had a similar admission in 2016. She had an admission in 2019 with partial small bowel obstruction managed nonoperatively but she also had significant amount of constipation. She does have chronic pain and had previously been on chronic opiate use and most assuredly has had some degree of chronic constipation and ileus. She did move her bowels yesterday but states that she usually only moves her bowels about once weekly. She had an intrathecal pain pump placed by Dr. Noel on 12/23/2023 at which time she had postoperative pain in both hips and after operative intervention underwent bilateral SI joint injections. She had the bupivacaine decreased on 01/31/2024.. In the evening of 02/01/2024 she had developed some right lower quadrant pain with nonbilious vomiting. She states t hat the symptoms are similar to when she has previously had bowel obstructions. She presented to the emergency department via EMS. She underwent CT scan (CT angiogram) which revealed findings of mid and proximal small bowel dilatation to 4 cm. There is evidence of left lower quadrant anastomosis with some small bowel fecalization. Small amount of free fluid. This is consistent with partial obstruction. She had nasogastric tube placed which gave her some relief. She was admitted for inpatient management and surgical consultation. [facility] Disclaimer: The information contained in this section may have been updated after the patient was seen, as this information can be updated by other users. Medical History Colitis Breast cancer Dizziness Dyspnea Anxiety Migraine COPD (chronic obstructive pulmonary disease) Hypertension Dyspnea Tobacco dependence syndrome Chest pain Surgical History History of appendectomy Hx of breast implants, bilateral H/O mastectomy S/P ventral herniorrhaphy S/P exploratory laparotomy History of colonoscopy History of hysterectomy Family History No significant family history Social History (Updated 02/02/24 @ 19:46 by Cristina Dutton RN) Smoking Status: Current every day smoker tobacco type: cigarettes packs per day: 1 alcohol intake: never substance use type: marijuana current occupational status: disabled Travel in the last 8 weeks: None household members: spouse and children housing: house current occupational exposures/hazards: No caffeine: Yes Review of Systems Review of Systems Review of systems:: pertinent systems reviewed and negative unless documented below Meds Home Medications and Allergies Home Medications ?Medication ?Instructions ?Recorded ?Confirmed ?Type propranolol 40 mg tablet 40 mg PO BID #60 tabs 08/09/23 02/02/24 Rx amlodipine 5 mg tablet 5 mg PO BID 08/13/23 02/02/24 History pregabalin 200 mg capsule 200 mg PO BID 08/13/23 02/02/24 History sennosides 8.6 mg-docusate sodium 1 tab PO DAILY 02/02/24 02/02/24 History 50 mg tablet (Stimulant Laxative Plus) dextroamphetamine-amphetamine 20 20 mg PO DAILY 02/03/24 02/03/24 History mg tablet duloxetine 60 mg capsule,delayed 60 mg PO DAILY 02/03/24 02/03/24 History release losartan 50 mg tablet 50 mg PO BID 02/03/24 02/03/24 History New Prescriptions to Start Prescriptions: Allergies Allergy/AdvReac Type Severity Reaction Status Date / Time albuterol [From VENTOLIN HFA] Allergy Mild Verified 12/23/23 11:15 codeine [CODEINE] Allergy Mild Verified 12/23/23 11:15 erythromycin base Allergy Mild Verified 12/23/23 11:15 [ERYTHROMYCIN BASE] ketorolac [From TORADOL] Allergy Mild HEMMORHAGE Verified 12/23/23 11:15 meperidine [From DEMEROL] Allergy Mild Verified 12/23/23 11:15 Penicillins [PENICILLINS] Allergy Mild Verified 12/23/23 11:15 Sulfa (Sulfonamide Allergy Mild Verified 12/23/23 11:15 Antibiotics) [SULFA (SULFONAMIDE ANTIBIOTICS)] tetracycline [TETRACYCLINE] Allergy Mild Verified 12/23/23 11:15 buprenorphine [From SUBOXONE] Allergy Unknown I-HIVES Verified 12/23/23 11:15 morphine [From ANA] Allergy Unknown I-HIVES Verified 12/23/23 11:15 naloxone [From SUBOXONE] Allergy Unknown I-HIVES Verified 12/23/23 11:15 propoxyphene Allergy Unknown I-HIVES Verified 12/23/23 11:15 [From DARVOCET-N] Exam Data for Last 24 hours Vital signs and Labs for Last 24 Hours: Temp Pulse Resp BP Pulse Ox O2 Del Method 97.8 F 66 19 135/83 98 Room Air 02/02/24 18:59 02/02/24 18:59 02/02/24 18:59 02/02/24 18:59 02/02/24 18:59 02/02/24 18:59 Laboratory Results - last 24 hr 02/02/24 15:10: WBC 7.1, RBC 4.87, Hgb 14.6, Hct 46.3, MCV 95.0, MCH 30.0, MCHC 31.6 L, RDW 13.2, Plt Count 265, MPV 9.5, Neut % (Auto) 65.3, Lymph % (Auto) 22.8, Lewis % (Auto) 9.9 H, Eos % (Auto) 1.0, Baso % (Auto) 1.0, Neut # (Auto) 4.6, Lymph # (Auto) 1.6, Lewis # (Auto) 0.7, Eos # (Auto) 0.1, Baso # (Auto) 0.1, PT 10.5, INR 0.93, APTT 29.6, Sodium 137, Potassium 4.3, Chloride 104, Carbon Dioxide 27, Anion Gap 10.3, BUN 18 H, Creatinine 1.00, Estimated Creat Clear 51, Estimated GFR 55 L, Est GFR ( Amer) 67, Glucose 112 H, Hemoglobin A1c 5.6, Lactate 1.8, Calcium 9.9, Magnesium 1.6, Total Bilirubin 0.7, AST 31, ALT 19, Alkaline Phosphatase 90, Troponin I < 0.01, Total Protein 7.8, Albumin 4.3, Globulin 3.5 H, Albumin/Globulin Ratio 1.2, Triglycerides 84, Cholesterol 218 H, LDL Cholesterol Direct 119.28, VLDL Cholesterol 17, HDL Cholesterol 64 H, Cholesterol/HDL Ratio 3.4, Lipase 45, TSH 0.88, Thyroxine (T4) 12.9 H, Salicylates < 1.0 L 02/02/24 15:22: VBG pH 7.49 H, VBG pCO2 28.7 L, VBG pO2 124.9 H, VBG HCO3 21.2 L , VBG Total CO2 22.1 L, VBG O2 Saturation 98.8 H, VBG Base Excess -2.2, VBG Lactic Acid 2.3 H 02/02/24 15:30: Blood Type A Positive, Antibody Screen Negative 02/02/24 17:25: Urine Color Yellow, Urine Appearance Clear, Urine pH 6.0, Ur Specific [place] 1.015, Urine Protein Negative, Urine Glucose (UA) Negative, Urine Ketones Trace, Urine Blood Negative, Urine Nitrate Negative, Urine Bilirubin Negative, Urine Urobilinogen 0.2, Ur Leukocyte Esterase Negative, Urine RBC 20-50, Urine WBC 3-5, Ur Squamous Epith Cells 20-50, Urine Bacteria 2+, Urine Opiates Screen Positive H, Urine Methadone Screen Negative, Ur Barbituates Screen Negative, Ur Phencyclidine Scrn Negative, Ur Amphetamines Screen Negative, U Benzodiazepines Scrn Negative, Urine Cocaine Screen Negative, U Marijuana (THC) Screen Negative Temp Pulse Resp BP Pulse Ox O2 Del Method 98.4 F 78 15 157/91 H 97 Room Air 08/12/23 19:44 08/12/23 19:44 08/12/23 19:44 08/12/23 19:44 08/12/23 19:44 08/12/23 19:44 Laboratory Results - last 24 hr 08/12/23 20:00: WBC 7.8, RBC 4.66, Hgb 14.3, Hct 44.2, MCV 95.0, MCH 30.6, MCHC 32.2, RDW 13.6, Plt Count 232, MPV 9.6, Neut % (Auto) 54.1, Lymph % (Auto) 32.0, Lewis % (Auto) 8.0, Eos % (Auto) 4.3, Baso % (Auto) 1.5, Neut # (Auto) 4.2, Lymph # (Auto) 2.5, Lewis # (Auto) 0.6, Eos # (Auto) 0.3, Baso # (Auto) 0.1, Sodium 143, Potassium 3.8, Chloride 107, Carbon Dioxide 35 H, Anion Gap 4.8 L, BUN 17, Creatinine 1.30 H, Estimated Creat Clear 40, Estimated GFR 41 L, Est GFR ( Amer) 49 L, Glucose 78, Calcium 9.8, Total Bilirubin 0.3, AST 31, ALT 17, Alkaline Phosphatase 110, Total Protein 7.5, Albumin 4.3, Globulin 3.2, Albumin/Globulin Ratio 1.3, Lipase 80 08/12/23 21:15: Urine Color Yellow, Urine Appearance Clear, Urine pH 6.0, Ur Specific [place] >= 1.030, Urine Protein Trace, Urine Glucose (UA) Negative, Urine Ketones Negative, Urine Blood Negative, Urine Nitrate Negative, Urine Juan Daniel irubin Negative, Urine Urobilinogen 0.2, Ur Leukocyte Esterase Negative, Urine RBC None, Urine WBC None, Ur Squamous Epith Cells Occasional, Urine Bacteria None I & O for Last 24 hours: Intake & Output 01/30/24 01/31/24 02/01/24 02/02/24 23:59 23:59 23:59 23:59 Weight 59.534 kg Intake & Output 08/09/23 08/10/23 08/11/23 08/12/23 23:59 23:59 23:59 23:59 Weight 61.235 kg Constitutional Constitutional: moderate distress, thin and cooperative *Routine HEENT Exam Head: Present normocephalic Eye: Present EOMI and PERRL ENT: Present mucous membranes moist *Routine Neck Exam Neck: Present supple; Absent lymphadenopathy *Routine Respiratory Exam Respiratory: Present CTA bilaterally *Routine Cardiovascular Exam Cardiovascular: Present RRR *Routine Abdominal Exam Abdominal: Present soft, normoactive bowel sounds, tenderness and guarding; Absent distended or mass *Routine Rectal Exam Rectal:: deferred *Routine Genitalia Exam Genitalia:: deferred *Routine Extremities Exam Extremities: Absent cyanosis, clubbing or edema *Routine Skin Exam Skin: Present intact, warm and scars; Absent rash *Routine Neurological Exam Neurological: Present alert, oriented X3 and moving all extremities; Absent sensory deficit or motor deficit Routine Psychiatric Exam Psychiatric: Present anxious H&P: Result Imaging and Cardiology EKG: Status: image reviewed by me, Preliminary report and final report CT scan - abdomen: Status: image reviewed by me, Preliminary report and final report Assessment and Plan *Assessment and plan (1) Partial small bowel obstruction: Status: Acute Category: Medical Code(s): K56.600 - Partial intestinal obstruction, unspecified as to cause (2) Chronic pain disorder: Status: Acute Category: Medical Code(s): G89.4 - Chronic pain syndrome (3) Chronic prescription opiate use: Status: Chronic Category: Medical Code(s): Z79.891 - 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 opiate analgesic (4) Lumbar radiculopathy: Status: Acute Category: Medical Code(s): M54.16 - Radiculopathy, lumbar region (5) Hypertension: Status: Chronic Qualifiers: Hypertension type: essential hypertension Qualified Code(s): I10 - Essential (primary) hypertension Category: Medical Code(s): I10 - Essential (primary) hypertension (6) COPD (chronic obstructive pulmonary disease): Status: Acute Qualifiers: COPD type: unspecified COPD Qualified Code(s): J44.9 - Chronic obstructive pulmonary disease, unspecified Category: Medical Code(s): J44.9 - Chronic obstructive pulmonary disease, unspecified (7) Tobacco use disorder: Status: Acute Category: Medical Code(s): F17.200 - Nicotine dependence, unspecified, uncomplicated Plan 68-year-old female with history of COPD, diverticulitis, degenerative disc disease with chronic pain disorder, hypertension, tobacco dependence, previous appendectomy, previous bowel obstruction status post resection who presented to ED for evaluation of abdominal pain. Patient states that she had a pain pump turned off 2 days ago which reportedly was using bupivacaine. Patient states since that time she initially felt better, starting last night, 01/31, patient started having pain in her right lower quadrant associated with nonbloody, nonbilious vomiting and nonbloody/non-mucousy diarrhea. initial labs are grossly unremarkable. imaging, patient appears to have small bowel obstruction with transition point somewhere the left lower quadrant with nearly 5 cm distended proximal bowel. No evidence of perforation. NG placed. Surgeon consulted. likely non operative approach. Discussed with ED for admission and inpatient management. Plan as follow: -Partial SBO; per surgeon evaluation patient likely has some degree of chronic partial low- grade bowel obstruction as well as possible functional ileus as a baseline. She has exacerbation of these chronic issues with partial bowel obstruction. admit patient. dispo med surg NPO. 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 to intermittent low suction serial abd X ray pain management/ discussed with surgeon. Agreed for low doses of dilaudid repeat labs in the mornings. Watch for electrolytes imbalances cardiac monitoring Chronic back pain. chronic opiod use' recently off bupivacaine pump. on home lyrica and cymbalta conditions will difficult and predispose recurrent SBO episode. Patient educated on excessive opiod side effects Others chronic conditions: COPD, HTN. Conditions reviewed. currently stable resume home amlodipine optimize O2 sat. o2 PRN Tobacco user: on nicotine patch lovenox for DVT ppx. On protonix for GI bleed ppx and GERD full code Rounded on patient after nurse practitioner. Personally examined and interviewed patient. Agree with exam findings and care plan as documented.
[2024-02-02 19:47] LABS: Reflex Lactic Add Lactic Reflex
[2024-02-02 20:00] VITALS: BP 131/61; PULSE 71; RESP 22; TEMP 36.8; O2SAT 93
[2024-02-02] MEDS: SODIUM CHLORIDE 0.9% 10ML FLUSH SYRINGE 10 ML IV (20:15)
[2024-02-02] MEDS: PANTOPRAZOLE 40MG VIAL 40 MG IV (20:15)
[2024-02-02] MEDS: 0.9 % SODIUM CHLORIDE 1000ML 1,000 ML 50 ML IV (20:16)
[2024-02-02 20:21] LABS: Lactic Acid Follow Up (RFLX 1) 1.2 mmol/L (0.7-2.1)
[2024-02-02 20:30] VITALS: PULSE 73
[2024-02-02 22:21] LABS: Troponin I < 0.01 ng/ml (0.00-0.034)
[2024-02-02] MEDS: ACETAMINOPHEN 325MG TAB 650 MG PO (23:59)
[2024-02-03] VITALS (10 sets, daily range): BP systolic 104–143; BP diastolic 70–93; PULSE 70–127; RESP 16–24; TEMP 36.8–39.2; O2SAT 92–96; BMI 21.4
--- NOTE | 2024-02-03 00:14 | PC.NURSE ---
WHILE GETTING UP TO BSC PATIENT WAS SHAKING, TREMORS NOTED. tOOK 2 ASSIST TO GET PATIENT BACK TO BED. pOSSIBLY WITHDRAWAL SYMPTOMS. UDS + OPIATES. E VINAYAK HERNANDEZ NOTIFIED. WILL CONT TO MONITOR.
[2024-02-03] MEDS: HYDROMORPHONE 2MG/ML SYRINGE 0.5 MG IV ×7 (00:26→21:55)
--- NOTE | 2024-02-03 01:31 | PC.NURSE ---
BOTTLE OF SPRITE GIVEN TO PATIENT BY DAUGHTER DISPITE NPO STATUS. HAS HAD 3 CUPS OF ICE AND 2/3 OF BOTTLE OF SPRITE. N/G TO CONT. LWS.
[2024-02-03] MEDS: ONDANSETRON 4MG/2ML VIAL 4 MG IV ×2 (04:15→16:36)
--- NOTE | 2024-02-03 04:35 | PC.NURSE ---
ABDOMINAL PAIN PARTIALLY CONTROLLED BY DILAUDID, MEDICATED X 3 ON MED SURG . MEDICATED ONCE FOR NAUSEA WITH ZOFRAN. ICE CHIPS TO MOISTEN MOUTH. N/G TO CONTINUOS LOW WALL SUCTION. LOW GRADE TEMP. NSR ON TELE.
--- NOTE | 2024-02-03 06:00 | XR_ITS ---
FINAL REPORT CLINICAL HISTORY: BOWEL OBSTRUCTION COMPARISON: None FINDINGS: A PA view of the lower chest was obtained. The cardiac and mediastinal silhouettes are within normal limits. The lungs are clear. There is no free air beneath the diaphragm. The NG tube tip is in the region of the distal thoracic esophagus. Upright and supine views of the abdomen reveal a normal bowel gas pattern. The bowel gas pattern is nonspecific with multiple air-fluid levels. There are no pathologic calcifications. Kyphoplasties have been performed at the L1 and L2 levels. No acute osseous abnormalities identified. IMPRESSION: Nonspecific gas pattern with multiple air-fluid levels. Reviewed, Interpreted and Dictated by Melo Wiseman III, MD Transcribed by Joaquina Peters Authenticated and [facility]
[2024-02-03 06:33] LABS: Basophils % 1.1 % (0.1-2.0); Eosinophils # 0.1 K/mm3 (0.0-0.4); Hematocrit 43.1 % (37.0-47.0); Hemoglobin 13.2 g/dL (12.2-16.2); Lymphocytes # 0.6 K/mm3 (0.7-4.5); Lymphocytes % 22.3 % (10-50); Mean Corpuscular HGB Conc 30.6 g/dL (31.8-35.4); Mean Corpuscular Hemoglobin 29.6 pg (27.0-31.2); Mean Corpuscular Volume 96.9 fl (81-99); Mean Platelet Volume 9.6 fl (7.4-10.4); Monocytes # 0.6 K/mm3 (0.1-1.0); Monocytes % 21.2 % (1.7-9.3); Neutrophils # 1.5 K/mm3 (1.8-7.8); Neutrophils % 53.5 % (37.0-80.0); Platelet Count 218 K/mm3 (142-424); Red Blood Count 4.44 M/mm3 (4.20-5.40); Red Cell Distribution Width 13.4 % (11.5-17.5); White Blood Count 2.8 K/mm3 (4.8-10.8)
[2024-02-03 06:43] LABS: MANUAL DIFFERENTIAL MANUAL DIFFERENTIAL (MANUAL DIFF)
[2024-02-03 06:45] LABS: Alanine Aminotransferase 16 U/L (12-78); Albumin Level 3.9 g/dl (3.5-5.0); Albumin/Globulin Ratio 1.3 (1.1-1.8); Alkaline Phosphatase 70 U/L (38-126); Anion Gap 9.4 mEq/L (5-15); Aspartate Amino Transferase 33 U/L (14-36); Bilirubin,Total 0.7 mg/dl (0.2-1.3); Blood Urea Nitrogen 24 mg/dl (7-17); Calcium 9.2 mg/dl (8.4-10.2); Carbon Dioxide 31 mmol/L (22.0-30.0); Chloride 103 mmol/L (98-107); Creatinine Clearance Estimated 40 mL/min (50-200); Estimated Glomerular Filt Rate 41 ml/min (>60); GFR (African American) 49 ML/MIN (>60); Globulin 3.1 g/dL (1.3-3.2); Glucose 113 mg/dl (74-100); Potassium 4.4 mmoL/L (3.5-5.1); Sodium 139 mmol/L (136-145)
--- NOTE | 2024-02-03 06:57 | P.PN_ITS ---
Subjective Patient reports: still having pain Narrative: Less nausea Exam Data for Last 24 hours Vital signs and Labs for Last 24 Hours: Temp Pulse Resp BP Pulse Ox O2 Del Method 99.4 F 89 18 104/76 L 93 L Room Air 02/03/24 04:00 02/03/24 04:00 02/03/24 04:00 02/03/24 04:00 02/03/24 04:00 02/03/24 06:30 Laboratory Results - last 24 hr 02/02/24 15:10: WBC 7.1, RBC 4.87, Hgb 14.6, Hct 46.3, MCV 95.0, MCH 30.0, MCHC 31.6 L, RDW 13.2, Plt Count 265, MPV 9.5, Neut % (Auto) 65.3, Lymph % (Auto) 22.8, [place] % (Auto) 9.9 H, Eos % (Auto) 1.0, Baso % (Auto) 1.0, Neut # (Auto) 4.6, Lymph # (Auto) 1.6, [place] # (Auto) 0.7, Eos # (Auto) 0.1, Baso # (Auto) 0.1, PT 10.5, INR 0.93, APTT 29.6, Sodium 137, Potassium 4.3, Chloride 104, Carbon Dioxide 27, Anion Gap 10.3, BUN 18 H, Creatinine 1.00, Estimated Creat Clear 51, Estimated GFR 55 L, Est GFR ( Amer) 67, Glucose 112 H, Hemoglobin A1c 5.6, Lactate 1.8, Calcium 9.9, Magnesium 1.6, Total Bilirubin 0.7, AST 31, ALT 19, Alkaline Phosphatase 90, Troponin I < 0.01, Total Protein 7.8, Albumin 4.3, Globulin 3.5 H, Albumin/Globulin Ratio 1.2, Triglycerides 84, Cholesterol 218 H, LDL Cholesterol Direct 119.28, VLDL Cholesterol 17, HDL Cholesterol 64 H, Cholesterol/HDL Ratio 3.4, Lipase 45, TSH 0.88, Thyroxine (T4) 12.9 H, Salicylates < 1.0 L 02/02/24 15:22: VBG pH 7.49 H, VBG pCO2 28.7 L, VBG pO2 124.9 H, VBG HCO3 21.2 L , VBG Total CO2 22.1 L, VBG O2 Saturation 98.8 H, VBG Base Excess -2.2, VBG Lactic Acid 2.3 H 02/02/24 15:30: Blood Type A Positive, Antibody Screen Negative 02/02/24 17:25: Urine Color Yellow, Urine Appearance Clear, Urine pH 6.0, Ur Specific [place] 1.015, Urine Protein Negative, Urine Glucose (UA) Negative, Urine Ketones Trace, Urine Blood Negative, Urine Nitrate Negative, Urine Bilirubin Negative, Urine Urobilinogen 0.2, Ur Leukocyte Esterase Negative, Urine RBC 20-50, Urine WBC 3-5, Ur Squamous Epith Cells 20-50, Urine Bacteria 2+, Urine Opiates Screen Positive H, Urine Methadone Screen Negative, Ur Barbituates Screen Negative, Ur Phencyclidine Scrn Negative, Ur Amphetamines Screen Negative, U Benzodiazepines Scrn Negative, Urine Cocaine Screen Negative, U Marijuana (THC) Screen Negative 02/02/24 20:05: Lactate 1.2 02/02/24 21:35: Troponin I < 0.01 02/03/24 05:46: WBC 2.8 L D, RBC 4.44, Hgb 13.2, Hct 43.1, MCV 96.9, MCH 29.6, MCHC 30.6 L, RDW 13.4, Plt Count 218, MPV 9.6, Neut % (Auto) 53.5, Lymph % (Auto) 22.3, [place] % (Auto) 21.2 H D, Eos % (Auto) 2.0, Baso % (Auto) 1.1, Neut # (Auto) 1.5 L, Lymph # (Auto) 0.6 L, [place] # (Auto) 0.6, Eos # (Auto) 0.1, Baso # (Auto) 0.0, Sodium 139, Potassium 4.4, Chloride 103, Carbon Dioxide 31 H, Anion Gap 9.4, BUN 24 H D, Creatinine 1.30 H D, Estimated Creat Clear 40, Estimated GFR 41 L, Est GFR ( Amer) 49 L D, Glucose 113 H, Calcium 9.2, Total Bilirubin 0.7, AST 33, ALT 16, Alkaline Phosphatase 70, Total Protein 7.0, Albumin 3.9, Globulin 3.1, Albumin/Globulin Ratio 1.3 I & O for Last 24 hours: Intake & Output 01/31/24 02/01/24 02/02/24 02/03/24 11:59 11:59 11:59 11:59 Intake Total 970 / 970 Output Total 701 / 701 Balance 269 / 269 Weight 137 lb Constitutional Constitutional: mild distress *Routine Respiratory Exam Respiratory: Absent respiratory distress *Routine Cardiovascular Exam Cardiovascular: Absent tachycardia *Routine Abdominal Exam Abdominal: Present soft and tenderness Progress Note: A&P Assessment and plan (1) Partial small bowel obstruction: Status: Acute Assessment and plan: Similar episodes historically have spontaneously resolved without requiring surgical intervention. The patient wishes to avoid surgery if possible . Continue nasogastric decompression for now Continue serial abdominal exams Continue serial radiographic evaluation Small bowel follow-through ordered (2) Chronic pain disorder: Status: Acute (3) Chronic prescription opiate use: Status: Chronic (4) Lumbar radiculopathy: Status: Acute (5) Hypertension: Status: Chronic (6) COPD (chronic obstructive pulmonary disease): Status: Acute (7) Tobacco use disorder: Status: Acute
--- NOTE | 2024-02-03 07:00 | FL_ITS ---
FINAL REPORT CLINICAL HISTORY: limited small bowel study, injected through ng tube, pt vomited and refused to finish study 0.0 min DAP 111.65 FINDINGS: SMALL BOWEL FOLLOW THROUGH HISTORY: . Diffuse abdominal pain. PROCEDURE: The patient ingested barium. Spot and overhead films were obtained. FINDINGS: The vat skimmer film demonstrates mildly dilated small bowel loops. Contrast was placed into the patient's nasogastric tube. The patient became nauseated and refused further contrast administration. Only a small amount of contrast was in the stomach in the study was discontinued.. IMPRESSION: Nondiagnostic small bowel study as the patient refused further administration of oral contrast material. Please see CT report from one day prior. Fluoroscopy time: no fluoroscopy performed. Films reviewed , interpreted and dictated by Dr. Wiseman Transcribed by Oliver Caraballo PA-C. Reviewed, Interpreted and Dictated by Melo Wiseman III, MD Transcribed by CHRISTINA Arellano Authenticated and [facility]
[2024-02-03 07:25] LABS: Magnesium 1.6 mg/dl (1.6-2.3)
--- NOTE | 2024-02-03 07:48 | HMH.PHAINT1 ---
Pharmacy Intervention Comments: HOME MEDICATION HOME LIST VERIFIED USING LIST FROM OUTPATIENT PHARMACY
[2024-02-03 08:04] LABS: Eosinophils % 2 % (0-3); Hypochromasia 1+; Lymphocytes % 36 % (10-50); Monocytes % 14 % (2-9); Neutrophils % 48 % (42-76); Platelet Estimate Normal; Total Cells Counted 100
[2024-02-03] MEDS: ENOXAPARIN 40MG/0.4ML SYRINGE 40 MG SQ (09:57)
[2024-02-03] MEDS: DIATRIZOATE MEGLUMINE(GASTROGRAFIN) 66%-10% 120ML 240 ML PO (10:16)
--- NOTE | 2024-02-03 10:18 | PC.NURSE ---
pt temp was out of normal range. temp reported to RN by this SRNA. seizure pads placed on the bed precariously. pt room temp turned down, blankets removed. will recheck temp. call light is within reach
[2024-02-03] MEDS: ACETAMINOPHEN 1,000 MG/100 ML ML 400 MG IV (10:30)
[2024-02-03] MEDS: LEVOFLOXACIN/D5W 750 MG/150 ML 750 MG/150 ML PIGGYBACK 100 MG IV (11:11)
--- NOTE | 2024-02-03 16:55 | P.PN_ITS ---
Subjective *Date: 02/03/24 *Time: 16:55 Interval history: Continues to have abdominal pain. Had some bowel movements overnight however. Passing gas with small amount of stool. Continues to have nausea this morning. Surgery evaluated patient, NG has been clamped. Patient having chills on rounds, noted to be febrile. Having significant abdominal pain. Medical Exam Vital signs and Labs for Last 24 Hours: Vital Signs Temp Pulse Pulse Resp BP BP Pulse Ox 02/03/24 15:00 02/03/24 13:00 02/03/24 13:00 90 02/03/24 12:00 98.8 F 90 18 111/73 93 L 02/03/24 11:21 99.3 F 02/03/24 11:00 02/03/24 10:09 102.6 F H 127 H 24 134/90 94 L 02/03/24 08:00 99.6 F 92 H 16 125/83 94 L 02/03/24 06:30 02/03/24 05:00 02/03/24 04:00 99.4 F 89 18 104/76 L 93 L 02/03/24 04:00 84 02/03/24 03:00 02/03/24 01:00 02/03/24 00:00 99.2 F 83 18 143/70 H 95 02/03/24 00:00 77 02/02/24 23:00 02/02/24 21:00 02/02/24 20:30 73 02/02/24 20:00 93 L 02/02/24 20:00 98.2 F 71 22 131/61 93 L 02/02/24 18:59 97.8 F 66 19 135/83 98 02/02/24 18:27 98.5 F 68 20 136/83 O2 Del Method 02/03/24 15:00 Room Air 02/03/24 13:00 Room Air 02/03/24 13:00 02/03/24 12:00 Room Air 02/03/24 11:21 02/03/24 11:00 Room Air 02/03/24 10:09 Room Air 02/03/24 08:00 Room Air 02/03/24 06:30 Room Air 02/03/24 05:00 Room Air 02/03/24 04:00 Room Air 02/03/24 04:00 02/03/24 03:00 Room Air 02/03/24 01:00 Room Air 02/03/24 00:00 Room Air 02/03/24 00:00 02/02/24 23:00 Room Air 02/02/24 21:00 Room Air 02/02/24 20:30 02/02/24 20:00 Room Air 02/02/24 20:00 Room Air 02/02/24 18:59 Room Air 02/02/24 18:27 Room Air Intake and Output 02/03/24 02/03/24 02/03/24 07:59 15:59 23:59 Intake Total 970 / 970 Output Total 700 / 700 0 / 700 Balance 270 / 270 0 / 270 Intake: Intake, Oral Amount 670 / 670 Intake, Total IV Amount 300 / 300 0.9 % Sodium Chloride 1000ML 1, 300 / 300 000 ml @ 50 mls/hr IV .Q20H [facility] Rx#:[id number] Output: Output, Urine Amount 0 / 0 0 / 0 Output, Gastric Drainage Amount 700 / 700 Right Nare 700 / 700 Other: Number of Unmeasured Voids 1 1 Weight 62.142 kg 62.14 kg Patient Weight 02/03/24 23:59 Weight 62.14 kg Laboratory Results - last 24 hr 02/02/24 17:25: Urine Color Yellow, Urine Appearance Clear, Urine pH 6.0, Ur Specific [place] 1.015, Urine Protein Negative, Urine Glucose (UA) Negative, Urine Ketones Trace, Urine Blood Negative, Urine Nitrate Negative, Urine Bilirubin Negative, Urine Urobilinogen 0.2, Ur Leukocyte Esterase Negative, Urine RBC 20-50, Urine WBC 3-5, Ur Squamous Epith Cells 20-50, Urine Bacteria 2+, Urine Opiates Screen Positive H, Urine Methadone Screen Negative, Ur Barbituates Screen Negative, Ur Phencyclidine Scrn Negative, Ur Amphetamines Screen Negative, U Benzodiazepines Scrn Negative, Urine Cocaine Screen Negative, U Marijuana (THC) Screen Negative 02/02/24 20:05: Lactate 1.2 02/02/24 21:35: Troponin I < 0.01 02/03/24 05:46: WBC 2.8 L D, RBC 4.44, Hgb 13.2, Hct 43.1, MCV 96.9, MCH 29.6, MCHC 30.6 L, RDW 13.4, Plt Count 218, MPV 9.6, Neut % (Auto) 53.5, Lymph % (Auto) 22.3, [place] % (Auto) 21.2 H D, Eos % (Auto) 2.0, Baso % (Auto) 1.1, Neut # (Auto) 1.5 L, Lymph # (Auto) 0.6 L, [place] # (Auto) 0.6, Eos # (Auto) 0.1, Baso # (Auto) 0.0, Total Counted 100, Neutrophils % (Manual) 48, Lymphocytes % (Manual) 36, Monocytes % (Manual) 14 H, Eosinophils % (Manual) 2, Platelet Estimate Normal, Hypochromasia 1+, Sodium 139, Potassium 4.4, Chloride 103, Carbon Dioxide 31 H, Anion Gap 9.4, BUN 24 H D, Creatinine 1.30 H D, Estimated Creat Clear 40, Estimated GFR 41 L, Est GFR ( Amer) 49 L D, Glucose 113 H, Calcium 9.2, Magnesium 1.6, Total Bilirubin 0.7, AST 33, ALT 16, Alkaline Phosphatase 70, Total Protein 7.0, Albumin 3.9, Globulin 3.1, Albumin/Globulin Ratio 1.3 I & O for Labs for Last 24 Hours: Intake & Output 01/31/24 02/01/24 02/02/24 02/03/24 23:59 23:59 23:59 23:59 Intake Total 970 / 970 Output Total 700 / 700 Balance - 270 / 270 Weight 59.534 kg 62.14 kg Microbiology Reports for the Last 24 Hours: Microbiology 02/02/24 15:30 Blood Blood Culture - Preliminary NO GROWTH AFTER 24 HOURS 02/02/24 15:30 Blood Blood Culture - Preliminary NO GROWTH AFTER 24 HOURS Constitutional: Present mild distress, thin, chronically ill appearing and cooperative Head: Present atraumatic and normocephalic Comment:: NG in right nare Neck: Present normal inspection Respiratory: Present normal respiratory effort; Absent rhonchi, wheezes or crackles Cardiac: Present Reg Rate and Rhythm GI: Present soft, tenderness (Diffuse significant) and diminished bowel sounds; Absent distention Extremities: Present normal inspection and full ROM Skin: Present intact; Absent erythema Neuro: Present Grossly Intact, alert, awake, oriented x 3 and moves all extremities Assessment and Plan *Assessment and plan (1) Partial small bowel obstruction: Status: Acute Category: Medical Code(s): K56.600 - Partial intestinal obstruction, unspecified as to cause (2) Chronic pain disorder: Status: Acute Category: Medical Code(s): G89.4 - Chronic pain syndrome (3) Lumbar radiculopathy: Status: Acute Category: Medical Code(s): M54.16 - Radiculopathy, lumbar region (4) Hypertension: Status: Chronic Qualifiers: Hypertension type: essential hypertension Qualified Code(s): I10 - Essential (primary) hypertension Category: Medical Code(s): I10 - Essential (primary) hypertension (5) COPD (chronic obstructive pulmonary disease): Status: Acute Qualifiers: COPD type: unspecified COPD Qualified Code(s): J44.9 - Chronic obstructive pulmonary disease, unspecified Category: Medical Code(s): J44.9 - Chronic obstructive pulmonary disease, unspecified (6) Tobacco use disorder: Status: Acute Category: Medical Code(s): F17.200 - Nicotine dependence, unspecified, uncomplicated Plan 68-year-old female with history of COPD, diverticulitis, degenerative disc disease with chronic pain disorder, hypertension, tobacco dependence, previous appendectomy, previous bowel obstruction status post resection who presented to ED for evaluation of abdominal pain. Patient states that she had a pain pump turned off 2 days ago which reportedly was using bupivacaine. Patient states since that time she initially felt better, starting last night, 01/31, patient started having pain in her right lower quadrant associated with nonbloody, nonbilious vomiting and nonbloody/non-mucousy diarrhea. initial labs are grossly unremarkable. imaging, patient appears to have small bowel obstruction with transition point somewhere the left lower quadrant with nearly 5 cm distended proximal bowel. No evidence of perforation. NG remains in place. Surgery a ssisting with care. NG clamped today due to bowel movement. Continues to require inpatient management. Problems addressed as follows: Partial SBO; per surgeon evaluation patient likely has some degree of chronic partial low- grade bowel obstruction as well as possible functional ileus as a baseline. She has exacerbation of these chronic issues with partial bowel obstruction. Continue n.p.o., NG remains in place. Will clamp today. Upper GI with small bowel follow-through, unable to complete due to nausea and vomiting. Per my review of CT, shows partial obstruction of small bowel. Per discussion with surgery and from review of their documentation, continue NPO. Will attempt to manage nonoperatively. Serial abdominal exams. Significant pain, continue low-dose Dilaudid. There is received 4 doses since admission. -Kidney function at baseline with BUN 24, creatinine 1.3. White count low at 2.8. Concern for SIRS criteria. Urine culture and blood cultures pending. Continue empiric antibiotics with Levofloxacin 750 mg daily pending culture results Chronic back pain. chronic opiod use' recently off bupivacaine pump. on home lyrica and cymbalta conditions will difficult and predispose recurrent SBO episode. Per review of [facility], concern for opiate prescription. However discussed case with patient's primary care, she does not in fact take opiate medication at home. Cleared with her pharmacy. There is a glitch with her [facility] as she and her have the same name. Patient of note not on home opiate therapy. Others chronic conditions: COPD, HTN. Conditions reviewed. currently stable resume home amlodipine optimize O2 sat. o2 PRN Tobacco user: on nicotine patch lovenox for DVT ppx. On protonix for GI bleed ppx and GERD full code
--- NOTE | 2024-02-03 17:26 | PC.NURSE ---
pt has been nauseous and experiencing pain t/o shift, medicated per mar with good effectiveness. pt was taken to radiology this morning for small bowel follow t/o but was unable to tolerate. this rn was called down by radiology staff r/t patient increase in pain level. this rn admin ordered pain medications while in radiology department, but patient was unable to complete test. test was cancelled and ordering physician dr little was notified. pt was febrile this morning and was given iv tylenol that relieved fever. ng tube currently placed to low wall suction.
--- NOTE | 2024-02-03 19:34 | EXP.PN ---
Subjective *Date: 02/03/24 *Time: 19:34 Interval history: Continued nausea with NG working correctly, receiving Zofran every 8 hours last dose 4 hours ago, patient actively retching Exam Data for Last 24 hours Vital signs and Labs for Last 24 Hours: Temp Pulse Resp BP Pulse Ox O2 Del Method 98.9 F 73 18 120/93 H 96 Room Air 02/03/24 16:00 02/03/24 16:00 02/03/24 16:00 02/03/24 16:00 02/03/24 16:00 02/03/24 18:33 Laboratory Results - last 24 hr 02/02/24 20:05: Lactate 1.2 02/02/24 21:35: Troponin I < 0.01 02/03/24 05:46: WBC 2.8 L D, RBC 4.44, Hgb 13.2, Hct 43.1, MCV 96.9, MCH 29.6, MCHC 30.6 L, RDW 13.4, Plt Count 218, MPV 9.6, Neut % (Auto) 53.5, Lymph % (Auto) 22.3, [place] % (Auto) 21.2 H D, Eos % (Auto) 2.0, Baso % (Auto) 1.1, Neut # (Auto) 1.5 L, Lymph # (Auto) 0.6 L, [place] # (Auto) 0.6, Eos # (Auto) 0.1, Baso # (Auto) 0.0, Total Counted 100, Neutrophils % (Manual) 48, Lymphocytes % (Manual) 36, Monocytes % (Manual) 14 H, Eosinophils % (Manual) 2, Platelet Estimate Normal, Hypochromasia 1+, Sodium 139, Potassium 4.4, Chloride 103, Carbon Dioxide 31 H, Anion Gap 9.4, BUN 24 H D, Creatinine 1.30 H D, Estimated Creat Clear 40, Estimated GFR 41 L, Est GFR ( Amer) 49 L D, Glucose 113 H, Calcium 9.2, Magnesium 1.6, Total Bilirubin 0.7, AST 33, ALT 16, Alkaline Phosphatase 70, Total Protein 7.0, Albumin 3.9, Globulin 3.1, Albumin/Globulin Ratio 1.3 I & O for Last 24 hours: Intake & Output 01/31/24 02/01/24 02/02/24 02/03/24 23:59 23:59 23:59 23:59 Intake Total 970 / 970 Output Total 700 / 700 Balance - 270 / 270 Weight 59.534 kg 62.14 kg Microbiology Reports for the Last 24 Hours: Microbiology 02/02/24 15:30 Blood Blood Culture - Preliminary NO GROWTH AFTER 24 HOURS 02/02/24 15:30 Blood Blood Culture - Preliminary NO GROWTH AFTER 24 HOURS Constitutional Constitutional: mild distress and cooperative Comments: Patient is alert and oriented came in to talk with her, she talked about medication to control her nausea states that she takes Phenergan at home 25 mg with no side effects, while with her if she started to retch has a vomit bag with her the NG is in place produced no gastric content only dry heaving. *Routine Respiratory Exam Respiratory: Present normal respiratory effort and able to speak in complete sentences *Routine Abdominal Exam Comments: NG tube in place patient actually dry heaving during exam, Assessment and Plan *Assessment and plan (1) Partial small bowel obstruction: Status: Acute Category: Medical Code(s): K56.600 - Partial intestinal obstruction, unspecified as to cause (2) Nausea & vomiting: Status: Acute Category: Medical Code(s): R11.2 - Nausea with vomiting, unspecified Plan 1. Will change Zofran from every 8 to every 6, also add Phenergan 12.5 mg IV for every 4.
[2024-02-03] MEDS: PROMETHAZINE HCL 25MG/ML 1ML VIAL 12.5 MG IV ×2 (19:49→23:51)
[2024-02-03] MEDS: PREGABALIN 100MG CAPSULE 200 MG PO (21:48)
[2024-02-03] MEDS: PANTOPRAZOLE 40MG VIAL 40 MG IV (21:49)
[2024-02-04] VITALS (8 sets, daily range): BP systolic 92–137; BP diastolic 58–86; PULSE 70–87; RESP 17–19; TEMP 36.9–37.4; O2SAT 90–95; BMI 21.4
[2024-02-04] MEDS: HYDROMORPHONE 2MG/ML SYRINGE 0.5 MG IV ×5 (04:29→20:52)
[2024-02-04] MEDS: PROMETHAZINE HCL 25MG/ML 1ML VIAL 12.5 MG IV ×2 (04:29→22:33)
--- NOTE | 2024-02-04 06:00 | XR_ITS ---
PROCEDURE INFORMATION: Exam: XR Complete Acute Abdomen Series Including Chest Exam date and time: 02/04/2024 6:11 AM Age: 68 years old Clinical indication: Other: Sbo TECHNIQUE: Imaging protocol: Radiologic exam. Complete acute abdomen series, including 2 or more views of the abdomen and a single view chest. COMPARISON: CR XR ACUTE ABDOMEN SERIES 02/03/2024 7:43 AM FINDINGS: Tubes, catheters and devices: There is an enteric tube projecting into the stomach. There is contrast identified throughout the colon. Lungs: Normal. No consolidation. Pleural spaces: Normal. No pleural effusions. No pneumothorax. Heart/Mediastinum: Normal. No cardiomegaly. Gastrointestinal tract: Mildly distended small bowel loops are identified. Intraperitoneal space: Normal. No free air. Bones/joints: Status post vertebroplasty. Soft tissues: Normal. IMPRESSION: Improved appearing bowel gas pattern with contrast seen throughout the colon.
[2024-02-04 08:07] LABS: Basophils % 0.9 % (0.1-2.0); Eosinophils # 0.2 K/mm3 (0.0-0.4); Eosinophils % 3.9 % (0.1-12.0); Hematocrit 40.6 % (37.0-47.0); Hemoglobin 12.3 g/dL (12.2-16.2); Lymphocytes # 1.3 K/mm3 (0.7-4.5); Lymphocytes % 30.8 % (10-50); Mean Corpuscular HGB Conc 30.2 g/dL (31.8-35.4); Mean Corpuscular Hemoglobin 29.4 pg (27.0-31.2); Mean Corpuscular Volume 97.4 fl (81-99); Mean Platelet Volume 9.2 fl (7.4-10.4); Monocytes # 0.6 K/mm3 (0.1-1.0); Monocytes % 14.8 % (1.7-9.3); Neutrophils % 49.6 % (37.0-80.0); Platelet Count 187 K/mm3 (142-424); Red Blood Count 4.17 M/mm3 (4.20-5.40); Red Cell Distribution Width 13.5 % (11.5-17.5); White Blood Count 4.1 K/mm3 (4.8-10.8)
[2024-02-04 08:15] LABS: Alanine Aminotransferase 18 U/L (12-78); Albumin Level 3.7 g/dl (3.5-5.0); Albumin/Globulin Ratio 1.2 (1.1-1.8); Alkaline Phosphatase 64 U/L (38-126); Anion Gap 6.1 mEq/L (5-15); Aspartate Amino Transferase 38 U/L (14-36); Bilirubin,Total 0.4 mg/dl (0.2-1.3); Blood Urea Nitrogen 33 mg/dl (7-17); Calcium 8.9 mg/dl (8.4-10.2); Carbon Dioxide 32 mmol/L (22.0-30.0); Chloride 103 mmol/L (98-107); Creatinine Clearance Estimated 37 mL/min (50-200); Estimated Glomerular Filt Rate 37 ml/min (>60); GFR (African American) 45 ML/MIN (>60); Globulin 3.1 g/dL (1.3-3.2); Glucose 88 mg/dl (74-100); Magnesium 1.8 mg/dl (1.6-2.3); Potassium 4.1 mmoL/L (3.5-5.1); Sodium 137 mmol/L (136-145); Total Protein,Serum 6.8 g/dl (6.3-8.2)
[2024-02-04] MEDS: ENOXAPARIN 40MG/0.4ML SYRINGE 40 MG SQ (08:36)
[2024-02-04] MEDS: DULOXETINE 30MG CAPSULE.DR 60 MG PO (08:36)
[2024-02-04] MEDS: PREGABALIN 100MG CAPSULE 200 MG PO ×2 (08:49→20:51)
[2024-02-04] MEDS: LEVOFLOXACIN/D5W 750 MG/150 ML 750 MG/150 ML PIGGYBACK 100 MG IV (09:55)
--- NOTE | 2024-02-04 11:09 | P.PN_ITS ---
Subjective Narrative: Patient with continued complaints of pain, mainly RLQ. Taking in ice chips and clears with NGT in place. Vaping in room. Passing gas and having BMs. Exam Data for Last 24 hours Vital signs and Labs for Last 24 Hours: Temp Pulse Resp BP Pulse Ox O2 Del Method 98.8 F 74 19 120/58 L 90 L Room Air 02/04/24 08:00 02/04/24 08:00 02/04/24 08:00 02/04/24 08:00 02/04/24 08:00 02/04/24 08:00 Laboratory Results - last 24 hr 02/04/24 06:52: WBC 4.1 L D, RBC 4.17 L, Hgb 12.3, Hct 40.6, MCV 97.4, MCH 29.4, MCHC 30.2 L, RDW 13.5, Plt Count 187, MPV 9.2, Neut % (Auto) 49.6, Lymph % (Auto) 30.8, [place] % (Auto) 14.8 H, Eos % (Auto) 3.9, Baso % (Auto) 0.9, Neut # (Auto) 2.0, Lymph # (Auto) 1.3, [place] # (Auto) 0.6, Eos # (Auto) 0.2, Baso # (Auto) 0.0, Sodium 137, Potassium 4.1, Chloride 103, Carbon Dioxide 32 H, Anion Gap 6.1, BUN 33 H D, Creatinine 1.40 H, Estimated Creat Clear 37, Estimated GFR 37 L, Est GFR ( Amer) 45 L, Glucose 88, Calcium 8.9, Magnesium 1.8 D, Total Bilirubin 0.4, AST 38 H, ALT 18, Alkaline Phosphatase 64, Total Protein 6.8, Albumin 3.7, Globulin 3.1, Albumin/Globulin Ratio 1.2 I & O for Last 24 hours: Intake & Output 02/01/24 02/02/24 02/03/24 02/04/24 23:59 23:59 23:59 23:59 Intake Total 970 / 970 1059 / 1059 Output Total 700 / 702 Balance - 270 / 268 1057 / 1057 Weight 131 lb 4 oz 136 lb 15.924 oz 136 lb 12.8 oz Microbiology Reports for the Last 24 Hours: Microbiology 02/03/24 10:45 Blood Blood Culture - Preliminary NO GROWTH AFTER 24 HOURS 02/03/24 10:40 Blood Blood Culture - Preliminary NO GROWTH AFTER 24 HOURS 02/02/24 17:25 Urine,Clean Catch Urine Culture - Final 02/02/24 15:30 Blood Blood Culture - Preliminary NO GROWTH AFTER 24 HOURS 02/02/24 15:30 Blood Blood Culture - Preliminary NO GROWTH AFTER 24 HOURS *Routine Abdominal Exam Comments: soft, ttp in the RLQ, no rebound or guarding, distractable from exam Progress Note: A&P Assessment and plan (1) Partial small bowel obstruction: Problem details: Passing gas and having BMs. NGT with 700 overnight but all gastric contents and nonbilious. Recommend clamping trial. Patient wanting an operation but her exam is very distractible. She is a smoker and not a low risk for an operation. R ecommend support and nonop management for now. Will start mineral oil daily when taking PO. Status: Acute (2) Nausea & vomiting: Status: Acute
[2024-02-04] MEDS: 0.9 % SODIUM CHLORIDE 1000ML 1,000 ML 50 ML IV (12:45)
--- NOTE | 2024-02-04 13:27 | P.PN_ITS ---
Subjective *Date: 02/04/24 *Time: 13:27 Interval history: Still nauseous but no emesis overnight. Had a bowel movement overnight. Feeling little bit better in her stomach. Alert and oriented x 3. Surgery evaluating this morning. Medical Exam Vital signs and Labs for Last 24 Hours: Vital Signs Temp Pulse Pulse Resp BP Pulse Ox O2 Del Method 02/04/24 12:00 70 02/04/24 11:00 Room Air 02/04/24 10:00 99 F 77 18 119/62 95 Room Air 02/04/24 09:00 Room Air 02/04/24 08:00 75 02/04/24 08:00 98.8 F 74 19 120/58 L 90 L Room Air 02/04/24 07:00 Room Air 02/04/24 05:00 Room Air 02/04/24 04:00 76 02/04/24 04:00 99.1 F 87 18 107/60 L 91 L Room Air 02/04/24 03:00 Room Air 02/04/24 01:00 Room Air 02/04/24 00:00 02/04/24 00:00 99.4 F 78 17 92/61 L 95 Room Air 02/03/24 23:00 Room Air 02/03/24 21:00 Room Air 02/03/24 20:00 Room Air 02/03/24 20:00 02/03/24 19:48 98.2 F 70 16 110/72 92 L Room Air 02/03/24 18:33 Room Air 02/03/24 17:00 Room Air 02/03/24 16:00 98.9 F 73 18 120/93 H 96 Room Air 02/03/24 16:00 02/03/24 15:00 Room Air Intake and Output 02/03/24 02/04/24 02/04/24 23:59 07:59 15:59 Intake Total 1059 / 1059 Output Total 0 / 702 2 / 2 Balance 0 / 268 1057 / 1057 Intake: Intake, Total IV Amount 1059 / 1059 0.9 % Sodium Chloride 1000ML 1, 1059 / 1059 000 ml @ 50 mls/hr IV .Q20H [facility] Rx#:[id number] Output: Output, Urine Amount 0 / 2 2 / 2 Other: Number of Unmeasured Voids 1 1 Number of Bowel Movements 1 Weight 62.051 kg Patient Weight 09/14/24 23:59 Weight 62.051 kg Laboratory Results - last 24 hr 02/04/24 06:52: WBC 4.1 L D, RBC 4.17 L, Hgb 12.3, Hct 40.6, MCV 97.4, MCH 29.4, MCHC 30.2 L, RDW 13.5, Plt Count 187, MPV 9.2, Neut % (Auto) 49.6, Lymph % (Auto) 30.8, [place] % (Auto) 14.8 H, Eos % (Auto) 3.9, Baso % (Auto) 0.9, Neut # (Auto) 2.0, Lymph # (Auto) 1.3, [place] # (Auto) 0.6, Eos # (Auto) 0.2, Baso # (Auto) 0.0, Sodium 137, Potassium 4.1, Chloride 103, Carbon Dioxide 32 H, Anion Gap 6.1, BUN 33 H D, Creatinine 1.40 H, Estimated Creat Clear 37, Estimated GFR 37 L, Est GFR ( Amer) 45 L, Glucose 88, Calcium 8.9, Magnesium 1.8 D, Total Bilirubin 0.4, AST 38 H, ALT 18, Alkaline Phosphatase 64, Total Protein 6.8, Albumin 3.7, Globulin 3.1, Albumin/Globulin Ratio 1.2 I & O for Labs for Last 24 Hours: Intake & Output 02/01/24 02/02/24 02/03/24 02/04/24 23:59 23:59 23:59 23:59 Intake Total 970 / 970 1059 / 1059 Output Total 700 / 702 Balance - 270 / 268 1057 / 1057 Weight 59.534 kg 62.14 kg 62.051 kg Microbiology Reports for the Last 24 Hours: Microbiology 02/03/24 10:45 Blood Blood Culture - Preliminary NO GROWTH AFTER 24 HOURS 02/03/24 10:40 Blood Blood Culture - Preliminary NO GROWTH AFTER 24 HOURS 02/02/24 17:25 Urine,Clean Catch Urine Culture - Final 02/02/24 15:30 Blood Blood Culture - Preliminary NO GROWTH AFTER 24 HOURS 02/02/24 15:30 Blood Blood Culture - Preliminary NO GROWTH AFTER 24 HOURS Constitutional: Present no acute distress, thin, chronically ill appearing and cooperative Head: Present atraumatic and normocephalic Comment:: NG in right nare Neck: Present normal inspection Respiratory: Present normal respiratory effort; Absent rhonchi, wheezes or crackles Cardiac: Present Reg Rate and Rhythm GI: Present soft and tenderness (Diffuse, interval improvement); Absent distention Comments:: Hypoactive but improved bowel sounds Extremities: Present normal inspection and full ROM Skin: Present intact; Absent erythema Neuro: Present Grossly Intact, alert, awake, oriented x 3 and moves all extremities Assessment and Plan *Assessment and plan (1) Partial small bowel obstruction: Problem Comment: Passing gas and having BMs. NGT with 700 overnight but all gastric contents and nonbilious. Recommend clamping trial. Patient wanting an operation but her exam is very distractible. She is a smoker and not a low risk for an operation. R ecommend support and nonop management for now. Will start mineral oil daily when taking PO. Status: Acute Category: Medical Code(s): K56.600 - Partial intestinal obstruction, unspecified as to cause (2) Chronic pain disorder: Status: Acute Category: Medical Code(s): G89.4 - Chronic pain syndrome (3) Lumbar radiculopathy: Status: Acute Category: Medical Code(s): M54.16 - Radiculopathy, lumbar region (4) Hypertension: Status: Chronic Qualifiers: Hypertension type: essential hypertension Qualified Code(s): I10 - Essential (primary) hypertension Category: Medical Code(s): I10 - Essential (primary) hypertension (5) COPD (chronic obstructive pulmonary disease): Status: Acute Qualifiers: COPD type: unspecified COPD Qualified Code(s): J44.9 - Chronic obstructive pulmonary disease, unspecified Category: Medical Code(s): J44.9 - Chronic obstructive pulmonary disease, unspecified (6) Tobacco use disorder: Status: Acute Category: Medical Code(s): F17.200 - Nicotine dependence, unspecified, uncomplicated Plan 68-year-old female with history of COPD, diverticulitis, degenerative disc disease with chronic pain disorder, hypertension, tobacco dependence, previous appendectomy, previous bowel obstruction status post resection who presented to ED for evaluation of abdominal pain. Patient states that she had a pain pump turned off 2 days ago which reportedly was using bupivacaine. Patient states since that time she initially felt better, starting last night, 01/31, patient started having pain in her right lower quadrant associated with nonbloody, nonbilious vomiting and nonbloody/non-mucousy diarrhea. initial labs are grossly unremarkable. imaging, patient appears to have small bowel obstruction with transition point somewhere the left lower quadrant with nearly 5 cm distended proximal bowel. No evidence of perforation. Showing some improvement with bowel movement this morning. Surgery recommended clamping NG. Continues to require inpatient management. Problems addressed as follows: Partial SBO; Discussed case with surgery this morning, recommend clamping NG. If low residual after 4 hours, will remove NG and advance to clear liquids. Strongly recommended continuing to conservatively manage nonoperatively. Upper GI with small bowel follow-through, limited quality however does show contrast in the colon per my review. -Pain doing better. Continue Dilaudid 0.5 mg as needed. Received more than 6 doses in the past 24 hours. Decrease frequency to every 4 hours as needed for severe breakthrough pain. -Kidney function stable with BUN 33, creatinine 1.4. White count normal at 4.1. Electrolytes stable with magnesium 1.8, potassium 4.1. Repeat CBC, CMP, magnesium ordered for the morning. - Urine culture and blood cultures pending. Continue empiric antibiotics with Levofloxacin 750 mg daily pending culture results Chronic back pain. chronic opiod use' recently off bupivacaine pump. on home lyrica and cymbalta conditions will difficult and predispose recurrent SBO episode. Per review of [facility], concern for opiate prescription. However discussed case with patient's primary care, she does not in fact take opiate medication at home. Cleared with her pharmacy. There is a glitch with her [facility] as she and her have the same name. Patient of note not on home opiate therapy however patient is quite tolerant of frequent Dilaudid Others chronic conditions: COPD, HTN. Conditions reviewed. currently stable resume home amlodipine optimize O2 sat. o2 PRN Tobacco user: on nicotine patch lovenox for DVT ppx. On protonix for GI bleed ppx and GERD full code
--- NOTE | 2024-02-04 16:37 | PC.NURSE ---
Per Dr. Ernandez pt NG was clamped for 4 hours then residual was checked, there was 25ml of residual so NG was removed and clear liquid diet started.
--- NOTE | 2024-02-04 18:18 | PC.NURSE ---
Pt alert and oriented x4. Pt has c/o pain in RLQ, pt has been medicated per MAR. pt ambulating independently. Pt NG removed today and pt had a clear liquid diet for dinner, she drank chicken broth, juice, and jello. Pt tolerated well with no c/o nausea. Pt has been passing gas this shift but has not has a bowel movement since last night.
[2024-02-04] MEDS: PANTOPRAZOLE 40MG VIAL 40 MG IV (20:51)
[2024-02-04] MEDS: SODIUM CHLORIDE 0.9% 10ML VIAL 10 ML IV (20:51)
[2024-02-04] MEDS: ACETAMINOPHEN 325MG TAB 650 MG PO (22:33)
[2024-02-05] VITALS (7 sets, daily range): BP systolic 91–138; BP diastolic 60–88; PULSE 57–70; RESP 17–20; TEMP 36.6–37.2; O2SAT 92–97; BMI 21.5
[2024-02-05] MEDS: HYDROMORPHONE 2MG/ML SYRINGE 0.5 MG IV ×2 (01:29→06:08)
--- NOTE | 2024-02-05 04:28 | PC.NURSE ---
Patient alert and oriented x4 this shift. Tolerating room air well. Has had two loose bowel movements this shift with bright red blood only when wiping. Complaints of nausea and RLQ pain tonight, medicated per MAR. Patient has ambulated halls and went to the bathroom independently a few of times this shit. Abdomen soft, tender with active bowel sounds. NS @ 50 mls/hr. Call light within reach.
--- NOTE | 2024-02-05 06:00 | XR_ITS ---
PROCEDURE INFORMATION: Exam: XR Complete Acute Abdomen Series Including Chest Exam date and time: 02/05/2024 5:58 AM Age: 68 years old Clinical indication: Other: Sbo TECHNIQUE: Imaging protocol: Radiologic exam. Complete acute abdomen series, including 2 or more views of the abdomen and a single view chest. COMPARISON: CR XR ACUTE ABDOMEN SERIES 02/04/2024 6:11 AM FINDINGS: Tubes, catheters and devices: Enteric tube has been removed. Lungs: No evidence of pneumonia or interstitial edema. Pleural spaces: Normal. No pleural effusions. No pneumothorax. Heart/Mediastinum: Normal. No cardiomegaly. Gastrointestinal tract: There is redemonstration of enteric contrast in the distal colon. Unremarkable bowel gas pattern. Intraperitoneal space: No free air. Bones/joints: Status post L1-L2 kyphoplasty Soft tissues: Normal. IMPRESSION: 1. There is redemonstration of enteric contrast in the distal colon. Unremarkable bowel gas pattern. 2. No evidence of pneumonia or interstitial edema.
[2024-02-05 07:58] LABS: Basophils # 0.1 K/mm3 (0-0.2); Basophils % 1.4 % (0.1-2.0); Eosinophils # 0.2 K/mm3 (0.0-0.4); Eosinophils % 4.1 % (0.1-12.0); Hematocrit 39.5 % (37.0-47.0); Hemoglobin 12.1 g/dL (12.2-16.2); Lymphocytes # 1.8 K/mm3 (0.7-4.5); Lymphocytes % 35.1 % (10-50); Mean Corpuscular HGB Conc 30.7 g/dL (31.8-35.4); Mean Corpuscular Hemoglobin 29.8 pg (27.0-31.2); Mean Platelet Volume 9.1 fl (7.4-10.4); Monocytes # 0.7 K/mm3 (0.1-1.0); Neutrophils # 2.4 K/mm3 (1.8-7.8); Neutrophils % 46.4 % (37.0-80.0); Platelet Count 213 K/mm3 (142-424); Red Blood Count 4.07 M/mm3 (4.20-5.40); Red Cell Distribution Width 13.5 % (11.5-17.5); White Blood Count 5.2 K/mm3 (4.8-10.8)
[2024-02-05 08:09] LABS: Alanine Aminotransferase 15 U/L (12-78); Alkaline Phosphatase 58 U/L (38-126); Aspartate Amino Transferase 31 U/L (14-36); Bilirubin,Total 0.4 mg/dl (0.2-1.3); Blood Urea Nitrogen 20 mg/dl (7-17); Calcium 8.7 mg/dl (8.4-10.2); Chloride 105 mmol/L (98-107); Creatinine Clearance Estimated 43 mL/min (50-200); Estimated Glomerular Filt Rate 45 ml/min (>60); GFR (African American) 54 ML/MIN (>60); Glucose 88 mg/dl (74-100); Sodium 137 mmol/L (136-145); Total Protein,Serum 6.6 g/dl (6.3-8.2)
[2024-02-05 08:11] LABS: Albumin Level 3.4 g/dl (3.5-5.0); Potassium 3.5 mmoL/L (3.5-5.1)
[2024-02-05 08:12] LABS: Albumin/Globulin Ratio 1.1 (1.1-1.8); Globulin 3.2 g/dL (1.3-3.2)
[2024-02-05] MEDS: DULOXETINE 30MG CAPSULE.DR 60 MG PO (08:21)
[2024-02-05] MEDS: ENOXAPARIN 40MG/0.4ML SYRINGE 40 MG SQ (08:21)
[2024-02-05] MEDS: PREGABALIN 100MG CAPSULE 200 MG PO ×2 (08:21→20:17)
[2024-02-05] MEDS: ACETAMINOPHEN 325MG TAB 650 MG PO ×2 (08:23→15:49)
[2024-02-05 09:25] LABS: Magnesium 1.7 mg/dl (1.6-2.3)
[2024-02-05 10:08] LABS: Anion Gap 5.5 mEq/L (5-15); Carbon Dioxide 30 mmol/L (22.0-30.0)
--- NOTE | 2024-02-05 11:35 | P.PN_ITS ---
Subjective Narrative: NGT out and no nausea or vomiting, tolerating clears, pain improved but states it still hurts in RLQ Exam Data for Last 24 hours Vital signs and Labs for Last 24 Hours: Temp Pulse Resp BP Pulse Ox O2 Del Method 98.4 F 66 20 111/73 95 Room Air 02/05/24 08:00 02/05/24 08:00 02/05/24 08:00 02/05/24 08:00 02/05/24 08:00 02/05/24 11:00 Laboratory Results - last 24 hr 02/05/24 07:38: WBC 5.2 D, RBC 4.07 L, Hgb 12.1 L, Hct 39.5, MCV 97.0, MCH 29.8, MCHC 30.7 L, RDW 13.5, Plt Count 213, MPV 9.1, Neut % (Auto) 46.4, Lymph % (Auto) 35.1, [place] % (Auto) 13.0 H, Eos % (Auto) 4.1, Baso % (Auto) 1.4, Neut # (Auto) 2.4, Lymph # (Auto) 1.8, [place] # (Auto) 0.7, Eos # (Auto) 0.2, Baso # (Auto) 0.1, Magnesium 1.7 02/05/24 07:40: Sodium 137, Potassium 3.5, Chloride 105, Carbon Dioxide 30, Anion Gap 5.5, BUN 20 H D, Creatinine 1.20 H, Estimated Creat Clear 43, Estimated GFR 45 L, Est GFR ( Amer) 54 L, Glucose 88, Calcium 8.7, Total Bilirubin 0.4, AST 31, ALT 15, Alkaline Phosphatase 58, Total Protein 6.6, Albumin 3.4 L, Globulin 3.2, Albumin/Globulin Ratio 1.1 I & O for Last 24 hours: Intake & Output 02/02/24 02/03/24 02/04/24 02/05/24 23:59 23:59 23:59 23:59 Intake Total 970 / 970 1059 / 1059 999 / 999 Output Total 700 / 702 2 / 2 0 / 0 Balance - 270 / 268 1057 / 1057 999 / 999 Weight 131 lb 4 oz 136 lb 15.924 oz 136 lb 12.8 oz 137 lb 1.6 oz Microbiology Reports for the Last 24 Hours: Microbiology 02/03/24 10:45 Blood Blood Culture - Preliminary NO GROWTH AFTER 48 HOURS 02/03/24 10:40 Blood Blood Culture - Preliminary NO GROWTH AFTER 48 HOURS 02/02/24 15:30 Blood Blood Culture - Preliminary NO GROWTH AFTER 48 HOURS 02/02/24 15:30 Blood Blood Culture - Preliminary NO GROWTH AFTER 48 HOURS 02/02/24 17:25 Urine,Clean Catch Urine Culture - Final *Routine Abdominal Exam Comments: Soft, TTP RLQ but no guarding or rebound, nondistended Progress Note: A&P Assessment and plan (1) Partial small bowel obstruction: Problem details: Passing gas and having BMs. NGT is now out and she tolerated clears without any issue. AXR with contrast throughout colon and nonobstructive pattern. Recommend low residue diet. Mineral oil daily. Status: Acute (2) Chronic pain disorder: Status: Acute (3) Lumbar radiculopathy: Status: Acute (4) Hypertension: Status: Chronic (5) COPD (chronic obstructive pulmonary disease): Status: Acute (6) Tobacco use disorder: Status: Acute
[2024-02-05] MEDS: PROMETHAZINE HCL 25MG/ML 1ML VIAL 12.5 MG IV (12:08)
[2024-02-05] MEDS: SODIUM CHLORIDE 0.9% 25ML BAG 25 ML IV (12:08)
[2024-02-05] MEDS: OXYCODONE 5MG IMMEDIATE RELEASE TABLET 5 MG PO ×2 (12:08→20:17)
--- NOTE | 2024-02-05 12:14 | P.PN_ITS ---
Subjective *Date: 02/05/24 *Time: 16:37 Interval history: Tolerated clear liquid diet, advance to regular diet today. Having bowel movements. Mild nausea. No mena emesis on morning rounds. Stable on room air. Pain improving. Medical Exam Vital signs and Labs for Last 24 Hours: Vital Signs Temp Pulse Pulse Resp BP Pulse Ox O2 Del Method 02/05/24 11:46 98.1 F 65 18 138/75 94 L Room Air 02/05/24 11:00 Room Air 02/05/24 09:00 Room Air 02/05/24 08:00 61 02/05/24 08:00 Room Air 02/05/24 08:00 98.4 F 66 20 111/73 95 Room Air 02/05/24 06:36 Room Air 02/05/24 04:56 Room Air 02/05/24 04:00 57 L 02/05/24 04:00 98.5 F 61 17 136/65 95 Room Air 02/05/24 03:00 Room Air 02/05/24 01:00 Room Air 02/05/24 00:00 70 02/05/24 00:00 99.0 F 69 18 135/88 97 Room Air 02/04/24 23:00 Room Air 02/04/24 21:00 Room Air 02/04/24 20:51 94 L Room Air 02/04/24 20:00 71 02/04/24 20:00 99.3 F 83 17 137/86 94 L Room Air 02/04/24 18:46 Room Air 02/04/24 17:00 Room Air 02/04/24 16:00 75 02/04/24 16:00 98.4 F 77 19 126/64 94 L Room Air 02/04/24 15:00 Room Air 02/04/24 13:00 Room Air Intake and Output 02/04/24 02/05/24 02/05/24 23:59 07:59 15:59 Intake Total 609 / 999 390 / 999 Output Total 0 / 2 0 / 0 0 / 0 Balance 0 / 1057 609 / 999 390 / 999 Intake: Intake, Oral Amount 390 / 390 Intake, Total IV Amount 609 / 609 0.9 % Sodium Chloride 1000ML 1, 609 / 609 000 ml @ 50 mls/hr IV .Q20H [facility] Rx#:[id number] Output: Output, Urine Amount 0 / 2 0 / 0 0 / 0 Other: Number of Unmeasured Voids 1 1 1 Number of Bowel Movements 1 Weight 62.188 kg Patient Weight 02/05/24 23:59 Weight 62.188 kg Laboratory Results - last 24 hr 02/05/24 07:38: WBC 5.2 D, RBC 4.07 L, Hgb 12.1 L, Hct 39.5, MCV 97.0, MCH 29.8, MCHC 30.7 L, RDW 13.5, Plt Count 213, MPV 9.1, Neut % (Auto) 46.4, Lymph % (Auto) 35.1, [place] % (Auto) 13.0 H, Eos % (Auto) 4.1, Baso % (Auto) 1.4, Neut # (Auto) 2.4, Lymph # (Auto) 1.8, [place] # (Auto) 0.7, Eos # (Auto) 0.2, Baso # (Auto) 0.1, Magnesium 1.7 02/05/24 07:40: Sodium 137, Potassium 3.5, Chloride 105, Carbon Dioxide 30, Anion Gap 5.5, BUN 20 H D, Creatinine 1.20 H, Estimated Creat Clear 43, Estimated GFR 45 L, Est GFR ( Amer) 54 L, Glucose 88, Calcium 8.7, Total Bilirubin 0.4, AST 31, ALT 15, Alkaline Phosphatase 58, Total Protein 6.6, Albumin 3.4 L, Globulin 3.2, Albumin/Globulin Ratio 1.1 I & O for Labs for Last 24 Hours: Intake & Output 02/02/24 02/03/24 02/04/24 02/05/24 23:59 23:59 23:59 23:59 Intake Total 970 / 970 1059 / 1059 999 / 999 Output Total 700 / 702 2 / 2 0 / 0 Balance - 270 / 268 1057 / 1057 999 / 999 Weight 59.534 kg 62.14 kg 62.051 kg 62.188 kg Microbiology Reports for the Last 24 Hours: Microbiology 02/03/24 10:45 Blood Blood Culture - Preliminary NO GROWTH AFTER 48 HOURS 02/03/24 10:40 Blood Blood Culture - Preliminary NO GROWTH AFTER 48 HOURS 02/02/24 15:30 Blood Blood Culture - Preliminary NO GROWTH AFTER 48 HOURS 02/02/24 15:30 Blood Blood Culture - Preliminary NO GROWTH AFTER 48 HOURS Constitutional: Present no acute distress, thin, chronically ill appearing and cooperative Head: Present atraumatic and normocephalic Comment:: NG in right nare Neck: Present normal inspection Respiratory: Present normal respiratory effort; Absent rhonchi, wheezes or crackles Cardiac: Present Reg Rate and Rhythm GI: Present soft and tenderness (Diffuse, interval improvement); Absent distention Comments:: Hypoactive but improved bowel sounds Extremities: Present normal inspection and full ROM Skin: Present intact; Absent erythema Neuro: Present Grossly Intact, alert, awake, oriented x 3 and moves all extremities Assessment and Plan *Assessment and plan (1) Partial small bowel obstruction: Problem Comment: Passing gas and having BMs. NGT is now out and she tolerated clears without any issue. AXR with contrast throughout colon and nonobstructive pattern. Recommend low residue diet. Mineral oil daily. Status: Acute Category: Medical Code(s): K56.600 - Partial intestinal obstruction, unspecified as to cause (2) Chronic pain disorder: Status: Acute Category: Medical Code(s): G89.4 - Chronic pain syndrome (3) Lumbar radiculopathy: Status: Acute Category: Medical Code(s): M54.16 - Radiculopathy, lumbar region (4) Hypertension: Status: Chronic Qualifiers: Hypertension type: essential hypertension Qualified Code(s): I10 - Es sential (primary) hypertension Category: Medical Code(s): I10 - Essential (primary) hypertension (5) COPD (chronic obstructive pulmonary disease): Status: Acute Qualifiers: COPD type: unspecified COPD Qualified Code(s): J44.9 - Chronic obstructive pulmonary disease, unspecified Category: Medical Code(s): J44.9 - Chronic obstructive pulmonary disease, unspecified (6) Tobacco use disorder: Status: Acute Category: Medical Code(s): F17.200 - Nicotine dependence, unspecified, uncomplicated Plan 68-year-old female with history of COPD, diverticulitis, degenerative disc disease with chronic pain disorder, hypertension, tobacco dependence, previous appendectomy, previous bowel obstruction status post resection who presented to ED for evaluation of abdominal pain. Patient states that she had a pain pump turned off 2 days ago which reportedly was using bupivacaine. Patient states since that time she initially felt better, starting last night, 01/31, patient started having pain in her right lower quadrant associated with nonbloody, nonbilious vomiting and nonbloody/non-mucousy diarrhea. initial labs are grossly unremarkable. imaging, patient appears to have small bowel obstruction with transition point somewhere the left lower quadrant with nearly 5 cm distended proximal bowel. No evidence of perforation. Showing some improvement with [place] p.o. into a can continued bowel movements. Surgery recommends advancing diet. Continues to require inpatient management. Problems addressed as follows: Partial SBO; Discussed case with surgery this morning, recommend advancing diet as patient is having bowel movements and tolerating clears. If continues to tolerate diet, a nticipate discharge in the next 24 to 48 hours. -Pain control improving, discontinue Dilaudid. Continue oxycodone 5 mg every 6 hours as needed for severe breakthrough pain. -Kidney function stable with BUN 20, creatinine 1.2. White count normal at 5. Electrolytes stable with magnesium 1.7, potassium 3.5. Repeat CBC, CMP, magnesium ordered for the morning. -Discontinue antibiotics. Blood cultures negative. Urine with mixed ankit consistent with contaminant. Low concern for active infection. Chronic back pain. chronic opiod use' recently off bupivacaine pump. on home lyrica and cymbalta conditions will difficult and predispose recurrent SBO episode. Per review of [facility], concern for opiate prescription. However discussed case with patient's primary care, she does not in fact take opiate medication at home. Cleared with her pharmacy. There is a glitch with her [facility] as she and her have the same name. Patient of note not on home opiate therapy however patient is quite tolerant of frequent Dilaudid Others chronic conditions: COPD, HTN. Conditions reviewed. currently stable resume home amlodipine optimize O2 sat. o2 PRN Tobacco user: on nicotine patch lovenox for DVT ppx. On protonix for GI bleed ppx and GERD full code
--- NOTE | 2024-02-05 13:34 | PC.NURSE ---
Pt c/o RLQ pain and nausea, Pt given oxycodone and phenergan. This nurse went in room to reassess pt, she stated she now had a headache and she had a loose bowel movement and left in the toilet for this nurse to see. Her diet has been upgraded to low residue diet and pt at 100% of lunch tray, when I asked pt how she tolerated this she stated that she vomited in the bathroom. After speaking with Dr. Gunter he is going to keep her diet the same.
--- NOTE | 2024-02-05 17:58 | PC.NURSE ---
Pt tolerated dinner tray well. no c/o nausea but still having RLQ pain. Pt stated that pain medication was ineffective, additional pain meds were given per JUL. Pt currently resting in bed comfortably with eyes closed.
[2024-02-05] MEDS: SODIUM CHLORIDE 0.9% 10ML VIAL 10 ML IV (20:17)
[2024-02-05] MEDS: PANTOPRAZOLE 40MG VIAL 40 MG IV (20:17)
--- NOTE | 2024-02-05 20:35 | DIET.NUTRFU ---
consulted for wt loss s/p bowel obstruction. Included multiple heart health high fiber diet guidelines. Will follow-up with any questions and review weight goals
--- NOTE | 2024-02-06 00:31 | EXP.EVENT.NO ---
Patient is tolerating fluid well no signs of nauseous or vomiting. Will go ahead and stop continuous IV fluids
[2024-02-06 04:00] VITALS: BP 140/68; PULSE 74; RESP 17; TEMP 37.1; O2SAT 93; BMI 21.5
[2024-02-06] MEDS: OXYCODONE 5MG IMMEDIATE RELEASE TABLET 5 MG PO ×2 (05:22→12:10)
--- NOTE | 2024-02-06 05:57 | PC.NURSE ---
Patient alert and oriented x4 this shift. Tolerating room air well. Complaints of RLQ pain tonight, medicated per MAR. Patient has ambulated halls and went to the bathroom independently a few of times this shit. Abdomen soft, tender with active bowel sounds. NS discontinued per hospitalist due to patient tolerating PO foods and liquids. Call light within reach.
[2024-02-06 07:17] LABS: Albumin Level 3.2 g/dl (3.5-5.0); Chloride 109 mmol/L (98-107); Sodium 137 mmol/L (136-145)
[2024-02-06 07:18] LABS: Potassium 3.5 mmoL/L (3.5-5.1)
[2024-02-06 07:20] LABS: Alanine Aminotransferase 15 U/L (12-78); Albumin/Globulin Ratio 1.2 (1.1-1.8); Alkaline Phosphatase 77 U/L (38-126); Anion Gap 5.5 mEq/L (5-15); Aspartate Amino Transferase 39 U/L (14-36); Bilirubin,Total 0.3 mg/dl (0.2-1.3); Blood Urea Nitrogen 17 mg/dl (7-17); Carbon Dioxide 26 mmol/L (22.0-30.0); Creatinine Clearance Estimated 52 mL/min (50-200); Estimated Glomerular Filt Rate 55 ml/min (>60); GFR (African American) 67 ML/MIN (>60); Globulin 2.7 g/dL (1.3-3.2); Total Protein,Serum 5.9 g/dl (6.3-8.2)
[2024-02-06 07:21] LABS: Calcium 8.2 mg/dl (8.4-10.2); Glucose 90 mg/dl (74-100)
--- NOTE | 2024-02-06 07:35 | P.DS_ITS ---
General Admission date:: 02/02/24 Discharge date: 02/06/24 HPI HPI HPI: Patient is a 68-year-old female with history of COPD, diverticulitis, degenerative disc disease with chronic pain disorder, hypertension, tobacco dependence. She has undergone numerous surgeries at outside facilities notable for laparotomy and ventral hernia repair about 20 years ago in [place]. She does have a history of recurrent bowel obstructions which have been usually amenable to nonoperative management but she did require laparotomy with small bowel resection 20 years ago in [place] for obstruction. She has somewhat regularly required admission for apparent exacerbations of bowel obstructions. She had admission at this facility in 2010 as well as in 2011 for small bowel obstructions which were managed nonoperatively. She had been hospitalized 3 or 4 times in 2015 for small bowel obstruction managed nonoperatively. She had a similar admission in 2016. She had an admission in 2019 with partial small bowel obstruction managed nonoperatively but she also had significant amount of constipation. She does have chronic pain and had previously been on chronic opiate use and most assuredly has had some degree of chronic constipation and ileus. She did move her bowels yesterday but states that she usually only moves her bowels about once weekly. She had an intrathecal pain pump placed by Dr. Noel on 12/23/2023 at which time she had postoperative pain in both hips and after operative intervention underwent bilateral SI joint injections. She had the bupivacaine decreased on 01/31/2024.. In the evening of 02/01/2024 she had developed some right lower quadrant pain with nonbilious vomiting. She states that the symptoms are similar to when she has previously had bowel obstructions. She presented to the emergency department via EMS. She underwent CT scan (CT angiogram) which revealed findings of mid and proximal small bowel dilatation to 4 cm. There is evidence of left lower quadrant anastomosis with some small bowel fecalization. Small amount of free fluid. This is consistent with partial obstruction. She had nasogastric tube placed which gave her some relief. She was admitted for inpatient management and surgical consultation. Hospital Course Hospital Course Hospital Course: 68-year-old female with history of COPD, diverticulitis, degenerative disc disease with chronic pain disorder, hypertension, tobacco dependence, previous appendectomy, previous bowel obstruction status post resection who presented to ED for evaluation of abdominal pain. Patient states that she had a pain pump turned off 2 days ago which reportedly was using bupivacaine. Patient states since that time she initially felt better, starting last night, 01/31, patient started having pain in her right lower quadrant associated with nonbloody, nonbilious vomiting and nonbloody/non-mucousy diarrhea. initial labs are grossly unremarkable. imaging, patient appears to have small bowel obstruction with transition point somewhere the left lower quadrant with nearly 5 cm distended proximal bowel. No evidence of perforation. Able to gradually advance diet. NG was removed. As she began having bowel movements. Patient was able to advance to regular diet, tolerating well. No nausea or vomiting. Stable to discharge home with outpatient management by surgery for evaluation of possible repeat surgery on her abdomen. Problems addressed as follows: Partial SBO; Discussed case with surgery. Patient was admitted with NG placed for decompression. Bowel rest performed for about 48 hours prior to advancement of diet as she began having bowel movements. Started with clears and advance to bland's. Tolerating advancement without nausea or vomiting. Bowel movements for over 48 hours prior to discharge home. Pain improved. Still requiring opiates on day of discharge but at significant decreased rate. Discussed pain control at discharge, patient declined opiate therapy. Given her tolerance of p.o. intake, normalization of labs, stable electrolytes, and regular bowel movements. Plan to discharge home with outpatient follow-up with surgery. Further discussion about possible repeat surgery on her abdomen for her chronic problems to be had as an outpatient. -Initially treated for suspected UTI. Urine grew mixed ankit. No indication for further antibiotics. Discontinued prior to discharge. Chronic back pain. chronic opiod use' recently off bupivacaine pump. on home lyrica and cymbalta conditions ill difficult and predispose recurrent SBO episode. Per review of Homero, concern for opiate prescription. However discussed case with patient's primary care, she does not in fact take opiate medication at home. Cleared with her pharmacy. There is a glitch with her [facility] as she and her have the same name. Patient of note not on home opiate therapy however patient is quite tolerant of frequent Dilaudid Others chronic conditions: COPD, HTN. continued home regimens Tobacco user: on nicotine patch during admission Exam Data for Last 24 hours Vital signs and Labs for Last 24 Hours: Temp Pulse Resp BP Pulse Ox O2 Del Method 98.7 F 74 17 140/68 93 L Room Air 02/06/24 04:00 02/06/24 04:00 02/06/24 04:00 02/06/24 04:00 02/06/24 04:00 02/06/24 07:00 Laboratory Results - last 24 hr 02/05/24 07:38: WBC 5.2 D, RBC 4.07 L, Hgb 12.1 L, Hct 39.5, MCV 97.0, MCH 29.8, MCHC 30.7 L, RDW 13.5, Plt Count 213, MPV 9.1, Neut % (Auto) 46.4, Lymph % (Auto) 35.1, [place] % (Auto) 13.0 H, Eos % (Auto) 4.1, Baso % (Auto) 1.4, Neut # (Auto) 2.4, Lymph # (Auto) 1.8, [place] # (Auto) 0.7, Eos # (Auto) 0.2, Baso # (Auto) 0.1, Magnesium 1.7 02/05/24 07:40: Sodium 137, Potassium 3.5, Chloride 105, Carbon Dioxide 30, Anion Gap 5.5, BUN 20 H D, Creatinine 1.20 H, Estimated Creat Clear 43, Estimated GFR 45 L, Est GFR ( Amer) 54 L, Glucose 88, Calcium 8.7, Total Bilirubin 0.4, AST 31, ALT 15, Alkaline Phosphatase 58, Total Protein 6.6, Albumin 3.4 L, Globulin 3.2, Albumin/Globulin Ratio 1.1 02/06/24 06:33: Sodium 137, Potassium 3.5, Chloride 109 H, Carbon Dioxide 26, Anion Gap 5.5, BUN 17, Creatinine 1.00, Estimated Creat Clear 52, Estimated GFR 55 L, Est GFR ( Amer) 67 D, Glucose 90, Calcium 8.2 L, Total Bilirubin 0.3, AST 39 H D, ALT 15, Alkaline Phosphatase 77, Total Protein 5.9 L, Albumin 3.2 L, Globulin 2.7, Albumin/Globulin Ratio 1.2 I & O for Last 24 hours: Intake & Output 02/03/24 02/04/24 02/05/24 02/06/24 23:59 23:59 23:59 23:59 Intake Total 970 / 970 1059 / 1059 1649 / 1649 Output Total 700 / 702 2 / 2 0 / 0 0 / 0 Balance 270 / 268 1057 / 1057 1649 / 1649 0 / 0 Weight 62.14 kg 62.051 kg 62.188 kg 62.19 kg Microbiology Reports for the Last 24 Hours: Microbiology 02/03/24 10:45 Blood Blood Culture - Preliminary 02/02/24 15:30 Blood Blood Culture - Preliminary 02/03/24 10:40 Blood Blood Culture - Preliminary NO GROWTH AFTER 48 HOURS Constitutional Constitutional: no acute distress, thin, chronically ill appearing and cooperative *Routine HEENT Exam Head: Present normocephalic Eye: Present EOMI and PERRL ENT: Present mucous membranes moist *Routine Neck Exam Neck: Present supple; Absent lymphadenopathy *Routine Respiratory Exam Respiratory: Present CTA bilaterally; Absent rhonchi, wheezes or crackles *Routine Cardiovascular Exam Cardiovascular: Present RRR *Routine Abdominal Exam Abdominal: Present soft, normoactive bowel sounds and tenderness (Chronic tenderness right lower abdomen); Absent distended *Routine Rectal Exam Patient deferred: visual exam *Routine Exam Patient deferred: external exam *Routine Extremities Exam Extremities: Absent cyanosis, clubbing or edema *Routine Skin Exam Skin: Present warm; Absent rash *Routine Neurological Exam Neurological: Present alert, oriented X3 and moving all extremities; Absent altered mental status Routine Psychiatric Exam Psychiatric: Present anxious Results Data Completed and Pending Labs on day of discharge: Labs from last 24 hours 02/06/24 02/05/24 02/05/24 06:33 07:40 07:38 WBC 5.2 D RBC 4.07 L Hgb 12.1 L Hct 39.5 MCV 97.0 MCH 29.8 MCHC 30.7 L RDW 13.5 Plt Count 213 MPV 9.1 Neut % (Auto) 46.4 Lymph % (Auto) 35.1 [place] % (Auto) 13.0 H Eos % (Auto) 4.1 Baso % (Auto) 1.4 Neut # (Auto) 2.4 Lymph # (Auto) 1.8 [place] # (Auto) 0.7 Eos # (Auto) 0.2 Baso # (Auto) 0.1 Sodium 137 137 Potassium 3.5 3.5 Chloride 109 H 105 Carbon Dioxide 26 30 Anion Gap 5.5 5.5 BUN 17 20 H D Creatinine 1.00 1.20 H Estimated Creat Clear 52 43 Estimated GFR 55 L 45 L Est GFR ( Amer) 67 D 54 L Glucose 90 88 Calcium 8.2 L 8.7 Magnesium 1.7 Total Bilirubin 0.3 0.4 AST 39 H D 31 ALT 15 15 Alkaline Phosphatase 77 58 Total Protein 5.9 L 6.6 Albumin 3.2 L 3.4 L Globulin 2.7 3.2 Albumin/Globulin Ratio 1.2 1.1 Preliminary micro results at discharge 02/03/24 10:45 Blood Culture - Preliminary Blood 02/02/24 15:30 Blood Culture - Preliminary Blood 02/03/24 10:40 Blood Culture - Preliminary Blood NO GROWTH AFTER 48 HOURS 02/02/24 15:30 Blood Culture - Preliminary Blood NO GROWTH AFTER 48 HOURS DS: Diagnosis Discharge Diagnosis (1) Partial small bowel obstruction: Status: Acute Code(s): K56.600 - Partial intestinal obstruction, unspecified as to cause Problem details: Passing gas and having BMs. NGT is now out and she tolerated clears without any issue. AXR with contrast throughout colon and nonobstructive pattern. Recommend low residue diet. Mineral oil daily. (2) Chronic pain disorder: Status: Acute Code(s): G89.4 - Chronic pain syndrome (3) Lumbar radiculopathy: Status: Acute Code(s): M54.16 - Radiculopathy, lumbar region (4) Hypertension: Status: Chronic Code(s): I10 - Essential (primary) hypertension Qualifiers: Hypertension type: essential hypertension Qualified Code(s): I10 - Essential (primary) hypertension (5) COPD (chronic obstructive pulmonary disease): Status: Acute Code(s): J44.9 - Chronic obstructive pulmonary disease, unspecified Qualifiers: COPD type: unspecified COPD Qualified Code(s): J44.9 - Chronic obstructive pulmonary disease, unspecified (6) Tobacco use disorder: Status: Acute Code(s): F17.200 - Nicotine dependence, unspecified, uncomplicated Meds Home Medications and Allergies Home Medications ?Medication ?Instructions ?Recorded ?Confirmed ?Type propranolol 40 mg tablet 40 mg PO BID #60 tabs 08/09/23 02/02/24 Rx amlodipine 5 mg tablet 5 mg PO BID 08/13/23 02/02/24 History pregabalin 200 mg capsule 200 mg PO BID 08/13/23 02/02/24 History sennosides 8.6 mg-docusate sodium 1 tab PO DAILY 02/02/24 02/02/24 History 50 mg tablet (Stimulant Laxative Plus) dextroamphetamine-amphetamine 20 20 mg PO DAILY 02/03/24 02/03/24 History mg tablet duloxetine 60 mg capsule,delayed 60 mg PO DAILY 02/03/24 02/03/24 History release losartan 50 mg tablet 50 mg PO BID 02/03/24 02/03/24 History polyethylene glycol 3350 17 17 g PO DAILY 30 days #510 grams 02/06/24 Rx gram/dose oral powder (Miralax) New Prescriptions to Start Prescriptions: polyethylene glycol 3350 [Miralax] Joe Gunter Allergies Allergy/AdvReac Type Severity Reaction Status Date / Time albuterol [From VENTOLIN HFA] Allergy Mild Verified 12/23/23 11:15 codeine [CODEINE] Allergy Mild Verified 12/23/23 11:15 erythromycin base Allergy Mild Verified 12/23/23 11:15 [ERYTHROMYCIN BASE] ketorolac [From TORADOL] Allergy Mild HEMMORHAGE Verified 12/23/23 11:15 meperidine [From DEMEROL] Allergy Mild Verified 12/23/23 11:15 Penicillins [PENICILLINS] Allergy Mild Verified 12/23/23 11:15 Sulfa (Sulfonamide Allergy Mild Verified 12/23/23 11:15 Antibiotics) [SULFA (SULFONAMIDE ANTIBIOTICS)] tetracycline [TETRACYCLINE] Allergy Mild Verified 12/23/23 11:15 buprenorphine [From SUBOXONE] Allergy Unknown I-HIVES Verified 12/23/23 11:15 morphine [From ANA] Allergy Unknown I-HIVES Verified 12/23/23 11:15 naloxone [From SUBOXONE] Allergy Unknown I-HIVES Verified 12/23/23 11:15 propoxyphene Allergy Unknown I-HIVES Verified 12/23/23 11:15 [From DARVOCET-N] Discharge Plan Disposition Patient Disposition: Home, Self-Care Condition: Fair Discharge Order Discharge Orders: Discharge Order (Routine); Ordered 02/06/24 Ordered By: Joe Gunter Follow up Plan Follow up with: Toni Palmer MD [Primary Care Provider] - 02/13/24 2:00 pm Raj Reynaga MD [Staff Physician] - 02/15/24 9:45 am Prescriptions/Medication Reconciliation: New polyethylene glycol 3350 [Miralax] 17 gram/dose powder 17 g PO DAILY 30 Days Qty: 510 0RF Continued propranolol 40 mg tablet 40 mg PO BID Qty: 60 5RF amlodipine 5 mg tablet 5 mg PO BID Patient Comments: TAKE ONE TABLET BY MOUTH TWICE DAILY pregabalin 200 mg capsule 200 mg PO BID Patient Comments: TAKE ONE CAPSULE BY MOUTH TWICE DAILY MAY CAUSE DROWSINESS sennosides-docusate sodium [Stimulant Laxative Plus] 8.6-50 mg tablet 1 tab PO DAILY dextroamphetamine-amphetamine 20 mg tablet 20 mg PO DAILY Patient Comments: TAKE ONE TABLET BY MOUTH EVERY MORNING duloxetine 60 mg capsule,delayed release(DR/EC) 60 mg PO DAILY losartan 50 mg tablet 50 mg PO BID Problem Reconciliation Problems Reviewed?: Yes Patient Discharge Instructions ACTIVITY: Continue current activity DIET: continue same diet Patient Instructions: Eating a Diet Low in Saturated Fat, Trans Fat, and Cholesterol, Eating a Diet Rich in Fruits and Vegetables, The Mediterranean Diet and Good Health, Heart-Healthy Diet, DI for Small Bowel Obstruction Print Language: [place]aguayan Providers Primary Care Provider: Toni Palmer Provider: Marco Barragan Attending Provider: Marco Barragan
[2024-02-06 07:51] LABS: Magnesium 1.6 mg/dl (1.6-2.3)
[2024-02-06 08:00] VITALS: BP 130/72; PULSE 70; RESP 18; TEMP 37.3; O2SAT 96
[2024-02-06 08:04] LABS: Basophils % 0.5 % (0.1-2.0); Eosinophils # 0.2 K/mm3 (0.0-0.4); Eosinophils % 3.4 % (0.1-12.0); Lymphocytes # 1.7 K/mm3 (0.7-4.5); Lymphocytes % 30.5 % (10-50); Mean Corpuscular HGB Conc 31.5 g/dL (31.8-35.4); Mean Corpuscular Hemoglobin 30.2 pg (27.0-31.2); Mean Corpuscular Volume 95.9 fl (81-99); Mean Platelet Volume 9.8 fl (7.4-10.4); Monocytes # 0.5 K/mm3 (0.1-1.0); Neutrophils # 3.2 K/mm3 (1.8-7.8); Neutrophils % 56.5 % (37.0-80.0); Platelet Count 191 K/mm3 (142-424); Red Blood Count 3.65 M/mm3 (4.20-5.40); Red Cell Distribution Width 13.5 % (11.5-17.5); White Blood Count 5.7 K/mm3 (4.8-10.8)
[2024-02-06] MEDS: MINERAL OIL 30 ML UDC PO (08:45)
[2024-02-06] MEDS: MAGNESIUM SULFATE IN WATER 2 GM/50 ML PIGGYBACK IV (08:45)
[2024-02-06] MEDS: DULOXETINE 30MG CAPSULE.DR 60 MG PO (08:46)
[2024-02-06] MEDS: ENOXAPARIN 40MG/0.4ML SYRINGE 40 MG SQ (08:46)
[2024-02-06] MEDS: PREGABALIN 100MG CAPSULE 200 MG PO (08:48)
--- NOTE | 2024-02-06 13:04 | DIET.NUTRFU ---
Upon visit patient explained that she has been gaining weight and feels that is causing health issues. Her BMI is 21.5kg and she eats 1 bowl of soup per day and nothing else. She lives with her her daughter and her . Her daughter has had bariatric surgery in past and now drink shakes and patient says she has a eating disorder. Patient refuses to add shakes in she does not drink dairy and does not want to add. She also avoid bread. This RD explained that she is depleting her system, she needs to add a MVI daily and additional protein suggested protein powder or other good protein sources lean meat and eggs. She seems agreeable to add some additional items to diet but not will to eat 3 meals/day afraid she would gain more weight. Provided handouts on healthy protein/meal choices and low fiber post sx.
--- NOTE | 2024-02-08 13:53 | CARE MANAGER ---
Contacted patient related to hospital discharge. She states she is doing well. She had one new medication and has it. She is aware of follow up appointments and denies questions or concerns. GENA Maynard
== END 2024-02-06 14:24 | disposition home or self-care (01) | DRG 390 ==
LOC: ER 18:20 → 2ND 18:24
PROVIDERS: Internal Medicine Adolescent Medicine; Nurse Practitioner Family; Admitting Provider Family Medicine; Emergency Provider Emergency Medicine; PCP Internal Medicine Adolescent Medicine; Visit Provider Family Medicine
DX: K56.600 Partial intestinal obstruction, unspecified as to cause (principal); G89.4 Chronic pain syndrome; Z79.891 Long term (current) use of opiate analgesic; M54.16 Radiculopathy, lumbar region; I10 Essential (primary) hypertension; J44.9 Chronic obstructive pulmonary disease, unspecified; F17.200 Nicotine dependence, unspecified, uncomplicated; Z45.1 Encounter for adjustment and management of infusion pump; Z85.3 Personal history of malignant neoplasm of breast; M54.9 Dorsalgia, unspecified
CPT/HCPCS: 36415; 62370; 71045; 74021; 74174; 74250; 80053; 80061; 80307; 80329; 81001; 82803; 83036; 83605; 83690; 83735; 84436; 84443; 84484; 85007; 85025; 85610; 85730; 86850; 87040; 87086; 93005; 99291; J0131; J1170; J1650; J1956; J2405; J2550; J3475; J7030; Q9963; Q9967

== ENCOUNTER 2024-02-20 15:15 | Outpatient (POV) | payer MEDICARE, SELFPAY ==
[2024-02-20 15:44] VITALS: BP 124/71; PULSE 86; RESP 16; O2SAT 97; BMI 20.3
--- NOTE | 2024-02-20 16:14 | EXP.PAIN.SOA ---
[facility] Disclaimer: The information contained in this section may have been updated after the patient was seen, as this information can be updated by other users. Medical History Colitis Breast cancer s/p Bilateral mastectomy with implants for reconstruction circa 1979. Also had right axillary dissection. Dizziness Dyspnea Anxiety Migraine COPD (chronic obstructive pulmonary disease) Hypertension Dyspnea Tobacco dependence syndrome Chest pain Surgical History History of appendectomy Concomitant with open hysterectomy Hx of breast implants, bilateral Breast cancer reconstruction H/O mastectomy Bilateral, circa 1983 breast cancer. Also reports right axillary dissection. S/P ventral herniorrhaphy Has had several repairs in in . She is unsure whether they used mesh. By her recollection, these were hiatal hernias. She reports she had several bulges on her abdomen that where the hernias. S/P exploratory laparotomy Including small bowel resection for small bowel obstruction History of colonoscopy Last colonoscopy circa 2010, reportedly normal. History of hysterectomy Open, age 26. Endometrial cancer. Family History Other No significant family history Social History Smoking Status: Current every day smoker tobacco type: cigarettes packs per day: 1 alcohol intake: never substance use type: marijuana current occupational status: other Travel in the last 8 weeks: None household members: spouse and children housing: house current occupational exposures/hazards: No caffeine: Yes PM Subjective & Objective Subjective Subjective:: Patient is a pleasant 68-year-old female who presents today for follow-up. Today she rates her pain a 6 out of 10. Patient states that she has had improvement in her headaches from her last visit and that they are not as intense. Patient does state however when they do get bad it is extreme causing nausea and vomiting. Patient does state today that she feels like her pump medication just is not seeming to help and would like to have a different medication put in it. Patient does currently have bupivacaine 5 mg/mL with a daily dose of 3.9679 mg/day. Patient also states today that previously there was morphine put on her allergy list and she states this is not an allergy and would like it taken off. Her Homero has been reviewed. Patient is currently managed with pregabalin and oxycodone from her PCP. Patient states that this is a error. Patient states that the oxycodone is her 's and that they constantly mix this up. She states that his birthdate is 12/07/1954. Patient states that she has talked to Dr. Palmer's office regarding this. Review of Systems: General: No recent weight changes, no fever, no sleep disturbances Respiratory: No cough, no shortness of air, no recurring pulmonary infections Cardiovascular/peripheral vascular: No chest pain, no palpitations, no edema, no shortness of breath Gastrointestinal: No new onset incontinence, normal bowel movements reported Genitourinary: No new onset incontinence Musculoskeletal: Low back pain Psychiatric: [Normal mood/affect] Neurological: [Denies weakness in extremities], [denies balance issues] Pain at rest (0-10 scale): 6 Objective Objective:: Physical Exam: General: Alert and oriented x3, no acute distress, pleasant and cooperative Lungs: Respirations even and unlabored, symmetrical chest expansion Eyes: PERRL Musculoskeletal: Flexion and extension of lumbar [spine] somewhat guarded secondary to pain, [antalgic gait noted] Neurological: Speech clear, no gross sensory deficit Has patient had previous pain injection?: No Conservative treatment options previously tried: Home exercise plan Length of treatment: Longer than 12 weeks Meds Home Medications and Allergies Home Medications ?Medication ?Instructions ?Recorded ?Confirmed ?Type propranolol 40 mg tablet 40 mg PO BID #60 tabs 08/09/23 02/20/24 Rx amlodipine 5 mg tablet 5 mg PO BID 08/13/23 02/20/24 History pregabalin 200 mg capsule 200 mg PO BID 08/13/23 02/20/24 History sennosides 8.6 mg-docusate sodium 1 tab PO DAILY 02/02/24 02/20/24 History 50 mg tablet (Stimulant Laxative Plus) dextroamphetamine-amphetamine 20 20 mg PO DAILY 02/03/24 02/20/24 History mg tablet duloxetine 60 mg capsule,delayed 60 mg PO DAILY 02/03/24 02/20/24 History release losartan 50 mg tablet 50 mg PO BID 02/03/24 02/20/24 History polyethylene glycol 3350 17 17 g PO DAILY 30 days #510 grams 02/06/24 02/20/24 Rx gram/dose oral powder (Miralax) clonidine HCl 0.1 mg tablet 0.1 mg PO DIRECTED 02/15/24 02/20/24 History New Prescriptions to Start Prescriptions: Allergies Allergy/AdvReac Type Severity Reaction Status Date / Time albuterol [From VENTOLIN HFA] Allergy Mild Verified 02/15/24 09:52 codeine [CODEINE] Allergy Mild Verified 02/15/24 09:52 erythromycin base Allergy Mild Verified 02/15/24 09:52 [ERYTHROMYCIN BASE] ketorolac [From TORADOL] Allergy Mild HEMMORHAGE Verified 02/15/24 09:52 meperidine [From DEMEROL] Allergy Mild Verified 02/15/24 09:52 Penicillins [PENICILLINS] Allergy Mild Verified 02/15/24 09:52 Sulfa (Sulfonamide Allergy Mild Verified 02/15/24 09:52 Antibiotics) [SULFA (SULFONAMIDE ANTIBIOTICS)] tetracycline [TETRACYCLINE] Allergy Mild Verified 02/15/24 09:52 buprenorphine [From SUBOXONE] Allergy Unknown I-HIVES Verified 02/15/24 09:52 morphine [From ANA] Allergy Unknown I-HIVES Verified 02/15/24 09:52 naloxone [From SUBOXONE] Allergy Unknown I-HIVES Verified 02/15/24 09:52 propoxyphene Allergy Unknown I-HIVES Verified 02/15/24 09:52 [From DARVOCET-N] Assessment and Plan *Assessment and plan (1) Back pain: Status: Acute Category: Medical Code(s): M54.9 - Dorsalgia, unspecified Plan Patient was counseled due to her Homero showing that she is getting oxycodone 5 mg with 135 tablets/month that we cannot change her pump medication at this time. Patient was counseled that if this is an error on behalf of her primary care that if it is her 's prescription that we do recommend that she reach out to that provider and see whether or not what can be done to have it removed off her Homero. We will also reach out to Dr. Palmer's office to confirm whether or not if she is getting oral pain medication from him. Patient will return to clinic in 2 weeks for reevaluation of symptoms and plan of care. We will see the patient back in the clinic at the next intrathecal refill. Patient has been instructed to contact the clinic with any concerns before the next appointment. Dr. Noel has reviewed this note and agrees with this plan of care. This note was dictated using voice recognition software and make contain errors or omissions. -- It Is medically necessary for this patient to continue to have their intrathecal pump refilled at regular intervals. This patient had an intrathecal pain pump implanted after meeting criteria of chronic intractable pain for greater than 3 months and failing conservative treatments. Patient has committed and been compliant to the treatment plan and all planned follow up care. Since implantation of the intrathecal pain pump, the patient has had decreased pain and been more functional. Oral medications have been reduced including intake of oral opioids. Patient continues to do well with intrathecal therapy with decrease in pain symptoms and increase in functional status. Stopping intrathecal medications can lead to life threatening withdrawal, seizures, cardiac arrest, severe pain, and possible . Pumps that are not refilled at regular intervals can be damages and cause and need for replacement. We continually titrate dose and concentration to optimize pain relief and function. We are limited in concentration for certain drugs to safely deliver medications through the pump and stay within the recommendations from the Polyanalgesic Consensus Committee Guidelines. Depending on dose and concentration these pumps may need to be refilled sooner than 3 months as we titrate.
== END 2024-02-20 23:59 | disposition home or self-care (01) ==
LOC: SC.PAIN 15:20
PROVIDERS: PCP Internal Medicine Adolescent Medicine; Visit Provider Nurse Practitioner Family
DX: M54.9 Dorsalgia, unspecified (principal); F17.210 Nicotine dependence, cigarettes, uncomplicated; F12.90 Cannabis use, unspecified, uncomplicated
CPT/HCPCS: 99212; G0463

== ENCOUNTER 2024-03-20 08:59 | Day surgery (SDC) | payer MEDICARE, SELFPAY ==
[2024-03-20 09:21] VITALS: BP 161/90; PULSE 69; RESP 16; TEMP 36.7; O2SAT 100; BMI 21.6
[2024-03-20 09:50] VITALS: BP 164/92; PULSE 71; RESP 18; O2SAT 96
[2024-03-20 09:52] VITALS: BP 164/92; PULSE 71; RESP 18; O2SAT 96
[2024-03-20 10:20] VITALS: BP 129/79; PULSE 65; RESP 16; O2SAT 99
--- NOTE | 2024-03-20 10:45 | P.PCN_ITS ---
Procedure Date: 03/20/24 Time: 10:00 Anesthesiologist:: Reyes Soto CRNA Complications:: None Pre-procedure Diagnosis:: Degenerative disc lumbar spine multilevels. Lumbar radiculopathy. Lumbar postlaminectomy syndrome. Lumbar spondylosis. Multilevel lumbar facet arthropathy. Post-procedure Diagnosis:: Same. Indications for Procedure:: Patient is a very pleasant 68-year-old female who comes our clinic today for intrathecal pain pump interrogation and refill and medication change. Patient was being managed originally since the pump was implanted in December with bupivacaine. However, due to increased headaches the rate was not able to increase thus not providing her much pain relief. Today, we will change her to morphine sulfate 1 mg/mL. I discussed in detail with the patient regarding change of medication. Answered her questions. She voices understanding. Patient is awake alert [place] x 3. No acute distress. Flexion-extension lumbar spine guarded secondary to pain. Deep tendon reflexes upper and lower extremities normal. Motor strength upper and lower extremities normal. There is no gross sensory deficit. Gait is normal. Procedure Details:: Details of the procedure explained to the patient. The patient taken procedure and placed in sitting position. The area of the pump was cleaned using chlorhexidine as a cleansing solution. The pump was interrogated. The pump was accessed with ease using a 22-gauge inch and half needle. 18 mL of bupivacaine was withdrawn from the pump and discarded appropriately. The pump was then filled with 20 cc of solution containing morphine sulfate 1 mg/mL. The pump r ate will be 0.1 milligrams per day. Patient tolerated procedure without difficulty. There are no complications. Plan and Disposition:: Patient was discharged without incident.
== END 2024-03-20 10:20 | disposition home or self-care (01) ==
PROVIDERS: PCP Internal Medicine Adolescent Medicine; Visit Provider Nurse Anesthetist, Certified Registered
DX: M51.16 Intervertebral disc disorders with radiculopathy, lumbar region (principal); M96.1 Postlaminectomy syndrome, not elsewhere classified; M47.26 Other spondylosis with radiculopathy, lumbar region
CPT/HCPCS: 62370

== ENCOUNTER 2024-03-28 14:48 | Outpatient (POV) | payer MEDICARE, SELFPAY ==
[2024-03-28 15:09] VITALS: BP 141/90; PULSE 74; O2SAT 100; BMI 21.1
--- NOTE | 2024-03-28 15:45 | P.PCN_ITS ---
Procedure Date: 03/28/24 Time: 15:14 Anesthesiologist:: Gayle France APRN Complications:: None Pre-procedure Diagnosis:: Degenerative disc disease of lumbar spine with lumbar radiculopathy symptoms Post-procedure Diagnosis:: Same Indications for Procedure:: Patient is a pleasant 68-year-old female who presents today for intrathecal adjustment and reprogram. Today she rates her pain a 5 out of 10. Patient denies any new trauma or injury from her last visit. Patient did have her pump medication changed over to morphine 1 mg/mL with a daily dose of 0.0999 mg/day. Patient does state that she feels like this has helped a little bit better than the previous bupivacaine however feels like it still could use additional adjustment. She denies any other side effects. Patient does state that the last couple of days she has felt a little bit of pinching sensation in and around her low back unrelated to any new falls or injuries. Her Homero has been reviewed and is appropriate. Physical Exam: General: Alert and oriented x3, no acute distress, pleasant and cooperative Lungs: Respirations even and unlabored, symmetrical chest expansion Eyes: PERRL Musculoskeletal: Flexion and extension of lumbar [spine] somewhat guarded secondary to pain, [antalgic gait noted] Neurological: Speech clear, no gross sensory deficit Procedure Details:: Informed consent was obtained and the risk and benefits of the procedure were explained to the patient. Patient was taken to the procedure room where noninvasive monitoring was placed including noninvasive blood pressure cuff and pulse oximeter. Patient's pump was interrogated and was reprogrammed to morphine 0.12 mg/day. The patient tolerated the procedure well with no complications. Plan and Disposition:: Patient tolerated her intrathecal increaseWith no complications and was discharged neurologically intact. I did discuss with the patient that I would like to see her back in 2 weeks for possible readjustment and reprogram. Wayne finn acknowledges understanding and agrees with this plan of care. We will see the patient back in the clinic at the next intrathecal refill. Patient has been instructed to contact the clinic with any concerns before the next appointment. Dr. Noel has reviewed this note and agrees with this plan of care. This note was dictated using voice recognition software and make contain errors or omissions. -- It Is medically necessary for this patient to continue to have their intrathecal pump refilled at regular intervals. This patient had an intrathecal pain pump implanted after meeting criteria of chronic intractable pain for greater than 3 months and failing conservative treatments. Patient has committed and been compliant to the treatment plan and all planned follow up care. Since implantati on of the intrathecal pain pump, the patient has had decreased pain and been more functional. Oral medications have been reduced including intake of oral opioids. Patient continues to do well with intrathecal therapy with decrease in pain symptoms and increase in functional status. Stopping intrathecal medications can lead to life threatening withdrawal, seizures, cardiac arrest, severe pain, and possible . Pumps that are not refilled at regular intervals can be damages and cause and need for replacement. We continually titrate dose and concentration to optimize pain relief and function. We are limited in concentration for certain drugs to safely deliver medications through the pump and stay within the recommendations from the Polyanalgesic Consensus Committee Guidelines. Depending on dose and concentration these pumps may need to be refilled sooner than 3 months as we titrate.
== END 2024-03-28 23:59 | disposition home or self-care (01) ==
PROVIDERS: PCP Internal Medicine Adolescent Medicine; Visit Provider Nurse Practitioner Family
DX: M51.16 Intervertebral disc disorders with radiculopathy, lumbar region (principal)
CPT/HCPCS: 62368; 99212; 99213; G0463

== ENCOUNTER 2024-04-13 09:18 | Outpatient (POV) | payer MEDICARE, SELFPAY ==
--- NOTE | 2024-04-13 09:38 | EXP.PAIN.PRO ---
Procedure Date: 04/13/24 Time: 10:09 Anesthesiologist:: Gayle France APRN Complications:: None Pre-procedure Diagnosis:: Degenerative disc disease of lumbar spine with lumbar radiculopathy symptoms Post-procedure Diagnosis:: Same Indications for Procedure:: Patient is a pleasant 68-year-old female who presents today for 2-week intrathecal adjustment and reprogram. Today she rates her pain a 5 out of 10. Patient denies any new trauma or injury. She states that she really did not see much improvement since with the last increase. She is requesting additional adjustment. She is also asking if we can start back her bolus device. She is currently managed with intrathecal morphine 1 mg/mL with a daily dose of 0.12 mg/day. Her Homero has been reviewed and is appropriate. Physical Exam: General: Alert and oriented x3, no acute distress, pleasant and cooperative Lungs: Respirations even and unlabored, symmetrical chest expansion Eyes: PERRL Musculoskeletal: Flexion and extension of lumbar [spine] somewhat guarded secondary to pain, [antalgic gait noted] Neurological: Speech clear, no gross sensory deficit Procedure Details:: Informed consent was obtained and the risk and benefits of the procedure were explained to the patient. Patient was taken to the procedure room where noninvasive monitoring was placed including noninvasive blood pressure cuff and pulse oximeter. Patient's pump was interrogated and was reprogrammed to morphine 0.1441 mg/day. The patient tolerated the procedure well with no complications. Plan and Disposition:: Patient tolerated her intrathecal increase with no complications and was discharged neurologically intact. Patient will return to clinic in 2 weeks for possible readjustment. Patient agrees with this plan of care. We will see the patient back in the clinic at the next intrathecal refill. Patient has been instructed to contact the clinic with any concerns before the next appointment. Dr. Noel has reviewed this note and agrees with this plan of care. This note was dictated using voice recognition software and make contain errors or omissions. -- It Is medically necessary for this patient to continue to have their intrathecal pump refilled at regular intervals. This patient had an intrathecal pain pump implanted after meeting criteria of chronic intractable pain for greater than 3 months and failing conservative treatments. Patient has committed and been compliant to the treatment plan and all planned follow up care. Since implantation of the intrathecal pain pump, the patient has had decreased pain and been more functional. Oral medications have been reduced including intake of oral opioids. Patient continues to do well with intrathecal therapy with decrease in pain symptoms and increase in functional status. Stopping intrathecal medications can lead to life threatening withdrawal, seizures, cardiac arrest, severe pain, and possible . Pumps that are not refilled at regular intervals can be damages and cause and need for replacement. We continually titrate dose and concentration to optimize pain relief and function. We are limited in concentration for certain drugs to safely deliver medications through the pump and stay within the recommendations from the Polyanalgesic Consensus Committee Guidelines. Depending on dose and concentration these pumps may need to be refilled sooner than 3 months as we titrate.
[2024-04-13 09:57] VITALS: BP 135/73; PULSE 58; RESP 16; O2SAT 97; BMI 21.1
== END 2024-04-13 23:59 | disposition home or self-care (01) ==
PROVIDERS: PCP Internal Medicine Adolescent Medicine; Visit Provider Nurse Practitioner Family
DX: M51.16 Intervertebral disc disorders with radiculopathy, lumbar region (principal)
CPT/HCPCS: 62368; 99212; 99213; G0463

== ENCOUNTER 2024-04-27 12:41 | Outpatient (POV) | payer MEDICARE, SELFPAY ==
[2024-04-27 13:16] VITALS: BP 161/66; PULSE 77; RESP 14; O2SAT 100; BMI 21.1
--- NOTE | 2024-04-27 13:34 | EXP.PAIN.PRO ---
Procedure Date: 04/27/24 Time: 13:34 Anesthesiologist:: Gayle France APRN Complications:: None Pre-procedure Diagnosis:: Degenerative disc disease of lumbar spine with lumbar radiculopathy symptoms Post-procedure Diagnosis:: Same Indications for Procedure:: Patient is a pleasant 68-year-old female who presents today for intrathecal adjustment and reprogram. Today she rates her pain a 5 out of 10. Patient does state from her last intrathecal increase she did notice some improvement but feels like it still could use additional adjustment. Patient is currently managed with morphine 1 mg/mL with a daily dose of 0.1441 mg/day. She denies any side effects. Her Homero has been reviewed and is appropriate Physical Exam: General: Alert and oriented x3, no acute distress, pleasant and cooperative Lungs: Respirations even and unlabored, symmetrical chest expansion Eyes: PERRL Musculoskeletal: Flexion and extension of lumbar [spine] somewhat guarded secondary to pain, [antalgic gait noted] Neurological: Speech clear, no gross sensory deficit Procedure Details:: Informed consent was obtained and the risk and benefits of the procedure were explained to the patient. Patient did have noninvasive monitoring was placed including noninvasive blood pressure cuff and pulse oximeter. Patient's pump was interrogated and was reprogrammed to morphine 0.1726 mg/day. The patient tolerated the procedure well with no complications. Plan and Disposition:: Patient tolerated her intrathecal increase with no complications and was discharged neurologically intact. Patient is scheduled for her next intrathecal refill on May 24 and we will follow-up with her at that appointment on the improvement with this increase. Patient agrees with this plan of care. We will see the patient back in the clinic at the next intrathecal refill. Patient has been instructed to contact the clinic with any concerns before the next appointment. Dr. Noel has reviewed this note and agrees with this plan of care. This note was dictated using voice recognition software and make contain errors or omissions. -- It Is medically necessary for this patient to continue to have their intrathecal pump refilled at regular intervals. This patient had an intrathecal pain pump implanted after meeting criteria of chronic intractable pain for greater than 3 months and failing conservative treatments. Patient has committed and been compliant to the treatment plan and all planned follow up care. Since implantation of the intrathecal pain pump, the patient has had decreased pain and been more functional. Oral medications have been reduced including intake of oral opioids. Patient continues to do well with intrathecal therapy with decrease in pain symptoms and increase in functional status. Stopping intrathecal medications can lead to life threatening withdrawal, seizures, cardiac arrest, severe pain, and possible . Pumps that are not refilled at regular intervals can be damages and cause and need for replacement. We continually titrate dose and concentration to optimize pain relief and function. We are limited in concentration for certain drugs to safely deliver medications through the pump and stay within the recommendations from the Polyanalgesic Consensus Committee Guidelines. Depending on dose and concentration these pumps may need to be refilled sooner than 3 months as we titrate.
== END 2024-04-27 23:59 | disposition home or self-care (01) ==
PROVIDERS: PCP Internal Medicine Adolescent Medicine; Visit Provider Nurse Practitioner Family
DX: M51.16 Intervertebral disc disorders with radiculopathy, lumbar region (principal)
CPT/HCPCS: 62368; 99212; G0463

== ENCOUNTER 2024-06-12 09:20 | Day surgery (SDC) | payer MEDICARE, SELFPAY ==
[2024-06-12 09:40] VITALS: BP 133/93; PULSE 72; RESP 16; TEMP 36.6; O2SAT 90; BMI 21.1
--- NOTE | 2024-06-12 09:41 | P.PCN_ITS ---
Procedure Date: 06/12/24 Time: 10:05 Anesthesiologist:: Gayle France APRN Complications:: None Pre-procedure Diagnosis:: Degenerative disc disease of lumbar spine with lumbar radiculopathy symptoms Post-procedure Diagnosis:: Same Indications for Procedure:: Patient is a pleasant 68-year-old female who presents today for intrathecal refill and reprogram. Today she rates her pain a 6 out of 10. She denies any new trauma or injury. She does state that she still has a lot of pain with d oing certain activities like sweeping or cleaning around her home. Patient is requesting an adjustment on her current dosage.Patient is currently managed with morphine 1 mg/mL with a daily dose of 0.1726 mg/day. She denies any side effects from this medication. Her Homero has been reviewed and is appropriate. Physical Exam: General: Alert and oriented x3, no acute distress, pleasant and cooperative Lungs: Respirations even and unlabored, symmetrical chest expansion Eyes: PERRL Musculoskeletal: Flexion and extension of lumbar [spine] somewhat guarded secondary to pain, [antalgic gait noted] Neurological: Speech clear, no gross sensory deficit Procedure Details:: Informed consent was obtained and the risk and benefits of the procedure were explained to the patient. The patient had noninvasive monitoring placed including noninvasive blood pressure cuff and pulse oximeter. Patient's pump was interrogated. The area over the pump was cleansed with chlorhexidine as a cleansing solution. In sterile fashion the pump was accessed with a 22-gauge needle. Approximately 5.8 mls of the pump solution was removed and discarded appropriately. The pump was then refilled with 20 mL's of morphine 1 mg/mL. The needle was withdrawn and a bandage was placed over the puncture site. The infusion rate was reprogrammed and increased to morphine 0.1899 mg/day. The patient tolerated well with no complication. Plan and Disposition:: Patient tolerated her procedure well with no complications and was discharged neurologically intact. Patient will return to clinic for her next intrathecal refill.\ We will see the patient back in the clinic at the next intrathecal refill. Patient has been instructed to contact the clinic with any concerns before the next appointment. Dr. Noel has reviewed this note and agrees with this plan of care. This note was dictated using voice recognition software and make contain errors or omissions. -- It Is medically necessary for this patient to continue to have their intrathecal pump refilled at regular intervals. This patient had an intrathecal pain pump implanted after meeting criteria of chronic intractable pain for greater than 3 months and failing conservative treatments. Patient has committed and been compliant to the treatment plan and all planned follow up care. Since implantation of the intrathecal pain pump, the patient has had decreased pain and been more functional. Oral medications have been reduced including intake of oral opioids. Patient continues to do well with intrathecal therapy with decrease in pain symptoms and increase in functional status. Stopping intrathecal medications can lead to life threatening withdrawal, seizures, cardiac arrest, severe pain, and possible . Pumps that are not refilled at regular intervals can be damages and cause and need for replacement. We continually titrate dose and concentration to optimize pain relief and function. We are limited in concentration for certain drugs to safely deliver medications through the pump and stay within the recommendations from the Polyanalges[employer] Committee Guidelines. Depending on dose and concentration these pumps may need to be refilled sooner than 3 months as we titrate. A UDS is needed to verify patient's compliance with our office pain contract. This is ordered based off specific treatments related to chronic pain with the potential to abuse certain medications.
[2024-06-12 09:59] VITALS: BP 156/92; PULSE 84; RESP 16; O2SAT 96
[2024-06-12 10:04] VITALS: BP 156/92; PULSE 84; RESP 16; O2SAT 96
[2024-06-12 10:15] VITALS: BP 135/78; PULSE 62; RESP 16; TEMP 36.6; O2SAT 92
== END 2024-06-12 10:15 | disposition home or self-care (01) ==
PROVIDERS: PCP Internal Medicine Adolescent Medicine; Visit Provider Nurse Practitioner Family
DX: M51.16 Intervertebral disc disorders with radiculopathy, lumbar region (principal)
CPT/HCPCS: 62370

== ENCOUNTER 2024-08-10 09:11 | Day surgery (SDC) | payer MEDICARE, SELFPAY ==
[2024-08-10 09:35] VITALS: BP 107/78; PULSE 78; RESP 16; TEMP 36.6; O2SAT 96; BMI 20.3
--- NOTE | 2024-08-10 09:40 | P.PCN_ITS ---
Procedure Date: 08/10/24 Time: 09:45 Anesthesiologist:: Gayle France APRN Complications:: None Pre-procedure Diagnosis:: Degenerative disc disease of lumbar spine with lumbar radiculopathy symptoms, chronic pain syndrome, spinal stenosis Post-procedure Diagnosis:: Same Indications for Procedure:: Patient is a pleasant 68-year-old female who presents today for intrathecal refill and reprogram. Today she rates her pain a 6 out of 10. She denies any new injuries or trauma. Patient is currently managed with morphine 1 mg/mL with a daily dose of 0.1899 mg/day. She denies any side effects from this medication however is asking if we can go up on it. Patient does also have questions regarding if she would be a candidate for the mild procedure. Her Homero has been reviewed and is appropriate. Physical Exam: General: Alert and oriented x3, no acute distress, pleasant and cooperative Lungs: Respirations even and unlabored, symmetrical chest expansion Eyes: PERRL Musculoskeletal: Flexion and extension of lumbar [spine] somewhat guarded secondary to pain, [antalgic gait noted] Neurological: Speech clear, no gross sensory deficit Procedure Details:: Informed consent was obtained and the risk and benefits of the procedure were explained to the patient. The patient had noninvasive monitoring placed including noninvasive blood pressure cuff and pulse oximeter. Patient's pump was interrogated. The area over the pump was cleansed with chlorhexidine as a cleansing solution. In sterile fashion the pump was accessed with a 22-gauge needle. Approximately 7.9 mls of the pump solution was removed and discarded appropriately. The pump was then refilled with 20 mL's of morphine 1 mg/mL. The needle was withdrawn and a bandage was placed over the puncture site. The infusion rate was reprogrammed and increased 10% to morphine 0.2089 mg/day. The patient tolerated well with no complication. Plan and Disposition:: Patient tolerated the procedure well with no complications and was discharged neurologically intact. We did also adjust her boluses per day and changed it to every 4 hours. I did discuss with the patient that I we will order updated imaging including x-ray of the lower lumbar spine and an MRI without contrast of her lumbar spine to follow. Patient was counseled we will follow-up after this imaging to see if she is a candidate for the minimally invasive lumbar decompression. Patient does have symptoms consistent with neurogenic claudication. Patient will return to clinic on or before their next intrathecal refill date. We will see the patient back in the clinic at the next intrathecal refill. Patient has been instructed to contact the clinic with any concerns before the next appointment. Dr. Noel has reviewed this note and agrees with this plan of care. This note was dictated using voice recognition software and make contain errors or omissions. -- It Is medically necessary for this patient to continue to have their intrathecal pump refilled at regular intervals. This patient had an intrathecal pain pump implanted after meeting criteria of chronic intractable pain for greater than 3 months and failing conservative treatments. Patient has committed and been compliant to the treatment plan and all planned follow up care. Since implantation of the intrathecal pain pump, the patient has had decreased pain and been more functional. Oral medications have been reduced including intake of oral opioids. Patient continues to do well with intrathecal therapy with decrease in pain symptoms and increase in functional status. Stopping i ntrathecal medications can lead to life threatening withdrawal, seizures, cardiac arrest, severe pain, and possible . Pumps that are not refilled at regular intervals can be damages and cause and need for replacement. We continually titrate dose and concentration to optimize pain relief and function. We are limited in concentration for certain drugs to safely deliver medications through the pump and stay within the recommendations from the Polyanalgesic Consensus Committee Guidelines. Depending on dose and concentration these pumps may need to be refilled sooner than 3 months as we titrate. A UDS is needed to verify patient's compliance with our office pain contract. This is ordered based off specific treatments related to chronic pain with the potential to abuse certain medications.
[2024-08-10 09:41] VITALS: BP 148/77; PULSE 81; RESP 18; O2SAT 99
[2024-08-10 09:42] VITALS: BP 148/77; PULSE 82; RESP 18; O2SAT 99
[2024-08-10 09:53] VITALS: BP 122/57; PULSE 69; RESP 16; O2SAT 92
--- NOTE | 2024-08-10 10:01 | XR_ITS ---
FINAL REPORT CLINICAL HISTORY: Low back pain with lumbar radiculopathy COMPARISON: 06/25/2022 FINDINGS: There are post kyphoplasty changes with mild compression deformities of L1 and L2. No new fractures are identified. There is minimal anterolisthesis of L3 on 4. There is moderate degenerative disc disease at L4-5. IMPRESSION: Chronic changes without new fracture. Reviewed, Interpreted and Dictated by Eder Sharma MD Transcribed by Marie Sanders Authenticated and . [facility]
== END 2024-08-10 09:53 | disposition home or self-care (01) ==
PROVIDERS: PCP Internal Medicine Adolescent Medicine; Visit Provider Nurse Practitioner Family
DX: M51.16 Intervertebral disc disorders with radiculopathy, lumbar region (principal); G89.4 Chronic pain syndrome; M48.00 Spinal stenosis, site unspecified
CPT/HCPCS: 62370; 72100

== ENCOUNTER 2024-08-27 12:34 | Outpatient (CLI) | payer MEDICARE, SELFPAY ==
--- NOTE | 2024-08-27 12:40 | MR_ITS ---
FINAL REPORT CLINICAL HISTORY: lower back pain with burning , tingling, and numbness down legs unsteady gate pt has medtronic pain pump COMPARISON: None FINDINGS: Multiplanar MR imaging of the lumbar spine was performed without contrast. On the sagittal T2-weighted images, there is abnormal decreased signal throughout the lumbar discs. There are significant compression deformities of the L1 and L2 vertebral bodies. Prior kyphoplasties have been performed at these levels, and the highest degree of compression is in the L1 vertebral body. The vertebral alignment is normal. L1-2: A moderate annular bulge is present with moderate bilateral neural foraminal narrowing. L2-3: A moderate annular bulge is present, with moderate bilateral neural foraminal narrowing. L3-4: A moderate annular bulge is present, with moderate right and moderate to severe left neural foraminal narrowing. L4-5: A moderate annular bulge is present with moderate bilateral neural foraminal narrowing. L5-S1: There is no significant canal stenosis or neural foraminal narrowing. IMPRESSION: Lumbar degenerative change, most prominent at the L3-4 level. Reviewed, Interpreted and Dictated by Ezequiel Logan MD Transcribed by Joaquina Peters Authenticated and [facility]
--- NOTE | 2024-08-27 13:04 | XR_ITS ---
FINAL REPORT CLINICAL HISTORY: correct position of medtronic pain pump prior to doing mri FINDINGS: 2 VIEW ABDOMEN 2 views of the abdomen were obtained to determine the correct position of the Medtronic pain pump. The pain pump lies within the plane of the Z axis. It is not oriented 90 degrees. Note is made of old kyphoplasty of L1 and L2. IMPRESSION: Pain pump lying in the plane of the Z axis is not oriented 90 degrees. Reviewed, Interpreted and Dictated by Ezequiel Logan MD Transcribed by Kitty Tian Authenticated and [facility]
== END 2024-08-27 23:59 | disposition home or self-care (01) ==
PROVIDERS: PCP Internal Medicine Adolescent Medicine; Visit Provider Nurse Practitioner Family
DX: M54.50 Low back pain, unspecified (principal)
CPT/HCPCS: 72148; 74019

== ENCOUNTER 2024-09-05 09:56 | Outpatient (POV) | payer MEDICARE, SELFPAY ==
--- NOTE | 2024-09-05 10:08 | EXP.PAIN.PRO ---
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 Today she rates her pain a 5 out of 10. She denies any new trauma or injury. She does state that she continues to have the worsening pain in her low back that radiates down into her hips and down her bilateral legs with numbness and tingling. Patient states it is constant and does interfere with her ability perform activities of daily living such as cooking and cleaning. Patient is interested in any help we may be able to provide. Patient's does have cancer and so she states she has to do a lot of the work around the house including mowing the yard and everything else and on certain days she has a lot more difficulty performing these task due to her worsening pain. Patient is currently managed with morphine 1 mg/mL with a daily dose of 0.2089 mg/day. She denies any side effects. She is asking for an additional increase. Her Homero has been reviewed and is appropriate. Physical Exam: General: Alert and oriented x3, no acute distress, pleasant and cooperative Lungs: Respirations even and unlabored, symmetrical chest expansion Eyes: PERRL Musculoskeletal: Flexion and extension of lumbar [spine] somewhat guarded secondary to pain, [antalgic gait noted] positive leg raise Neurological: Speech clear, no gross sensory deficit Procedure Details:: Informed consent was obtained and the risk and benefits of the procedure were explained to the patient. Patient did have noninvasive monitoring was placed including noninvasive blood pressure cuff and pulse oximeter. Patient's pump was interrogated and was reprogrammed to Increase morphine 15% . The patient tolerated the procedure well with no complications. Plan and Disposition:: Patient tolerated the procedure well with no complications and was discharged neurologically intact. Patient is experiencing worsening pain in her low back with numbness and tingling into her lower extremities. Patient did have limited range of motion of her lumbar spine with a positive leg raise. I did discuss with patient that I do believe they would benefit from a lumbar epidural steroid injection. Risk and benefits were discussed with patient and the patient would like to proceed forward with this plan of care. Patient is not on any blood thinners. Patient has tried and failed conservative therapy including continued at home stretching exercise for longer than 12 weeks. Patient has had chronic back pain for years that is progressively worsened. Patient has not had any lumbar epidurals from our office. I did review over her most recent MRI of her lumbar spine with more significant findings at the L3-L4 level including a moderate annular disc bulge, moderate right and moderate to severe left neuroforaminal narrowing. We will schedule the patient for an LESI L3-L4 under fluoroscopy. Patient has been instructed to contact the clinic with any concerns before the next appointment. Dr. Noel has reviewed this note and agrees with this plan of care. This note was dictated using voice recognition software and make contain errors or omissions. All injections are used with Lidocaine, Bupivacaine and Depo Medrol. Occasionally urine drug screen is needed to verify patient's compliance with our office pain contract. This is ordered based off specific treatments related to chronic pain with the potential to abuse certain medications. Patient will return to clinic on or before their next intrathecal refill date. We will see the patient back in the clinic at the next intrathecal refill. Patient has been instructed to contact the clinic with any concerns before the next appointment. Dr. Noel has reviewed this note and agrees with this plan of care. This note was dictated using voice recognition software and make contain errors or omissions. -- It Is medically necessary for this patient to continue to have their intrathecal pump refilled at regular intervals. This patient had an intrathecal pain pump implanted after meeting criteria of chronic intractable pain for greater than 3 months and failing conservative treatments. Patient has committed and been compliant to the treatment plan and all planned follow up care. Since implantation of the intrathecal pain pump, the patient has had decreased pain and been more functional. Oral medications have been reduced including intake of oral opioids. Patient continues to do well with intrathecal therapy with decrease in pain symptoms and increase in functional status. Stopping intrathecal medications can lead to life threatening withdrawal, seizures, cardiac arrest, severe pain, and possible . Pumps that are not refilled at regular intervals can be damages and cause and need for replacement. We continually titrate dose and concentration to optimize pain relief and function. We are limited in concentration for certain drugs to safely deliver medications through the pump and stay within the recommendations from the Polyanalgesic Consensus Committee Guidelines. Depending on dose and concentration these pumps may need to be refilled sooner than 3 months as we titrate. A UDS is needed to verify patient's compliance with our office pain contract. This is ordered based off specific treatments related to chronic pain with the potential to abuse certain medications.
[2024-09-05 10:20] VITALS: BP 116/62; PULSE 80; RESP 14; O2SAT 96; BMI 20.3
== END 2024-09-05 23:59 | disposition home or self-care (01) ==
PROVIDERS: PCP Internal Medicine Adolescent Medicine; Visit Provider Nurse Practitioner Family
DX: M50.30 Other cervical disc degeneration, unspecified cervical region (principal); M51.16 Intervertebral disc disorders with radiculopathy, lumbar region; G89.4 Chronic pain syndrome; Z73.89 Other problems related to life management difficulty
CPT/HCPCS: 62368; 99212; 99213; G0463

== ENCOUNTER 2024-10-05 10:11 | Day surgery (SDC) | payer MEDICARE, SELFPAY ==
--- NOTE | 2024-10-05 10:16 | EXP.HP ---
History of Present Illness *Admission Date: 10/05/24 *Reason for visit:: Intrathecal refill; DDD *History of present illness: Degenerative disc disease [facility] Disclaimer: The information contained in this section may have been updated after the patient was seen, as this information can be updated by other users. Medical History Colitis Breast cancer s/p Bilateral mastectomy with implants for reconstruction circa 1979. Also had right axillary dissection. Dizziness Dyspnea Anxiety Migraine COPD (chronic obstructive pulmonary disease) Hypertension Dyspnea Tobacco dependence syndrome Chest pain Surgical History History of appendectomy Concomitant with open hysterectomy Hx of breast implants, bilateral Breast cancer reconstruction H/O mastectomy Bilateral, circa 1983 breast cancer. Also reports right axillary dissection. S/P ventral herniorrhaphy Has had several repairs in in . She is unsure whether they used mesh. By her recollection, these were hiatal hernias. She reports she had several bulges on her abdomen that where the hernias. S/P exploratory laparotomy Including small bowel resection for small bowel obstruction History of colonoscopy Last colonoscopy circa 2010, reportedly normal. History of hysterectomy Open, age 26. Endometrial cancer. Family History Other No significant family history Social History Smoking Status: Current every day smoker tobacco type: cigarettes packs per day: 1 alcohol intake: never substance use type: marijuana current occupational status: other Travel in the last 8 weeks?: None household members: spouse and children housing: house current occupational exposures/hazards: No caffeine: Yes Have you lived/traveled outside [place] in past 30 days?: No Contact w/someone who lives/traveled outside US past 30 days?: No Exposure to someone with infectious disease in past 14 days?: No Do you have a fever (greater than 100.4 F or 38 C)?: No Have you tested positive for COVID-19?: No Exposed to someone with COVID-19 in past 14 days?: No Do you have a sore throat?: No Do you have a cough?: No Do you have any weakness?: No Do you have any diarrhea?: No Are you experiencing any unusual bleeding?: No Do you have any muscle aches/pain?: No Do you have any abdominal pain?: No Are you experiencing loss of taste or smell?: No Other Medical History Have you received the Flu Vaccine for this season: Yes Have you received the Pneumonia Vaccine: Yes Review of Systems Review of Systems Review of systems:: pertinent systems reviewed and negative unless documented below Review of systems (narrative): Review of Systems: General: No recent weight changes, no fever, no sleep disturbances Respiratory: No cough, no shortness of air, no recurring pulmonary infections Cardiovascular/peripheral vascular: No chest pain, no palpitations, no edema, no shortness of breath Gastrointestinal: No new onset incontinence, normal bowel movements reported Genitourinary: No new onset incontinence Musculoskeletal: Chronic back pain Psychiatric: [Normal mood/affect] Neurological: [Denies weakness in extremities], [denies balance issues] Meds Home Medications and Allergies Home Medications ?Medication ?Instructions ?Recorded ?Confirmed ?Type propranolol 40 mg tablet 40 mg PO BID #60 tabs 08/09/23 09/05/24 Rx amlodipine 5 mg tablet 5 mg PO BID 08/13/23 09/05/24 History pregabalin 200 mg capsule 200 mg PO BID 08/13/23 09/05/24 History dextroamphetamine-amphetamine 20 20 mg PO DAILY 02/03/24 09/05/24 History mg tablet duloxetine 60 mg capsule,delayed 60 mg PO DAILY 02/03/24 09/05/24 History release losartan 50 mg tablet 50 mg PO BID 02/03/24 09/05/24 History polyethylene glycol 3350 17 17 g PO DAILY 30 days #510 grams 02/06/24 09/05/24 Rx gram/dose oral powder (Miralax) clonidine HCl 0.1 mg tablet 0.1 mg PO DIRECTED 02/15/24 09/05/24 History fluticasone propionate 50 50 mcg intranasal DIRECTED 03/12/24 09/05/24 History mcg/actuation nasal spray,suspension New Prescriptions to Start Prescriptions: Allergies Allergy/AdvReac Type Severity Reaction Status Date / Time albuterol (From VENTOLIN HFA) Allergy Mild Verified 03/12/24 14:40 codeine (CODEINE) Allergy Mild Verified 03/12/24 14:40 erythromycin base Allergy Mild Verified 03/12/24 14:40 (ERYTHROMYCIN BASE) ketorolac (From TORADOL) Allergy Mild HEMMORHAGE Verified 03/12/24 14:40 meperidine (From DEMEROL) Allergy Mild Verified 03/12/24 14:40 Penicillins (PENICILLINS) Allergy Mild Verified 03/12/24 14:40 Sulfa (Sulfonamide Allergy Mild Verified 03/12/24 14:40 Antibiotics) (SULFA (SULFONAMIDE ANTIBIOTICS)) tetracycline (TETRACYCLINE) Allergy Mild Verified 03/12/24 14:40 buprenorphine (From SUBOXONE) Allergy Unknown I-HIVES Verified 03/12/24 14:40 morphine (From ANA) Allergy Unknown I-HIVES Verified 03/12/24 14:40 naloxone (From SUBOXONE) Allergy Unknown I-HIVES Verified 03/12/24 14:40 propoxyphene (From Allergy Unknown I-HIVES Verified 03/12/24 14:40 DARVOCET-N) Exam Constitutional Constitutional: no acute distress *Routine HEENT Exam Head: Present normocephalic and atraumatic Eye: Present PERRL ENT: Present mucous membranes moist *Routine Neck Exam Neck: Present supple *Routine Respiratory Exam Respiratory: Present CTA bilaterally *Routine Cardiovascular Exam Cardiovascular: Present RRR *Routine Abdominal Exam Abdominal: Present soft *Routine Rectal Exam Rectal:: deferred *Routine Genitalia Exam Genitalia:: normal female Routine Back/Spine/Pelvis Exam Back/Spine: Present pain with flexion *Routine Skin Exam Skin: Present intact and warm *Routine Neurological Exam Neurological: Present alert and oriented X3 Routine Psychiatric Exam Psychiatric: Present normal affect and normal thought process Assessment and Plan *Assessment and plan (1) Back pain: Status: Acute Category: Medical Code(s): M54.9 - Dorsalgia, unspecified (2) Degenerative disc disease, thoracic: Status: Acute Category: Medical Code(s): M51.34 - Other intervertebral disc degeneration, thoracic region (3) Degenerative disc disease, lumbar: Status: Acute Category: Medical Code(s): M51.369 - Other intervertebral disc degeneration, lumbar region without mention of lumbar back pain or lower extremity pain (4) Degenerative disc disease, cervical: Status: Acute Category: Medical Code(s): M50.30 - Other cervical disc degeneration, unspecified cervical region Plan Patient has been instructed to contact the clinic with any concerns before the next appointment. Dr. Noel has reviewed this note and agrees with this plan of care. This note was dictated using voice recognition software and make contain errors or omissions. All injections are used with Lidocaine, Bupivacaine and dexamethasone. Occasionally urine drug screen is needed to verify patient's compliance with our office pain contract. This is ordered based off specific treatments related to chronic pain with the potential to abuse certain medications.
--- NOTE | 2024-10-05 10:18 | P.PCN_ITS ---
Procedure Date: 10/05/24 Time: 10:36 Anesthesiologist:: Gayle France APRN Complications:: None Pre-procedure Diagnosis:: Degenerative disc disease, chronic pain syndrome Post-procedure Diagnosis:: Same Indications for Procedure:: Patient is a pleasant 68-year-old female who presents today for intrathecal refill and reprogram. Today she rates her pain a 4 out of 10. She denies any new trauma or injury. Patient is currently managed with morphine 1 mg/mL with a daily dose of. Patient denies any side effects and states she could use an additional adjustment. Physical Exam: General: Alert and oriented x3, no acute distress, pleasant and cooperative Lungs: Respirations even and unlabored, symmetrical chest expansion Eyes: PERRL Musculoskeletal: Flexion and extension of lumbar [spine] somewhat guarded secondary to pain, [antalgic gait noted] Neurological: Speech clear, no gross sensory deficit Procedure Details:: Informed consent was obtained and the risk and benefits of the procedure were explained to the patient. The patient had noninvasive monitoring placed including noninvasive blood pressure cuff and pulse oximeter. Patient's pump was interrogated. The area over the pump was cleansed with chlorhexidine as a cleansing solution. In sterile fashion the pump was accessed with a 22-gauge needle. Approximately 6.3 mls of the pump solution was removed and discarded appropriately. The pump was then refilled with 20 mL's of morphine 1 mg/mL. The needle was withdrawn and a bandage was placed over the puncture site. The infusion rate was reprogrammed and morphine 0.2762 mg/day. The patient tolerated well with no complication. Plan and Disposition:: Patient tolerated the procedure well with no complications and was discharged neurologically intact. Patient will return to clinic on or before their next intrathecal refill date. We will see the patient back in the clinic at the next intrathecal refill. Patient has been instructed to contact the clinic with any concerns before the next appointment. Dr. Noel has reviewed this note and agrees with this plan of care. This note was dictated using voice recognition software and make contain errors or omissions. -- It Is medically necessary for this patient to continue to have their intrathecal pump refilled at regular intervals. This patient had an intrathecal pain pump implanted after meeting criteria of chronic intractable pain for greater than 3 months and failing conservative treatments. Patient has committed and been compliant to the treatment plan and all planned follow up care. Since implant ation of the intrathecal pain pump, the patient has had decreased pain and been more functional. Oral medications have been reduced including intake of oral opioids. Patient continues to do well with intrathecal therapy with decrease in pain symptoms and increase in functional status. Stopping intrathecal medications can lead to life threatening withdrawal, seizures, cardiac arrest, severe pain, and possible . Pumps that are not refilled at regular intervals can be damages and cause and need for replacement. We continually titrate dose and concentration to optimize pain relief and function. We are limited in concentration for certain drugs to safely deliver medications through the pump and stay within the recommendations from the Polyanalgesic Consensus Committee Guidelines. Depending on dose and concentration these pumps may need to be refilled sooner than 3 months as we titrate. A UDS is needed to verify patient's compliance with our office pain contract. This is ordered based off specific treatments related to chronic pain with the potential to abuse certain medications.
[2024-10-05 10:33] VITALS: BP 170/93; PULSE 75; RESP 18; O2SAT 98
[2024-10-05 10:37] VITALS: BP 144/84; PULSE 77; RESP 16; TEMP 36.7; O2SAT 100; BMI 21.1
[2024-10-05 10:50] VITALS: BP 141/97; PULSE 72; RESP 16; O2SAT 99
== END 2024-10-05 10:50 | disposition home or self-care (01) ==
PROVIDERS: PCP Internal Medicine Adolescent Medicine; Visit Provider Nurse Practitioner Family
DX: M51.34 Other intervertebral disc degeneration, thoracic region (principal); M51.369 Other intervertebral disc degeneration, lumbar region without mention of lumbar back pain or lower extremity pain; M50.30 Other cervical disc degeneration, unspecified cervical region; G89.4 Chronic pain syndrome
CPT/HCPCS: 62370

== ENCOUNTER 2024-11-09 11:46 | Day surgery (SDC) | payer MEDICARE, SELFPAY ==
--- NOTE | 2024-11-09 11:52 | EXP.PM.HP ---
History of Present Illness *Admission Date: 11/09/24 *Reason for visit:: Intrathecal refill; DDD *History of present illness: Same [facility] Disclaimer: The information contained in this section may have been updated after the patient was seen, as this information can be updated by other users. Medical History Colitis Breast cancer s/p Bilateral mastectomy with implants for reconstruction circa 1979. Also had right axillary dissection. Dizziness Dyspnea Anxiety Migraine COPD (chronic obstructive pulmonary disease) Hypertension Dyspnea Tobacco dependence syndrome Chest pain Surgical History History of appendectomy Concomitant with open hysterectomy Hx of breast implants, bilateral Breast cancer reconstruction H/O mastectomy Bilateral, circa 1983 breast cancer. Also reports right axillary dissection. S/P ventral herniorrhaphy Has had several repairs in in . She is unsure whether they used mesh. By her recollection, these were hiatal hernias. She reports she had several bulges on her abdomen that where the hernias. S/P exploratory laparotomy Including small bowel resection for small bowel obstruction History of colonoscopy Last colonoscopy circa 2010, reportedly normal. History of hysterectomy Open, age 26. Endometrial cancer. Family History Other No significant family history Social History Smoking Status: Current every day smoker tobacco type: cigarettes packs per day: 1 alcohol intake: never substance use type: marijuana current occupational status: other Travel in the last 8 weeks?: None household members: spouse and children housing: house current occupational exposures/hazards: No caffeine: Yes Have you lived/traveled outside US in past 30 days?: No Contact w/someone who lives/traveled outside [place] past 30 days?: No Exposure to someone with infectious disease in past 14 days?: No Do you have a fever (greater than 100.4 F or 38 C)?: No Have you tested positive for COVID-19?: No Exposed to someone with COVID-19 in past 14 days?: No Do you have a sore throat?: No Do you have a cough?: No Do you have any weakness?: No Do you have any diarrhea?: No Are you experiencing any unusual bleeding?: No Do you have any muscle aches/pain?: No Do you have any abdominal pain?: No Are you experiencing loss of taste or smell?: No Other Medical History Have you received the Flu Vaccine for this season: No Have you received the Pneumonia Vaccine: No Review of Systems Review of Systems Review of systems:: pertinent systems reviewed and negative unless documented below Review of systems (narrative): Review of Systems: General: No recent weight changes, no fever, no sleep disturbances Respiratory: No cough, no shortness of air, no recurring pulmonary infections Cardiovascular/peripheral vascular: No chest pain, no palpitations, no edema, no shortness of breath Gastrointestinal: No new onset incontinence, normal bowel movements reported Genitourinary: No new onset incontinence Musculoskeletal: Chronic back pain Psychiatric: [Normal mood/affect] Neurological: [Denies weakness in extremities], [denies balance issues] Meds Home Medications and Allergies Home Medications ?Medication ?Instructions ?Recorded ?Confirmed ?Type propranolol 40 mg tablet 40 mg PO BID #60 tabs 08/09/23 10/05/24 Rx amlodipine 5 mg tablet 5 mg PO BID 08/13/23 10/05/24 History pregabalin 200 mg capsule 200 mg PO BID 08/13/23 10/05/24 History dextroamphetamine-amphetamine 20 20 mg PO DAILY 02/03/24 10/05/24 History mg tablet duloxetine 60 mg capsule,delayed 60 mg PO DAILY 02/03/24 10/05/24 History release losartan 50 mg tablet 50 mg PO BID 02/03/24 10/05/24 History polyethylene glycol 3350 17 17 g PO DAILY 30 days #510 grams 02/06/24 10/05/24 Rx gram/dose oral powder (Miralax) clonidine HCl 0.1 mg tablet 0.1 mg PO DIRECTED 02/15/24 10/05/24 History fluticasone propionate 50 50 mcg intranasal DIRECTED 03/12/24 10/05/24 History mcg/actuation nasal spray,suspension New Prescriptions to Start Prescriptions: Allergies Allergy/AdvReac Type Severity Reaction Status Date / Time albuterol (From VENTOLIN HFA) Allergy Mild Verified 03/12/24 14:40 codeine (CODEINE) Allergy Mild Verified 03/12/24 14:40 erythromycin base Allergy Mild Verified 03/12/24 14:40 (ERYTHROMYCIN BASE) ketorolac (From TORADOL) Allergy Mild HEMMORHAGE Verified 03/12/24 14:40 meperidine (From DEMEROL) Allergy Mild Verified 03/12/24 14:40 Penicillins (PENICILLINS) Allergy Mild Verified 03/12/24 14:40 Sulfa (Sulfonamide Allergy Mild Verified 03/12/24 14:40 Antibiotics) (SULFA (SULFONAMIDE ANTIBIOTICS)) tetracycline (TETRACYCLINE) Allergy Mild Verified 03/12/24 14:40 buprenorphine (From SUBOXONE) Allergy Unknown I-HIVES Verified 03/12/24 14:40 morphine (From ANA) Allergy Unknown I-HIVES Verified 03/12/24 14:40 naloxone (From SUBOXONE) Allergy Unknown I-HIVES Verified 03/12/24 14:40 propoxyphene (From Allergy Unknown I-HIVES Verified 03/12/24 14:40 DARVOCET-N) Exam Constitutional Constitutional: no acute distress *Routine HEENT Exam Head: Present normocephalic and atraumatic Eye: Present PERRL ENT: Present mucous membranes moist *Routine Neck Exam Neck: Present supple *Routine Respiratory Exam Respiratory: Present CTA bilaterally *Routine Cardiovascular Exam Cardiovascular: Present RRR *Routine Abdominal Exam Abdominal: Present soft *Routine Rectal Exam Rectal:: deferred *Routine Genitalia Exam Genitalia:: deferred Routine Back/Spine/Pelvis Exam Back/Spine: Present pain with flexion *Routine Skin Exam Skin: Present intact, dry and warm *Routine Neurological Exam Neurological: Present alert and oriented X3 Routine Psychiatric Exam Psychiatric: Present normal affect and normal thought process Assessment and Plan *Assessment and plan (1) Degenerative disc disease, thoracic: Status: Acute Category: Medical Code(s): M51.34 - Other intervertebral disc degeneration, thoracic region (2) Degenerative disc disease, cervical: Status: Acute Category: Medical Code(s): M50.30 - Other cervical disc degeneration, unspecified cervical region (3) Degenerative disc disease, lumbar: Status: Acute Category: Medical Code(s): M51.369 - Other intervertebral disc degeneration, lumbar region without mention of lumbar back pain or lower extremity pain Plan Patient has been instructed to contact the clinic with any concerns before the next appointment. Dr. Noel has reviewed this note and agrees with this plan of care. This note was dictated using voice recognition software and make contain errors or omissions. All injections are used with Lidocaine, Bupivacaine and dexamethasone. Occasionally urine drug screen is needed to verify patient's compliance with our office pain contract. This is ordered based off specific treatments related to chronic pain with the potential to abuse certain medications.
--- NOTE | 2024-11-09 11:54 | EXP.PAIN.PRO ---
Procedure Date: 11/09/24 Time: 12:11 Anesthesiologist:: Gayle France APRN Complications:: None Pre-procedure Diagnosis:: Degenerative disc disease of cervical, thoracic and lumbar spine, chronic pain syndrome Post-procedure Diagnosis:: Same Indications for Procedure:: Patient is a pleasant 69-year-old female who presents today for intrathecal refill and reprogram. Today she rates her pain 4 out of 10 however with any type of increased activity she does state the pain will get much worse.She is requesting an increase on her pump settings. She is currently managed with morphine 1 mg/mL with a daily dose of 0.2762 mg/day. She denies any side effects. Her Homero has been reviewed and is appropriate. Physical Exam: General: Alert and oriented x3, no acute distress, pleasant and cooperative Lungs: Respirations even and unlabored, symmetrical chest expansion Eyes: PERRL Musculoskeletal: Flexion and extension of lumbar [spine] somewhat guarded secondary to pain, [antalgic gait noted] Neurological: Speech clear, no gross sensory deficit Procedure Details:: Informed consent was obtained and the risk and benefits of the procedure were explained to the patient. The patient had noninvasive monitoring placed including noninvasive blood pressure cuff and pulse oximeter. Patient's pump was interrogated. The area over the pump was cleansed with chlorhexidine as a cleansing solution. In sterile fashion the pump was accessed with a 22-gauge needle. Approximately 9.2 mls of the pump solution was removed and discarded appropriately. The pump was then refilled with 20 mL's of morphine 3 mg/mL. The needle was withdrawn and a bandage was placed over the puncture site. The infusion rate was reprogrammed and increased 10% to morphine 0.3032 mg/day. The patient tolerated well with no complication. Plan and Disposition:: Patient tolerated the procedure well with no complications and was discharged neurologically intact. Patient will return to clinic on or before their next intrathecal refill date. We will see the patient back in the clinic at the next intrathecal refill. Patient has been instructed to contact the clinic with any concerns before the next appointment. Dr. Noel has reviewed this note and agrees with this plan of care. This note was dictated using voice recognition software and make contain errors or omissions. -- It Is medically necessary for this patient to continue to have their intrathecal pump refilled at regular intervals. This patient had an intrathecal pain pump implanted after meeting criteria of chronic intractable pain for greater than 3 months and failing conservative treatments. Patient has committed and been compliant to the treatment plan and all planned follow up care. Since implantation of the intrathecal pain pump, the patient has had decreased pain and been more functional. Oral medications have been reduced including intake of oral opioids. Patient continues to do well with intrathecal therapy with decrease in pain symptoms and increase in functional status. Stopping intrathecal medications can lead to life threatening withdrawal, seizures, cardiac arrest, severe pain, and possible . Pumps that are not refilled at regular intervals can be damages and cause and need for replacement. We continually titrate dose and concentration to optimize pain relief and function. We are limited in concentration for certain drugs to safely deliver medications through the pump and stay within the recommendations from the Polyanalgesic Consensus Committee Guidelines. Depending on dose and concentration these pumps may need to be refilled sooner than 3 months as we titrate. A UDS is needed to verify patient's compliance with our office pain contract. This is ordered based off specific treatments related to chronic pain with the potential to abuse certain medications.
[2024-11-09 12:00] VITALS: BP 170/90; PULSE 73; RESP 18; TEMP 36.4; O2SAT 97; BMI 21.4
[2024-11-09 12:09] VITALS: BP 170/90; PULSE 73; RESP 18; O2SAT 97
[2024-11-09 12:19] VITALS: BP 144/89; PULSE 72; RESP 16; O2SAT 96
== END 2024-11-09 12:19 | disposition home or self-care (01) ==
PROVIDERS: PCP Internal Medicine Adolescent Medicine; Visit Provider Nurse Practitioner Family
DX: Z45.1 Encounter for adjustment and management of infusion pump (principal); G89.4 Chronic pain syndrome; M50.30 Other cervical disc degeneration, unspecified cervical region; M51.34 Other intervertebral disc degeneration, thoracic region; M51.369 Other intervertebral disc degeneration, lumbar region without mention of lumbar back pain or lower extremity pain; Z85.3 Personal history of malignant neoplasm of breast; I10 Essential (primary) hypertension; J44.9 Chronic obstructive pulmonary disease, unspecified; F17.210 Nicotine dependence, cigarettes, uncomplicated; Z79.899 Other long term (current) drug therapy; Z88.1 Allergy status to other antibiotic agents; Z88.5 Allergy status to narcotic agent; Z88.0 Allergy status to penicillin; Z88.2 Allergy status to sulfonamides; Z88.8 Allergy status to other drugs, medicaments and biological substances
CPT/HCPCS: 62370

== ENCOUNTER 2024-11-22 16:42 | Outpatient (CLI) | payer MEDICARE, SELFPAY ==
--- NOTE | 2024-11-22 | XR_ITS ---
PROCEDURE INFORMATION: Exam: XR Right Finger(s) Exam date and time: 11/22/2024 4:53 PM Age: 69 years old Clinical indication: Pain; Other: 1st digit; Additional info: Right thumb pain and stiffness TECHNIQUE: Imaging protocol: Radiologic exam of the right fingers. Views: Minimum 2 views. COMPARISON: DX (HAND PA, HAND, HAND PA) 11/13/2018 12:14 PM FINDINGS: Bones/joints: No displaced fracture. Severe degenerative changes of first CMC joint. Mild degenerative changes of first MCP, interphalangeal joints. [id number] degenerative changes of second MCP joint. No dislocation. No definite erosions. Soft tissues: Unremarkable. IMPRESSION: No displaced fracture.
--- OUTSIDE RECORDS SUMMARY | 2024-11-22 16:45 | XMS_ITS | Clinical Summary ---
Author Organization [facility] Address [address] [id number] Care Team Providers Care Chief Of Staff Name Role Phone Toni Palmer MD Primary Care Provider [phone] Allergies Active Allergy Reactions Criticality Noted Date Comments Codeine Anaphylaxis High 02/29/2020 Erythromycin Hives Medium 02/29/2020 Ketorolac Tromethamine Other - please do cument in the comment field Low 02/29/2020 Meperidine Hcl Anaphylaxis High 02/29/2020 Penicillin G Anaphylaxis High 02/29/2020 Propoxyphene Anaphylaxis High 02/29/2020 Tetracycline Hives Medium 02/29/2020 Medications amLODIPine (Norvasc) 5 MG tablet 0 Active promethazine (Phenergan) 25 MG tablet 0 Active cloNIDine (Catapres) 0.1 MG tablet 0 Active amphetamine-dex troamphetamine (Adderall) 15 MG tablet 0 Active propranolol (Inderal) 20 MG tablet 2 (two) times a day. 0 Active docusate sodium (Colace) 100 MG capsule Take 100 mg by mouth 2 (two) times a day. Active dicyclomine (Bentyl) 20 MG tablet Take by mouth 4 (four) times a day (before meals and nightly). Active polyethylene glycol (Miralax) 17 g packet Take 17 g by mouth 1 (one) time each day. Active fexofenadine (Lucretia) 180 MG tablet Take 180 mg by mouth 1 (one) time each day. Active denosumab (Prolia) 60 MG/ML injection Inject 60 mg under the skin 1 (one) time. Active lactulose (Chronulac) 10 GM/15ML solution Take 20 g by mouth 3 (three) times a day. Active meclizine (Antivert) 25 MG tablet Take 25 mg by mouth 3 (three) times a day if needed. Active cholecalciferol (Vitamin D3) 25 MCG (1000 UT) tablet Take 1,000 Units by mouth 1 (one) time each day. Active losartan (Cozaar) 25 MG tablet Take 25 mg by mouth 1 (one) time each day. 3 Active pregabalin (Lyrica) 200 MG capsule TAKE ONE CAPSULE BY MOUTH TWICE DAILY MAY CAUSE DROWSINESS 3 Active Active Problems Problem Noted Date Diagnosed Date Stage 3a chronic kidney disease 06/01/2021 Immunizations Immunization Administration Dates Next Due Influenza, Split (incl. lisa fied surface antigen) 03/23/2007,03/06/2003 Influenza, Unspecified 04/07/2012,05/23/2007 Influenza, high-dose, quadrivalent 01/28/2021, Influenza, injectable, quadrivalent 01/09/2018,0 02/11/2017,03/27/2014 Influenza, injectable, quadr ivalent, preservative free 04/04/2019 Influenza, recombinant, quad rivalent, injectable, preservative free 05/07/2020 Pneumococcal Conjugate PCV 13 05/07/2020 Pneumococcal Polysaccharide PPV23 04/04/2019,,05/23/2007 Td (adult), unspecified 05/23/2003 Zoster, live 03/27/2014 Family History Medical History Relation Name Comments Kidney disease Mother Lupus Sister Relation Name Status Comments Mother Sister Social History Tobacco Use Types Packs/Day Years Used Date Smoking Tobacco: Every Day Cigarettes Smokeless Tobacco: Never Tobacco Cessation:Ready to Q uit: Not Asked; Counseling Given: Not Answered Alcohol Use Standard Drinks/Week Comments Not Currently 0 (1 standard drink = 0.6 oz pur e alcohol) Comments Unknown Sex and Gender Information Value Date Recorded Sex Assigned at Not on file Legal Sex Female 6:50 PM EDT Gender Identity Not on file Sexual Orientation Not on file Last Filed Vital Signs Vital Sign Reading Time Taken Comments Blood Pressure 137/83 09/27/2022 8:27 AM EDT Pulse 67 09/27/2022 8:27 AM EDT Temperature 36.8 C (98.2 F) 03/20/2020 2:37 PM EDT Respiratory Rate 17 09/27/2022 8:27 AM EDT Oxygen Saturation 96% 09/27/2022 8:27 AM EDT Inhaled Oxygen Concentration - - Weight 67 kg (147 lb 12.8 oz) 09/27/2022 8:27 AM EDT Height 170.2 cm (5' 7 ) 09/27/2022 8:27 AM EDT Body Mass Index 23.15 09/27/2022 8:27 AM EDT Plan of Treatment Health Maintenance Due Date Last Done Comments [facility]-Bone Density Scan 1954 [facility]-Depression Screening 1954 [facility]-Infant/Child/Adol SDOH Screenings 1955 [facility]- SDOH Screenings 1972 [facility]-Adult SDOH Screenings 1972 CT Colonography 10/08/1999 Colonoscopy 10/08/1999 FIT-DNA 10/08/1999 FIT 10/08/1999 FOBT 10/08/1999 Sigmoidoscopy 10/08/1999 [facility]-Colorectal Cancer Screening 10/08/1999 [facility]-DTaP,Tdap,and Td Vaccines (1 - Tdap) 05/24/2003 05/23/2003 [facility]-Zoster Vaccines (2 of 3) 05/22/2014 03/27/2014 [id number] Vaccine (3 - season) 2024 10/02/2020, 08/29/2020 [facility]-Influenza Vaccine (#1) 01/21/202501/28, 05/07/2020, 02/17/2020, Additional history exists [facility]-Pneumococcal Vaccine: 50+ Years (3 of 3 - PCV20 or PCV21) 05/07/2025 05/07/2020, 04/04/2019, 04/07/2012, Additional history exists [facility]-RSV Vaccine: 60+ Years or (1 - 1-dose 75+ series) 2029 HPV Vaccines Aged Out No longer eligi ble based on patient's age to complete this topic [facility]-HIB Vaccines Aged Out No longer e ligible based on patient's age to complete this topic [facility]-Hepatitis A Vaccines Aged Out No longer eligible based on patient's age to complete this topic [facility]-IPV Vaccines Aged Out No longer e ligible based on patient's age to complete this topic [facility]-Rotavirus Vaccines Aged Out No lo nger eligible based on patient's age to complete this topic Insurance [facility] [place] [address] Care Teams Chief Of Staff Relationship Specialty Start Date End Date Toni Palmer MD [address] [place] [address] [place] [address] PCP - General 10/03/20
--- OUTSIDE RECORDS SUMMARY | 2024-11-22 16:45 | XMS_ITS | Clinical Summary ---
Author Organization [facility] Address [address] [place] [id number] Phone [email or web address] Care Team Providers Care Cargo And Container Inspector Name Role Phone Toni Palmer Primary Care Provider [phone] Allergies No known active allergies Medications amphetamine-dex troamphetamine (ADDERALL) 15 MG tablet Take 1 tablet by mouth 1 (one) time each day in the morning. 0 Active XTAMPZA ER 36 MG capsule extended-releas e 12 hour TAKE ONE CAPSULE BY MOUTH EVERY TWELVE HOURS FOR PAIN MAY CAUSE DROWSINESS 0 Active promethazine (PHENERGAN) 25 MG tablet TAKE ONE TABLET BY MOUTH TWICE DAILY NEEDED FOR NAUSEA MAY CAUSE DROWSINESS 0 Active Active Problems Problem Noted Date Diagnosed Date Encounter for occupational health examination Social History Tobacco Use Types Packs/Day Years Used Date Smoking Tobacco: Never Assessed Intimate Partner Violence Answer Date R ecorded Insults You Not on file 09/02/2020 Threatens You Not on file 09/02/2020 Screams at You Not on file 09/02/2020 Physically Hurt Not on file 09/02/2020 Intimate Partner Violence Score Not on file 09/02/2020 Stress Answer Date Recorded Stress in your Life 0 07/04/2020 Dealing with Stress Not on file 07/04/2020 Comments Unknown Sex and Gender Information Value Date Recorded Sex Assigned at Not on file Legal Sex Female 8:08 AM CDT Gender Identity Not on file Sexual Orientation Not on file Last Filed Vital Signs Vital Sign Reading Time Taken Comments Blood Pressure 132/78 08/02/2019 9:39 PM EDT Pulse 72 08/02/2019 9:39 PM EDT Temperature 36.9 C (98.5 F) 08/02/2019 9:39 PM EDT Respiratory Rate - - Oxygen Saturation 97% 08/02/2019 9:39 PM EDT Inhaled Oxygen Concentration - - Weight - - Height - - Body Mass Index - - Plan of Treatment Health Maintenance Due Date Last Done Comments Dental Cleaning/Exam 1954 Tetanus Diphtheria and Pertussis Immunization (1 - Tdap) 1973 Breast Cancer Screening 1984 Colorectal Cancer Screening 1984 Osteoporosis screening DEXA 2004 Pneumococcal: 65+ Years (2 o f 2 - PCV) 04/07/2013 04/07/2012, 05/23/2007 Zoster Immunization (2 of 3) 05/22/2014 03/27/2014 Covid-19 Immunization ( - season) 2024 Influenza Immunization (Season Ended) 2025 04/07/2012, 05/23/2007 HIB Immunization Aged Out No longer e ligible based on patient's age to complete this topic HPV Immunization Aged Out No longer e ligible based on patient's age to complete this topic Hepatitis A Immunization Aged Out No longer eligible based on patient's age to complete this topic Hepatitis B Immunization Aged Out No longer eligible based on patient's age to complete this topic Polio Immunization Aged Out No longer eligible based on patient's age to complete this topic Care Teams Cargo And Container Inspector Relationship Specialty [place] [address] PCP - General Beef Tagger 01/20/21
--- OUTSIDE RECORDS SUMMARY | 2024-11-22 16:45 | XMS_ITS | Encounter Summary ---
Author Organization Healthcare Address [address] [place] [address] Care Team Providers Care Radiator Repairer Name Role Phone Toni Palmer MD Primary Care Provider [phone] Encounter Details Date Type Department Care Team (Late st Contact Info) Description 09/22/2019 Orders Only External Location [address] [place] [address] Provider, External Social History Tobacco Use Types Packs/Day Years Used Date Smoking Tobacco: Never Assessed Comments Unknown Sex and Gender Information Value Date Recorded Sex Assigned at Not on file Legal Sex Female 6:50 PM EDT Gender Identity Not on file Sexual Orientation Not on file documented as of this encounter Plan of Treatment Not on file documented as of this encounter Procedures Procedure Name Priority Date/Time Associated Diagnosis Comments CT CERVICAL SPINE WO IV CONTRAST 09/22/2019 4:40 PM EDT documented in this encounter Results * CT Cervical Spine wo IV Contrast (09/22/2019 4:40 PM EDT) Anatomical Region Laterality Modality Spine, C-spine Computed Tomogra phy 09/22/2019 4:40 PM EDT us External Provider IMG CT PROCEDURES Final Result documented in this encounter Visit Diagnoses Not on filedocumented in this encounter Care Teams Radiator Repairer Relationship Specialty Start Date End Date Toni Palmer MD [address] [place] [address] [place] [address] PCP - General 10/03/20 documented as of this encounter
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
--- OUTSIDE RECORDS SUMMARY | 2024-11-22 16:45 | XMS_ITS | Encounter Summary ---
Author Organization Healthcare Address [address] [place] [address] Care Team Providers Care Bellhop Service Captain Name Role Phone Toni Palmer MD Primary Care Provider [phone] Encounter Details Date Type Department Care Team (Late st Contact Info) Description 06/25/2022 Orders Only External Location [address] [place] [address] Toni Palmer MD [address] [place] [address] Social History Tobacco Use Types Packs/Day Years Used Date Smoking Tobacco: Every Day Cigarettes Smokeless Tobacco: Never Alcohol Use Standard Drinks/Week Comments Not Currently [...] Procedure Name Priority Date/Time Associated Diagnosis Comments XR LUMBAR SPINE COMPLETE 4-5 VIEWS 06/25/2022 11:57 AM EST documented in this encounter Results * XR LUMBAR Spine 4 views AP LAT Flexion Extension (06/25/2022 11:57 AM EST) Anatomical Region Laterality Modality Spine, L-spine Digital Radiogra phy 06/25/2022 11:5 7 AM EST us Toni Palmer MD IMG XR PROCEDURES Final Resu lt documented in this encounter Visit Diagnoses Not on filedocumented in this encounter Care Teams Bellhop Service Captain Relationship Specialty Start Date End Date Toni Palmer MD [address] [place] [address] PCP - General 10/03/20 documented as of this encounter
--- OUTSIDE RECORDS SUMMARY | 2024-11-22 16:45 | XMS_ITS | Encounter Summary ---
Author Organization Healthcare Address [address] [place] [address] Care Team Providers Care Director Of Field Service Name Role Phone Toni Palmer MD Primary Care Provider [phone] Encounter Details Date Type Department Care Team (Late st Contact Info) Description 11/05/2019 Orders Only External Location [address] [place] [address] Provider, External Social History Tobacco Use Types [...] Procedure Name Priority Date/Time Associated Diagnosis Comments MR LUMBAR SPINE WO IV CONTRAST 11/05/2019 1:05 PM EDT documented in this encounter Results * MR Lumbar Spine wo IV Contrast (11/05/2019 1:05 PM EDT) Anatomical Region Laterality Modality L-spine Magnetic Resonan ce 11/05/2019 1:05 PM EDT us External Provider IMG MRI PROCEDURES Final Resul t documented in this encounter Visit Diagnoses Not on filedocumented in this encounter Care Teams Director Of Field Service Relationship Specialty Start Date End Date Toni Palmer MD [address] [place] [address] PCP - General 10/03/20 documented as of this encounter
--- OUTSIDE RECORDS SUMMARY | 2024-11-22 16:45 | XMS_ITS | Encounter Summary ---
Author Organization Healthcare Address [address] [place] [address] Care Team Providers Care E/M Engineer Name Role Phone Toni Palmer MD Primary Care Provider [phone] Encounter Details Date Type Department Care Team (Late st Contact Info) Description 09/22/2019 Orders Only External Location [address] [place] [address] Provider, External Social History Tobacco Use Types [...] Name Priority Date/Time Associated Diagnosis Comments CT LUMBAR SPINE WO IV CONTRAST 09/22/2019 4:32 PM EDT documented in this encounter Results * CT Lumbar Spine wo IV Contrast (09/22/2019 4:32 PM EDT) Anatomical Region Laterality Modality Spine, L-spine Computed Tomogra phy 09/22/2019 4:32 PM EDT us External Provider IMG CT PROCEDURES Final Result documented in this encounter Visit Diagnoses Not on filedocumented in this encounter Care Teams E/M Engineer Relationship Specialty Start Date End Date Toni Plamer MD [address] [place] [address] PCP - General 10/03/20 documented as of this encounter
--- OUTSIDE RECORDS SUMMARY | 2024-11-22 16:45 | XMS_ITS | Encounter Summary ---
Author Organization Healthcare Address [address] [place] [address] Care Team Providers Care Pickle Water Pump Operator Name Role Phone Toni Palmer MD Primary Care Provider [phone] Encounter Details Date Type Department Care Team (Late st Contact Info) Description 09/22/2019 Orders Only External Location [address] [place] [address] Provider, External Social History Tobacco Use Types [...] Name Priority Date/Time Associated Diagnosis Comments CT THORACIC SPINE WO IV CONTRAST 09/22/2019 4:28 PM EDT documented in this encounter Results * CT Thoracic Spine wo IV Contrast (09/22/2019 4:28 PM EDT) Anatomical Region Laterality Modality Spine, T-spine Computed Tomogra phy 09/22/2019 4:28 PM EDT us External Provider IMG CT PROCEDURES Final Result documented in this encounter Visit Diagnoses Not on filedocumented in this encounter Care Teams Pickle Water Pump Operator Relationship Specialty Start Date End Date Toni Palmer MD [address] [place] [address] PCP - General 10/03/20 documented as of this encounter
== END 2024-11-22 23:59 | disposition home or self-care (01) ==
LOC: RAD 16:43
PROVIDERS: PCP Internal Medicine Adolescent Medicine; Visit Provider Physician Assistant
DX: M18.11 Unilateral primary osteoarthritis of first carpometacarpal joint, right hand (principal); M19.041 Primary osteoarthritis, right hand
CPT/HCPCS: 73140